=== PATIENT | male | born 1990 | race Two or more races ===

== ENCOUNTER 2021-10-17 09:18 | Inpatient (IN) | payer OTHER, SELFPAY ==
--- NOTE | ~2021-10-17 | CT_ITS ---
EXAMINATION: CT ABDOMEN AND PELVIS WITHOUT CONTRAST CLINICAL INFORMATION: Left flank pain. History of kidney stones. COMPARISON: Previous CT of the abdomen and pelvis July 2020 TECHNIQUE: Multidetector volumetric imaging was performed from the superior aspect of the liver through the pubic symphysis. Sagittal and coronal reformatted images were obtained on the technologist's workstation. This CT examination was performed using dose optimization techniques as appropriate, variously including the following: *Automated exposure control *Adjustment of mA and/or kV according to patient size (this includes techniques or standardized protocols for targeted exams where dose is matched to indication/reason for exam; i.e. extremities or head) *Use of iterative reconstruction technique DLP: 485 mGy-cm FINDINGS: LUNG BASES: The visualized lung bases are unremarkable. LIVER, GALLBLADDER, AND BILIARY TREE: The liver is normal in size, shape, and attenuation. No focal hepatic lesion or biliary ductal dilatation is present. The gallbladder is unremarkable with no evidence of radiopaque gallstones, gallbladder wall thickening, or obvious pericholecystic inflammatory changes. PANCREAS: Unremarkable. SPLEEN: Unremarkable. ADRENAL GLANDS: Unremarkable. KIDNEYS AND URETERS: There is moderate left hydronephrosis from a 0.8 x 1.4 cm left UPJ stone. There are bilateral renal stones. Largest right renal stone measures 5 mm in the lower pole. Largest left renal stone measures 2 x 4 mm in the lower pole. BLADDER: Unremarkable. GASTROINTESTINAL TRACT: The small and large bowel are unremarkable. The appendix is unremarkable. ABDOMINAL WALL: There is a ventral or supraumbilical hernia containing fat. There is a small umbilical hernia containing fat. LYMPH NODES: Normal. VASCULAR: Unremarkable. PELVIC VISCERA: Unremarkable. OSSEOUS STRUCTURES: Unremarkable. CT/CT abdomen pelvis wo con IMPRESSION: Left hydronephrosis from a 8 x 14 mm left UPJ stone. Smaller bilateral renal stones.
[2021-10-17 09:53] VITALS: BP 126/70; PULSE 83; RESP 18; TEMP 36.7; O2SAT 97; BMI 26.4
[2021-10-17] MEDS: Ondansetron ODT 4 MG TAB.RAPDIS TRANSLINGU (11:14)
[2021-10-17] MEDS: ondansetron HCL 4 MG/2 ML VIAL IVPUSH ×2 (13:23→18:28)
[2021-10-17] MEDS: Ketorolac Tromethamine 15 MG/ML VIAL 30 MG IVPUSH (13:24)
[2021-10-17 13:25] LABS: MANUAL DIFF FLAG NO
[2021-10-17] MEDS: Morphine Sulfate 4 MG/ML CARTRIDGE IVPUSH ×2 (13:25→14:53)
[2021-10-17] MEDS: 0.9 % Sodium Chloride 1,000 ML 999 ML IV (13:26)
[2021-10-17 13:29] LABS: Basophils Percent Auto 0.1 % (0-2); Eosinophils Percent Auto 0.1 % (0-4); Hemoglobin 14.4 g/dl (14.0-18.0); Imm Gran Abs Auto 0.06 X10*3/uL (0.00-0.03); Imm Gran Pct Auto 0.4 % (0.0-0.4); Lymphocytes Absolute Auto 0.5 X10*3/uL (1.2-4.9); Lymphocytes Percent Auto 3.2 % (20-40); Mean Corpuscular HGB Conc 34.3 g/dl (31.0-36.0); Mean Corpuscular Hemoglobin 28.9 pg (27.0-33.0); Mean Corpuscular Volume 84.2 fL (80.0-98.0); Mean Platelet Volume 9.1 fL (9.4-12.4); Monocytes Absolute Auto 1.1 X10*3/uL (0.1-1.2); Monocytes Percent Auto 6.6 % (2-11); Neutrophils Absolute Auto 14.8 x10*3/uL (2.0-8.3); Neutrophils Percent Auto 89.6 % (45-73); Platelet Count 325 X10*3/uL (160-400); Red Blood Count 4.99 X10*6/uL (4.60-5.80); Red Cell Distribution Width 15.5 % (11.0-16.0); White Blood Count 16.5 X10*3/uL (4.8-10.8)
[2021-10-17 13:48] LABS: Alanine Aminotransferase 13 U/L (0-40); Albumin Level 4.3 g/dL (3.5-5.0); Alkaline Phosphatase 77 U/L (39-117); Anion Gap 13 (12-20); Aspartate Amino Transferase 15 U/L (5-37); Bilirubin Total 0.5 mg/dL (0.0-1.0); Blood Urea Nitrogen 19 mg/dL (9-16); Calcium 9.3 mg/dL (8.4-10.2); Carbon Dioxide 24 mmol/L (22-29); Chloride 106 mmol/L (96-108); Creatinine Clr Calc Pharmacy 102.6; Estimated Glomerular Filt Rate > 60; Glucose Random 112 mg/dL (60-115); Potassium 4.6 mmol/L (3.3-5.1); Sodium 138 mmol/L (135-145); Total Protein 7.2 g/dL (6.5-8.0)
--- NOTE | 2021-10-17 14:07 | ED_ITS ---
HPI - Abdominal Pain General Chief Complaint: Abdominal Pain Stated Complaint: lt side flank & abd pain Time Seen by Provider: 10/17/21 13:07 Source: patient Mode of arrival: ambulatory Limitations: no limitations History of Present Illness HPI narrative: Patient with pmh of Kidney stones presents to the ED for left sided flank pain for 1 weeks. patient states he thinks he is having another kidnye stones. patient has had stent placed in the past. Patient denies hematuria, dysuria, fever, chills, or any recent trauma. Related Data Allergies Allergy/AdvReac Type Severity Reaction Status Date / Time cat dander [CATS] Allergy Unknown UNKNOWN Verified 10/17/21 09:52 dog dander [DOGS] Allergy Unknown UNKNOWN Verified 10/17/21 09:52 Review of Systems Review of Systems Yes all other systems are reviewed and are negative Constitutional: Reports as per HPI and Reports no additional constitutional complaints Eyes: Reports as per HPI and Reports no additional eye complaints Reports system reviewed and no additional complaints, except as documented and Reports as per HPI Cardiovascular: Reports as per HPI and Reports no additional cardiovascular complaints Respiratory: Reports as per HPI and Reports no additional respiratory complaints Gastrointestinal: Reports as per HPI, Reports no additional gastrointestinal complaints, Reports abdominal pain (left sided flank pain. ), Reports nausea and Reports vomiting Musculoskeletal: Reports no additional musculoskeletal complaints and Reports as per HPI Reports system reviewed and no additional complaints, except as documented and Reports as per HPI Psychiatric: Reports no additional psychiatric complaints and Reports as per HPI Physical Exam Vital Signs: Vital Signs: Last Vital Signs Temp 98.1 F 10/17/21 09:53 Pulse 83 10/17/21 09:53 Resp 18 10/17/21 09:53 BP 126/70 10/17/21 09:53 Pulse Ox 97 10/17/21 09:53 Body Mass Index 26.4 Const: General: cooperative, healthy appearing, comfortable, no acute distress, well developed, alert, awake and Physically active Orientation/consciousness: patient oriented x3 HENMT: Head: Yes normal to inspection, Yes No palpable skull fracture present, Yes normocephalic, Yes atraumatic and No abrasion Eyes: General: appearance normal, both eyes and all related structures Neck: Neck: Yes normal visual inspection, Yes full ROM, Yes no lymphadenopathy, Yes no meningeal signs, Yes trachea midline, Yes supple, No anterior neck swelling and No tender Chest: Chest palpation & inspection: normal inspection of the chest and normal palpation of entire chest wall Resp: Effort & Inspection: normal respiratory effort and able to speak in complete sentences Auscultation: clear to auscultation bilaterally Cardio: Jugular venous distension: no JVD Heart sounds: S1 normal heart sound present and S2 normal heart sound present GI: Inspection: Yes normal to inspection and No abdominal wall ecchymosis Palpation (GI): Soft to palpation, not firm, nontender, no guarding and not rigid : General: Yes CVA tenderness (left) and Yes no CVA tenderness Back/Spine/Pelvis: Back: no CVA tenderness, CVA tenderness (left) and No back tenderness Skin: General skin exam: no rashes or lesions noted and elasticity normal Neuro: General: patient oriented x3, gait normal, no meningeal signs and CN's II-XI intact bilaterally Cranial nerves: Yes CN's II-XII intact bilaterally Extrem: General: Yes normal to inspection and Yes full ROM Psych: Appearance: grossly normal, well kempt and not disheveled Course Course Course Narrative: Labs, pain meds, and imaged ordered. Reevaluation(s) Reevaluation #1: Patient has WBC of 16, [address] scan of 8mm stone at UPJ with hydronephrosis. Spoke with Dr. Webb of Urology who recommended admission to hospitalists, IV antibiotics, and Surgery in the morning. Patent given morphine, dilaudid, and toradol ordered for pain meds. Patient agreed with plan to be admitted. Time: 17:12 MDM - Abdominal Pain MDM Narrative Medical decision making narrative: Admitted for UPJ stone with hydronephrosisi Lab Data Result diagrams: 10/17/21 13:20 10/17/21 13:20 Labs: Lab Results 10/17/21 10/17/21 10/17/21 Range/Units 13:20 13:20 14:46 WBC 16.5 H (4.8-10.8) X10*3/uL RBC 4.99 (4.60-5.80) X10*6/uL Hgb 14.4 (14.0-18.0) g/dl Hct 42.0 (42.0-52.0) % MCV 84.2 (80.0-98.0) fL MCH 28.9 (27.0-33.0) pg MCHC 34.3 (31.0-36.0) g/dl RDW 15.5 (11.0-16.0) % Plt Count 325 (160-400) X10*3/uL MPV 9.1 L (9.4-12.4) fL Immature Gran % (Auto) 0.4 (0.0-0.4) % Neut % (Auto) 89.6 H (45-73) % Lymph % (Auto) 3.2 L (20-40) % [place] % (Auto) 6.6 (2-11) % Eos % (Auto) 0.1 (0-4) % Baso % (Auto) 0.1 (0-2) % Lymph # (Auto) 0.5 L (1.2-4.9) X10*3/uL [place] # (Auto) 1.1 (0.1-1.2) X10*3/uL Eos # (Auto) 0.0 (0.0-0.4) X10*3/uL Baso # (Auto) 0.0 (0.0-0.2) X10*3/uL Abs Immat Gran (auto) 0.06 H (0.00-0.03) X10*3/uL Absolute Neuts (auto) 14.8 H (2.0-8.3) x10*3/uL Absolute Nucleated RBC 0.000 (0.0-0.012) X10*3/uL Nucleated RBC % (auto) 0.0 (0.0-0.2) /100WBC Sodium 138 (135-145) mmol/L Potassium 4.6 (3.3-5.1) mmol/L Chloride 106 (96-108) mmol/L Carbon Dioxide 24 (22-29) mmol/L Anion Gap 13 (12-20) BUN 19 H (9-16) mg/dL Creatinine 1.09 (0.5-1.4) mg/dL Estim Creat Clear Calc 102.6 Estimated GFR > 60 Random Glucose 112 (60-115) mg/dL Calcium 9.3 (8.4-10.2) mg/dL Total Bilirubin 0.5 (0.0-1.0) mg/dL AST 15 (5-37) U/L ALT 13 (0-40) U/L Alkaline Phosphatase 77 (39-117) U/L Total Protein 7.2 (6.5-8.0) g/dL Albumin 4.3 (3.5-5.0) g/dL Urine Color YELLOW Urine Appearance CLEAR Urine pH 6.0 (5.0-8.0) Ur Specific [place] 1.025 (1.005-1.025) Urine Protein TRACE (NEG-TRACE) MG/DL Urine Glucose (UA) NEG (NEG) MG/DL Urine Ketones 40 (NEG) MG/DL Urine Blood 2+ H (NEG) Urine Nitrite NEG (NEG) Ur Leukocyte Esterase NEG (NEG) Urine RBC 1-4 (0) /HPF Urine WBC 0-2 (0-4) /HPF Ur Squamous Epith Cells NONE /LPF Urine Bacteria NONE /LPF Urine Mucus TRACE /LPF Discharge Plan Discharge Clinical Impression: Calculus of kidney Patient Disposition: Admitted As Inpatient [facility] Past Medical History Medical History (Updated 10/17/21 @ 17:19 by CHRISTIE Tuore) Kidney stones Social History Social History Advance Directives: No Advance Directives Information Provided: No
[2021-10-17 14:53] LABS: Appearance Urine CLEAR; Color Urine YELLOW; Glucose Urine UA NEG (NEG); Leukocyte Esterase Urine NEG (NEG); Nitrite Urine NEG (NEG); Specific Gravity - Urine 1.025 (1.005-1.025); UACC Culture Trigger NO; Urine Blood 2+ (NEG); Urine Ketones 40 MG/DL (NEG); Urine Protein TRACE MG/DL (NEG-TRACE)
[2021-10-17 15:24] LABS: Mucus Urine TRACE /LPF; WBC Urine 0-2 /HPF (0-4)
[2021-10-17] MEDS: HYDROmorphone HCl 0.5 MG/0.5 ML SYRINGE IVPUSH ×2 (15:30→21:44)
--- NOTE | 2021-10-17 16:31 | PM.UROCN ---
History of Present Illness Consult details Consult date: 10/17/21 Narrative: Onesimo is known to the urology service multiple presentations to ER for flank pain ongoing recurrent stone issues since 2015 multiple prior stone procedures in 2019 for stone recurrence does not follow-up for ongoing stone management presents today with left-sided flank pain CT imaging shows 1 cm stone proximal ureter, UPJ elevated white count with blood in the urine but no evidence of bacteriuria recommend cystoscopy with left retrograde stent placement PMF Past Medical History Medical History (Updated 10/17/21 @ 09:54 by Shama Sharif) Kidney stones Social History Social History Advance Directives: No Advance Directives Information Provided: No Meds Allergies Allergy/AdvReac Type Severity Reaction Status Date / Time cat dander [CATS] Allergy Unknown UNKNOWN Verified 10/17/21 09:52 dog dander [DOGS] Allergy Unknown UNKNOWN Verified 10/17/21 09:52 Physical Exam Vital Signs: Vital Signs: Last Vital Signs Temp 98.1 F 10/17/21 09:53 Pulse 83 10/17/21 09:53 Resp 18 10/17/21 09:53 BP 126/70 10/17/21 09:53 Pulse Ox 97 10/17/21 09:53 Body Mass Index 26.4 Results Labs Result diagrams: 10/17/21 13:20 10/17/21 13:20 Labs: Abnormal lab results 10/17/21 10/17/21 10/17/21 Range/Units 13:20 13:20 14:46 WBC 16.5 H (4.8-10.8) X10*3/uL MPV 9.1 L (9.4-12.4) fL Neut % (Auto) 89.6 H (45-73) % Lymph % (Auto) 3.2 L (20-40) % Lymph # (Auto) 0.5 L (1.2-4.9) X10*3/uL Abs Immat Gran (auto) 0.06 H (0.00-0.03) X10*3/uL Absolute Neuts (auto) 14.8 H (2.0-8.3) x10*3/uL BUN 19 H (9-16) mg/dL Urine Blood 2+ H (NEG) Short CBC 10/17/21 Range/Units 13:20 WBC 16.5 H (4.8-10.8) X10*3/uL Hgb 14.4 (14.0-18.0) g/dl Hct 42.0 (42.0-52.0) % Plt Count 325 (160-400) X10*3/uL BMP 10/17/21 13:20 Sodium 138 Potassium 4.6 Chloride 106 Carbon Dioxide 24 BUN 19 H Creatinine 1.09 Calcium 9.3 Liver Function 10/17/21 Range/Units 13:20 Total Bilirubin 0.5 (0.0-1.0) mg/dL AST 15 (5-37) U/L ALT 13 (0-40) U/L Alkaline Phosphatase 77 (39-117) U/L Albumin 4.3 (3.5-5.0) g/dL Urine 10/17/21 Range/Units 14:46 Urine Color YELLOW Urine Appearance CLEAR Urine pH 6.0 (5.0-8.0) Ur Specific [place] 1.025 (1.005-1.025) Urine Protein TRACE (NEG-TRACE) MG/DL Urine Glucose (UA) NEG (NEG) MG/DL All other labs normal.
--- NOTE | 2021-10-17 16:58 | PM.IMHP ---
History of Present Illness Date of Service: 10/17/21 Chief Complaint: Loin pain A 31 years old male with PMH of kidney stones who presents to the hospital with 1 week of worsening left-sided line pain. He reports placement of stent before for similar reason. He denies hematuria, dysuria, fever or chills. CT scan showed almost 1 cm stone partially obstructing left ureter. Evaluated by Urology who recommended inpatient admission for stent placement. Review of Systems Review of Systems: No fever, chills or weakness No chest pain, palpitation No shortness of breath or coughing No abdominal pain, nausea or vomiting Loin pain No any rash or wounds PMFSH Medical History Kidney stones Social History Advance Directives: No Advance Directives Information Provided: No Meds Allergies Allergy/AdvReac Type Severity Reaction Status Date / Time cat dander [CATS] Allergy Unknown UNKNOWN Verified 10/17/21 09:52 dog dander [DOGS] Allergy Unknown UNKNOWN Verified 10/17/21 09:52 Active Medications: Current Medications Pharmacy Consult (Consult Rx Perform Med Rec) 1 each MISCELLANE ONCE PRN PRN Reason: Consult order Physical Exam Vital Signs and Narrative: Vital Signs: Last Vital Signs Temp 98.1 F 10/17/21 09:53 Pulse 83 10/17/21 09:53 Resp 18 10/17/21 09:53 BP 126/70 10/17/21 09:53 Pulse Ox 97 10/17/21 09:53 Body Mass Index 26.4 Const: Other: Constitutional : Alert, oriented, not in distress Neck : Normal inspection, Supple Cardiovascular : RRR, S1 S2, no lower extremity edema Respiratory : Good bilateral air entry, no crackles, wheezes or rhonchi Gastrointestinal: soft, lax, Normal bowel sounds, Non tender Skin : Warm, Dry Back, tenderness on palpation of the CVA and left-sided back Neurological : Alert & oriented x3, No focal deficit Results Labs CBC and Chem 7: 10/17/21 13:20 10/17/21 13:20 Labs: Laboratory Results - last 24 hr 10/17/21 10/17/21 10/17/21 13:20 13:20 14:46 MCV 84.2 MCH 28.9 MCHC 34.3 RDW 15.5 Plt Count 325 MPV 9.1 L Immature Gran % (Auto) 0.4 Neut % (Auto) 89.6 H Lymph % (Auto) 3.2 L [place] % (Auto) 6.6 Eos % (Auto) 0.1 Baso % (Auto) 0.1 Lymph # (Auto) 0.5 L [place] # (Auto) 1.1 Eos # (Auto) 0.0 Baso # (Auto) 0.0 Abs Immat Gran (auto) 0.06 H Absolute Neuts (auto) 14.8 H Absolute Nucleated RBC 0.000 Nucleated RBC % (auto) 0.0 Anion Gap 13 Estim Creat Clear Calc 102.6 Estimated GFR > 60 Random Glucose 112 Calcium 9.3 Total Bilirubin 0.5 AST 15 ALT 13 Alkaline Phosphatase 77 Total Protein 7.2 Albumin 4.3 Urine Color YELLOW Urine Appearance CLEAR Urine pH 6.0 Ur Specific [place] 1.025 Urine Protein TRACE Urine Glucose (UA) NEG Urine Ketones 40 Urine Blood 2+ H Urine Nitrite NEG Ur Leukocyte Esterase NEG Urine RBC 1-4 Urine WBC 0-2 Ur Squamous Epith Cells NONE Urine Bacteria NONE Urine Mucus TRACE Imaging Radiologist's Impressions: Impressions Abdomen/Pelvis CT 10/17/21 13:10 IMPRESSION: Left hydronephrosis from a 8 x 14 mm left UPJ stone. Smaller bilateral renal stones. Assessment and Plan (1) Ureteric stone: Status: Acute (2) Hydronephrosis concurrent with and due to calculi of kidney and ureter: Status: Acute (3) Leukocytosis: Status: Acute A 31 years old male with PMH of kidney stones who presents to the hospital with 1 week of worsening left-sided line pain. Hydronephrosis 2/[address] scan as reported Evaluated by urology team, recommended starting antibiotics Plan for stent placement Wednesday morning Start ceftriaxone 1 g Q 24 DVT PPX Lovenox Quality Stroke Does the patient have a stroke diagnosis?: No VTE Prior VTE?: No VTE Risk Level:: Medical - moderate - high VTE Device Contraindication: Treatment Not Tolerated VTE Drug Contraindication: N/A - Med Ordered
[2021-10-17 17:00] LABS: Lactic Acid 0.6 mmol/L (0.5-2.0)
[2021-10-17 17:09] LABS: COVID-19 Test Negative (Negative)
[2021-10-17] MEDS: cefTRIAXone sodium 1 GM in 0.9 % Sodium Chloride 50 ML IV (17:20)
[2021-10-17] MEDS: Morphine Sulfate 4 MG/ML CARTRIDGE 2 MG IVPUSH ×2 (17:32→21:17)
--- NOTE | 2021-10-17 17:57 | PHA.MEDREC ---
Pharmacy Consult ? Medication Reconciliation Pharmacy has completed the medication reconciliation.
[2021-10-17] MEDS: Ketorolac Tromethamine 30 MG/ML VIAL 15 MG IVPUSH (18:28)
[2021-10-17 19:32] VITALS: RESP 16
--- NOTE | 2021-10-17 19:33 | PC.NURSE ---
pt resting in stretcher awake and speaking with sig other at bedside. respirations easy, n/l. skin w/d. pt awaiting for further orders and room assignment. pt rating pain 3/10 and states im ok at this time . will continue to monitor pt.
--- NOTE | 2021-10-17 20:29 | PC.NURSE ---
pt wanting to sign out ama and wants to take po antibiotics. Hospitalist aware and coming to speak with pt.
--- NOTE | 2021-10-17 20:55 | PC.NURSE ---
hospitalist at bedside speaking with pt. hospitalist ordering dilaudid for pain. awaiting orders.
[2021-10-17 21:17] VITALS: RESP 18
[2021-10-17 21:44] VITALS: RESP 16
--- NOTE | 2021-10-17 21:47 | P.EN_ITS ---
Event Note Date of Service: 10/18/21 Event Note: pt wants to leave AMA. Spoke to him about the seriousness of the o bstructing urinary stone i spoke to the pt , he is adamant that he wants to leave., i informed him that if he leaves he may become septic as he has an obstructing kidney stone, He is aware that sepsis can lead to as well. pt aware of risk and still wants to leave. he will be leaving AMA
--- NOTE | 2021-10-17 22:35 | PC.NURSE ---
PT REFUSING TO STAY FOR ADMISSION. HOSPITALIST RETURNS TO SPEAK WITH PT. PT DECIDED TO SIGN OUT. PT GIVEN RISKS OF LEAVING AGAINST MEDICAL ADVISE AND VERBALIZED AGREEMENT TO RISK OF LEAVING. PT SIGNED AMA FORM. IV REMOVED INTACT. PT LEFT ED WITH STEADY EVEN GAIT TO WR WITH SIGN OTHER.
--- NOTE | 2021-10-20 10:19 | P.PNUR_ITS ---
Subjective Subjective Date of Service: 10/20/21 Interval history: persistent left-sided flank discomfort Stone has not passed White count is decreased Creatinine has decreased with hydration Plan for intervention today with cystoscopy, left retrograde, left ureteroscopy laser lithotripsy Physical Exam Vital Signs: Vital Signs: Last Vital Signs Temp 98.1 F 10/17/21 09:53 Pulse 83 10/17/21 09:53 Resp 16 10/17/21 21:44 BP 126/70 10/17/21 09:53 Pulse Ox 97 10/17/21 09:53 Body Mass Index 26.4 Const: General: cooperative, healthy appearing, comfortable and no acute di stress Orientation/consciousness: patient oriented x3 HENMT: Face and sinus: Yes normal facial exam Mouth: moist mucous membranes Neck: Neck: Yes normal visual inspection, Yes full ROM and Yes trachea midline Chest: Chest palpation & inspection: normal inspection of the chest Resp: Effort & Inspection: normal respiratory effort, able to speak in complete sentences and no respiratory distress GI: Inspection: Yes normal to inspection Back/Spine/Pelvis: Cervical Spine: normal cervical lordosis Thoracic/Lumbar Spine: thoracic and lumbar spine normal to inspection Skin: General skin exam: no rashes or lesions noted Neuro: General: patient oriented x3, gait normal, tone normal and moves all extremities Extrem: General: Yes normal to inspection and Yes capillary refill normal Urology Results Labs CBC & Chem 7: 10/17/21 13:20 10/17/21 13:20 Progress Note: A&P Assessment and plan (1) Hydronephrosis concurrent with and due to calculi of kidney and ureter: Status: Acute Assessment and Plan: plan for left cysto with ureteroscopy procedure Time Spent With Patient Time: Total time spent is greater than 50% in coordination of care (as documented) at patient's floor/unit and/or counseling patient: Time with patient: less than 15 minutes No Severe Sepsis: No Severe Sepsis Progress Note: Quality Stroke Does the patient have a stroke diagnosis?: No
--- NOTE | 2021-10-20 11:25 | P.OP_ITS ---
Operative Note Operative Note Date of Service: 10/20/21 Narrative: PreOperative Diagnosis: left proximal ureteric stone Post Operative Diagnosis: left renal stone Procedure: - cystoscopy, left retrograde - left dilatation of ureteric orifice under fluoroscopy - left ureteroscopy, laser lithotripsy, stone basketing Surgeon: Dr Eros Webb Anesthesia: General Indications for procedure: this is a 31-year-old male. Presented through emergency department with left- sided flank pain. Had 1 cm stone in the UPJ. Has undergone prior stone procedures. Indicated that he would would be willing to undergo procedure however he did not tolerate stent previously and requests not to have a stent. He understands the risks and benefits particularly risk of stone fragmentation blockage and infection. Procedure: After informed consent was verified patient was brought to the operating placed in supine position. Anesthesia was administered per protocol. Patient was placed in modified dorsal lithotomy position and prepped and draped in a sterile fashion. Safety pause time-out and side of surgery confirmed. Antibiotics confirmed. 22 [place] cystoscope was inserted. Both ureteric orifices normal position. Left ureteric orifice was seen and cannulated. Retrograde examination was performed. Filling defects seen proximal ureter. Sensor guidewire was placed. Ureteric catheter was advanced. Stone was knocked up into the renal pelvis. A ureteric access sheath was placed. The internal cannula was used to dilate ureteric orifice under fluoroscopy. The sheath was placed. The internal cannula was removed and the wire was removed. A flexible ureteral scope was then advanced up to the level renal pelvis. The renal pelvis was examined. The large stone was seen that had been placed in the renal pelvis. Using a 200 micron holmium laser fiber and combination hammer and dusting settings on the laser the stone was broken into small pieces. This took approximately 30 minutes. We then spent another 20 minutes basketing fragments and removing these from the kidney. Kidney was also irrigated throughout this time frame. Once all pieces that were visible and could be placed within the basket were removed decision was made to cease the case. No stent was placed. The access sheath was removed. A cystoscope was placed in the bladder was drained. Pain control was provided with B&O suppository He tolerated procedure well was extubated in operating room transferred in stable condition to the recovery area. Pathology: Stones Drains: none
== END 2021-10-18 05:19 | disposition left against medical advice (07) | DRG 465 ==
LOC: HO.ED 17:19 → HO.EDOVER 17:25
PROVIDERS: Physician Assistant; Admitting Provider Student in an Organized Health Care Education/Training Program; Emergency Provider Emergency Medicine; PCP Family Medicine; Visit Provider Student in an Organized Health Care Education/Training Program
DX: N13.2 Hydronephrosis with renal and ureteral calculous obstruction (principal); Z20.822 Contact with and (suspected) exposure to COVID-19; Z87.442 Personal history of urinary calculi; Z79.1 Long term (current) use of non-steroidal anti-inflammatories (NSAID); Z79.899 Other long term (current) drug therapy
CPT/HCPCS: 36415; 74176; 80053; 81001; 83605; 85025; 87040; 87635; 96361; 96365; 96375; 96376; 99283; 99291; J0696; J1170; J1885; J2270; J2405

== ENCOUNTER 2021-10-18 04:47 | Inpatient (IN) | payer OTHER, SELFPAY ==
[2021-10-18] VITALS (9 sets, daily range): BP systolic 98–181; BP diastolic 61–85; PULSE 56–88; RESP 16–19; TEMP 36.6–37.3; O2SAT 98–100; BMI 26.1
--- NOTE | ~2021-10-18 | FL_ITS ---
EXAMINATION: XR FLUOROSCOPY WITH IMAGES CLINICAL INFORMATION: Left UPJ stone COMPARISON: Previous CT of the abdomen and pelvis 10/17/2021 TECHNIQUE: Fluoroscopy performed by Dr. Eros Webb. Fluoroscopy time: 0.5 minutes Dose: 8 mgy Images: 1 FINDINGS: Single image demonstrates catheter projecting over the left proximal ureter. FL/FL guidance in OR IMPRESSION: Fluoroscopy guidance for left retrograde exam.
--- NOTE | 2021-10-18 04:53 | ED_ITS ---
HPI - General Adult General Stated complaint: flank pain Time Seen by Provider: 10/18/21 04:49 Source: patient Mode of arrival: ambulatory Limitations: no limitations History of Present Illness HPI narrative: Patient is returning to the emergency room complaining of left flank pain. A few hours ago, patient left against medical advice. Patient's providers, hospitalist and nurse tried to convince him to stay, patient is known to have a 8 mm x [address]J stone. Dr. Webb was consulted, recommended inpatient treatment for stent in the morning. Nevertheless, patient left against medical advice, but now his back complaining of worsening left flank pain nausea. Patient denies fever chills Related Data Home Medications Medication Instructions Recorded Confirmed No Known Home Meds 10/17/21 10/17/21 Allergies Allergy/AdvReac Type Severity Reaction Status Date / Time cat dander [CATS] Allergy Unknown UNKNOWN Verified 10/17/21 09:52 dog dander [DOGS] Allergy Unknown UNKNOWN Verified 10/17/21 09:52 Review of Systems Review of Systems: Constitutional : No Weight loss, No Fever, No Chills, No Night Sweats, No Fatigue, No Malaise ENT/Mouth : No Hearing loss, No Ear Pain, No Nasal Congestion, No Sinus Pain, No Hoarseness, No sore throat, No Rhinorrhea, No Swallowing Difficulty Eyes: No Eye Pain, No Swelling, No Redness, No Foreign Body, No Discharge, No Vision Changes Cardiovascular : No Chest Pain, No SOB, No Dyspnea on Exertion, No Orthopnea, No Edema, No Palpitations Respiratory : No Cough, No Sputum, No Wheezing, No Smoke Exposure, No Dyspnea Gastrointestinal : No Nausea, No Vomiting, No Diarrhea, No Constipation, No abdominal Pain, No Hematochezia, No Melena Genitourinary : no irregular bleeding, No Dysuria, No Urinary Frequency, No Hematuria, No Urinary Incontinence, No Urgency, complaining of severe left Flank Pain, No Urinary Flow Changes, No Hesitancy Musculoskeletal : No joint pain, No Myalgias, No Joint Swelling Skin : No Skin Lesions, No rash Neuro : No Weakness, No Numbness, No Paresthesias, No Loss of Consciousness, No Dizziness, No Headache Psych : No Anxiety/Panic, No Depression, No SI/HI/AH/VH, No Social Issues, Heme/Lymph: No Bruising, No Bleeding,No Lymphadenopathy Endocrine : No Polyuria, No Polydipsia, No Temperature Intolerance [facility] Past Medical History Medical History Kidney stones Physical Exam Const: Other: Appearance: Alert. Oriented X3. Looks in pain Eyes: Pupils equal, round and reactive to light. ENT: Pharynx normal. Neck: Normal inspection. Neck supple. No lymph nodes noted. No crepitus CVS: Normal heart rate and rhythm. Pulses normal. Normal S1 and S2 Respiratory: No respiratory distress. Breath sounds normal. No Wheezing. No rales Abdomen: Soft and nontender. No rigidity. No distention. Back: Positive CVA tenderness left side Skin: Skin warm and dry. Normal skin color. Normal skin turgor. Extremities: No lower extremity edema. No lower extremity edema. No Lacerations. No Rash Neuro: Oriented X 3. No motor deficit. No sensory deficit. Moving all extermities. No slurred speech. Course Course Course Narrative: Patient states that he will state this time, I discussed the patient with Dr. Head, patient is being readmitted. Discharge Plan Discharge Clinical Impression: Ureteric stone Patient Disposition: Admitted As Inpatient Prescriptions: No Action No Known Home Meds RF: 0
[2021-10-18 05:09] LABS: MANUAL DIFF FLAG NO
[2021-10-18] MEDS: ondansetron HCL 4 MG/2 ML VIAL IVPUSH ×3 (05:09→19:49)
[2021-10-18] MEDS: Ketorolac Tromethamine 15 MG/ML VIAL 30 MG IVPUSH (05:09)
[2021-10-18] MEDS: 0.9 % Sodium Chloride 1,000 ML 999 ML IVCONT (05:10)
[2021-10-18 05:24] LABS: Basophils Percent Auto 0.2 % (0-2); Eosinophils Percent Auto 0.4 % (0-4); Hematocrit 39.6 % (42.0-52.0); Hemoglobin 13.5 g/dl (14.0-18.0); Imm Gran Abs Auto 0.03 X10*3/uL (0.00-0.03); Imm Gran Pct Auto 0.3 % (0.0-0.4); Lymphocytes Absolute Auto 1.7 X10*3/uL (1.2-4.9); Lymphocytes Percent Auto 16.4 % (20-40); Mean Corpuscular HGB Conc 34.1 g/dl (31.0-36.0); Mean Corpuscular Hemoglobin 28.5 pg (27.0-33.0); Mean Corpuscular Volume 83.7 fL (80.0-98.0); Mean Platelet Volume 9.4 fL (9.4-12.4); Monocytes Absolute Auto 0.9 X10*3/uL (0.1-1.2); Neutrophils Absolute Auto 7.9 x10*3/uL (2.0-8.3); Neutrophils Percent Auto 74.7 % (45-73); Platelet Count 322 X10*3/uL (160-400); Red Blood Count 4.73 X10*6/uL (4.60-5.80); Red Cell Distribution Width 15.1 % (11.0-16.0); White Blood Count 10.6 X10*3/uL (4.8-10.8)
--- NOTE | 2021-10-18 05:30 | PC.NURSE ---
PT RETURNS TO ED VIA EMS WITH SAME COMPLAINTS LEFT SIDED FLANK PAIN WHICH RADIATES TO LEFT LQ. MD IN ROOM FOR EVAL. PT CHG INTO GOWN. IV PLACED TO RAC, LABS DRAWN TO LAB. PT MEDICATED PER EMAR FOR PAIN AND NAUSEA. NS UP AND RUNNING W/O SITE INTACT. WILL CONTINUE TO MONITOR PT.
[2021-10-18 05:34] LABS: Alanine Aminotransferase 16 U/L (0-40); Albumin Level 3.8 g/dL (3.5-5.0); Alkaline Phosphatase 68 U/L (39-117); Anion Gap 11 (12-20); Aspartate Amino Transferase 19 U/L (5-37); Bilirubin Direct 0.2 mg/dL (0.0-0.5); Bilirubin Total 0.4 mg/dL (0.0-1.0); Blood Urea Nitrogen 26 mg/dL (9-16); Calcium 8.7 mg/dL (8.4-10.2); Carbon Dioxide 23 mmol/L (22-29); Chloride 107 mmol/L (96-108); Creatinine Clr Calc Pharmacy 79.9; Estimated Glomerular Filt Rate 58; Glucose Random 101 mg/dL (60-115); Potassium 3.8 mmol/L (3.3-5.1); Sodium 137 mmol/L (135-145); Total Protein 6.3 g/dL (6.5-8.0)
[2021-10-18] MEDS: Morphine Sulfate 4 MG/ML CARTRIDGE IVPUSH ×5 (06:50→23:51)
--- NOTE | 2021-10-18 08:21 | PC.NURSE ---
Pt medicated for pain at 5am and 7am. He reported pain at 7:30. MD made aware of this. Pt given morphine for pain. BPs soft at this time but stable. Automatic cuff on pt cycling at every 15min. Will continue to monitor. Pt given cold juice and encouraged to maintain adequate po fluid intake.
--- NOTE | 2021-10-18 10:30 | P.HPHOSP_ITS ---
History of Present Illness Date of Service: 10/18/21 Chief Complaint: loin pain A 31 years old male with PMH of kidney stones who presents to the hospital with 1 week of worsening left-sided line pain.? He reports placement of stent before for similar reason.? He denies hematuria, dysuria, fever or chills.? CT scan showed almost 1 cm stone partially obstructing left ureter.? Evaluated by Urology who recommended inpatient admission for stent placement. Patient was admitted then left AMA. He came back the same night with severe pain. Review of Systems Review of Systems: No fever, chills or weakness No chest pain, palpitation No shortness of breath or coughing No abdominal pain, nausea or vomiting Lowering pain No any rash or wounds PMFSH Medical History Kidney stones Social History Alcohol intake: never Patient Tobacco Use Status: Never used Tobacco Use of substances other than those prescribed or required for medical reasons: No Advance Directives: No Advance Directives Information Provided: No Meds Allergies Allergy/AdvReac Type Severity Reaction Status Date / Time cat dander [CATS] Allergy Unknown UNKNOWN Verified 10/17/21 09:52 dog dander [DOGS] Allergy Unknown UNKNOWN Verified 10/17/21 09:52 Home Medications Medication Instructions Recorded Confirmed Last Taken Type No Known Home Meds 10/17/21 10/17/21 Unknown History Physical Exam Vital Signs and Narrative: Vital Signs: Last Vital Signs Temp 98 F 10/18/21 05:17 Pulse 57 10/18/21 07:56 Resp 19 10/18/21 07:56 BP 117/67 10/18/21 09:46 Pulse Ox 99 10/18/21 07:56 Body Mass Index 26.1 Const: Other: Constitutional : Alert, oriented, not in distress Neck : Normal inspection, Supple Cardiovascular : RRR, S1 S2, no lower extremity edema Respiratory : Good bilateral air entry, no crackles, wheezes or rhonchi Gastrointestinal: soft, lax, Normal bowel sounds, Non tender Skin : Warm, Dry Back, tenderness on palpation of the CVA and left-sided back Neurological : Alert & oriented x3, No focal deficit Results Labs CBC and Chem 7: 10/18/21 05:05 11/20/21 05:05 Labs: Laboratory Results - last 24 hr 10/18/21 10/18/21 05:05 05:05 MCV 83.7 MCH 28.5 MCHC 34.1 RDW 15.1 Plt Count 322 MPV 9.4 Immature Gran % (Auto) 0.3 Neut % (Auto) 74.7 H Lymph % (Auto) 16.4 L [place] % (Auto) 8.0 Eos % (Auto) 0.4 Baso % (Auto) 0.2 Lymph # (Auto) 1.7 [place] # (Auto) 0.9 Eos # (Auto) 0.0 Baso # (Auto) 0.0 Abs Immat Gran (auto) 0.03 Absolute Neuts (auto) 7.9 Absolute Nucleated RBC 0.000 Nucleated RBC % (auto) 0.0 Anion Gap 11 L Estim Creat Clear Calc 79.9 Estimated GFR 58 Random Glucose 101 Calcium 8.7 D Total Bilirubin 0.4 Direct Bilirubin 0.2 AST 19 ALT 16 Alkaline Phosphatase 68 Total Protein 6.3 L Albumin 3.8 Assessment and Plan (1) Hydronephrosis concurrent with and due to calculi of kidney and ureter: Status: Acute (2) Calculus of kidney: Status: Acute (3) Leukocytosis: Status: Acute ?A 31 years old male with PMH of kidney stones who presents to the hospital with 1 week of worsening left-sided line pain. Hydronephrosis 2/[address] scan as reported Evaluated by urology team, recommended starting antibiotics Plan for stent placement Wednesday morning Start ceftriaxone 1 g Q 24 DVT PPX Lovenox Quality Stroke Does the patient have a stroke diagnosis?: No VTE Prior VTE?: No VTE Risk Level:: Medical - moderate - high VTE Device Contraindication: Treatment Not Indicated VTE Drug Contraindication: Treatment Not Indicated
[2021-10-18] MEDS: cefTRIAXone sodium 1 GM in 0.9 % Sodium Chloride 50 ML IV (11:25)
[2021-10-18] MEDS: 0.9 % Sodium Chloride 1,000 ML 100 ML IVCONT ×2 (11:25→22:32)
[2021-10-18] MEDS: Ketorolac Tromethamine 30 MG/ML VIAL 15 MG IVPUSH (14:27)
[2021-10-18] MEDS: 0.9 % Sodium Chloride Flush 3 ML SYRINGE IVFLUSH (14:29)
--- NOTE | 2021-10-18 14:56 | PC.NURSE ---
Pt having waives of severe pain. PRN meds given as needed. Hot packs being given as well. Pt is comfortable and pain free at times. Pt educated on pain r/t kidney stones, expectations for main management, and alternative measures of pain control.
[2021-10-18 15:53] LABS: COVID-19 Test Negative (Negative); IDNOW Serial# 9DD0AD1C
[2021-10-18] MEDS: Ketorolac Tromethamine 30 MG/ML VIAL IVPUSH ×2 (16:54→22:39)
[2021-10-18] MEDS: Acetaminophen 325 MG TABLET 650 MG PO (21:01)
[2021-10-18] MEDS: oxyCODONE HCl Immed Release 5 MG TABLET PO (21:01)
[2021-10-19] VITALS (9 sets, daily range): BP systolic 110–135; BP diastolic 63–82; PULSE 50–77; RESP 18–19; TEMP 36.1–37.1; O2SAT 98–99
--- NOTE | 2021-10-19 02:05 | PC.NURSE ---
Pt in pain, and out of PRNs to give. Dr Webb notified; told to write telephone order for [place] Supp, BID.
[2021-10-19] MEDS: Acetaminophen 325 MG TABLET 650 MG PO (02:57)
[2021-10-19] MEDS: oxyCODONE HCl Immed Release 5 MG TABLET PO ×3 (02:58→14:01)
[2021-10-19] MEDS: Morphine Sulfate 4 MG/ML CARTRIDGE IVPUSH ×6 (04:48→23:50)
[2021-10-19 07:01] LABS: Anion Gap 10 (12-20); Blood Urea Nitrogen 22 mg/dL (9-16); Calcium 8.2 mg/dL (8.4-10.2); Carbon Dioxide 23 mmol/L (22-29); Chloride 107 mmol/L (96-108); Creatinine Clr Calc Pharmacy 87.4; Estimated Glomerular Filt Rate > 60; Glucose Random 101 mg/dL (60-115); Potassium 3.8 mmol/L (3.3-5.1); Sodium 136 mmol/L (135-145)
[2021-10-19] MEDS: Ketorolac Tromethamine 30 MG/ML VIAL IVPUSH ×3 (07:24→21:48)
[2021-10-19] MEDS: Omeprazole 40 MG CAPSULE.DR PO (07:54)
[2021-10-19] MEDS: 0.9 % Sodium Chloride 1,000 ML 100 ML IVCONT ×2 (08:58→19:26)
--- NOTE | 2021-10-19 10:07 | HO.PM.IMPN ---
Subjective Subjective Date of Service: 10/19/21 Interval History: the patient was seen and evaluated this morning Laying in bed, Complaining of pain Denies any fever, chills or shortness of breath No reported other overnight events. Systemic review: No fever, chills or weakness No chest pain, palpitation No shortness of breath or coughing No abdominal pain, nausea or vomiting No urinary symptoms No any rash or wounds Physical Exam Vital Signs: Vital Signs: Last Vital Signs Temp 97.3 F 10/19/21 07:39 Pulse 50 10/19/21 07:39 Resp 19 10/19/21 07:54 BP 120/73 10/19/21 07:39 Pulse Ox 99 10/19/21 07:39 Body Mass Index 26.1 Const: Other: Constitutional : Alert, oriented, not in distress Neck : Normal inspection, Supple Cardiovascular : RRR, S1 S2, no lower extremity edema Respiratory : Good bilateral air entry, no crackles, wheezes or rhonchi Gastrointestinal: soft, lax, Normal bowel sounds, Non tender Skin : Warm, Dry Back, tenderness on palpation of the CVA and left-sided back Neurological : Alert & oriented x3, No focal deficit Objective Data Active Medications Acetaminophen (Acetaminophen 325 Mg Tablet) 650 mg PO Q6H PRN PRN Reason: Pain, Mild (Pain Scale 1-3) Last Admin: 10/19/21 02:57 Dose: 650 mg Documented by: WAYNE Belladonna Alkaloids/Opium (Opium/Bell[place] 30/16.2 Supp Supp.Rect) 1 supp [place] BID PRN PRN Reason: Pain, Severe (Pain Scale 7-10) Last Admin: 10/19/21 08:57 Dose: 1 supp Documented by: COTEMA Sodium Chloride (Ns) 1,000 mls @ 100 mls/hr IVCONT .Q10H [facility] Last Admin: 10/19/21 08:58 Dose: 100 mls/hr Documented by: JAYSHREE Ceftriaxone Sodium 1 gm/ (Sodium Chloride) 50 mls @ 100 mls/hr IV Q24H [facility] Last Infusion: 10/18/21 12:00 Dose: 0 mls/hr Documented by: SHAR Ketorolac Tromethamine (Ketorolac Tromethamine 30 Mg/Ml Vial) 30 mg IVPUSH Q6H PRN PRN Reason: Pain, Moderate (Pain Scale 4-6 Stop: 10/23/21 10:27 Last Admin: 10/19/21 07:24 Dose: 30 mg Documented by: COTEMA Morphine Sulfate (Morphine Sulfate 4 Mg/Ml Cartridge) 4 mg IVPUSH Q3H PRN; Protocol PRN Reason: Pain, Severe (Pain Scale 7-10) Last Admin: 10/19/21 07:54 Dose: 4 mg Documented by: COTEMA Omeprazole (Omeprazole 40 Mg Capsule.Dr) 40 mg PO DAILY@0630 [facility] Last Admin: 10/19/21 07:54 Dose: 40 mg Documented by: COTEMA Ondansetron HCl (Ondansetron Hcl 4 Mg/2 Ml Vial) 4 mg IVPUSH Q8H PRN PRN Reason: Nausea and Vomiting Last Admin: 10/18/21 19:49 Dose: 4 mg Documented by: RAINSHANTAL Oxycodone HCl (Oxycodone Hcl Immed Release 5 Mg Tablet) 5 mg PO Q4H PRN PRN Reason: Pain, Moderate (Pain Scale 4-6 Last Admin: 10/19/21 08:57 Dose: 5 mg Documented by: COLLINEMA Sodium Chloride (0.9 % Sodium Chloride Flush 3 Ml Syringe) 3 ml IVFLUSH QSHIFT [facility] Last Admin: 10/19/21 07:13 Dose: Not Given Documented by: COTEMA Non-Admin Reason: IV Running Labs CBC & Chem 7: 10/18/21 05:05 10/19/21 05:50 Labs: Laboratory Results - last 24 hr 10/18/21 10/19/21 15:31 05:50 Anion Gap 10 L Estim Creat Clear Calc 87.4 Estimated GFR > 60 Random Glucose 101 Calcium 8.2 L COVID-19 (LELIA) Negative COVID-19 Clin Com See Note Assessment and Plan (1) Hydronephrosis concurrent with and due to calculi of kidney and ureter: Status: Acute (2) Ureteric stone: Status: Acute Assessment and Plan: ?A 31 years old male with PMH of kidney stones who presents to the hospital with 1 week of worsening left-sided line pain. Hydronephrosis 2/[address] scan as reported Evaluated by urology team, recommended starting antibiotics Plan for stent placement Wednesday morning Continue ceftriaxone 1 g Q 24 Keep NPO post midnight DVT PPX Lovenox Quality Stroke Does the patient have a stroke diagnosis?: No VTE Prior VTE?: No VTE Risk Level:: Medical - moderate - high VTE Device Contraindication: Treatment Not Indicated VTE Drug Contraindication: Treatment Not Indicated
[2021-10-19] MEDS: cefTRIAXone sodium 1 GM in 0.9 % Sodium Chloride 50 ML IV (10:52)
[2021-10-19 11:06] LABS: Appearance Urine CLEAR; Color Urine YELLOW; Glucose Urine UA NEG (NEG); Leukocyte Esterase Urine NEG (NEG); Nitrite Urine NEG (NEG); Specific Gravity - Urine >= 1.030 (1.005-1.025); UACC Culture Trigger NO; Urine Blood TRACE (NEG); Urine Ketones 40 MG/DL (NEG); Urine Protein 1+ MG/DL (NEG-TRACE)
[2021-10-19 11:36] LABS: RBC Urine 0-2 /HPF (0); Squamous Epithelial Cell Urine TRACE /LPF; UACC CULT YES
[2021-10-19 11:37] LABS: Mucus Urine 1+ /LPF
[2021-10-19] MEDS: ondansetron HCL 4 MG/2 ML VIAL IVPUSH ×2 (11:39→23:50)
--- NOTE | 2021-10-19 16:52 | MHC.CM.PN ---
EMR REVIEWED, PT LIVES AT HOME W/ AND CHILDREN, PT IS INDEPENDENT W/ALL CARE, NO DME AND NO SERVICES, PT VERIFIES PCP IS JENIFER PEPPER AND WOULD LIKE TO COMPLETE A HCP PRIOR TO D/C. D/C PLAN: HOME SELF-CARE, PT'S SPOUSE FOR TRANSPORT
[2021-10-20] VITALS (8 sets, daily range): BP systolic 99–137; BP diastolic 48–75; PULSE 50–74; RESP 16–18; TEMP 36.4–36.8; O2SAT 96–99
[2021-10-20] MEDS: oxyCODONE HCl Immed Release 5 MG TABLET PO ×2 (01:06→07:44)
[2021-10-20] MEDS: HYDROmorphone HCl 0.5 MG/0.5 ML SYRINGE IVPUSH (01:27)
[2021-10-20] MEDS: Ketorolac Tromethamine 30 MG/ML VIAL IVPUSH (03:56)
[2021-10-20] MEDS: 0.9 % Sodium Chloride 1,000 ML 100 ML IVCONT (05:00)
[2021-10-20] MEDS: Morphine Sulfate 4 MG/ML CARTRIDGE IVPUSH ×2 (05:46→09:07)
[2021-10-20 06:19] LABS: Hematocrit 35.4 % (42.0-52.0); Hemoglobin 11.9 g/dl (14.0-18.0); Mean Corpuscular HGB Conc 33.6 g/dl (31.0-36.0); Mean Corpuscular Hemoglobin 28.5 pg (27.0-33.0); Mean Corpuscular Volume 84.9 fL (80.0-98.0); Mean Platelet Volume 9.7 fL (9.4-12.4); Platelet Count 272 X10*3/uL (160-400); Red Blood Count 4.17 X10*6/uL (4.60-5.80); Red Cell Distribution Width 15.6 % (11.0-16.0)
[2021-10-20 06:32] LABS: Anion Gap 12 (12-20); Blood Urea Nitrogen 19 mg/dL (9-16); Calcium 8.6 mg/dL (8.4-10.2); Carbon Dioxide 23 mmol/L (22-29); Chloride 110 mmol/L (96-108); Estimated Glomerular Filt Rate > 60; Glucose Random 79 mg/dL (60-115); Potassium 4.4 mmol/L (3.3-5.1); Sodium 141 mmol/L (135-145)
[2021-10-20] MEDS: Omeprazole 40 MG CAPSULE.DR PO (07:43)
--- NOTE | 2021-10-20 07:48 | P.CNUR_ITS ---
History of Present Illness Consult details Consult date: 10/19/21 Narrative: 31-year-old male known stone former left proximal ureteric 8 mm stone pain with presentation and elevated white count CT scan with proximal ureteric stone obstruction Plan for left cysto special Review of Systems Constitutional: Constitutional: Denies chills and Denies fever(s) Cardiovascular: Cardiovascular: Reports no additional cardiovascular co mplaints and Denies syncope Respiratory: Respiratory: Denies cough Gastrointestinal: Gastrointestinal: Denies abdominal pain and Denies heartburn Genitourinary: Genitourinary: Reports as per HPI and Denies change in libido Neurologic: Denies syncope Psychiatric: Psychiatric: Denies change in libido Endocrine: Endocrine: Denies change in libido [facility] Past Medical History Medical History Kidney stones Social History Social History Household Members: Spouse and Children Housing: Apartment Alcohol intake: never Patient Tobacco Use Status: Never used Tobacco Use of substances other than those prescribed or required for medical reasons: No Currently Displaying Signs/Symptoms of Drug Intoxication Withdrawal: No Have you been hit, kicked, punched, or otherwise hurt by someone within the past year? If so, by whom?: No Do you feel safe in your current relationship?: Yes Is there a partner from a previous relationship who is making you feel unsafe now?: No Are you made to feel afraid or neglected: No Advance Directives: No Advance Directives Information Provided: No Do you have thoughts of harming others: None Do you have a plan to hurt others: No Plan Recently lost weight without trying: No Eating poorly because of decreased appetite: No Nutrition Risks: Poor intake 0-25% >4 days service: No Current occupational status: unemployed Meds Allergies Allergy/AdvReac Type Severity Reaction Status Date / Time cat dander [CATS] Allergy Unknown UNKNOWN Verified 10/17/21 09:52 dog dander [DOGS] Allergy Unknown UNKNOWN Verified 10/17/21 09:52 Active Medications: Current Medications Acetaminophen (Acetaminophen 325 Mg Tablet) 650 mg PO Q6H PRN PRN Reason: Pain, Mild (Pain Scale 1-3) Last Admin: 10/19/21 02:57 Dose: 650 mg Documented by: Belladonna Alkaloids/Opium (Opium/Belladonna /16.2 Supp Supp.Rect) 1 supp [place] BID PRN PRN Reason: Pain, Severe (Pain Scale 7-10) Last Admin: 10/20/21 01:10 Dose: 1 supp Documented by: Sodium Chloride (Ns) 1,000 mls @ 100 mls/hr IVCONT .Q10H [facility] Last Admin: 10/20/21 05:00 Dose: 100 mls/hr Documented by: Ceftriaxone Sodium 1 gm/ (Sodium Chloride) 50 mls @ 100 mls/hr IV Q24H [facility] Last Infusion: 10/19/21 11:23 Dose: Infused Documented by: Ketorolac Tromethamine (Ketorolac Tromethamine 30 Mg/Ml Vial) 30 mg IVPUSH Q6H PRN PRN Reason: Pain, Moderate (Pain Scale 4-6 Stop: 10/23/21 10:27 Last Admin: 10/20/21 03:56 Dose: 30 mg Documented by: Morphine Sulfate (Morphine Sulfate 4 Mg/Ml Cartridge) 4 mg IVPUSH Q3H PRN; Protocol PRN Reason: Pain, Severe (Pain Scale 7-10) Last Admin: 10/20/21 05:46 Dose: 4 mg Documented by: Omeprazole (Omeprazole 40 Mg Capsule.Dr) 40 mg PO DAILY@0630 [facility] Last Admin: 10/20/21 07:43 Dose: 40 mg Documented by: Ondansetron HCl (Ondansetron Hcl 4 Mg/2 Ml Vial) 4 mg IVPUSH Q8H PRN PRN Reason: Nausea and Vomiting Last Admin: 10/19/21 23:50 Dose: 4 mg Documented by: Oxycodone HCl (Oxycodone Hcl Immed Release 5 Mg Tablet) 5 mg PO Q4H PRN PRN Reason: Pain, Moderate (Pain Scale 4-6 Last Admin: 10/20/21 07:44 Dose: 5 mg Documented by: Sodium Chloride (0.9 % Sodium Chloride Flush 3 Ml Syringe) 3 ml IVFLUSH QSHIFT [facility] Last Admin: 10/20/21 07:37 Dose: Not Given Documented by: Home Medications Medication Instructions Recorded Confirmed Last Taken Type No Known Home Meds 10/17/21 10/18/21 Unknown History Physical Exam Vital Signs: Vital Signs: Last Vital Signs Temp 98.1 F 10/20/21 07:30 Pulse 74 10/20/21 07:30 Resp 18 10/20/21 07:30 BP 137/75 10/20/21 07:30 Pulse Ox 99 10/20/21 07:30 Body Mass Index 26.1 Const: General: cooperative, healthy appearing, comfortable and no acute distress Orientation/consciousness: patient oriented x3 HENMT: Face and sinus: Yes normal facial exam Mouth: moist mucous membranes Neck: Neck: Yes normal visual inspection, Yes full ROM and Yes trachea midline Chest: Chest palpation & inspection: normal inspection of the chest Resp: Effort & Inspection: normal respiratory effort, able to speak in complete sentences and no respiratory distress GI: Inspection: Yes normal to inspection Back/Spine/Pelvis: Cervical Spine: normal cervical lordosis Thoracic/Lumbar Spine: thoracic and lumbar spine normal to inspection Skin: General skin exam: no rashes or lesions noted Neuro: General: patient oriented x3, gait normal, tone normal and moves all extremities Extrem: General: Yes normal to inspection and Yes capillary refill normal Results Labs Result diagrams: 10/20/21 05:46 10/20/21 05:46 Labs: Abnormal lab results 10/19/21 10/20/21 10/20/21 Range/Units 10:55 05:46 05:46 WBC 11.0 H (4.8-10.8) X10*3/uL RBC 4.17 L (4.60-5.80) X10*6/uL Hgb 11.9 L (14.0-18.0) g/dl Hct 35.4 L (42.0-52.0) % Chloride 110 H (96-108) mmol/L BUN 19 H (9-16) mg/dL Ur Specific [place] >= 1.030 H (1.005-1.025) Urine Protein 1+ H (NEG-TRACE) MG/DL Urine WBC 5-9 H (0-4) /HPF Short CBC 10/20/21 Range/Units 05:46 WBC 11.0 H (4.8-10.8) X10*3/uL Hgb 11.9 L (14.0-18.0) g/dl Hct 35.4 L (42.0-52.0) % Plt Count 272 (160-400) X10*3/uL [facility] 10/20/21 05:46 Sodium 141 Potassium 4.4 Chloride 110 H Carbon Dioxide 23 BUN 19 H Creatinine 1.13 Calcium 8.6 Urine 10/19/21 Range/Units 10:55 Urine Color YELLOW Urine Appearance CLEAR Urine pH 6.0 (5.0-8.0) Ur Specific [place] >= 1.030 H (1.005-1.025) Urine Protein 1+ H (NEG-TRACE) MG/DL Urine Glucose (UA) NEG (NEG) MG/DL All other labs normal. Assessment and Plan (1) Calculus of kidney: Status: Acute (2) Hydronephrosis concurrent with and due to calculi of kidney and ureter: Status: Acute Ureteroscopy We discussed the nature of the decision and reasonable alternatives for performing the above surgery. Interventions include chemical dissolution, ESWL, ureteroscopy with laser lithotripsy and stent placement, PCNL. Options such as medical therapy were discussed. The relative uncertainties and benefits related to each alternate procedure were adequately discussed. General surgical risks including, but not limited to, pain, bleeding, infection, myocardial infarction, pulmonary embolus, deep vein thrombosis and cerebrovascular accident which may result in further hospitalization were discussed. Full disclosure of the procedure as well as all major risks, benefits and complications were discussed including but not limited to damage to the urethra, bladder and kidney infection, damage to the ureter, stent migration or malposition, scarring to the renal pelvis, remnant stone fragments, subsequent stone passage with need for secondary procedures. The overall secondary procedure rate is approximately 10-15%. The success rate of the procedure was discussed. Success of the procedure in the short-term does not necessarily guarantee that long-term success will be maintained. Suitable follow up will need to be maintained. The patient showed understanding of discussion and wishes to proceed with - cystoscopy, retrograde, ureteroscopy, possible lithotripsy/stone basketing and stent on the left side Procedures Date of Service Date of Service: 10/18/21
--- NOTE | 2021-10-20 09:26 | HO.PM.IMPN ---
Subjective Subjective Date of Service: 10/20/21 Interval History: the patient was seen and evaluated this morning Laying in bed, Complaining of loin pain , no improvement Denies any fever, chills or shortness of breath No reported other overnight events. Systemic review: No fever, chills or weakness No chest pain, palpitation No shortness of breath or coughing No abdominal pain, nausea or vomiting loin pain No any rash or wounds Physical Exam Vital Signs: Vital Signs: Last Vital Signs Temp 98.1 F 10/20/21 07:30 Pulse 74 10/20/21 07:30 Resp 18 10/20/21 07:30 BP 137/75 10/20/21 07:30 Pulse Ox 99 10/20/21 07:30 Body Mass Index 26.1 Const: Other: Constitutional : Alert, oriented, not in distress Neck : Normal inspection, Supple Cardiovascular : RRR, S1 S2, no lower extremity edema Respiratory : Good bilateral air entry, no crackles, wheezes or rhonchi Gastrointestinal: soft, lax, Normal bowel sounds, Non tender Skin : Warm, Dry Back, tenderness on palpation left-sided back Neurological : Alert & oriented x3, No focal deficit Objective Data Active Medications Acetaminophen (Acetaminophen 325 Mg Tablet) 650 mg PO Q6H PRN PRN Reason: Pain, Mild (Pain Scale 1-3) Last Admin: 10/19/21 02:57 Dose: 650 mg Documented by: WAYNE Belladonna Alkaloids/Opium (Opium/Belladonna 16.2 Supp Supp.Rect) 1 supp [place] BID PRN PRN Reason: Pain, Severe (Pain Scale 7-10) Last Admin: 10/20/21 01:10 Dose: 1 supp Documented by: APOLINAR Sodium Chloride (Ns) 1,000 mls @ 100 mls/hr IVCONT .Q10H [facility] Last Admin: 10/20/21 05:00 Dose: 100 mls/hr Documented by: APOLINAR Ceftriaxone Sodium 1 gm/ (Sodium Chloride) 50 mls @ 100 mls/hr IV Q24H [facility] Last Infusion: 10/19/21 11:23 Dose: 0 mls/hr Documented by: COTEMA Ketorolac Tromethamine (Ketorolac Tromethamine 30 Mg/Ml Vial) 30 mg IVPUSH Q6H PRN PRN Reason: Pain, Moderate (Pain Scale 4-6 Stop: 10/23/21 10:27 Last Admin: 10/20/21 03:56 Dose: 30 mg Documented by: APOLINAR Morphine Sulfate (Morphine Sulfate 4 Mg/Ml Cartridge) 4 mg IVPUSH Q3H PRN; Protocol PRN Reason: Pain, Severe (Pain Scale 7-10) Last Admin: 10/20/21 09:07 Dose: 4 mg Documented by: BRYON Omeprazole (Omeprazole 40 Mg Capsule.Dr) 40 mg PO DAILY@0630 [facility] Last Admin: 10/20/21 07:43 Dose: 40 mg Documented by: BRYON Ondansetron HCl (Ondansetron Hcl 4 Mg/2 Ml Vial) 4 mg IVPUSH Q8H PRN PRN Reason: Nausea and Vomiting Last Admin: 10/19/21 23:50 Dose: 4 mg Documented by: APOLINAR Oxycodone HCl (Oxycodone Hcl Immed Release 5 Mg Tablet) 5 mg PO Q4H PRN PRN Reason: Pain, Moderate (Pain Scale 4-6 Last Admin: 10/20/21 07:44 Dose: 5 mg Documented by: BRYON Sodium Chloride (0.9 % Sodium Chloride Flush 3 Ml Syringe) 3 ml IVFLUSH [facility] Last Admin: 10/20/21 07:37 Dose: Not Given Documented by: BRYON Non-Admin Reason: IV Running Labs CBC & Chem 7: 10/20/21 05:46 10/20/21 05:46 Labs: Laboratory Results - last 24 hr 10/19/21 10/20/21 10/20/21 10:55 05:46 05:46 MCV 84.9 MCH 28.5 MCHC 33.6 RDW 15.6 Plt Count 272 MPV 9.7 Absolute Nucleated RBC 0.000 Nucleated RBC % (auto) 0.0 Anion Gap 12 Estim Creat Clear Calc 99.0 Estimated GFR > 60 Random Glucose 79 Calcium 8.6 Urine Color YELLOW Urine Appearance CLEAR Urine pH 6.0 Ur Specific [place] >= 1.030 H Urine Protein 1+ H Urine Glucose (UA) NEG Urine Ketones 40 Urine Blood TRACE Urine Nitrite NEG Ur Leukocyte Esterase NEG Urine RBC 0-2 Urine WBC 5-9 H Ur Squamous Epith Cells TRACE Urine Bacteria NONE Urine Mucus 1+ Assessment and Plan (1) Calculus of kidney: Status: Acute (2) Hydronephrosis concurrent with and due to calculi of kidney and ureter: Status: Acute Assessment and Plan: ?A 31 years old male with PMH of kidney stones who presents to the hospital with 1 week of worsening left-sided line pain. Hydronephrosis 2/[address] scan as reported Evaluated by urology team, recommended starting antibiotics Plan for stent placement today Continue ceftriaxone 1 g Q 24 Keep NPO DVT PPX Lovenox Quality Stroke Does the patient have a stroke diagnosis?: No VTE Prior VTE?: No VTE Risk Level:: Medical - moderate - high VTE Device Contraindication: Treatment Not Indicated VTE Drug Contraindication: Treatment Not Indicated
--- NOTE | 2021-10-20 09:29 | MHC.CM.PN ---
HCP COMPLETED AND UPLOADED INTO Patterns PATIENT ASSIGNS HIS AGENT. COPY ALSO IN CHART. PLAN IS FOR SURGERY TODAY
--- NOTE | 2021-10-20 10:11 | HO.ANESPROP2 ---
[facility] Active Problems Active Problems: All Active Problems (Updated 10/18/21 @ 04:58 by Ese Norwood MD) Calculus of kidney (Acute) Leukocytosis (Acute) Hydronephrosis concurrent with and due to calculi of kidney and ureter (Acute) Ureteric stone (Acute) Past Medical History Medical History Kidney stones Surgical History History of Problems with Anesthesia: No Social History Social History Household Members: Spouse and Children Housing: Apartment Alcohol intake: never Patient Tobacco Use Status: Never used Tobacco Use of substances other than those prescribed or required for medical reasons: No Currently Displaying Signs/Symptoms of Drug Intoxication Withdrawal: No Have you been hit, kicked, punched, or otherwise hurt by someone within the past year? If so, by whom?: No Do you feel safe in your current relationship?: Yes Is there a partner from a previous relationship who is making you feel unsafe now?: No Are you made to feel afraid or neglected: No Are you DNR?: No Advance Directives: No Advance Directives Information Provided: No Do you have thoughts of harming others: None Do you have a plan to hurt others: No Plan Recently lost weight without trying: No Eating poorly because of decreased appetite: No Nutrition Risks: Poor intake 0-25% >4 days service: No Current occupational status: unemployed Meds Allergies Allergy/AdvReac Type Severity Reaction Status Date / Time cat dander [CATS] Allergy Unknown UNKNOWN Verified 10/17/21 09:52 dog dander [DOGS] Allergy Unknown UNKNOWN Verified 10/17/21 09:52 Active Medications: Current Medications Acetaminophen (Acetaminophen 325 Mg Tablet) 650 mg PO Q6H PRN PRN Reason: Pain, Mild (Pain Scale 1-3) Last Admin: 10/19/21 02:57 Dose: 650 mg Documented by: Belladonna Alkaloids/Opium (Opium/Belladonna 30/16.2 Supp Supp.Rect) 1 supp [place] BID PRN PRN Reason: Pain, Severe (Pain Scale 7-10) Last Admin: 10/20/21 01:10 Dose: 1 supp Documented by: Sodium Chloride (Ns) 1,000 mls @ 100 mls/hr IVCONT .Q10H [facility] Last Admin: 10/20/21 05:00 Dose: 100 mls/hr Documented by: Ceftriaxone Sodium 1 gm/ (Sodium Chloride) 50 mls @ 100 mls/hr IV Q24H [facility] Last Infusion: 10/19/21 11:23 Dose: Infused Documented by: Ketorolac Tromethamine (Ketorolac Tromethamine 30 Mg/Ml Vial) 30 mg IVPUSH Q6H PRN PRN Reason: Pain, Moderate (Pain Scale 4-6 Stop: 10/23/21 10:27 Last Admin: 10/20/21 03:56 Dose: 30 mg Documented by: Morphine Sulfate (Morphine Sulfate 4 Mg/Ml Cartridge) 4 mg IVPUSH Q3H PRN; Protocol PRN Reason: Pain, Severe (Pain Scale 7-10) Last Admin: 10/20/21 09:07 Dose: 4 mg Documented by: Omeprazole (Omeprazole 40 Mg Capsule.Dr) 40 mg PO DAILY@0630 [facility] Last Admin: 10/20/21 07:43 Dose: 40 mg Documented by: Ondansetron HCl (Ondansetron Hcl 4 Mg/2 Ml Vial) 4 mg IVPUSH Q8H PRN PRN Reason: Nausea and Vomiting Last Admin: 10/19/21 23:50 Dose: 4 mg Documented by: Oxycodone HCl (Oxycodone Hcl Immed Release 5 Mg Tablet) 5 mg PO Q4H PRN PRN Reason: Pain, Moderate (Pain Scale 4-6 Last Admin: 10/20/21 07:44 Dose: 5 mg Documented by: Sodium Chloride (0.9 % Sodium Chloride Flush 3 Ml Syringe) 3 ml IVFLUSH QSHIFT [facility] Last Admin: 10/20/21 07:37 Dose: Not Given Documented by: Home Medications Medication Instructions Recorded Confirmed Last Taken Type No Known Home Meds 10/17/21 10/18/21 Unknown History Exam Exam Date and Time: October 20, 2021 1011 Height,Weight and Vital Signs: Height 5 ft 11 in Weight 85 kg Last Vital Signs Temp 98.1 F 10/20/21 07:30 Pulse 74 10/20/21 07:30 Resp 18 10/20/21 07:30 BP 137/75 10/20/21 07:30 Pulse Ox 99 10/20/21 07:30 Pertinent Lab Results Pertinent Lab Results: Laboratory Tests 10/18/21 10/18/21 10/18/21 05:05 05:05 15:31 WBC 10.6 RBC 4.73 Hgb 13.5 L Hct 39.6 L MCV 83.7 MCH 28.5 MCHC 34.1 RDW 15.1 Plt Count 322 MPV 9.4 Immature Gran % (Auto) 0.3 Neut % (Auto) 74.7 H Lymph % (Auto) 16.4 L [place] % (Auto) 8.0 Eos % (Auto) 0.4 Baso % (Auto) 0.2 Lymph # (Auto) 1.7 [place] # (Auto) 0.9 Eos # (Auto) 0.0 Baso # (Auto) 0.0 Abs Immat Gran (auto) 0.03 Absolute Neuts (auto) 7.9 Absolute Nucleated RBC 0.000 Nucleated RBC % (auto) 0.0 Sodium 137 Potassium 3.8 Chloride 107 Carbon Dioxide 23 Anion Gap 11 L BUN 26 H Creatinine 1.40 Estim Creat Clear Calc 79.9 Estimated GFR 58 Random Glucose 101 Calcium 8.7 D Total Bilirubin 0.4 Direct Bilirubin 0.2 AST 19 ALT 16 Alkaline Phosphatase 68 Total Protein 6.3 L Albumin 3.8 Urine Color Urine Appearance Urine pH Ur Specific [place] Urine Protein Urine Glucose (UA) Urine Ketones Urine Blood Urine Nitrite Ur Leukocyte Esterase Urine RBC Urine WBC Ur Squamous Epith Cells Urine Bacteria Urine Mucus COVID-19 (LELIA) Negative COVID-19 Clin Com See Note 10/19/21 10/19/21 10/20/21 05:50 10:55 05:46 WBC 11.0 H RBC 4.17 L Hgb 11.9 L Hct 35.4 L MCV 84.9 MCH 28.5 MCHC 33.6 RDW 15.6 Plt Count 272 MPV 9.7 Immature Gran % (Auto) Neut % (Auto) Lymph % (Auto) [place] % (Auto) Eos % (Auto) Baso % (Auto) Lymph # (Auto) [place] # (Auto) Eos # (Auto) Baso # (Auto) Abs Immat Gran (auto) Absolute Neuts (auto) Absolute Nucleated RBC 0.000 Nucleated RBC % (auto) 0.0 Sodium 136 Potassium 3.8 Chloride 107 Carbon Dioxide 23 Anion Gap 10 L BUN 22 H Creatinine 1.28 Estim Creat Clear Calc 87.4 Estimated GFR > 60 Random Glucose 101 Calcium 8.2 L Total Bilirubin Direct Bilirubin AST ALT Alkaline Phosphatase Total Protein Albumin Urine Color YELLOW Urine Appearance CLEAR Urine pH 6.0 Ur Specific [place] >= 1.030 H Urine Protein 1+ H Urine Glucose (UA) NEG Urine Ketones 40 Urine Blood TRACE Urine Nitrite NEG Ur Leukocyte Esterase NEG Urine RBC 0-2 Urine WBC 5-9 H Ur Squamous Epith Cells TRACE Urine Bacteria NONE Urine Mucus 1+ COVID-19 (LELIA) COVID-19 Clin Com 10/20/21 05:46 WBC RBC Hgb Hct MCV MCH MCHC RDW Plt Count MPV Immature Gran % (Auto) Neut % (Auto) Lymph % (Auto) [place] % (Auto) Eos % (Auto) Baso % (Auto) Lymph # (Auto) [place] # (Auto) Eos # (Auto) Baso # (Auto) Abs Immat Gran (auto) Absolute Neuts (auto) Absolute Nucleated RBC Nucleated RBC % (auto) Sodium 141 Potassium 4.4 Chloride 110 H Carbon Dioxide 23 Anion Gap 12 BUN 19 H Creatinine 1.13 Estim Creat Clear Calc 99.0 Estimated GFR > 60 Random Glucose 79 Calcium 8.6 Total Bilirubin Direct Bilirubin AST ALT Alkaline Phosphatase Total Protein Albumin Urine Color Urine Appearance Urine pH Ur Specific [place] Urine Protein Urine Glucose (UA) Urine Ketones Urine Blood Urine Nitrite Ur Leukocyte Esterase Urine RBC Urine WBC Ur Squamous Epith Cells Urine Bacteria Urine Mucus COVID-19 (LELIA) COVID-19 Clin Com Airway Mallampati Class: II TM Dist: >3cm Neck ROM: Full Heart: RRR Lungs: CTA Assessment and Plan Assessment Anesthesia Assessment: Anesthesia Plan Discussed and Chart Reviewed Final Anesthetic Review History of Problems with Anesthesia: No NPO: Yes ASA Class: II Final Preanesthetic Review: Meds/Allgs Chart Reviewed, Consent Obtained/Reviewed and Anes Risks/Benef Reviewed Patient Risk: Low Procedure Risk: Low Anesthetic Plan Anesthetic Plan: GA Disposition: Standard PACU
--- NOTE | 2021-10-20 10:17 | MHC.SHP ---
Pre-Procedural Eval Section A Date of Service: 10/20/21 The patient is an INPATIENT: Yes Changes since office visit: No Cold of Flu in the past 2 weeks, No New Medical Problems, No Changes in Medication and No Patient answered all questions The History & Physical has been completed within 30 days and I have reviewed it.: Yes Section B Chief Complaint: loin pain Details of Present Illness: left proximal ureteric stone Relevant Social History: None Present Medications: see Short Stay Collaborative assessment Medical History: Significant History History of Previous Operations: Relevant previous surgery/procedure and date(s) Allergies: Allergies Allergy/AdvReac Type Severity Reaction Status Date / Time cat dander [CATS] Allergy Unknown UNKNOWN Verified 10/17/21 09:52 dog dander [DOGS] Allergy Unknown UNKNOWN Verified 10/17/21 09:52 Review of Systems Sugical H&P ROS: Negative: Constitution, Cardiovascular, Respiratory, Neurological, Psychiatric, Hem-Onc, Allergic/Immunologic, Gastrointestinal, Genitourinary, Musculoskeletal, Integumentary, Endocrine and Eyes/Ears/Nose/Throat Exam Surgical H&P Exam: Normal: HEENT, Normal: Heart, Normal: Lungs, Normal: Extremities, Normal: Abdomen, Normal: Skin and Normal: Neurological Plan Diagnosis/Plan: Unchanged ( cystoscopy, left retrograde, left ureteroscopy with laser lithotripsy stent placement. Flexible ureteral scope) I have reviewed the history and physical and performed a pertinent physical examination on my patient. No changes have occurred unless specified.
[2021-10-20] MEDS: levoFLOXacin 500 MG TABLET PO (10:22)
--- NOTE | 2021-10-20 11:25 | P.OP_ITS ---
Operative Note Operative Note Date of Service: 10/20/21 Narrative: PreOperative Diagnosis: left proximal ureteric stone Post Operative Diagnosis: left renal stone Procedure: - cystoscopy, left retrograde - left dilatation of ureteric orifice under fluoroscopy - left ureteroscopy, laser lithotripsy, stone basketing Surgeon: Dr Eros Webb Anesthesia: General Indications for procedure: this is a 31-year-old male. Presented through emergency department with left- sided flank pain. Had 1 cm stone in the UPJ. Has undergone prior stone procedures. Indicated that he would would be willing to undergo procedure however he did not tolerate stent previously and requests not to have a stent. He understands the risks and benefits particularly risk of stone fragmentation blockage and infection. Procedure: After informed consent was verified patient was brought to the operating placed in supine position. Anesthesia was administered per protocol. Patient was placed in modified dorsal lithotomy position and prepped and draped in a sterile fashion. Safety pause time-out and side of surgery confirmed. Antibiotics confirmed. 22 [place] cystoscope was inserted. Both ureteric orifices normal position. Left ureteric orifice was seen and cannulated. Retrograde examination was performed. Filling defects seen proximal ureter. Sensor guidewire was placed. Ureteric catheter was advanced. Stone was knocked up into the renal pelvis. A ureteric access sheath was placed. The internal cannula was used to dilate ureteric orifice under fluoroscopy. The sheath was placed. The internal cannula was removed and the wire was removed. A flexible ureteral scope was then advanced up to the level renal pelvis. The renal pelvis was examined. The large stone was seen that had been placed in the renal pelvis. Using a 200 micron holmium laser fiber and combination hammer and dusting settings on the laser the stone was broken into small pieces. This took approximately 30 minutes. We then spent another 20 minutes basketing fragments and removing these from the kidney. Kidney was also irrigated throughout this time frame. Once all pieces that were visible and could be placed within the basket were removed decision was made to cease the case. No stent was placed. The access sheath was removed. A cystoscope was placed in the bladder was drained. Pain control was provided with B&O suppository He tolerated procedure well was extubated in operating room transferred in stable condition to the recovery area. Pathology: Stones Drains: none
--- NOTE | 2021-10-20 11:38 | PM.DS ---
DS: Providers Provider Date of Service: 10/20/21 Date of admission: 10/18/21 10:35 Primary care physician: Unknown Physician Consults: 10/18/21 10:28 Consult to Urology Routine Consulting Provider: Eros Webb Reason for consultation: Uretric stone for intervention DS: Diagnosis Discharge Diagnosis (1) Calculus of kidney: Status: Acute (2) Hydronephrosis concurrent with and due to calculi of kidney and ureter: Status: Acute DS: Summary Hospital Course Hospital Course: Admission note HPI A 31 years old male with PMH of kidney stones who presents to the hospital with 1 week of worsening left-sided line pain.? He reports placement of stent before for similar reason.? He denies hematuria, dysuria, fever or chills.? CT scan showed almost 1 cm stone partially obstructing left ureter.? Evaluated by Urology who recommended inpatient admission for stent placement. Patient was admitted then left AMA.? He came back the same night with severe pain. Hospital course The patient was at to the hospital for evaluation of pain. CT scan was consistent with 1 cm stone partially obstructing left ureter and causing hydronephrosis with stable kidney function. He was admitted to the hospital and treated with IV fluid, pain medications and antibiotic as he was evaluated by urology team. Stent placement and removal of the stone was by Dr. Webb who recommended the patient to continue antibiotic for the next 5 days and to follow-up as outpatient in 2 weeks. Time Spent with Patient Time attestation: Total time spent providing and/or coordinating discharge services: Discharge coordination time: Greater than 30 minutes Quality: Stroke Does the patient have a stroke diagnosis?: No Physical Exam Vital Signs: Vital Signs: Last Vital Signs Temp 97.6 F 10/20/21 11:33 Pulse 69 10/20/21 11:33 Resp 16 10/20/21 11:33 BP 107/48 L 10/20/21 11:33 Pulse Ox 99 10/20/21 11:33 Body Mass Index 26.1 Const: Other: Constitutional : Alert, oriented, not in distress Neck : Normal inspection, Supple Cardiovascular : RRR, S1 S2, no lower extremity edema Respiratory : Good bilateral air entry, no crackles, wheezes or rhonchi Gastrointestinal: soft, lax, Normal bowel sounds, Non tender Skin : Warm, Dry Back, tenderness on palpation left-sided back Neurological : Alert & oriented x3, No focal deficit DS: Data Data Completed and Pending Pending studies at discharge: Pending at discharge 10/20/21 11:27 Surgical [PTH] Routine Labs on day of discharge: Laboratory Results - last 24 hr 10/20/21 10/20/21 05:46 05:46 WBC 11.0 H RBC 4.17 L Hgb 11.9 L Hct 35.4 L MCV 84.9 MCH 28.5 MCHC 33.6 RDW 15.6 Plt Count 272 MPV 9.7 Absolute Nucleated RBC 0.000 Nucleated RBC % (auto) 0.0 Sodium 141 Potassium 4.4 Chloride 110 H Carbon Dioxide 23 Anion Gap 12 BUN 19 H Creatinine 1.13 Estim Creat Clear Calc 99.0 Estimated GFR > 60 Random Glucose 79 Calcium 8.6 Discharge Plan Discharge Patient Disposition: Home, Self-Care Discharge Diagnosis: Uretric stone Referrals: Physician,Unknown J [Primary Care Provider] - 1 Week Discharge Medications: Continued phenazopyridine [Pyridium] 100 mg tablet 100 mg PO TID PRN (Reason: spasm) 4 Days Qty: 12 RF: 0 sulfamethoxazole-trimethoprim [Bactrim DS] 800-160 mg tablet 1 tab PO BID 5 Days Qty: 10 RF: 0 tramadol 50 mg tablet 50 mg PO Q6H PRN (Reason: pain (scale score 4-6)) Qty: 14 RF: 0 naproxen 500 mg tablet 500 mg PO BID PRN (Reason: pain) 7 Days Qty: 14 RF: 0 Discharge Orders: Discharge Order (Routine); Ordered 10/20/21 Ordered By: Garret Whitt Diet: advance to usual diet Activity on Discharge: As tolerated Stand Alone Forms: Patient Portal Discharge page Care Plan Goals: Read below Health Concerns: Read below Plan of Treatment: Read below Assessment: You were admitted to the hospital for evaluation of pain. CT scan showed obstructive stone causing increased pressure around your kidney. Your treated with IV fluids, antibiotics and pain medications with fair response. You had a procedure to remove the stone and place a stent in the ureter. Continue antibiotic for the next 5 days To follow-up with Dr. Webb in the office in 2 of weeks
--- NOTE | 2021-10-20 11:45 | MHC.CM.PN ---
PATIENT IS DISCHARGED HOME - SELF CARE. (IN ROOM) TO PROVIDE TRANSPORTATION HOME. RN AWARE OF PLAN.
[2021-10-20] MEDS: oxyCODONE HCl Immed Release 5 MG TABLET 10 MG PO (12:48)
[2021-10-23 15:32] LABS: Stone Source KIDNEY STONE
== END 2021-10-20 13:19 | disposition home or self-care (01) | DRG 446 ==
LOC: HO.ED 07:53 → HO.S3 10:37 → HO.EDOVER 10:57 → HO.S3 16:49
PROVIDERS: Emergency Medicine; Urology; Admitting Provider Student in an Organized Health Care Education/Training Program; Emergency Provider Emergency Medicine Emergency Medical Services; PCP Family Medicine; Visit Provider Student in an Organized Health Care Education/Training Program
PROC: 0TC78ZZ Extirpation of Matter from Left Ureter, Via Natural or Artificial Opening Endoscopic (ICD-10-PCS; principal; 2021-10-20 08:40)
DX: N13.2 Hydronephrosis with renal and ureteral calculous obstruction (principal); D72.829 Elevated white blood cell count, unspecified; Z20.822 Contact with and (suspected) exposure to COVID-19; Z87.442 Personal history of urinary calculi; Z79.1 Long term (current) use of non-steroidal anti-inflammatories (NSAID); Z79.899 Other long term (current) drug therapy
CPT/HCPCS: 36415; 80048; 80076; 81001; 81003; 82365; 85025; 85027; 87086; 87635; 88300; 99285; C1769; J0696; J1100; J1170; J1885; J2270; J2405; J3010; Q9967

== ENCOUNTER 2021-10-24 22:26 | Emergency (ER) | payer OTHER, SELFPAY ==
--- NOTE | ~2021-10-24 | CT_ITS ---
EXAMINATION: CT ABDOMEN AND PELVIS WITHOUT CONTRAST CLINICAL INFORMATION: Flank pain. COMPARISON: CT abdomen/pelvis dated from 10/17/2021. TECHNIQUE: Multidetector volumetric imaging was performed from the superior aspect of the liver through the pubic symphysis. Sagittal and coronal reformatted images were obtained on the technologist's workstation. This CT examination was performed using dose optimization techniques as appropriate, variously including the following: *Automated exposure control *Adjustment of mA and/or kV according to patient size (this includes techniques or standardized protocols for targeted exams where dose is matched to indication/reason for exam; i.e. extremities or head) *Use of iterative reconstruction technique DLP: 501 mGy-cm FINDINGS: LUNG BASES: Increased subsegmental atelectasis. No focal consolidation or pleural effusion. LIVER, GALLBLADDER, AND BILIARY TREE: The liver is normal in size, shape, and attenuation. No focal hepatic lesion or biliary ductal dilatation is present. There is mild gallbladder wall thickening without cholelithiasis or surrounding inflammatory changes and of uncertain significance but likely reactive. PANCREAS: No focal lesions. The main pancreatic duct is nondilated. SPLEEN: Unremarkable. ADRENAL GLANDS: Unremarkable. KIDNEYS AND URETERS: There is redemonstration of severe left hydronephrosis with a 0.6 cm ureteral calculus at the level of L3-L4; this calculus previously measured 1.2 cm. New from prior is a 3.7 x 7 x 8.5 cm subcapsular collection in the left kidney measuring simple fluid in attenuation. There is increased surrounding perinephric fat stranding and free fluid and there is also new asymmetric enlarged of the left psoas muscle near the region of the left kidney. Other previously visualized calculi in the parenchyma of the left kidney are decreased in size with only a few punctate stones present. There is redemonstration of a 0.5 cm calculus in the lower pole of the right kidney at 5.7 cm from the skin of the posterior axillary line (3:34). A few other punctate stones in the right kidney are again noted without significant change. There is no right hydronephrosis or hydroureter. BLADDER: Unremarkable. GASTROINTESTINAL TRACT: The small and large bowel are unremarkable. The appendix is unremarkable. ABDOMINAL WALL: Redemonstration of a 2.5 cm fat-containing supraumbilical abdominal hernia. LYMPH NODES: Limitedly evaluation in the absence of intravenous contrast. No bulky lymphadenopathy. VASCULAR: No aneurysm of the abdominal aorta. PELVIC VISCERA: Unremarkable. OSSEOUS STRUCTURES: No acute or aggressive osseous abnormalities. CT/CT abdomen pelvis wo con IMPRESSION: New 8.5 cm subcapsular collection in the left kidney measuring simple fluid in attenuation, possibly from recent procedure or from a calyceal rupture. There is also increase perinephric fat stranding and free fluid and new asymmetric enlargement of the left psoas muscle near the region of the kidney. Some of the fluid in the pararenal space measure up to 30 Hounsfield units and is most consistent with blood products. These constellation of findings could be postsurgical although a developing infection is difficult to exclude. Correlate clinically and continue to monitor. The asymmetry of the left some muscle could be related with a developing hematoma. No intramuscular collections are identified. A previously described calculus in the proximal left ureter has decreased in size now measuring 0.6 cm, previously 1.2 cm. Similarly, multiple additional calculi in the left kidney are decreased in size. A few calculi in the right kidney are stable. No other interval changes. This critical result was discussed with Dr. Velasco at 10/24/2021 11:36 PM and it was ascertained that the content and urgency of the report was understood at the time of direct communication.
[2021-10-24 22:32] VITALS: BP 124/70; BP 144/73; PULSE 100; PULSE 95; RESP 22; TEMP 37; O2SAT 100; O2SAT 96; BMI 27.1
--- NOTE | 2021-10-24 23:04 | ED.MALEGU ---
HPI - Male Genitourinary General Chief complaint: Urogenital-Male Stated complaint: ABD PAIN and hematuria s/p kidney surg Time Seen by Provider: 10/24/21 22:40 Source: patient Mode of arrival: ambulatory Limitations: no limitations History of Present Illness HPI Narrative: Patient is status post lithotripsy for 10 mm left UPJ stone on 10/20 comes back as pain is still going on and is not getting better fusion feel nauseated and vomiting, tearful no stent was placed starting having dark urine starting today no fever or chills Related Data Previous Rx's Medication Instructions Recorded cefuroxime axetil 250 mg tablet 250 mg PO BID #10 tab 10/20/21 naproxen 500 mg tablet 500 mg PO BID PRN 7 Days #14 tab 10/20/21 phenazopyridine 100 mg tablet 100 mg PO TID PRN 4 Days #12 tab 10/20/21 (Pyridium) tramadol 50 mg tablet 50 mg PO Q6H PRN #12 tab 10/20/21 ondansetron HCl 4 mg tablet 4 mg PO Q8H PRN 5 Days #15 tab 10/22/21 (Zofran) oxybutynin chloride 5 mg 5 mg PO DAILY 14 Days #14 tab 10/22/21 tablet,extended release 24 hr tamsulosin 0.4 mg capsule 0.4 mg PO DAILY 14 Days #14 cap 10/22/21 oxycodone 5 mg tablet 5 mg PO Q6H PRN #20 tab 10/25/21 Allergies Allergy/AdvReac Type Severity Reaction Status Date / Time cat dander [CATS] Allergy Unknown UNKNOWN Verified 10/24/21 22:32 dog dander [DOGS] Allergy Unknown UNKNOWN Verified 10/24/21 22:32 Review of Systems Review of Systems: Yes all other systems are reviewed and are negative [facility] Past Medical History Medical History Kidney stones Social History Social History Household Members: Spouse and Children Housing: Apartment Alcohol intake: never Patient Tobacco Use Status: Never used Tobacco Advance Directives: No Advance Directives Information Provided: No service: No Current occupational status: unemployed Physical Exam Vital Signs: Vital Signs: Last Vital Signs Temp 97.5 F 10/24/21 23:13 Pulse 100 10/24/21 23:13 Resp 18 10/24/21 23:13 BP 119/83 10/24/21 23:13 Pulse Ox 96 10/24/21 23:13 Body Mass Index 27.1 Appearance: Alert. Oriented X3. No acute distress. Eyes: No pallor/ icterus ENT: Pharynx normal. Oral Mucosa moist Neck: Normal inspection. Neck supple. CVS: Normal heart rate and rhythm. Pulses normal. Respiratory: No respiratory distress. Equal air entry bilateral, no wheezing/rales/rhonchi Abdomen: Soft and nontender. Bowel sounds are present, no mass palpable, L CVA tenderness ++ Skin: Skin warm and dry. Normal skin color. Normal skin turgor. Extremities: No lower extremity edema. No calf tenderness Neuro: Oriented X 3. MDM - Male Genitourinary MDM Narrative Medical decision making narrative: Patient with left flank pain status post lithotripsy with left subcapsular hematoma with still proximal 0.6 cm stone patient feeling much better after IV fluids and pain management patient already on Ceftin and Flomax at home. Pain is almost gone. Case discussed with Dr. Bradley urologist advised for the patient to go home and follow-up as outpatient continue pain management Medical Records Attestation: I reviewed the patient's medical records. Lab Data Attestation: I reviewed the patient's lab results. Result diagrams: 10/24/21 23:38 10/25/21 00:07 Labs: Lab Results 10/24/21 10/25/21 10/25/21 Range/Units 23:38 00:07 00:46 WBC 20.7 H (4.8-10.8) X10*3/uL RBC 4.29 L (4.60-5.80) X10*6/uL Hgb 12.3 L (14.0-18.0) g/dl Hct 35.0 L (42.0-52.0) % MCV 81.6 (80.0-98.0) fL MCH 28.7 (27.0-33.0) pg MCHC 35.1 (31.0-36.0) g/dl RDW 14.7 (11.0-16.0) % Plt Count 460 H D (160-400) X10*3/uL MPV 9.6 (9.4-12.4) fL Immature Gran % (Auto) 0.7 H (0.0-0.4) % Neut % (Auto) 84.8 H (45-73) % Lymph % (Auto) 7.4 L (20-40) % [place] % (Auto) 6.7 (2-11) % Eos % (Auto) 0.3 (0-4) % Baso % (Auto) 0.1 (0-2) % Lymph # (Auto) 1.5 (1.2-4.9) X10*3/uL [place] # (Auto) 1.4 H (0.1-1.2) X10*3/uL Eos # (Auto) 0.1 (0.0-0.4) X10*3/uL Baso # (Auto) 0.0 (0.0-0.2) X10*3/uL Abs Immat Gran (auto) 0.15 H (0.00-0.03) X10*3/uL Absolute Neuts (auto) 17.6 H (2.0-8.3) x10*3/uL Absolute Nucleated RBC 0.000 (0.0-0.012) X10*3/uL Nucleated RBC % (auto) 0.0 (0.0-0.2) /100WBC Sodium 140 (135-145) mmol/L Potassium 4.0 (3.3-5.1) mmol/L Chloride 108 (96-108) mmol/L Carbon Dioxide 22 (22-29) mmol/L Anion Gap 14 (12-20) BUN 22 H (9-16) mg/dL Creatinine 1.41 H (0.5-1.4) mg/dL Estim Creat Clear Calc 79.3 Estimated GFR 58 Random Glucose 103 (60-115) mg/dL Calcium 8.4 (8.4-10.2) mg/dL Urine Color YELLOW Urine Appearance CLEAR Urine pH 6.5 (5.0-8.0) Ur Specific [place] 1.025 (1.005-1.025) Urine Protein TRACE (NEG-TRACE) MG/DL Urine Glucose (UA) NEG (NEG) MG/DL Urine Ketones NEG (NEG) MG/DL Urine Blood NEG (NEG) Urine Nitrite POS H (NEG) Ur Leukocyte Esterase NEG (NEG) Urine RBC 1-4 (0) /HPF Urine WBC 5-9 H (0-4) /HPF Ur Squamous Epith Cells 1+ /LPF Calcium Oxalate Crystal 1+ /LPF Urine Bacteria 2+ /LPF Hyaline Casts 1-4 /LPF Urine Mucus 1+ /LPF Discharge Plan Discharge Clinical Impression: Hydronephrosis concurrent with and due to calculi of kidney and ureter Patient Disposition: Home, Self-Care Instructions: Ureteral Stones (ED) Additional Instructions: Continue antibiotics and pain medication and follow-up with urologist Report to the ER if worsening of the pain/fever/vomiting Prescriptions: New oxycodone 5 mg tablet 5 mg PO Q6H PRN (Reason: Pain, Moderate) Qty: 20 RF: 0 No Action tamsulosin 0.4 mg capsule 0.4 mg PO DAILY 14 Days Qty: 14 RF: 0 oxybutynin chloride 5 mg tablet extended release 24hr 5 mg PO DAILY 14 Days Qty: 14 RF: 0 ondansetron HCl [Zofran] 4 mg tablet 4 mg PO Q8H PRN (Reason: nausea and vomiting) 5 Days Qty: 15 RF: 0 cefuroxime axetil 250 mg tablet 250 mg PO BID Qty: 10 RF: 0 tramadol 50 mg tablet 50 mg PO Q6H PRN (Reason: pain (scale score 4-6)) Qty: 12 RF: 0 phenazopyridine [Pyridium] 100 mg tablet 100 mg PO TID PRN (Reason: spasm) 4 Days Qty: 12 RF: 0 naproxen 500 mg tablet 500 mg PO BID PRN (Reason: pain) 7 Days Qty: 14 RF: 0
[2021-10-24 23:13] VITALS: BP 119/83; PULSE 100; RESP 18; TEMP 36.4; O2SAT 96
[2021-10-24] MEDS: 0.9 % Sodium Chloride 1,000 ML 999 ML IVCONT (23:39)
[2021-10-24] MEDS: Ketorolac Tromethamine 15 MG/ML VIAL 30 MG IVPUSH (23:42)
[2021-10-24] MEDS: Morphine Sulfate 4 MG/ML CARTRIDGE IVPUSH (23:43)
[2021-10-24] MEDS: ondansetron HCL 4 MG/2 ML VIAL IVPUSH (23:43)
[2021-10-24 23:47] LABS: MANUAL DIFF FLAG NO
[2021-10-24 23:48] LABS: Basophils Percent Auto 0.1 % (0-2); Eosinophils Absolute Auto 0.1 X10*3/uL (0.0-0.4); Eosinophils Percent Auto 0.3 % (0-4); Hemoglobin 12.3 g/dl (14.0-18.0); Imm Gran Abs Auto 0.15 X10*3/uL (0.00-0.03); Imm Gran Pct Auto 0.7 % (0.0-0.4); Lymphocytes Absolute Auto 1.5 X10*3/uL (1.2-4.9); Lymphocytes Percent Auto 7.4 % (20-40); Mean Corpuscular HGB Conc 35.1 g/dl (31.0-36.0); Mean Corpuscular Hemoglobin 28.7 pg (27.0-33.0); Mean Corpuscular Volume 81.6 fL (80.0-98.0); Mean Platelet Volume 9.6 fL (9.4-12.4); Monocytes Absolute Auto 1.4 X10*3/uL (0.1-1.2); Monocytes Percent Auto 6.7 % (2-11); Neutrophils Absolute Auto 17.6 x10*3/uL (2.0-8.3); Neutrophils Percent Auto 84.8 % (45-73); Platelet Count 460 X10*3/uL (160-400); Red Blood Count 4.29 X10*6/uL (4.60-5.80); Red Cell Distribution Width 14.7 % (11.0-16.0); White Blood Count 20.7 X10*3/uL (4.8-10.8)
[2021-10-25 00:30] LABS: Anion Gap 14 (12-20); Blood Urea Nitrogen 22 mg/dL (9-16); Calcium 8.4 mg/dL (8.4-10.2); Carbon Dioxide 22 mmol/L (22-29); Chloride 108 mmol/L (96-108); Creatinine Clr Calc Pharmacy 79.3; Estimated Glomerular Filt Rate 58; Glucose Random 103 mg/dL (60-115); Sodium 140 mmol/L (135-145)
[2021-10-25] MEDS: oxyCODONE HCl Immed Release 5 MG TABLET 10 MG PO (00:43)
[2021-10-25] MEDS: Morphine Sulfate 4 MG/ML CARTRIDGE IVPUSH (00:43)
[2021-10-25 00:55] LABS: Appearance Urine CLEAR; Color Urine YELLOW; Glucose Urine UA NEG (NEG); Leukocyte Esterase Urine NEG (NEG); Nitrite Urine POS (NEG); PH 6.5 (5.0-8.0); Specific Gravity - Urine 1.025 (1.005-1.025); UACC Culture Trigger YES; Urine Blood NEG (NEG); Urine Ketones NEG (NEG); Urine Protein TRACE MG/DL (NEG-TRACE)
[2021-10-25 01:04] LABS: Bacteria Urine 2+ /LPF; Mucus Urine 1+ /LPF; Squamous Epithelial Cell Urine 1+ /LPF
[2021-10-25 01:05] LABS: Calcium Oxalate Crystals Urine 1+ /LPF
[2021-10-25 01:25] VITALS: BP 115/80; PULSE 90; RESP 18; TEMP 36.6; O2SAT 97
== END 2021-10-25 01:27 | disposition home or self-care (01) ==
PROVIDERS: Student in an Organized Health Care Education/Training Program; Emergency Provider Internal Medicine; PCP Family Medicine
DX: N13.2 Hydronephrosis with renal and ureteral calculous obstruction (principal); R10.9 Unspecified abdominal pain; Z87.442 Personal history of urinary calculi
CPT/HCPCS: 36415; 74176; 80048; 81001; 85025; 87086; 96361; 96374; 96375; 99284; J1885; J2270; J2405

== ENCOUNTER 2022-09-29 10:43 | Emergency (ER) | payer OTHER, SELFPAY ==
--- NOTE | ~2022-09-29 | CT_ITS ---
EXAMINATION: CT ABDOMEN AND PELVIS WITHOUT CONTRAST CLINICAL INFORMATION: Flank pain COMPARISON: 10/24/2021 TECHNIQUE: Multidetector volumetric imaging was performed from the superior aspect of the liver through the pubic symphysis. Sagittal and coronal reformatted images were obtained on the technologist's workstation. This CT examination was performed using dose optimization techniques as appropriate, variously including the following: *Automated exposure control *Adjustment of mA and/or kV according to patient size (this includes techniques or standardized protocols for targeted exams where dose is matched to indication/reason for exam; i.e. extremities or head) *Use of iterative reconstruction technique DLP: 416 mGy-cm FINDINGS: LUNG BASES: Normal. No pulmonary consolidation or pleural effusion. LIVER: The liver has normal size, shape, and attenuation. No evidence of liver mass. GALLBLADDER AND BILIARY TREE: Gallbladder is without radiopaque stones, wall thickening or pericholecystic fluid. No dilated bile ducts. PANCREAS: Normal. No edema, pancreatic ductal dilatation or mass. SPLEEN: Normal. ADRENAL GLANDS: Normal. RIGHT KIDNEY AND URETER: Normal size, cortical thickness and cortical attenuation. No hydroureteronephrosis or perinephric edema. 0.7 cm calyceal stone of the lateral lower pole, density of approximately 1250 Hounsfield units, 7.5 cm deep from the skin surface at the posterior axillary line. Small, 0.3 cm calyceal stone in the lateral interpolar region. A few punctate calculi are present in the lower pole. These findings are similar to those observed on 10/24/2021. LEFT KIDNEY AND URETER: Normal size, cortical thickness and cortical attenuation. Several small calyceal stones of the left lower pole, largest 0.3 cm. No ureteral stones. No hydroureteronephrosis or perinephric edema. BLADDER: Urinary bladder is grossly normal. No bladder stones. BOWEL AND PERITONEUM: The stomach is grossly normal. Small bowel loops are underdistended and suboptimally evaluated on this noncontrast examination. There is suspected to be pseudothickening of small bowel chatman from presence of intraluminal fluid and lack of distention, but it would be difficult to exclude enteritis on this limited test. Small amount of fecal material is present within the nondilated colon. No focal colonic wall thickening or pericolonic fat stranding. No abdominal free fluid or free air. ABDOMINAL WALL: Again noted is the focal fat-containing supraumbilical midline abdominal wall hernia. VASCULATURE: Unremarkable. LYMPH NODES: No pathologic sized lymph nodes in the abdomen or pelvis. No inguinal lymphadenopathy. PELVIC VISCERA: Prostate gland is unremarkable. No pelvic free fluid. SKELETAL: Unremarkable. CT/CT abdomen pelvis wo IV con IMPRESSION: * Although bilateral renal stones are present, there is no evidence of ureterolithiasis or hydroureteronephrosis. No acute imaging findings along the urinary tracts. * Note that the small bowel is underdistended and suboptimally evaluated. There is likely pseudothickening of the small bowel wall from lack of distention. There is no edematous thickening of bowel chatman, mesenteric fat stranding or free fluid.
[2022-09-29 11:00] VITALS: BP 129/79; PULSE 87; RESP 17; TEMP 36.6; O2SAT 98; BMI 26.5
[2022-09-29 11:14] LABS: MANUAL DIFF FLAG NO
[2022-09-29 11:16] LABS: Appearance Urine Clear; Basophils Absolute Auto 0.1 X10*3/uL (0.0-0.2); Basophils Percent Auto 0.7 % (0-2); Color Urine Dark Yellow; Eosinophils Absolute Auto 0.3 X10*3/uL (0.0-0.4); Eosinophils Percent Auto 2.8 % (0-4); Glucose Urine UA Negative (Negative); Hematocrit 43.8 % (42.0-52.0); Imm Gran Abs Auto 0.03 X10*3/uL (0.00-0.03); Imm Gran Pct Auto 0.3 % (0.0-0.4); Leukocyte Esterase Urine Trace (Negative); Lymphocytes Absolute Auto 2.1 X10*3/uL (1.2-4.9); Lymphocytes Percent Auto 22.3 % (20-40); Mean Corpuscular HGB Conc 34.2 g/dl (31.0-36.0); Mean Corpuscular Hemoglobin 28.8 pg (27.0-33.0); Mean Corpuscular Volume 84.2 fL (80.0-98.0); Mean Platelet Volume 9.1 fL (9.4-12.4); Monocytes Absolute Auto 0.8 X10*3/uL (0.1-1.2); Monocytes Percent Auto 8.4 % (2-11); Neutrophils Percent Auto 65.5 % (45-73); Nitrite Urine Negative (Negative); Platelet Count 342 X10*3/uL (160-400); Red Cell Distribution Width 14.9 % (11.0-16.0); Specific Gravity - Urine 1.025 (1.005-1.025); UMIC TRIGGER UACC YES; Urine Blood Small (1+) (Negative); Urine Ketones Trace mg/dL (Negative); Urine Protein Trace mg/dL (Neg-Trace); White Blood Count 9.2 X10*3/uL (4.8-10.8)
[2022-09-29 11:19] LABS: Bacteria Urine None Seen (None Seen); Hyaline Casts Urine 0-2 /LPF (0-2); RBC Urine >20 /HPF (0-2); Squamous Epithelial Cell Urine 0-2 /HPF (0-2); WBC Urine 0-5 /HPF (0-5)
[2022-09-29 11:41] LABS: Alanine Aminotransferase 20 U/L (0-40); Albumin Level 4.6 g/dL (3.5-5.0); Alkaline Phosphatase 95 U/L (39-117); Anion Gap 17 (12-20); Aspartate Amino Transferase 21 U/L (5-37); Bilirubin Direct 0.3 mg/dL (0.0-0.5); Bilirubin Total 0.4 mg/dL (0.0-1.0); Blood Urea Nitrogen 22 mg/dL (9-16); Calcium 10.1 mg/dL (8.4-10.2); Carbon Dioxide 24 mmol/L (22-29); Chloride 103 mmol/L (96-108); Creatinine Clr Calc Pharmacy 108.4; Estimated Glomerular Filt Rate > 60; Glucose Random 103 mg/dL (60-115); Lipase 57 U/L (8-78); Potassium 4.6 mmol/L (3.3-5.1); Sodium 139 mmol/L (135-145); Total Protein 7.8 g/dL (6.5-8.0)
--- NOTE | 2022-09-29 15:22 | PC.NURSE ---
Called at [phone] for reassessment, no answer
== END 2022-09-29 15:23 | disposition left against medical advice (07) ==
LOC: HO.ED 15:22
PROVIDERS: Emergency Provider Emergency Medicine
DX: R10.9 Unspecified abdominal pain (principal); R11.0 Nausea; N20.0 Calculus of kidney
CPT/HCPCS: 36415; 74176; 80048; 80076; 81001; 83690; 85025; 99282; 99284

== ENCOUNTER 2023-03-26 06:55 | Emergency (ER) | payer OTHER, SELFPAY ==
--- NOTE | ~2023-03-26 | CT_ITS ---
EXAMINATION: CT ABDOMEN AND PELVIS WITHOUT CONTRAST CLINICAL INFORMATION: Kidney stone COMPARISON: CT abdomen pelvis without and with contrast 09/29/2022 TECHNIQUE: Multidetector volumetric imaging was performed from the superior aspect of the liver through the pubic symphysis. Sagittal and coronal reformatted images were obtained on the technologist's workstation. This CT examination was performed using dose optimization techniques as appropriate, variously including the following: *Automated exposure control *Adjustment of mA and/or kV according to patient size (this includes techniques or standardized protocols for targeted exams where dose is matched to indication/reason for exam; i.e. extremities or head) *Use of iterative reconstruction technique DLP: 543 mGy-cm FINDINGS: LUNG BASES: The visualized lung bases are unremarkable. LIVER, GALLBLADDER, AND BILIARY TREE: The liver is normal in size, shape, and attenuation. No focal hepatic lesion or biliary ductal dilatation is present. The gallbladder is unremarkable with no evidence of radiopaque gallstones, gallbladder wall thickening, or obvious pericholecystic inflammatory changes. PANCREAS: Unremarkable. SPLEEN: Unremarkable. ADRENAL GLANDS: Unremarkable. KIDNEYS AND URETERS: The kidneys are normal in size, shape, and attenuation. There are bilateral radiopaque renal calculi. Largest 1.1 cm nonobstructive radiopaque calculi interpolar region right kidney. 2 mm radiopaque calculi visualized in the lower pole right kidney and lower pole left kidney without caliectasis. There is no hydronephrosis. BLADDER: The bladder is nondistended with nonspecific mild lateral wall thickening. GASTROINTESTINAL TRACT: There is scattered stool and gas seen throughout the colon without distention. The small bowel loops are normal caliber. There is no free air or free fluid. ABDOMINAL WALL: There is a small umbilical hernia containing fat. LYMPH NODES: Normal. VASCULAR: Unremarkable. PELVIC VISCERA: The prostate gland is normal size with central gland calcification. OSSEOUS STRUCTURES: Unremarkable. CT/CT abdomen pelvis wo IV con IMPRESSION: 1. Bilateral nonobstructive radiopaque renal calculi. No hydronephrosis seen. 2. Mild constipation. Fleischner guidelines were followed.
[2023-03-26 07:04] VITALS: BP 140/77; PULSE 84; RESP 16; TEMP 36.7; O2SAT 97; BMI 26.4
[2023-03-26] MEDS: 0.9 % Sodium Chloride 1,000 ML 999 ML IVCONT (07:19)
--- NOTE | 2023-03-26 07:25 | ED_ITS ---
HPI - General Adult General Chief complaint: Abdominal Pain Stated complaint: flank pain Time Seen by Provider: 03/26/23 07:06 Source: patient Limitations: no limitations History of Present Illness HPI narrative: This is a 32 years old male with the history of kidney stones presented to the emergency department complaining of bilateral flank pain onset this morning he denies any fever, denies vomiting. Onset (ago): hour(s) (5) Location: abdomen Radiation: back Severity: moderate Quality: burning Pain Consistency: constant Relieving factors: none Exacerbating factors: none Related Data Previous Rx's Medication Instructions Recorded cefuroxime axetil 250 mg tablet 250 mg PO BID #10 tabs 10/20/21 naproxen 500 mg tablet 500 mg PO BID PRN pain 7 days #14 10/20/21 tabs phenazopyridine 100 mg tablet 100 mg PO TID PRN spasm 4 days 10/20/21 (Pyridium) #12 tabs tramadol 50 mg tablet 50 mg PO Q6H PRN pain (scale score 10/20/21 4-6) #12 tabs ondansetron HCl 4 mg tablet 4 mg PO Q8H PRN nausea and 10/22/21 (Zofran) vomiting 5 days #15 tabs oxybutynin chloride 5 mg 5 mg PO DAILY 14 days #14 tabs 10/22/21 tablet,extended release 24 hr tamsulosin 0.4 mg capsule 0.4 mg PO DAILY 14 days #14 caps 10/22/21 oxycodone 5 mg tablet 5 mg PO Q6H PRN Pain, Moderate #20 10/25/21 tabs levofloxacin 500 mg tablet 500 mg PO DAILY 5 days #5 tabs 03/26/23 oxycodone 5 mg capsule 5 mg PO Q8H PRN pain #12 caps 03/26/23 Allergies Allergy/AdvReac Type Severity Reaction Status Date / Time cat dander [CATS] Allergy Unknown UNKNOWN Verified 10/24/21 22:32 dog dander [DOGS] Allergy Unknown UNKNOWN Verified 10/24/21 22:32 Review of Systems Constitutional: Constitutional: Reports no additional constitutional complaints Eyes: Eyes: Reports no additional eye complaints Cardiovascular: Cardiovascular: Reports no additional cardiovascular complaints PMFSH Past Medical History PMFSH Narrative: Kidney stone Medical History Kidney stones Social History Social History Household Members: Spouse and Children Housing: Apartment Alcohol intake: never Patient Tobacco Use Status: Never used Tobacco Advance Directives: Yes Advance Directives on File: Yes Advance Directives Date on File: 10/21/21 service: No Current occupational status: unemployed Physical Exam ED Vital Signs: Vital Signs - 24 hr 03/26/23 07:04 Temperature 98.1 F Pulse Rate 84 Respiratory Rate 16 Blood Pressure 140/77 H Pulse Oximetry 97 Oxygen Delivery Method Room Air BMI result Body Mass Index 26.4 Const General: cooperative, comfortable, no acute distress and well developed Nutritional Appearance: average body habitus Orientation/consciousness: patient oriented x3 HENMT Head: Yes normal to inspection General nose exam: Normal external nose present Mouth: Normal oral and palatal mucosa present Throat: Yes posterior oropharynx normal Neck Neck: Yes normal visual inspection, Yes full ROM and Yes no lymphadenopathy Chest Chest palpation & inspection: normal inspection of the chest Resp Effort & Inspection: normal respiratory effort Auscultation: clear to auscultation bilaterally Cardio Jugular venous distension: no JVD Palpation: normal PMI Rate: regular rate Rhythm: regular rhythm GI Inspection: Yes normal to inspection Palpation (GI): Soft to palpation, not firm, nontender and no guarding Auscultation: normal bowel sounds Skin General skin exam: no rashes or lesions noted Neuro General: patient oriented x3 Course Reevaluation(s) Reevaluation #1: I re-examined the patient at this time is feeling better, CT was reviewed by me there is no hydronephrosis no ureteral stones, UA shows a few white cell, I think it is reasonable to discharge the patient home pain medication and p.o. antibiotic he will follow-up with primary care physician is very comfortable with the plan Time: 10:25 Medications Administered Discontinued Medications Generic Name Dose Route Start Last Admin Trade Name Freq PRN Reason Stop Dose Admin Hydromorphone HCl 0.5 mg 03/26/23 07:53 03/26/23 08:10 Hydromorphone Hcl 0.5 Mg/0.5 Ml Syringe IVPUSH 03/26/23 07:54 0.5 mg ONCE ONE Administration Protocol Sodium Chloride 1,000 mls @ 999 mls/hr 03/26/23 07:15 03/26/23 08:14 Ns IVCONT 03/26/23 08:15 Infused .Q1H1M SOHAIL Infusion Ketorolac Tromethamine 30 mg 03/26/23 07:13 03/26/23 07:27 Ketorolac Tromethamine 30 Mg/Ml Vial IVPUSH 03/26/23 07:14 30 mg ONCE ONE Administration Morphine Sulfate 4 mg 03/26/23 10:16 03/26/23 10:21 Morphine Sulfate 4 Mg/Ml Cartridge IVPUSH 03/26/23 10:17 4 mg ONCE ONE Administration Protocol Medical Decision Making Medical Decision Making [facility] Narrative: Patient presented with bilateral flank pain we get the UA labs we will give him analgesia Differential Diagnosis Differential Diagnoses: The differential diagnosis associated with the presentation includes Kidney stones/UTI/muscular strain Admission/Observation Consideration of admission/observation: Escalation of care including admission/observation considered Lab Data [facility] Lab Attestation statement: I reviewed the patient's lab results. 03/26/23 07:18 03/26/23 07:18 Labs: Lab Results 03/26/23 03/26/23 03/26/23 Range/Units 07:18 07:18 09:05 WBC 9.4 (4.8-10.8) X10*3/uL RBC 5.10 (4.60-5.80) X10*6/uL Hgb 15.7 (14.0-18.0) g/dl Hct 45.1 (42.0-52.0) % MCV 88.4 (80.0-98.0) fL MCH 30.8 (27.0-33.0) pg MCHC 34.8 (31.0-36.0) g/dl RDW 15.9 (11.0-16.0) % Plt Count 322 (160-400) X10*3/uL MPV 9.0 L (9.4-12.4) fL Immature Gran % (Auto) 0.3 (0.0-0.4) % Neut % (Auto) 63.3 (45-73) % Lymph % (Auto) 27.5 (20-40) % Conway % (Auto) 6.8 (2-11) % Eos % (Auto) 1.7 (0-4) % Baso % (Auto) 0.4 (0-2) % Lymph # (Auto) 2.6 (1.2-4.9) X10*3/uL Conway # (Auto) 0.6 (0.1-1.2) X10*3/uL Eos # (Auto) 0.2 (0.0-0.4) X10*3/uL Baso # (Auto) 0.0 (0.0-0.2) X10*3/uL Abs Immat Gran (auto) 0.03 (0.00-0.03) X10*3/uL Absolute Neuts (auto) 6.0 (2.0-8.3) x10*3/uL Absolute Nucleated RBC 0.000 (0.0-0.012) X10*3/uL Nucleated RBC % (auto) 0.0 (0.0-0.2) /100WBC Sodium 138 (135-145) mmol/L Potassium 4.1 (3.3-5.1) mmol/L Chloride 103 (96-108) mmol/L Carbon Dioxide 25 (22-29) mmol/L Anion Gap 14 (12-20) BUN 12 (9-16) mg/dL Creatinine 0.96 (0.5-1.4) mg/dL Estim Creat Clear Calc 115.4 Estimated GFR > 60 Random Glucose 99 (60-115) mg/dL Calcium 9.6 (8.4-10.2) mg/dL Total Bilirubin 0.6 (0.0-1.0) mg/dL AST 51 H (5-37) U/L ALT 52 H (0-40) U/L Alkaline Phosphatase 88 (39-117) U/L Total Protein 7.6 (6.5-8.0) g/dL Albumin 4.3 (3.5-5.0) g/dL Urine Color Dark Yellow Urine Appearance Clear Urine pH 6.0 (5.0-9.0) Ur Specific [place] 1.020 (1.005-1.025) Urine Protein 30 (1+) H (Neg-Trace) mg/dL Urine Glucose (UA) Negative (Negative) mg/dL Urine Ketones Trace (Negative) mg/dL Urine Blood Small (1+) H (Negative) Urine Nitrite Negative (Negative) Ur Leukocyte Esterase Small (1+) H (Negative) Urine RBC 3-5 H (0-2) /HPF Urine WBC 11-20 H (0-5) /HPF Ur Squamous Epith Cells 0-2 (0-2) /HPF Urine Bacteria Trace (None Seen) Hyaline Casts 0-2 (0-2) /LPF Radiology Impression Discussion of test interpretation with radiology: I have reviewed the radiologist's reading. Radiologist Impression: GASTROINTESTINAL TRACT: There is scattered stool and gas seen throughout the colon without distention. The small bowel loops are normal caliber. There is no free air or free fluid.? ABDOMINAL WALL: There is a small umbilical hernia containing fat.? LYMPH NODES: Normal. VASCULAR: Unremarkable. PELVIC VISCERA: The prostate gland is normal size with central gland calcification.? OSSEOUS STRUCTURES: Unremarkable.? CT/CT abdomen pelvis wo IV con IMPRESSION: 1.? Bilateral nonobstructive radiopaque renal calculi. No hydronephrosis seen. 2.? Mild constipation. ? Fleischner guidelines were followed. Dictated By: Nile aTbor MD Signed By: <Electronically sonja External Record Review External record reviewed: Inpatient record Prescription Management I considered prescription management with: Pain Medication Discharge Plan Discharge Clinical Impression: Back pain, Acute UTI Patient Disposition: Home, Self-Care Instructions: Urinary Tract Infection in Men (DC), Acute Low Back Pain (ED) Additional Instructions: Follow-up with your primary care physician a call to him make an appointment return if you vomiting, fever, worse Prescriptions: New oxycodone 5 mg capsule 5 mg PO Q8H PRN (Reason: pain) Qty: 12 0RF Rx Instructions: Partial Fill upon patient request. levofloxacin 500 mg tablet 500 mg PO DAILY 5 Days Qty: 5 0RF No Action tamsulosin 0.4 mg capsule 0.4 mg PO DAILY 14 Days Qty: 14 0RF oxybutynin chloride 5 mg tablet extended release 24hr 5 mg PO DAILY 14 Days Qty: 14 0RF Rx Instructions: bladder spasms ondansetron HCl [Zofran] 4 mg tablet 4 mg PO Q8H PRN (Reason: nausea and vomiting) 5 Days Qty: 15 0RF cefuroxime axetil 250 mg tablet 250 mg PO BID Qty: 10 0RF tramadol 50 mg tablet 50 mg PO Q6H PRN (Reason: pain (scale score 4-6)) Qty: 12 0RF phenazopyridine [Pyridium] 100 mg tablet 100 mg PO TID PRN (Reason: spasm) 4 Days Qty: 12 0RF naproxen 500 mg tablet 500 mg PO BID PRN (Reason: pain) 7 Days Qty: 14 0RF oxycodone 5 mg tablet 5 mg PO Q6H PRN (Reason: Pain, Moderate) Qty: 20 0RF Referrals: Cade Peres MD [Primary Care Provider] - 2 days
[2023-03-26] MEDS: Ketorolac Tromethamine 30 MG/ML VIAL IVPUSH (07:27)
[2023-03-26 07:29] LABS: MANUAL DIFF FLAG NO
[2023-03-26 07:31] LABS: Basophils Percent Auto 0.4 % (0-2); Eosinophils Absolute Auto 0.2 X10*3/uL (0.0-0.4); Eosinophils Percent Auto 1.7 % (0-4); Hematocrit 45.1 % (42.0-52.0); Hemoglobin 15.7 g/dl (14.0-18.0); Imm Gran Abs Auto 0.03 X10*3/uL (0.00-0.03); Imm Gran Pct Auto 0.3 % (0.0-0.4); Lymphocytes Absolute Auto 2.6 X10*3/uL (1.2-4.9); Lymphocytes Percent Auto 27.5 % (20-40); Mean Corpuscular HGB Conc 34.8 g/dl (31.0-36.0); Mean Corpuscular Hemoglobin 30.8 pg (27.0-33.0); Mean Corpuscular Volume 88.4 fL (80.0-98.0); Monocytes Absolute Auto 0.6 X10*3/uL (0.1-1.2); Monocytes Percent Auto 6.8 % (2-11); Neutrophils Percent Auto 63.3 % (45-73); Platelet Count 322 X10*3/uL (160-400); Red Cell Distribution Width 15.9 % (11.0-16.0); White Blood Count 9.4 X10*3/uL (4.8-10.8)
[2023-03-26] MEDS: HYDROmorphone HCl 0.5 MG/0.5 ML SYRINGE IVPUSH (08:10)
[2023-03-26 08:20] LABS: Alanine Aminotransferase 52 U/L (0-40); Albumin Level 4.3 g/dL (3.5-5.0); Alkaline Phosphatase 88 U/L (39-117); Anion Gap 14 (12-20); Aspartate Amino Transferase 51 U/L (5-37); Bilirubin Total 0.6 mg/dL (0.0-1.0); Blood Urea Nitrogen 12 mg/dL (9-16); Calcium 9.6 mg/dL (8.4-10.2); Carbon Dioxide 25 mmol/L (22-29); Chloride 103 mmol/L (96-108); Creatinine Clr Calc Pharmacy 115.4; Estimated Glomerular Filt Rate > 60; Glucose Random 99 mg/dL (60-115); Potassium 4.1 mmol/L (3.3-5.1); Sodium 138 mmol/L (135-145); Total Protein 7.6 g/dL (6.5-8.0)
[2023-03-26 09:36] LABS: Appearance Urine Clear; Color Urine Dark Yellow; Glucose Urine UA Negative (Negative); Leukocyte Esterase Urine Small (1+) (Negative); Nitrite Urine Negative (Negative); UMIC TRIGGER UACC YES; Urine Blood Small (1+) (Negative); Urine Ketones Trace mg/dL (Negative); Urine Protein 30 (1+) mg/dL (Neg-Trace)
--- NOTE | 2023-03-26 09:52 | PC.NURSE ---
md aware of pt pain- plan to discuss plan of care with pt
[2023-03-26 09:53] LABS: Bacteria Urine Trace (None Seen); Hyaline Casts Urine 0-2 /LPF (0-2); Squamous Epithelial Cell Urine 0-2 /HPF (0-2); UACC Culture Trigger YES
[2023-03-26] MEDS: Morphine Sulfate 4 MG/ML CARTRIDGE IVPUSH (10:21)
[2023-03-26 10:28] VITALS: BP 146/92; PULSE 71; RESP 15; TEMP 36.8; O2SAT 97
== END 2023-03-26 10:32 | disposition home or self-care (01) ==
PROVIDERS: Emergency Provider Emergency Medicine; PCP Family Medicine
DX: N39.0 Urinary tract infection, site not specified (principal); R10.9 Unspecified abdominal pain; N20.0 Calculus of kidney
CPT/HCPCS: 36415; 74176; 80053; 81001; 85025; 87086; 96361; 96374; 96375; 99284; J1170; J1885; J2270

== ENCOUNTER 2023-04-21 01:03 | Emergency (ER) | payer OTHER, SELFPAY ==
--- NOTE | ~2023-04-21 | XR_ITS ---
EXAMINATION: XR CHEST CLINICAL INFORMATION: Chest pain COMPARISON: 07.02.2014 TECHNIQUE: 2 views of the chest were obtained. FINDINGS: No significant abnormality is noted involving the heart, lungs, mediastinum, bony thorax or soft tissues. XR/XR chest 2V IMPRESSION: Unremarkable examination.
--- NOTE | ~2023-04-21 | CT_ITS ---
EXAMINATION: CT ANGIOGRAM OF THE CHEST WITH AND WITHOUT CONTRAST (CT PULMONARY ANGIOGRAM FOR PE) CLINICAL INFORMATION: Reason for Exam Pleuritic chest pain/elevated D-dimer R/O PE COMPARISON: None available. TECHNIQUE: Prior to contrast administration, noncontrast localization images were obtained. Subsequently, multidetector volumetric imaging was performed from the thoracic inlet to below the diaphragms following the administration of 80 mL Omnipaque 350 intravenous contrast. No contrast reaction reported Sagittal, coronal, and MIP oblique sagittal reformatted images were obtained on the CT workstation, uploaded to PACS, and reviewed. This CT examination was performed using dose optimization techniques as appropriate, variously including the following: *Automated exposure control *Adjustment of mA and/or kV according to patient size (this includes techniques or standardized protocols for targeted exams where dose is matched to indication/reason for exam; i.e. extremities or head) *Use of iterative reconstruction technique Total exam dose-length product 279 mGy-cm FINDINGS: QUALITY OF STUDY/CONTRAST BOLUS: Satisfactory. PULMONARY ARTERIES: No pulmonary emboli. THORACIC AORTA: No aneurysm. LUNG: Mild upper lobe predominant centrilobular and paraseptal emphysema. Diffuse moderate bronchial wall thickening without bronchiectasis. There are a few tiny pulmonary nodules measuring 3 mm or less, as shown on the savage images. PLEURA: No pleural effusion or pneumothorax. MEDIASTINUM: Normal heart size. No pericardial effusion. No hilar or mediastinal lymphadenopathy. No evidence of septal bowing or right heart strain. CORONARY ARTERY CALCIFICATION: None visualized on this study. CHEST WALL/AXILLA: No axillary or internal mammary lymphadenopathy. OSSEOUS STRUCTURES: No acute or suspicious osseous abnormality. UPPER ABDOMEN: Nonobstructive 6 mm calculus in the right kidney. CT/CT angio chest PE protocol IMPRESSION: * No pulmonary embolism. * No aortic aneurysm or dissection. * Mild upper lobe predominant centrilobular and paraseptal emphysema. * Diffuse moderate bronchial wall thickening compatible with bronchitis. * There are a few tiny pulmonary nodules measuring 3 mm or less. Per the 2017 revised Fleischner Society guidelines, in low-risk patients no routine follow up is necessarily required. In patients at high-risk for pulmonary neoplasm, recommend consideration of followup CT at 12 months to demonstrate nodule stability. * Nonobstructive 6 mm calculus, right kidney. VTE: NEGATIVE.
[2023-04-21 01:13] VITALS: BP 128/75; BP 160/80; PULSE 77; PULSE 80; RESP 16; TEMP 37.1; O2SAT 100; O2SAT 97; BMI 28.4
--- NOTE | 2023-04-21 01:27 | ECG_ITS ---
Test Reason : CHEST PAIN Blood Pressure : / mmHG Vent. Rate : 072 BPM Atrial Rate : 072 BPM P-R Int : 150 ms QRS Dur : 088 ms QT Int : 416 ms P-R-T Axes : 030 056 026 degrees QTc Int : 455 ms Normal sinus rhythm Normal ECG When compared with ECG of 02-JUL-2014 13:12, QT has lengthened Referred By: Arnaldo Aguilar Electronically Signed By:SHEN SOSA
--- NOTE | 2023-04-21 01:28 | ED_ITS ---
HPI - Chest Pain General Chief Complaint: Chest Pain Stated Complaint: WOKEN BY STABBING CHEST PAIN PER EMS Time Seen by Provider: 04/21/23 01:19 Source: patient and EMS Mode of arrival: EMS Limitations: no limitations History of Present Illness HPI narrative: 32-year-old male came in by ambulance for evaluation of left-sided chest pain. Chest pain started 2 days ago as sharp stabbing pain under the left nipple, pain sometimes radiate to the left arm, pain is worsening with taking a deep breath, no recent Chest trauma, no recent travel, no lower extremity swelling or tenderness. no significant family history of CAD, no history of young in the family. admits to smoking marijuana otherwise no other drugs, patient admits to drinking with his last night. Related Data Previous Rx's Medication Instructions Recorded cefuroxime axetil 250 mg tablet 250 mg PO BID #10 tabs 10/20/21 naproxen 500 mg tablet 500 mg PO BID PRN pain 7 days #14 10/20/21 tabs phenazopyridine 100 mg tablet 100 mg PO TID PRN spasm 4 days 10/20/21 (Pyridium) #12 tabs tramadol 50 mg tablet 50 mg PO Q6H PRN pain (scale score 10/20/21 4-6) #12 tabs ondansetron HCl 4 mg tablet 4 mg PO Q8H PRN nausea and 10/22/21 (Zofran) vomiting 5 days #15 tabs oxybutynin chloride 5 mg 5 mg PO DAILY 14 days #14 tabs 10/22/21 tablet,extended release 24 hr tamsulosin 0.4 mg capsule 0.4 mg PO DAILY 14 days #14 caps 10/22/21 oxycodone 5 mg tablet 5 mg PO Q6H PRN Pain, Moderate #20 10/25/21 tabs levofloxacin 500 mg tablet 500 mg PO DAILY 5 days #5 tabs 03/26/23 oxycodone 5 mg capsule 5 mg PO Q8H PRN pain #12 caps 03/26/23 Allergies Allergy/AdvReac Type Severity Reaction Status Date / Time cat dander [CATS] Allergy Unknown UNKNOWN Verified 10/24/21 22:32 dog dander [DOGS] Allergy Unknown UNKNOWN Verified 10/24/21 22:32 Review of Systems Review of Systems: All other systems are reviewed and are negative Constitutional: Reports as per HPI and Reports no additional constitutional complaints Eyes: Reports as per HPI and Reports no additional eye complaints Reports system reviewed and no additional complaints, except as documented Cardiovascular: Reports as per HPI and Reports no additional cardiovascular complaints Respiratory: Reports as per HPI and Reports no additional respiratory complaints Gastrointestinal: Reports as per HPI and Reports no additional gastrointestinal complaints Genitourinary: Reports no additional female genitourinary complaints Musculoskeletal: Reports no additional musculoskeletal complaints Skin/Breast: Reports system reviewed and no additional complaints, except as docu Psychiatric: Reports no additional psychiatric complaints Endocrine: Reports no additional endocrine complaints Hematologic/Lymphatic: Reports no additional hematologic/lymphatic complaints Allergic/Immunologic: Reports no additional allergic/immunologic complaints Reports system reviewed and no additional complaints, except as documented and Reports Abnormal speech present [facility] Past Medical History Medical History Kidney stones Social History Social History Household Members: Spouse and Children Housing: Apartment Alcohol intake: current Patient Tobacco Use Status: Never used Tobacco Smoked in Last 30 Days: Yes Use of substances other than those prescribed or required for medical reasons: Yes Substance Use Type: Marijuana Advance Directives: Yes Advance Directives on File: Yes Advance Directives Date on File: 10/21/21 service: No Current occupational status: unemployed Physical Exam Vital Signs: Vital Signs: Last Vital Signs Temp 98.8 F 04/21/23 01:13 Pulse 71 04/21/23 03:34 Resp 18 04/21/23 04:36 BP 129/76 04/21/23 03:34 Pulse Ox 98 04/21/23 03:34 O2 Del Method Room Air 04/21/23 03:34 BMI result Body Mass Index 28.4 vital signs have been reviewed as appeared to be correct. Blood pressure normal. Heart rate normal. Respiration rate normal. Temperature normal. Oxygen saturation normal. Appearance: Alert. Oriented X3. No acute distress. Head: Normal external exam. Normocephalic. Atraumatic. No Alberto signs noted. No raccoon eyes noted Eyes: PERRLA. EOMI. Conjunctiva and sclera normal. Eyelids normal. ENT: TM's Normal. Pharynx normal. Uvula midline. Moist mucous membranes. No trismus noted. No drooling noted. No muffled voice noted. Neck: Normal inspection. Neck supple. FROM. No adenopathy. Thyroid Normal. No meningeal signs. No neck mass noted. CVS: Normal heart rate and rhythm. Heart sound normal. No murmurs noted. Pulses normal throughout. Respiratory: No respiratory distress. Painless inspiration. Breath sounds norm al. No wheezes/rales/rhonchi noted. Chest nontender. No accessory muscle usage noted or decreased air movement noted. Abdomen: Soft and nontender. Bowel sounds normal in all 4 quadrants. No distenti on noted. No organomegaly noted. No visible injury noted. Back: No CVA tenderness. Full range of motion noted. Skin: Skin warm and dry. Normal skin color. Normal skin turgor. No rashes/lesions/lacerations noted. Extremities: No lower extremity edema. Extremities exhibit normal range of motion. Extremities nontender. Neuro: Oriented X 3. Cranial nerve exam: II-XII are grossly intact No motor deficit. No sensory deficit. Reflexes normal. Course Course Course Narrative: Pleuritic chest pain, CT angio of the chest, labs unrevealing. Patient was reassured, to follow-up with PCP. Medications Administered Discontinued Medications Generic Name Dose Route Start Last Admin Trade Name Freq PRN Reason Stop Dose Admin Sodium Chloride 1,000 mls @ 999 mls/hr 04/21/23 02:43 04/21/23 04:35 Ns IV 04/21/23 03:43 Infused .Q1H1M ONE Infusion Ibuprofen 800 mg 04/21/23 04:02 04/21/23 04:36 Ibuprofen 800 Mg Tablet PO 04/21/23 04:03 Not Given ONCE ONE Iohexol 65 ml 04/21/23 03:17 04/21/23 03:17 Iohexol 350 Mg/Ml 100 Ml Infus..Btl IV 04/21/23 03:18 65 ml ONCE ONE Administration Ketorolac Tromethamine 15 mg 04/21/23 04:15 04/21/23 04:36 Ketorolac Tromethamine 15 Mg/Ml Vial IVPUSH 04/21/23 04:16 15 mg ONCE ONE Administration Morphine Sulfate 1 mg 04/21/23 04:15 04/21/23 04:36 Morphine Sulfate 2 Mg/Ml Cartridge IVPUSH 04/21/23 04:16 1 mg ONCE ONE Administration Protocol Medical Decision Making Differential Diagnosis Differential Diagnoses: The differential diagnosis associated with the presentation includes (Pulmonary embolism, pleurisy, pleural effusion, ACS, pancreatitis, electrolyte abnormalities, severe anemia.) Admission/Observation Consideration of admission/observation: Escalation of care including admission/observation considered Lab Data MDM Lab Attestation statement: I reviewed the patient's lab results. 04/21/23 01:55 04/21/23 01:55 Labs: Lab Results 04/21/23 04/21/23 04/21/23 Range/Units 01:55 01:55 01:55 WBC 8.3 (4.8-10.8) X10*3/uL RBC 4.57 L (4.60-5.80) X10*6/uL Hgb 14.0 (14.0-18.0) g/dl Hct 40.5 L (42.0-52.0) % MCV 88.6 (80.0-98.0) fL MCH 30.6 (27.0-33.0) pg MCHC 34.6 (31.0-36.0) g/dl RDW 15.9 (11.0-16.0) % Plt Count 294 (160-400) X10*3/uL MPV 8.9 L (9.4-12.4) fL Immature Gran % (Auto) 0.4 (0.0-0.4) % Neut % (Auto) 58.6 (45-73) % Lymph % (Auto) 29.6 (20-40) % [place] % (Auto) 8.8 (2-11) % Eos % (Auto) 1.9 (0-4) % Baso % (Auto) 0.7 (0-2) % Lymph # (Auto) 2.5 (1.2-4.9) X10*3/uL [place] # (Auto) 0.7 (0.1-1.2) X10*3/uL Eos # (Auto) 0.2 (0.0-0.4) X10*3/uL Baso # (Auto) 0.1 (0.0-0.2) X10*3/uL Abs Immat Gran (auto) 0.03 (0.00-0.03) X10*3/uL Absolute Neuts (auto) 4.9 (2.0-8.3) x10*3/uL Absolute Nucleated RBC 0.000 (0.0-0.012) X10*3/uL Nucleated RBC % (auto) 0.0 (0.0-0.2) /100WBC D-Dimer High Sensitivty 255 NG/ML Sodium 141 (135-145) mmol/L Potassium 3.7 (3.3-5.1) mmol/L Chloride 106 (96-108) mmol/L Carbon Dioxide 26 (22-29) mmol/L Anion Gap 13 (12-20) BUN 15 (9-16) mg/dL Creatinine 0.88 (0.5-1.4) mg/dL Estim Creat Clear Calc 137.4 Estimated GFR > 60 Random Glucose 92 (60-115) mg/dL Calcium 8.7 D (8.4-10.2) mg/dL Total Bilirubin 0.3 (0.0-1.0) mg/dL Direct Bilirubin 0.1 (0.0-0.5) mg/dL AST 40 H (5-37) U/L ALT 48 H (0-40) U/L Alkaline Phosphatase 95 (39-117) U/L Troponin I High Sens (<3.5-35.0) ng/L Total Protein 6.8 (6.5-8.0) g/dL Albumin 3.8 (3.5-5.0) g/dL Lipase 149 H (8-78) U/L 04/21/23 Range/Units 01:55 WBC (4.8-10.8) X10*3/uL RBC (4.60-5.80) X10*6/uL Hgb (14.0-18.0) g/dl Hct (42.0-52.0) % MCV (80.0-98.0) fL MCH (27.0-33.0) pg MCHC (31.0-36.0) g/dl RDW (11.0-16.0) % Plt Count (160-400) X10*3/uL MPV (9.4-12.4) fL Immature Gran % (Auto) (0.0-0.4) % Neut % (Auto) (45-73) % Lymph % (Auto) (20-40) % [place] % (Auto) (2-11) % Eos % (Auto) (0-4) % Baso % (Auto) (0-2) % Lymph # (Auto) (1.2-4.9) X10*3/uL [place] # (Auto) (0.1-1.2) X10*3/uL Eos # (Auto) (0.0-0.4) X10*3/uL Baso # (Auto) (0.0-0.2) X10*3/uL Abs Immat Gran (auto) (0.00-0.03) X10*3/uL Absolute Neuts (auto) (2.0-8.3) x10*3/uL Absolute Nucleated RBC (0.0-0.012) X10*3/uL Nucleated RBC % (auto) (0.0-0.2) /100WBC D-Dimer High Sensitivty NG/ML Sodium (135-145) mmol/L Potassium (3.3-5.1) mmol/L Chloride (96-108) mmol/L Carbon Dioxide (22-29) mmol/L Anion Gap (12-20) BUN (9-16) mg/dL Creatinine (0.5-1.4) mg/dL Estim Creat Clear Calc Estimated GFR Random Glucose (60-115) mg/dL Calcium (8.4-10.2) mg/dL Total Bilirubin (0.0-1.0) mg/dL Direct Bilirubin (0.0-0.5) mg/dL AST (5-37) U/L ALT (0-40) U/L Alkaline Phosphatase (39-117) U/L Troponin I High Sens 3.2 (<3.5-35.0) ng/L Total Protein (6.5-8.0) g/dL Albumin (3.5-5.0) g/dL Lipase (8-78) U/L Independent Interpretation I performed an independent interpretation of an: CT Scan (Chest angio CT: No acute intrathoracic pathology.) Radiology Impression Discussion of test interpretation with radiology: I have reviewed the radiologist's reading. Discharge Plan Discharge Clinical Impression: Pleurisy, Acute pancreatitis Patient Disposition: Home, Self-Care Instructions: Pleurisy (ED), Pancreatitis (ED) Additional Instructions: Take [id number] ibuprofen 200 mg tablet every 6 hours if needed for pain. Prescriptions: No Action tamsulosin 0.4 mg capsule 0.4 mg PO DAILY 14 Days Qty: 14 0RF oxybutynin chloride 5 mg tablet extended release 24hr 5 mg PO DAILY 14 Days Qty: 14 0RF Rx Instructions: bladder spasms ondansetron HCl [Zofran] 4 mg tablet 4 mg PO Q8H PRN (Reason: nausea and vomiting) 5 Days Qty: 15 0RF cefuroxime axetil 250 mg tablet 250 mg PO BID Qty: 10 0RF tramadol 50 mg tablet 50 mg PO Q6H PRN (Reason: pain (scale score 4-6)) Qty: 12 0RF phenazopyridine [Pyridium] 100 mg tablet 100 mg PO TID PRN (Reason: spasm) 4 Days Qty: 12 0RF naproxen 500 mg tablet 500 mg PO BID PRN (Reason: pain) 7 Days Qty: 14 0RF oxycodone 5 mg tablet 5 mg PO Q6H PRN (Reason: Pain, Moderate) Qty: 20 0RF oxycodone 5 mg capsule 5 mg PO Q8H PRN (Reason: pain) Qty: 12 0RF Rx Instructions: Partial Fill upon patient request. levofloxacin 500 mg tablet 500 mg PO DAILY 5 Days Qty: 5 0RF Referrals: Cade Peres MD [Primary Care Provider] - Interventions: ED Discharge Assessment Last Done: 04/21/23 04:55 Discharge Date/Time: 04/21/23 05:01
[2023-04-21 02:00] LABS: MANUAL DIFF FLAG NO
[2023-04-21 02:01] LABS: Basophils Absolute Auto 0.1 X10*3/uL (0.0-0.2); Basophils Percent Auto 0.7 % (0-2); Eosinophils Absolute Auto 0.2 X10*3/uL (0.0-0.4); Eosinophils Percent Auto 1.9 % (0-4); Hematocrit 40.5 % (42.0-52.0); Imm Gran Abs Auto 0.03 X10*3/uL (0.00-0.03); Imm Gran Pct Auto 0.4 % (0.0-0.4); Lymphocytes Absolute Auto 2.5 X10*3/uL (1.2-4.9); Lymphocytes Percent Auto 29.6 % (20-40); Mean Corpuscular HGB Conc 34.6 g/dl (31.0-36.0); Mean Corpuscular Hemoglobin 30.6 pg (27.0-33.0); Mean Corpuscular Volume 88.6 fL (80.0-98.0); Mean Platelet Volume 8.9 fL (9.4-12.4); Monocytes Absolute Auto 0.7 X10*3/uL (0.1-1.2); Monocytes Percent Auto 8.8 % (2-11); Neutrophils Absolute Auto 4.9 x10*3/uL (2.0-8.3); Neutrophils Percent Auto 58.6 % (45-73); Platelet Count 294 X10*3/uL (160-400); Red Blood Count 4.57 X10*6/uL (4.60-5.80); Red Cell Distribution Width 15.9 % (11.0-16.0); White Blood Count 8.3 X10*3/uL (4.8-10.8)
[2023-04-21 02:18] LABS: D Dimer High Sensitivity 255 NG/ML
[2023-04-21 02:20] LABS: Alanine Aminotransferase 48 U/L (0-40); Albumin Level 3.8 g/dL (3.5-5.0); Alkaline Phosphatase 95 U/L (39-117); Anion Gap 13 (12-20); Aspartate Amino Transferase 40 U/L (5-37); Bilirubin Direct 0.1 mg/dL (0.0-0.5); Bilirubin Total 0.3 mg/dL (0.0-1.0); Blood Urea Nitrogen 15 mg/dL (9-16); Calcium 8.7 mg/dL (8.4-10.2); Carbon Dioxide 26 mmol/L (22-29); Chloride 106 mmol/L (96-108); Creatinine Clr Calc Pharmacy 137.4; Estimated Glomerular Filt Rate > 60; Glucose Random 92 mg/dL (60-115); Lipase 149 U/L (8-78); Potassium 3.7 mmol/L (3.3-5.1); Sodium 141 mmol/L (135-145); Total Protein 6.8 g/dL (6.5-8.0); Troponin-I High Sensitivity 3.2 ng/L (<3.5-35.0)
[2023-04-21] MEDS: iohexoL 350 MG/ML 100 ML INFUS..BTL 65 ML IV (03:17)
[2023-04-21] MEDS: 0.9 % Sodium Chloride 1,000 ML 999 ML IV (03:29)
[2023-04-21 03:34] VITALS: BP 129/76; PULSE 71; RESP 16; O2SAT 98
[2023-04-21 04:36] VITALS: RESP 18
[2023-04-21] MEDS: Morphine Sulfate 2 MG/ML CARTRIDGE 1 MG IVPUSH (04:36)
[2023-04-21] MEDS: Ketorolac Tromethamine 15 MG/ML VIAL IVPUSH (04:36)
== END 2023-04-21 05:01 | disposition home or self-care (01) ==
PROVIDERS: Emergency Provider Emergency Medicine; PCP Family Medicine
DX: R09.1 Pleurisy (principal); K85.90 Acute pancreatitis without necrosis or infection, unspecified; F12.90 Cannabis use, unspecified, uncomplicated; Z79.899 Other long term (current) drug therapy
CPT/HCPCS: 36415; 71046; 71275; 80048; 80076; 83690; 84484; 85025; 85379; 93005; 96361; 96374; 96375; 99284; 99285; J1885; J2270; Q9967

== ENCOUNTER 2023-06-04 03:59 | Emergency (ER) | payer OTHER, SELFPAY ==
[2023-06-04 04:06] VITALS: BP 154/82; BP 160/76; PULSE 75; RESP 16; TEMP 36.7; O2SAT 100; O2SAT 98; BMI 26.5
[2023-06-04 04:16] VITALS: BP 154/82; PULSE 75; RESP 18; TEMP 36.7; O2SAT 97
[2023-06-04 04:19] LABS: MANUAL DIFF FLAG NO
[2023-06-04 04:21] LABS: Basophils Absolute Auto 0.1 X10*3/uL (0.0-0.2); Basophils Percent Auto 0.6 % (0-2); Eosinophils Absolute Auto 0.1 X10*3/uL (0.0-0.4); Eosinophils Percent Auto 0.9 % (0-4); Hematocrit 38.5 % (42.0-52.0); Hemoglobin 13.6 g/dl (14.0-18.0); Imm Gran Abs Auto 0.03 X10*3/uL (0.00-0.03); Imm Gran Pct Auto 0.3 % (0.0-0.4); Lymphocytes Absolute Auto 2.5 X10*3/uL (1.2-4.9); Lymphocytes Percent Auto 22.8 % (20-40); Mean Corpuscular HGB Conc 35.3 g/dl (31.0-36.0); Mean Corpuscular Hemoglobin 31.6 pg (27.0-33.0); Mean Corpuscular Volume 89.3 fL (80.0-98.0); Mean Platelet Volume 9.2 fL (9.4-12.4); Monocytes Absolute Auto 0.9 X10*3/uL (0.1-1.2); Monocytes Percent Auto 8.6 % (2-11); Neutrophils Absolute Auto 7.2 x10*3/uL (2.0-8.3); Neutrophils Percent Auto 66.8 % (45-73); Platelet Count 398 X10*3/uL (160-400); Red Blood Count 4.31 X10*6/uL (4.60-5.80); Red Cell Distribution Width 14.4 % (11.0-16.0); White Blood Count 10.8 X10*3/uL (4.8-10.8)
[2023-06-04 04:42] LABS: Alanine Aminotransferase 49 U/L (0-40); Alkaline Phosphatase 85 U/L (39-117); Anion Gap 22 (12-20); Aspartate Amino Transferase 40 U/L (5-37); Bilirubin Total 0.7 mg/dL (0.0-1.0); Blood Urea Nitrogen 14 mg/dL (9-16); Calcium 9.5 mg/dL (8.4-10.2); Carbon Dioxide 20 mmol/L (22-29); Chloride 102 mmol/L (96-108); Creatinine Clr Calc Pharmacy 133.5; Estimated Glomerular Filt Rate > 60; Glucose Random 88 mg/dL (60-115); Potassium 3.3 mmol/L (3.3-5.1); Sodium 141 mmol/L (135-145); Total Protein 7.3 g/dL (6.5-8.0)
--- NOTE | 2023-06-04 04:46 | ED.BACK ---
HPI - Back Pain/Injury General Chief Complaint: Back Pain/Injury Stated Complaint: Back pain Time Seen by Provider: 06/04/23 04:43 Source: patient Mode of arrival: ambulatory Limitations: no limitations History of Present Illness HPI Narrative: Patient with chronic multiple nonobstructive kidneys was seen here on 04/17 abdominal pain at that time had 8 mm nonobstructive right kidney stone comes here for bilateral flank pain for last 2 days no dysuria no frequency hematuria no vomiting feel nauseated patient also complaining of trace leg edema denies any shortness of breath or palpitation no fever chills Related Data Previous Rx's Medication Instructions Recorded cefuroxime axetil 250 mg tablet 250 mg PO BID #10 tabs 10/20/21 naproxen 500 mg tablet 500 mg PO BID PRN pain 7 days #14 10/20/21 tabs phenazopyridine 100 mg tablet 100 mg PO TID PRN spasm 4 days 10/20/21 (Pyridium) #12 tabs tramadol 50 mg tablet 50 mg PO Q6H PRN pain (scale score 10/20/21 4-6) #12 tabs ondansetron HCl 4 mg tablet 4 mg PO Q8H PRN nausea and 10/22/21 (Zofran) vomiting 5 days #15 tabs oxybutynin chloride 5 mg 5 mg PO DAILY 14 days #14 tabs 10/22/21 tablet,extended release 24 hr tamsulosin 0.4 mg capsule 0.4 mg PO DAILY 14 days #14 caps 10/22/21 oxycodone 5 mg tablet 5 mg PO Q6H PRN Pain, Moderate #20 10/25/21 tabs levofloxacin 500 mg tablet 500 mg PO DAILY 5 days #5 tabs 03/26/23 oxycodone 5 mg capsule 5 mg PO Q8H PRN pain #12 caps 03/26/23 tramadol 50 mg tablet 50 mg PO Q6H PRN pain #20 tabs 06/04/23 Allergies Allergy/AdvReac Type Severity Reaction Status Date / Time cat dander [CATS] Allergy Unknown UNKNOWN Verified 10/24/21 22:32 dog dander [DOGS] Allergy Unknown UNKNOWN Verified 10/24/21 22:32 Review of Systems Review of Systems: Yes all other systems are reviewed and are negative PMFSH Past Medical History Medical History Kidney stones Social History Social History Household Members: Spouse and Children Housing: Apartment Alcohol intake: current Patient Tobacco Use Status: Never used Tobacco Substance Use Type: Marijuana Advance Directives Date on File: 10/21/21 service: No Current occupational status: unemployed Physical Exam Vital Signs: Vital Signs: Last Vital Signs Temp 98.0 F 06/04/23 04:16 Pulse 82 06/04/23 05:09 Resp 18 06/04/23 04:16 BP 147/90 H 06/04/23 05:09 Pulse Ox 97 06/04/23 04:16 O2 Del Method Room Air 06/04/23 04:16 BMI result Body Mass Index 26.5 Appearance: Alert. Oriented X3. No acute distress. Eyes: PERRLA, No Nystagmus ENT: Pharynx normal. Oral Mucosa moist Neck: Normal inspection. Neck supple. CVS: Normal heart rate and rhythm. Pulses normal. Respiratory: No respiratory distress. Equal air entry bilateral, no wheezing/rales/rhonchi Abdomen: Soft and nontender. Bowel sounds are present, no mass palpable, bilateral CVA tenderness Skin: Skin warm and dry. Normal skin color. Normal skin turgor. Back: Diffuse bilateral flank tenderness his spine normal Extremities: 1+ lower extremity edema. No calf tenderness Neuro: Oriented X 3. No motor deficit. No sensory deficit.No cerebellar signs , cranial nerves II-XII intact Medical Decision Making Medical Decision Making MDM Narrative: Patient with low back pain which is going on for last few days associated with nausea patient had CT scan of the abdomen on 03/26 which showed nonobstructive stone on the right side feeling much better comfortable when he came to ER discharged patient home on tramadol for chronic low back pain urine negative for significant blood or infection orthostatic blood pressure was normal has trace ankle edema likely from the use of NSAID Consult Healthcare Provider Management of the patient was discussed with: Hospitalist Lab Data [facility] Lab Attestation statement: I reviewed the patient's lab results. 06/04/23 04:15 06/04/23 04:15 Labs: Lab Results 06/04/23 06/04/23 06/04/23 Range/Units 04:15 04:15 04:44 WBC 10.8 (4.8-10.8) X10*3/uL RBC 4.31 L (4.60-5.80) X10*6/uL Hgb 13.6 L (14.0-18.0) g/dl Hct 38.5 L (42.0-52.0) % MCV 89.3 (80.0-98.0) fL MCH 31.6 (27.0-33.0) pg MCHC 35.3 (31.0-36.0) g/dl RDW 14.4 (11.0-16.0) % Plt Count 398 D (160-400) X10*3/uL MPV 9.2 L (9.4-12.4) fL Immature Gran % (Auto) 0.3 (0.0-0.4) % Neut % (Auto) 66.8 (45-73) % Lymph % (Auto) 22.8 (20-40) % [place] % (Auto) 8.6 (2-11) % Eos % (Auto) 0.9 (0-4) % Baso % (Auto) 0.6 (0-2) % Lymph # (Auto) 2.5 (1.2-4.9) X10*3/uL [place] # (Auto) 0.9 (0.1-1.2) X10*3/uL Eos # (Auto) 0.1 (0.0-0.4) X10*3/uL Baso # (Auto) 0.1 (0.0-0.2) X10*3/uL Abs Immat Gran (auto) 0.03 (0.00-0.03) X10*3/uL Absolute Neuts (auto) 7.2 (2.0-8.3) x10*3/uL Absolute Nucleated RBC 0.000 (0.0-0.012) X10*3/uL Nucleated RBC % (auto) 0.0 (0.0-0.2) /100WBC Sodium 141 (135-145) mmol/L Potassium 3.3 (3.3-5.1) mmol/L Chloride 102 (96-108) mmol/L Carbon Dioxide 20 L (22-29) mmol/L Anion Gap 22 H (12-20) BUN 14 (9-16) mg/dL Creatinine 0.83 (0.5-1.4) mg/dL Estim Creat Clear Calc 133.5 Estimated GFR > 60 Random Glucose 88 (60-115) mg/dL Calcium 9.5 D (8.4-10.2) mg/dL Total Bilirubin 0.7 (0.0-1.0) mg/dL AST 40 H (5-37) U/L ALT 49 H (0-40) U/L Alkaline Phosphatase 85 (39-117) U/L Total Protein 7.3 (6.5-8.0) g/dL Albumin 4.0 (3.5-5.0) g/dL Urine Color Yellow Urine Appearance Clear Urine pH 6.5 (5.0-9.0) Ur Specific [place] 1.020 (1.005-1.025) Urine Protein 100 (2+) H (Neg-Trace) mg/dL Urine Glucose (UA) Negative (Negative) mg/dL Urine Ketones 15 (Negative) mg/dL Urine Blood Negative (Negative) Urine Nitrite Negative (Negative) Ur Leukocyte Esterase Negative (Negative) Urine RBC 3-5 H (0-2) /HPF Urine WBC 0-5 (0-5) /HPF Ur Squamous Epith Cells 0-2 (0-2) /HPF Urine Bacteria None Seen (None Seen) Hyaline Casts 0-2 (0-2) /LPF Discharge Plan Discharge Clinical Impression: Chronic back pain Patient Disposition: Home, Self-Care Instructions: Chronic Back Pain (DC) Additional Instructions: Drink plenty of fluids Pain medication as prescribed Keep your leg elevated Do not take naproxen if increased leg swelling Prescriptions: New tramadol 50 mg tablet 50 mg PO Q6H PRN (Reason: pain) Qty: 20 0RF No Action tamsulosin 0.4 mg capsule 0.4 mg PO DAILY 14 Days Qty: 14 0RF oxybutynin chloride 5 mg tablet extended release 24hr 5 mg PO DAILY 14 Days Qty: 14 0RF Rx Instructions: bladder spasms ondansetron HCl [Zofran] 4 mg tablet 4 mg PO Q8H PRN (Reason: nausea and vomiting) 5 Days Qty: 15 0RF cefuroxime axetil 250 mg tablet 250 mg PO BID Qty: 10 0RF tramadol 50 mg tablet 50 mg PO Q6H PRN (Reason: pain (scale score 4-6)) Qty: 12 0RF phenazopyridine [Pyridium] 100 mg tablet 100 mg PO TID PRN (Reason: spasm) 4 Days Qty: 12 0RF naproxen 500 mg tablet 500 mg PO BID PRN (Reason: pain) 7 Days Qty: 14 0RF oxycodone 5 mg tablet 5 mg PO Q6H PRN (Reason: Pain, Moderate) Qty: 20 0RF oxycodone 5 mg capsule 5 mg PO Q8H PRN (Reason: pain) Qty: 12 0RF Rx Instructions: Partial Fill upon patient request. levofloxacin 500 mg tablet 500 mg PO DAILY 5 Days Qty: 5 0RF
[2023-06-04 04:50] LABS: Appearance Urine Clear; Color Urine Yellow; Glucose Urine UA Negative (Negative); Leukocyte Esterase Urine Negative (Negative); Nitrite Urine Negative (Negative); PH 6.5 (5.0-9.0); UMIC TRIGGER UACC YES; Urine Blood Negative (Negative); Urine Ketones 15 mg/dL (Negative); Urine Protein 100 (2+) mg/dL (Neg-Trace)
[2023-06-04 04:55] LABS: Bacteria Urine None Seen (None Seen); Hyaline Casts Urine 0-2 /LPF (0-2); Squamous Epithelial Cell Urine 0-2 /HPF (0-2); WBC Urine 0-5 /HPF (0-5)
[2023-06-04 05:06] VITALS: BP 133/68; PULSE 65
[2023-06-04 05:07] VITALS: BP 143/86; PULSE 73
[2023-06-04 05:09] VITALS: BP 147/90; PULSE 82
[2023-06-04 05:34] VITALS: BP 140/84; PULSE 73; RESP 19; O2SAT 97
== END 2023-06-04 05:40 | disposition home or self-care (01) ==
PROVIDERS: Emergency Provider Internal Medicine
DX: M54.50 Low back pain, unspecified (principal); Z79.899 Other long term (current) drug therapy
CPT/HCPCS: 36415; 80053; 81001; 85025; 99283; 99285

== ENCOUNTER 2023-06-07 15:59 | Emergency (ER) | payer OTHER, SELFPAY ==
[2023-06-07 16:28] VITALS: BP 131/91; PULSE 80; RESP 18; TEMP 36.6; O2SAT 98; BMI 29.3
--- NOTE | 2023-06-07 16:32 | ED.GENADULT ---
HPI - General Adult General Chief complaint: Abdominal Pain Stated complaint: abd pain Related Data Allergies Allergy/AdvReac Type Severity Reaction Status Date / Time cat dander [CATS] Allergy Unknown UNKNOWN Verified 06/01/24 13:17 dog dander [DOGS] Allergy Unknown UNKNOWN Verified 06/01/24 13:17 [facility] Past Medical History Medical History Kidney stones Surgical History H/O cystoscopy No pertinent past surgical history Social History Social History Household Members: Significant Other and Children Housing: House Do you presently have visiting nurse or other home services: No Alcohol intake: former Patient Tobacco Use Status: Never used Tobacco Smoked in Last 30 Days: No Second Hand Smoke Exposure: No Use of substances other than those prescribed or required for medical reasons: No Substance Use Type: Marijuana Advance Directives: Yes Advance Directives on File: Yes Advance Directives Date on File: 10/21/21 Do you have a plan to hurt others: No Plan service: No Current occupational status: unemployed Physical Exam ED Vital Signs: BMI result Body Mass Index 29.3 Course Course Course Narrative: This is an RME: Additional HPI, ROS, PE not included below will be deferred to primary provider. 32 year old male presents w/ epigastric severe abd pain w/ a/c nausea and vomiting X a few days. Hx of pancreatitis. Last had it on 04/21/2023. Patient reports at times he heavily drinks Plan- labs, imaging Medical Decision Making Lab Data 06/07/23 18:21 06/07/23 18:21 Labs: Lab Results 06/07/23 06/07/23 Range/Units 18:21 18:22 WBC 9.4 (4.8-10.8) X10*3/uL RBC 4.48 L (4.60-5.80) X10*6/uL Hgb 14.0 (14.0-18.0) g/dl Hct 40.4 L (42.0-52.0) % MCV 90.2 (80.0-98.0) fL MCH 31.3 (27.0-33.0) pg MCHC 34.7 (31.0-36.0) g/dl RDW 14.2 (11.0-16.0) % Plt Count 370 (160-400) X10*3/uL MPV 9.4 (9.4-12.4) fL Immature Gran % (Auto) 0.3 (0.0-0.4) % Neut % (Auto) 77.2 H (45-73) % Lymph % (Auto) 14.0 L (20-40) % [place] % (Auto) 8.0 (2-11) % Eos % (Auto) 0.2 (0-4) % Baso % (Auto) 0.3 (0-2) % Lymph # (Auto) 1.3 (1.2-4.9) X10*3/uL [place] # (Auto) 0.8 (0.1-1.2) X10*3/uL Eos # (Auto) 0.0 (0.0-0.4) X10*3/uL Baso # (Auto) 0.0 (0.0-0.2) X10*3/uL Abs Immat Gran (auto) 0.03 (0.00-0.03) X10*3/uL Absolute Neuts (auto) 7.2 (2.0-8.3) x10*3/uL Absolute Nucleated RBC 0.000 (0.0-0.012) X10*3/uL Nucleated RBC % (auto) 0.0 (0.0-0.2) /100WBC Sodium 135 (135-145) mmol/L Potassium 3.4 (3.3-5.1) mmol/L Chloride 99 (96-108) mmol/L Carbon Dioxide 23 (22-29) mmol/L Anion Gap 16 (12-20) BUN 14 (9-16) mg/dL Creatinine 0.95 (0.5-1.4) mg/dL Estim Creat Clear Calc 129.0 Estimated GFR > 60 Random Glucose 103 (60-115) mg/dL Calcium 10.6 H D (8.4-10.2) mg/dL Magnesium 1.7 (1.6-2.6) mg/dL Total Bilirubin 0.9 (0.0-1.0) mg/dL AST 58 H (5-37) U/L ALT 70 H (0-40) U/L Alkaline Phosphatase 87 (39-117) U/L Total Protein 7.9 (6.5-8.0) g/dL Albumin 4.3 (3.5-5.0) g/dL Triglycerides 52 mg/dL Lipase 120 H (8-78) U/L Urine Color Dark Yellow Urine Appearance Turbid Urine pH 6.5 (5.0-9.0) Ur Specific [place] 1.020 (1.005-1.025) Urine Protein 30 (1+) H (Neg-Trace) mg/dL Urine Glucose (UA) Negative (Negative) mg/dL Urine Ketones 40 (Negative) mg/dL Urine Blood Trace H (Negative) Urine Nitrite Negative (Negative) Ur Leukocyte Esterase Small (1+) H (Negative) Urine RBC 3-5 H (0-2) /HPF Urine WBC 11-20 H (0-5) /HPF Ur Squamous Epith Cells 3-5 (0-2) /HPF Urine Bacteria None Seen (None Seen) Hyaline Casts 3-5 (0-2) /LPF Discharge Plan Discharge Clinical Impression: Eloped from emergency department Patient Disposition: Elopement Interventions: ED Discharge Assessment Last Done: 06/07/23 19:52 Discharge Date/Time: 06/07/23 19:53 Print Language: Frisian
[2023-06-07 18:26] LABS: MANUAL DIFF FLAG NO
[2023-06-07 18:30] LABS: Basophils Percent Auto 0.3 % (0-2); Eosinophils Percent Auto 0.2 % (0-4); Hematocrit 40.4 % (42.0-52.0); Imm Gran Abs Auto 0.03 X10*3/uL (0.00-0.03); Imm Gran Pct Auto 0.3 % (0.0-0.4); Lymphocytes Absolute Auto 1.3 X10*3/uL (1.2-4.9); Mean Corpuscular HGB Conc 34.7 g/dl (31.0-36.0); Mean Corpuscular Hemoglobin 31.3 pg (27.0-33.0); Mean Corpuscular Volume 90.2 fL (80.0-98.0); Mean Platelet Volume 9.4 fL (9.4-12.4); Monocytes Absolute Auto 0.8 X10*3/uL (0.1-1.2); Neutrophils Absolute Auto 7.2 x10*3/uL (2.0-8.3); Neutrophils Percent Auto 77.2 % (45-73); Platelet Count 370 X10*3/uL (160-400); Red Blood Count 4.48 X10*6/uL (4.60-5.80); Red Cell Distribution Width 14.2 % (11.0-16.0); White Blood Count 9.4 X10*3/uL (4.8-10.8)
[2023-06-07 18:30] LABS: Appearance Urine Turbid; Color Urine Dark Yellow; Glucose Urine UA Negative (Negative); Leukocyte Esterase Urine Small (1+) (Negative); Nitrite Urine Negative (Negative); PH 6.5 (5.0-9.0); UMIC TRIGGER UACC YES; Urine Blood Trace (Negative); Urine Ketones 40 mg/dL (Negative); Urine Protein 30 (1+) mg/dL (Neg-Trace)
[2023-06-07 18:36] LABS: Bacteria Urine None Seen (None Seen); UACC Culture Trigger YES
[2023-06-07 18:50] LABS: Triglycerides 52 mg/dL
[2023-06-07 18:56] LABS: Alanine Aminotransferase 70 U/L (0-40); Albumin Level 4.3 g/dL (3.5-5.0); Alkaline Phosphatase 87 U/L (39-117); Anion Gap 16 (12-20); Aspartate Amino Transferase 58 U/L (5-37); Bilirubin Total 0.9 mg/dL (0.0-1.0); Blood Urea Nitrogen 14 mg/dL (9-16); Calcium 10.6 mg/dL (8.4-10.2); Carbon Dioxide 23 mmol/L (22-29); Chloride 99 mmol/L (96-108); Estimated Glomerular Filt Rate > 60; Glucose Random 103 mg/dL (60-115); Lipase 120 U/L (8-78); Magnesium 1.7 mg/dL (1.6-2.6); Potassium 3.4 mmol/L (3.3-5.1); Sodium 135 mmol/L (135-145); Total Protein 7.9 g/dL (6.5-8.0)
== END 2023-06-07 19:53 | disposition left against medical advice (07) ==
PROVIDERS: Physician Assistant; Emergency Provider Emergency Medicine
DX: R10.13 Epigastric pain (principal); Z79.899 Other long term (current) drug therapy
CPT/HCPCS: 36415; 80053; 81001; 83690; 83735; 84478; 85025; 87086; 99282; 99283

== ENCOUNTER 2023-06-09 16:42 | Inpatient (IN) | payer OTHER, SELFPAY ==
--- NOTE | ~2023-06-09 | FL_ITS ---
EXAMINATION: XR FLUOROSCOPY WITH IMAGES CLINICAL INFORMATION: Laparoscopic cholecystectomy with cholangiogram COMPARISON: Previous CT of the abdomen and pelvis February 2023 TECHNIQUE: Fluoroscopy Supervised By: Sai. Fluoroscopy Time: 70 seconds. Cumulative Dose: mGy. DAP: Gycm2. Images: 6. FINDINGS: T-tube cholangiogram. There is no intra or extrahepatic biliary duct dilatation. There is question of mild central stricture at the junction of the left and right intrahepatic bile ducts the hilum of the liver. There is no evidence of common bile duct obstruction with contrast filling the duodenum. FL/FL guidance in OR IMPRESSION: No biliary duct dilatation or stone seen. Question mild central stricture of the common hepatic duct at the junction of the central left and right intrahepatic bile ducts in the hilum of the liver.
[2023-06-09 16:47] VITALS: BP 146/98; PULSE 110; O2SAT 98
--- NOTE | 2023-06-09 17:43 | ED.GENADULT ---
HPI - General Adult General Chief complaint: Abdominal Pain Stated complaint: ABD PAIN Time Seen by Provider: 06/09/23 18:44 Related Data Home Medications Medication Instructions Recorded Confirmed No Known Home Meds 06/09/23 06/09/23 Allergies Allergy/AdvReac Type Severity Reaction Status Date / Time cat dander [CATS] Allergy Unknown UNKNOWN Verified 06/07/23 16:28 dog dander [DOGS] Allergy Unknown UNKNOWN Verified 06/07/23 16:28 COUNT INCLUDES THE [facility] Past Medical History Medical History (Reviewed 06/10/23 @ by Jose C Head MD) Kidney stones Surgical History (Updated 06/10/23 @ by Jose C Head MD) No pertinent past surgical history Social History Social History (Reviewed 06/10/23 @ by Jose C Head MD) Household Members: Spouse and Children Housing: Apartment Alcohol intake: current Patient Tobacco Use Status: Never used Tobacco Substance Use Type: Marijuana Advance Directives: Yes Advance Directives on File: Yes Advance Directives Date on File: 10/21/21 service: No Current occupational status: unemployed Physical Exam ED Vital Signs: Vital Signs - 24 hr 06/09/23 17:45 06/09/23 19:08 06/09/23 21:28 Temperature 98.1 F 98.2 F 98.0 F Pulse Rate 78 77 63 Respiratory Rate 18 18 18 Blood Pressure 144/88 H 154/99 H 132/85 Pulse Oximetry 100 100 100 Oxygen Delivery Method Room Air Room Air Room Air BMI result Body Mass Index 29.3 Course Course Course Narrative: This is a rapid medical exam: Additional HPI, ROS, PE not included below will be deferred to primary provider. Patient is a 32-year-old male presenting to the emergency department with complaint of abdominal pain, primarily LUQ, states pain radiates to back. Reports nausea and vomiting, no bowel movement in 5-6 days but also has not been eating much. Was seen at [facility] yesterday and given a stool softner, had CT and ultrasound and was told he has gallstones and kidney stones. He was admitted inpatient there but left AMA. Denies fever but reports sweats/chills. Denies any difficulty urinating. Plan: labs, UA Medications Administered Generic Name Dose Route Start Last Admin Trade Name Freq PRN Reason Stop Dose Admin Acetaminophen 650 mg 06/09/23 21:33 06/10/23 09:03 Acetaminophen 325 Mg Tablet PO 650 mg Q6H PRN Administration Pain, Mild (Pain Scale 1-3) Docusate Sodium 100 mg 06/10/23 09:00 06/10/23 08:25 Docusate Sodium 100 Mg Capsule PO 100 mg BID SOHAIL Administration Lactated Ringer's 1,000 mls @ 200 mls/hr 06/09/23 21:45 06/10/23 09:25 Lr IVCONT 200 mls/hr .Q5H SOHAIL Administration Ketorolac Tromethamine 15 mg 06/10/23 02:09 06/10/23 09:03 Ketorolac Tromethamine 15 Mg/Ml Vial IVPUSH 15 mg Q6H PRN Administration Pain, Severe (Pain Scale 7-10) Magnesium Hydroxide 30 ml 06/10/23 09:00 06/10/23 08:25 Milk Of Magnesia 30 Ml Oral.Susp PO 30 ml DAILY SOHAIL Administration Morphine Sulfate 4 mg 06/09/23 21:33 06/10/23 09:55 Morphine Sulfate 4 Mg/Ml Cartridge IVPUSH 4 mg Q4H PRN Administration Pain, Severe (Pain Scale 7-10) Protocol Sodium Chloride 3 ml 06/10/23 00:00 06/10/23 08:17 0.9 % Sodium Chloride Flush 3 Ml Syringe IVFLUSH 3 ml QSHIFT SOHAIL Administration Discontinued Medications Generic Name Dose Route Start Last Admin Trade Name Freq PRN Reason Stop Dose Admin Hydromorphone HCl 1 mg 06/09/23 19:22 06/09/23 20:14 Hydromorphone Hcl 0.5 Mg/0.5 Ml Syringe IVPUSH 06/09/23 19:23 1 mg ONCE ONE Administration Protocol Sodium Chloride 1,000 mls @ 999 mls/hr 06/09/23 19:30 06/09/23 22:28 Ns IV 06/09/23 20:30 Infused .Q1H1M SOHAIL Infusion Sodium Chloride 1,000 mls @ 999 mls/hr 06/09/23 19:30 06/10/23 00:14 Ns IV 06/09/23 20:30 Infused .Q1H1M SOHAIL Infusion Ondansetron HCl 4 mg 06/09/23 19:22 06/09/23 20:13 Ondansetron Hcl 4 Mg/2 Ml Vial IVPUSH 06/09/23 19:23 4 mg ONCE ONE Administration Potassium Chloride 40 meq 06/10/23 08:18 06/10/23 09:04 Potassium Chloride Er 20 Meq Tab.Er.Prt PO 06/10/23 08:19 40 meq ONCE ONE Administration Medical Decision Making Lab Data 06/10/23 06:12 06/10/23 06:12 Labs: Lab Results 06/09/23 06/09/23 06/09/23 Range/Units 18:08 18:08 21:27 WBC 13.6 H (4.8-10.8) X10*3/uL RBC 4.17 L (4.60-5.80) X10*6/uL Hgb 13.1 L (14.0-18.0) g/dl Hct 38.4 L (42.0-52.0) % MCV 92.1 (80.0-98.0) fL MCH 31.4 (27.0-33.0) pg MCHC 34.1 (31.0-36.0) g/dl RDW 14.4 (11.0-16.0) % Plt Count 298 (160-400) X10*3/uL MPV 10.1 (9.4-12.4) fL Immature Gran % (Auto) 0.4 (0.0-0.4) % Neut % (Auto) 85.0 H (45-73) % Lymph % (Auto) 7.7 L (20-40) % [place] % (Auto) 6.6 (2-11) % Eos % (Auto) 0.1 (0-4) % Baso % (Auto) 0.2 (0-2) % Lymph # (Auto) 1.0 L (1.2-4.9) X10*3/uL [place] # (Auto) 0.9 (0.1-1.2) X10*3/uL Eos # (Auto) 0.0 (0.0-0.4) X10*3/uL Baso # (Auto) 0.0 (0.0-0.2) X10*3/uL Abs Immat Gran (auto) 0.05 H (0.00-0.03) X10*3/uL Absolute Neuts (auto) 11.5 H (2.0-8.3) x10*3/uL Absolute Nucleated RBC 0.000 (0.0-0.012) X10*3/uL Nucleated RBC % (auto) 0.0 (0.0-0.2) /100WBC Sodium 136 (135-145) mmol/L Potassium 3.7 (3.3-5.1) mmol/L Chloride 99 (96-108) mmol/L Carbon Dioxide 21 L (22-29) mmol/L Anion Gap 20 (12-20) BUN 12 (9-16) mg/dL Creatinine 0.76 (0.5-1.4) mg/dL Estim Creat Clear Calc 161.3 Estimated GFR > 60 Random Glucose 80 (60-115) mg/dL Calcium 10.3 H (8.4-10.2) mg/dL Total Bilirubin 0.9 (0.0-1.0) mg/dL AST 34 (5-37) U/L ALT 50 H (0-40) U/L Alkaline Phosphatase 86 (39-117) U/L Total Protein 7.1 (6.5-8.0) g/dL Albumin 3.9 (3.5-5.0) g/dL Triglycerides 57 mg/dL Lipase 456 H (8-78) U/L Urine Color Dark Yellow Urine Appearance Clear Urine pH 6.0 (5.0-9.0) Ur Specific [place] 1.025 (1.005-1.025) Urine Protein 100 (2+) H (Neg-Trace) mg/dL Urine Glucose (UA) Negative (Negative) mg/dL Urine Ketones >=160 (Negative) mg/dL Urine Blood Trace H (Negative) Urine Nitrite Negative (Negative) Ur Leukocyte Esterase Negative (Negative) Urine RBC 0-2 (0-2) /HPF Urine WBC 0-5 (0-5) /HPF Ur Squamous Epith Cells 0-2 (0-2) /HPF Urine Bacteria None Seen (None Seen) Hyaline Casts 3-5 (0-2) /LPF Ethyl Alcohol < 10 mg/dL Discharge Plan Discharge Clinical Impression: Pancreatitis Patient Disposition: Admitted As Inpatient
[2023-06-09 17:45] VITALS: BP 144/88; PULSE 78; RESP 18; TEMP 36.7; O2SAT 100; BMI 29.3
[2023-06-09 18:16] LABS: MANUAL DIFF FLAG NO
[2023-06-09 18:30] LABS: Basophils Percent Auto 0.2 % (0-2); Eosinophils Percent Auto 0.1 % (0-4); Hematocrit 38.4 % (42.0-52.0); Hemoglobin 13.1 g/dl (14.0-18.0); Imm Gran Abs Auto 0.05 X10*3/uL (0.00-0.03); Imm Gran Pct Auto 0.4 % (0.0-0.4); Lymphocytes Percent Auto 7.7 % (20-40); Mean Corpuscular HGB Conc 34.1 g/dl (31.0-36.0); Mean Corpuscular Hemoglobin 31.4 pg (27.0-33.0); Mean Corpuscular Volume 92.1 fL (80.0-98.0); Mean Platelet Volume 10.1 fL (9.4-12.4); Monocytes Absolute Auto 0.9 X10*3/uL (0.1-1.2); Monocytes Percent Auto 6.6 % (2-11); Neutrophils Absolute Auto 11.5 x10*3/uL (2.0-8.3); Platelet Count 298 X10*3/uL (160-400); Red Blood Count 4.17 X10*6/uL (4.60-5.80); Red Cell Distribution Width 14.4 % (11.0-16.0); White Blood Count 13.6 X10*3/uL (4.8-10.8)
[2023-06-09 18:45] LABS: Alanine Aminotransferase 50 U/L (0-40); Albumin Level 3.9 g/dL (3.5-5.0); Alkaline Phosphatase 86 U/L (39-117); Anion Gap 20 (12-20); Aspartate Amino Transferase 34 U/L (5-37); Bilirubin Total 0.9 mg/dL (0.0-1.0); Blood Urea Nitrogen 12 mg/dL (9-16); Calcium 10.3 mg/dL (8.4-10.2); Carbon Dioxide 21 mmol/L (22-29); Chloride 99 mmol/L (96-108); Creatinine Clr Calc Pharmacy 161.3; Estimated Glomerular Filt Rate > 60; Glucose Random 80 mg/dL (60-115); Potassium 3.7 mmol/L (3.3-5.1); Sodium 136 mmol/L (135-145); Total Protein 7.1 g/dL (6.5-8.0)
[2023-06-09 19:04] LABS: Lipase 456 U/L (8-78)
[2023-06-09 19:08] VITALS: BP 154/99; PULSE 77; RESP 18; TEMP 36.8; O2SAT 100
--- NOTE | 2023-06-09 19:28 | ED.ABDPAIN ---
HPI - Abdominal Pain General Chief Complaint: Abdominal Pain Stated Complaint: ABD PAIN Time Seen by Provider: 06/09/23 18:44 History of Present Illness HPI narrative: Patient is a 32-year-old male with a history of erosive esophagitis history of gastritis history of H pylori in the past history kidney stones status post stents in the past status post nephrostomy tube in the past presented to [facility] 2 days ago with having on and off abdominal pain mostly in the epigastric area associated with nausea vomiting. Patient stated that she has been drinking alcohol from time to time. He stopped drinking alcohol in June 01. Still having abdominal pain. Patient denies any fever chills. No diarrhea. Positive generalized malaise. Was seen at [facility] yesterday. Was admitted to the hospital for pancreatitis. Patient got on the floor and decided that he did not want to stay no more. The left. Patient had a CT scan done at [facility] which showed evidence for pancreatitis. With an elevated lipase at [facility] that was 3 times upper limit consistent with pancreatitis. Patient had an ultrasound done which showed a positive gallstone. S after patient left [facility] continued to have abdominal pain. Patient was diagnosed with gallstone pancreatitis. He was unable to tolerate fluids. He came back to the emergency department for further evaluation. Related Data Previous Rx's Medication Instructions Recorded cefuroxime axetil 250 mg tablet 250 mg PO BID #10 tabs 10/20/21 naproxen 500 mg tablet 500 mg PO BID PRN pain 7 days #14 10/20/21 tabs phenazopyridine 100 mg tablet 100 mg PO TID PRN spasm 4 days 10/20/21 (Pyridium) #12 tabs tramadol 50 mg tablet 50 mg PO Q6H PRN pain (scale score 10/20/21 4-6) #12 tabs ondansetron HCl 4 mg tablet 4 mg PO Q8H PRN nausea and 10/22/21 (Zofran) vomiting 5 days #15 tabs oxybutynin chloride 5 mg 5 mg PO DAILY 14 days #14 tabs 10/22/21 tablet,extended release 24 hr tamsulosin 0.4 mg capsule 0.4 mg PO DAILY 14 days #14 caps 10/22/21 oxycodone 5 mg tablet 5 mg PO Q6H PRN Pain, Moderate #20 11/27/21 tabs levofloxacin 500 mg tablet 500 mg PO DAILY 5 days #5 tabs 03/26/23 oxycodone 5 mg capsule 5 mg PO Q8H PRN pain #12 caps 03/26/23 tramadol 50 mg tablet 50 mg PO Q6H PRN pain #20 tabs 06/04/23 Allergies Allergy/AdvReac Type Severity Reaction Status Date / Time cat dander [CATS] Allergy Unknown UNKNOWN Verified 06/07/23 16:28 dog dander [DOGS] Allergy Unknown UNKNOWN Verified 06/07/23 16:28 Review of Systems Review of Systems Positive abdominal pain Positive nausea vomiting Yes all other systems are reviewed and are negative [facility] Past Medical History Attestation statement: The following information was validated with the patient. Medical History Kidney stones Social History Social History Household Members: Spouse and Children Housing: Apartment Alcohol intake: current Patient Tobacco Use Status: Never used Tobacco Substance Use Type: Marijuana Advance Directives: Yes Advance Directives on File: Yes Advance Directives Date on File: 10/21/21 service: No Current occupational status: unemployed Physical Exam ED Vital Signs: Vital Signs - 24 hr 06/09/23 17:45 06/09/23 19:08 Temperature 98.1 F 98.2 F Pulse Rate 78 77 Respiratory Rate 18 18 Blood Pressure 144/88 H 154/99 H Pulse Oximetry 100 100 Oxygen Delivery Method Room Air Room Air BMI result Body Mass Index 29.3 Appearance: Alert. Oriented X3. No acute distress. Eyes: Pupils equal, round and reactive to light. ENT: Pharynx normal. Neck: Normal inspection. Neck supple. No lymph nodes noted. No crepitus CVS: Normal heart rate and rhythm. Pulses normal. Normal S1 and S2 Respiratory: No respiratory distress. Breath sounds normal. No Wheezing. No rales Abdomen: Soft and nontender. No rigidity. No distention. good BS x4 Skin: Skin warm and dry. Normal skin color. Normal skin turgor. Extremities: No lower extremity edema. Neurovascular intact to all extremities. No Lacerations. No Rash Neuro: Oriented X 3. No motor deficit. No sensory deficit. Moving all extermities. No slurred speech Medical Decision Making Medical Decision Making MDM Narrative: Positive abdominal pain worse over the epigastric area. Patient's lab today also showed an elevated lipase. Patient was seen yesterday at [facility] has the same elevated lipase consistent with pancreatitis. At [facility] patient had CT scan done which showed pancreatitis. An ultrasound was done yesterday it shows a unit early gallstone. Symptoms consistent with gallstone pancreatitis. Patient denies any alcohol use since June 01. No fever no chills. Unable to tolerate fluids. Unlikely to have obstruction a CT was done yesterday. Given IV fluids here in emergency department. Given Zofran for nausea. Dilaudid for pain. Will admit patient for further evaluation. Patient's alcohol level is pending. Differential Diagnosis Differential Diagnoses: The differential diagnosis associated with the presentation includes Pancreatitis, gallstone, alcohol abuse, obstruction, abscess, perforation Admission/Observation Consideration of admission/observation: Escalation of care including admission/observation considered Consult Healthcare Provider Management of the patient was discussed with: Hospitalist Lab Data [facility] Lab Attestation statement: I reviewed the patient's lab results. 06/09/23 18:08 06/09/23 18:08 Labs: Lab Results 06/09/23 06/09/23 Range/Units 18:08 18:08 WBC 13.6 H (4.8-10.8) X10*3/uL RBC 4.17 L (4.60-5.80) X10*6/uL Hgb 13.1 L (14.0-18.0) g/dl Hct 38.4 L (42.0-52.0) % MCV 92.1 (80.0-98.0) fL MCH 31.4 (27.0-33.0) pg MCHC 34.1 (31.0-36.0) g/dl RDW 14.4 (11.0-16.0) % Plt Count 298 (160-400) X10*3/uL MPV 10.1 (9.4-12.4) fL Immature Gran % (Auto) 0.4 (0.0-0.4) % Neut % (Auto) 85.0 H (45-73) % Lymph % (Auto) 7.7 L (20-40) % [place] % (Auto) 6.6 (2-11) % Eos % (Auto) 0.1 (0-4) % Baso % (Auto) 0.2 (0-2) % Lymph # (Auto) 1.0 L (1.2-4.9) X10*3/uL [place] # (Auto) 0.9 (0.1-1.2) X10*3/uL Eos # (Auto) 0.0 (0.0-0.4) X10*3/uL Baso # (Auto) 0.0 (0.0-0.2) X10*3/uL Abs Immat Gran (auto) 0.05 H (0.00-0.03) X10*3/uL Absolute Neuts (auto) 11.5 H (2.0-8.3) x10*3/uL Absolute Nucleated RBC 0.000 (0.0-0.012) X10*3/uL Nucleated RBC % (auto) 0.0 (0.0-0.2) /100WBC Sodium 136 (135-145) mmol/L Potassium 3.7 (3.3-5.1) mmol/L Chloride 99 (96-108) mmol/L Carbon Dioxide 21 L (22-29) mmol/L Anion Gap 20 (12-20) BUN 12 (9-16) mg/dL Creatinine 0.76 (0.5-1.4) mg/dL Estim Creat Clear Calc 161.3 Estimated GFR > 60 Random Glucose 80 (60-115) mg/dL Calcium 10.3 H (8.4-10.2) mg/dL Total Bilirubin 0.9 (0.0-1.0) mg/dL AST 34 (5-37) U/L ALT 50 H (0-40) U/L Alkaline Phosphatase 86 (39-117) U/L Total Protein 7.1 (6.5-8.0) g/dL Albumin 3.9 (3.5-5.0) g/dL Lipase 456 H (8-78) U/L Radiology Impression Discussion of test interpretation with radiology: I have reviewed the radiologist's reading. Radiologist Impression: From [facility] patient's CT scan report was reviewed External Record Review External record reviewed: Inpatient record and Outside ED record Inpatient record and outside ED record from [facility] was reviewed Chronic Conditions Kidney stones. History of alcohol abuse Discharge Plan Discharge Clinical Impression: Pancreatitis Patient Disposition: Admitted As Inpatient Prescriptions: No Action tamsulosin 0.4 mg capsule 0.4 mg PO DAILY 14 Days Qty: 14 0RF oxybutynin chloride 5 mg tablet extended release 24hr 5 mg PO DAILY 14 Days Qty: 14 0RF Rx Instructions: bladder spasms ondansetron HCl [Zofran] 4 mg tablet 4 mg PO Q8H PRN (Reason: nausea and vomiting) 5 Days Qty: 15 0RF cefuroxime axetil 250 mg tablet 250 mg PO BID Qty: 10 0RF tramadol 50 mg tablet 50 mg PO Q6H PRN (Reason: pain (scale score 4-6)) Qty: 12 0RF phenazopyridine [Pyridium] 100 mg tablet 100 mg PO TID PRN (Reason: spasm) 4 Days Qty: 12 0RF naproxen 500 mg tablet 500 mg PO BID PRN (Reason: pain) 7 Days Qty: 14 0RF oxycodone 5 mg tablet 5 mg PO Q6H PRN (Reason: Pain, Moderate) Qty: 20 0RF oxycodone 5 mg capsule 5 mg PO Q8H PRN (Reason: pain) Qty: 12 0RF Rx Instructions: Partial Fill upon patient request. levofloxacin 500 mg tablet 500 mg PO DAILY 5 Days Qty: 5 0RF tramadol 50 mg tablet 50 mg PO Q6H PRN (Reason: pain) Qty: 20 0RF
[2023-06-09 19:39] LABS: Ethanol < 10 mg/dL
[2023-06-09] MEDS: ondansetron HCL 4 MG/2 ML VIAL IVPUSH (20:13)
[2023-06-09] MEDS: HYDROmorphone HCl 0.5 MG/0.5 ML SYRINGE 1 MG IVPUSH (20:14)
[2023-06-09] MEDS: 0.9 % Sodium Chloride 1,000 ML 999 ML IV ×2 (20:15→22:24)
[2023-06-09 20:50] LABS: Triglycerides 57 mg/dL
--- NOTE | 2023-06-09 21:04 | PHA.MEDREC ---
Pharmacy Consult ? Medication Reconciliation Pharmacy has completed the medication reconciliation.
[2023-06-09 21:28] VITALS: BP 132/85; PULSE 63; RESP 18; TEMP 36.7; O2SAT 100
--- NOTE | 2023-06-09 21:35 | P.HPHOSP_ITS ---
History of Present Illness Date of Service: 06/09/23 Chief Complaint: abdominal pain 32-year-old male with past medical history of kidney stones otherwise healthy presents to the hospital complaints of abdominal pain. Patient reports that he has been seen for this abdominal pain several times at different hospitals but has left AMA on several occasions. Patient reports that his symptoms started about a month ago, worsened over the last 2 weeks. Pain is epigastric, radiating to the left, as well as to the back, associated with nausea and poor oral intake, no diarrhea constipation, denies any chest pain, no shortness of breath, no fever but has chills, no urinary symptoms and no lower extremity edema. Reports that [place], had an ultrasound done which showed likely gallstone pancreatitis. Patient did not wait for further treatment, signed himself AMA. Comes in today due to persistent pain. Reports that last drink was June 01 but he is not usually a daily Drinker. On arrival to the ED patient hemodynamically stable with no significant abnormality Labs are significant for WBC count of 13.6, hemoglobin of 13.1, hematocrit 38.4, lipase of 456, AST of 34, ALT of 50, alk-phos of 86, UA negative patient will be admitted further manage Review of Systems Review of Systems: Yes all other systems are reviewed and are negative [facility] Medical History Kidney stones Surgical History (Updated 06/10/23 @ 01:23 by Jose C Head MD) No pertinent past surgical history Social History Household Members: Spouse and Children Housing: Apartment Alcohol intake: current Patient Tobacco Use Status: Never used Tobacco Substance Use Type: Marijuana Advance Directives: Yes Advance Directives on File: Yes Advance Directives Date on File: 10/21/21 service: No Current occupational status: unemployed Meds Allergies Allergy/AdvReac Type Severity Reaction Status Date / Time cat dander [CATS] Allergy Unknown UNKNOWN Verified 06/07/23 16:28 dog dander [DOGS] Allergy Unknown UNKNOWN Verified 06/07/23 16:28 Home Medications Medication Instructions Recorded Confirmed Last Taken Type No Known Home Meds 06/09/23 06/09/23 Unknown History Physical Exam Vital Signs and Narrative: Vital Signs: Last Vital Signs Temp 98.0 F 06/09/23 21:28 Pulse 63 06/09/23 21:28 Resp 18 06/09/23 21:28 BP 132/85 06/09/23 21:28 Pulse Ox 100 06/09/23 21:28 O2 Del Method Room Air 06/09/23 21:28 BMI result Body Mass Index 29.3 Results Labs 06/09/23 18:08 06/09/23 18:08 Labs: Laboratory Results - last 24 hr 06/09/23 06/09/23 18:08 18:08 MCV 92.1 MCH 31.4 MCHC 34.1 RDW 14.4 Plt Count 298 MPV 10.1 Immature Gran % (Auto) 0.4 Neut % (Auto) 85.0 H Lymph % (Auto) 7.7 L [place] % (Auto) 6.6 Eos % (Auto) 0.1 Baso % (Auto) 0.2 Lymph # (Auto) 1.0 L [place] # (Auto) 0.9 Eos # (Auto) 0.0 Baso # (Auto) 0.0 Abs Immat Gran (auto) 0.05 H Absolute Neuts (auto) 11.5 H Absolute Nucleated RBC 0.000 Nucleated RBC % (auto) 0.0 Anion Gap 20 Estim Creat Clear Calc 161.3 Estimated GFR > 60 Random Glucose 80 Calcium 10.3 H Total Bilirubin 0.9 AST 34 ALT 50 H Alkaline Phosphatase 86 Total Protein 7.1 Albumin 3.9 Triglycerides 57 Lipase 456 H Ethyl Alcohol < 10 Assessment and Plan (1) Pancreatitis: Status: Acute Plan 32-year-old male with no significant past medical history presents the hospital with abdominal pain found to have acute pancreatitis # acute pancreatitis - imaging done at [facility] including ultrasound of the right upper quadrant showed gallstones suspicious for gallstone pancreatitis - patient denies being a daily drinker, stating that last drink was June 01 - normal triglycerides - at this time will treat with IV fluids, NPO, analgesics - general surgery consulted for evaluation of cholelithiasis DVT prophylaxis: Early ambulation Time Spent With Patient Time: Total time managing care of this patient today ____ minutes. Quality Stroke Does the patient have a stroke diagnosis?: No VTE Prior VTE?: No VTE Risk Level:: Medical - low VTE Device Contraindication: N/A - Device Ordered VTE Drug Contraindication: Treatment Not Indicated
[2023-06-09 21:37] LABS: Appearance Urine Clear; Color Urine Dark Yellow; Glucose Urine UA Negative (Negative); Leukocyte Esterase Urine Negative (Negative); Nitrite Urine Negative (Negative); Specific Gravity - Urine 1.025 (1.005-1.025); UMIC TRIGGER UACC YES; Urine Blood Trace (Negative); Urine Ketones >=160 mg/dL (Negative); Urine Protein 100 (2+) mg/dL (Neg-Trace)
[2023-06-09 21:39] LABS: Bacteria Urine None Seen (None Seen); RBC Urine 0-2 /HPF (0-2); Squamous Epithelial Cell Urine 0-2 /HPF (0-2); WBC Urine 0-5 /HPF (0-5)
--- NOTE | 2023-06-09 21:45 | PC.NURSE ---
report given to overflow rn. transport aware pt is ready for transfer.
[2023-06-09] MEDS: Morphine Sulfate 4 MG/ML CARTRIDGE IVPUSH (22:24)
[2023-06-09 22:25] VITALS: BP 151/80; PULSE 65; RESP 16; TEMP 36.6; O2SAT 99
[2023-06-09] MEDS: Lactated Ringers 1,000 ML 200 ML IVCONT (22:35)
[2023-06-10] MEDS: Morphine Sulfate 4 MG/ML CARTRIDGE IVPUSH ×6 (02:09→22:23)
[2023-06-10] MEDS: Ketorolac Tromethamine 15 MG/ML VIAL IVPUSH ×3 (02:20→16:59)
[2023-06-10 05:34] VITALS: BP 125/88; PULSE 80; RESP 20; TEMP 36.1; O2SAT 98
[2023-06-10] MEDS: Lactated Ringers 1,000 ML 200 ML IVCONT ×2 (05:35→09:25)
[2023-06-10 06:50] LABS: MANUAL DIFF FLAG NO
[2023-06-10 06:59] LABS: Basophils Percent Auto 0.2 % (0-2); Eosinophils Absolute Auto 0.1 X10*3/uL (0.0-0.4); Eosinophils Percent Auto 0.5 % (0-4); Imm Gran Abs Auto 0.05 X10*3/uL (0.00-0.03); Imm Gran Pct Auto 0.4 % (0.0-0.4); Lymphocytes Absolute Auto 2.3 X10*3/uL (1.2-4.9); Lymphocytes Percent Auto 18.6 % (20-40); Mean Corpuscular HGB Conc 34.3 g/dl (31.0-36.0); Mean Corpuscular Hemoglobin 31.3 pg (27.0-33.0); Mean Corpuscular Volume 91.4 fL (80.0-98.0); Mean Platelet Volume 10.1 fL (9.4-12.4); Monocytes Absolute Auto 0.9 X10*3/uL (0.1-1.2); Monocytes Percent Auto 7.2 % (2-11); Neutrophils Percent Auto 73.1 % (45-73); Platelet Count 252 X10*3/uL (160-400); Red Blood Count 3.83 X10*6/uL (4.60-5.80); Red Cell Distribution Width 14.2 % (11.0-16.0); White Blood Count 12.3 X10*3/uL (4.8-10.8)
[2023-06-10 07:51] LABS: Anion Gap 12 (12-20); Blood Urea Nitrogen 10 mg/dL (9-16); Calcium 9.2 mg/dL (8.4-10.2); Carbon Dioxide 24 mmol/L (22-29); Chloride 102 mmol/L (96-108); Creatinine Clr Calc Pharmacy 180.3; Estimated Glomerular Filt Rate > 60; Glucose Random 70 mg/dL (60-115); Potassium 3.1 mmol/L (3.3-5.1); Sodium 135 mmol/L (135-145)
[2023-06-10] MEDS: 0.9 % Sodium Chloride Flush 3 ML SYRINGE IVFLUSH (08:17)
[2023-06-10] MEDS: Milk of Magnesia 30 ML ORAL.SUSP PO (08:25)
[2023-06-10] MEDS: Docusate Sodium 100 MG CAPSULE PO ×2 (08:25→18:44)
[2023-06-10 08:53] LABS: Alanine Aminotransferase 42 U/L (0-40); Albumin Level 3.5 g/dL (3.5-5.0); Alkaline Phosphatase 80 U/L (39-117); Aspartate Amino Transferase 31 U/L (5-37); Bilirubin Direct 0.3 mg/dL (0.0-0.5); Bilirubin Total 0.9 mg/dL (0.0-1.0); Total Protein 6.5 g/dL (6.5-8.0)
[2023-06-10 09:03] LABS: Lipase 335 U/L (8-78)
[2023-06-10] MEDS: Acetaminophen 325 MG TABLET 650 MG PO (09:03)
[2023-06-10] MEDS: Potassium Chloride ER 20 MEQ TAB.ER.PRT 40 MEQ PO (09:04)
--- NOTE | 2023-06-10 09:37 | PC.NURSE ---
Pt currently resting on HB watching television. Pt is A&Ox4, currently endorsing severe abdominal pain but denies all other complaints. Pt medicated per MAR. Awaiting IP admit. WCTA
[2023-06-10 10:31] VITALS: BP 117/75; PULSE 64; RESP 18; TEMP 37.4; O2SAT 96
--- NOTE | 2023-06-10 12:56 | MHC.CM.PN ---
Met with patient in regards to discharge planning. Patient lives with his uncle, ambulates independently and had no services prior to coming to the hospital. No services anticipated to be needed because patient is not homebound. PCP verified as Dr Peres. Patient has not received any Covid vaccines. HCP verified to be on file. Patient lives on [facility] [address] [facility] and will walk home when medically stable. Continue to monitor for d/c needs.
--- NOTE | 2023-06-10 13:12 | P.CONGS_ITS ---
History of Present Illness Consult details Consult date: 06/10/23 Reason for consult: gallstones (gallstone pancreatitis) Requesting physician: Jose C Head Narrative: 32 year old male with PMH significant for kidney stones who presented to the ED with complaints of epigastric abd pain. He reports he developed mild epigastric pain around 3 weeks ago. He denies provoking factors or association with food. He then drank heavily on June 01 and the pain became severe. The pain has been constant. He was seen here in the ED for the pain and left AMA and then was admitted to [facility] for the pain a few days ago. He had a CT scan and ABD US which showed gallstones, pancreatitis and had elevated liver enzymes, consistent with gallstone pancreatitis. He reports he had a horrible experience and left AMA. Due to the persistence of pain, he came back to [facility] ED. He reports he is unable to eat or drink anything without vomiting. He denies back pain, change in skin, urine or stool color. He denies significant ETOH use normally. Work up in the ED included CBC, BMP and LFTs which was significant for a WBC count of 13.6, hemoglobin of 13.1, hematocrit 38.4, lipase of 456 and ALT of 50. Lipase is now downtrending. Triglycerides WNL. Review of Systems Constitutional: Constitutional: Denies chills and Denies fever(s) ENT: Denies dizziness Cardiovascular: Cardiovascular: Denies chest pain, Denies palpitations and Denies dyspnea Respiratory: Respiratory: Denies cough and Denies dyspnea Gastrointestinal: Gastrointestinal: Reports as per HPI and Reports constipation Genitourinary: Genitourinary: Denies hematuria and Denies dysuria Integumentary/Breasts: Skin/Breast: Denies rash and Denies jaundice Neurologic: Denies dizziness Endocrine: Endocrine: Denies palpitations PMFSH Past Medical History Medical History (Updated 06/10/23 @ 13:33 by Blanche Gann PA-C) Kidney stones Surgical History Surgical History (Updated 06/10/23 @ 13:28 by Blanche Gann PA-C) H/O cystoscopy No pertinent past surgical history Social History Social History Household Members: Spouse and Children Housing: Apartment Alcohol intake: current Patient Tobacco Use Status: Never used Tobacco Substance Use Type: Marijuana Advance Directives: Yes Advance Directives on File: Yes Advance Directives Date on File: 10/21/21 service: No Current occupational status: unemployed Meds Allergies Allergy/AdvReac Type Severity Reaction Status Date / Time cat dander [CATS] Allergy Unknown UNKNOWN Verified 06/07/23 16:28 dog dander [DOGS] Allergy Unknown UNKNOWN Verified 06/07/23 16:28 Active Medications: Current Medications Acetaminophen (Acetaminophen 325 Mg Tablet) 650 mg PO Q6H PRN PRN Reason: Pain, Mild (Pain Scale 1-3) Last Admin: 06/10/23 09:03 Dose: 650 mg Docusate Sodium (Docusate Sodium 100 Mg Capsule) 100 mg PO BID [facility] Last Admin: 06/10/23 08:25 Dose: 100 mg Lactated Ringer's (Lr) 1,000 mls @ 200 mls/hr IVCONT .Q5H [facility] Last Admin: 06/10/23 09:25 Dose: 200 mls/hr Ketorolac Tromethamine (Ketorolac Tromethamine 15 Mg/Ml Vial) 15 mg IVPUSH Q6H PRN PRN Reason: Pain, Severe (Pain Scale 7-10) Last Admin: 06/10/23 09:03 Dose: 15 mg Magnesium Hydroxide (Milk Of Magnesia 30 Ml Oral.Susp) 30 ml PO DAILY [facility] Last Admin: 06/10/23 08:25 Dose: 30 ml Morphine Sulfate (Morphine Sulfate 4 Mg/Ml Cartridge) 4 mg IVPUSH Q4H PRN; Protocol PRN Reason: Pain, Severe (Pain Scale 7-10) Last Admin: 06/10/23 09:55 Dose: 4 mg Ondansetron HCl (Ondansetron Hcl 4 Mg/2 Ml Vial) 4 mg IVPUSH Q8H PRN PRN Reason: Nausea and Vomiting Sodium Chloride (0.9 % Sodium Chloride Flush 3 Ml Syringe) [address] [facility] Last Admin: 06/10/23 08:17 Dose: 3 ml Home Medications Medication Instructions Recorded Confirmed Last Taken Type No Known Home Meds 06/09/23 06/09/23 Unknown History Physical Exam Vital Signs: Vital Signs: Last Vital Signs Temp 99.4 F 06/10/23 10:31 Pulse 64 07/13/23 10:31 Resp 18 06/10/23 10:31 BP 117/75 06/10/23 10:31 Pulse Ox 96 06/10/23 10:31 O2 Del Method Room Air 06/10/23 10:31 BMI result Body Mass Index 29.3 Const: General: comfortable, no acute distress and alert Orientation/consciousness: patient oriented x3 Resp: Effort & Inspection: normal respiratory effort Cardio: Rate: regular rate GI: Inspection: No distended, No scar and No visible herniation Palpation (GI): Soft to palpation, Tenderness to palpation present (GI) (moderate upper abdominal tenderness, more significant epigastric/RUQ) Navarrete's sign negative and with no rebound tenderness, no guarding and not rigid Skin: General skin exam: no rashes or lesions noted and no jaundice Neuro: General: patient oriented x3 Results Labs 06/10/23 06:12 06/10/23 06:12 Labs: Abnormal lab results 06/09/23 06/09/23 06/09/23 Range/Units 18:08 18:08 21:27 WBC 13.6 H (4.8-10.8) X10*3/uL RBC 4.17 L (4.60-5.80) X10*6/uL Hgb 13.1 L (14.0-18.0) g/dl Hct 38.4 L (42.0-52.0) % Neut % (Auto) 85.0 H (45-73) % Lymph % (Auto) 7.7 L (20-40) % Lymph # (Auto) 1.0 L (1.2-4.9) X10*3/uL Abs Immat Gran (auto) 0.05 H (0.00-0.03) X10*3/uL Absolute Neuts (auto) 11.5 H (2.0-8.3) x10*3/uL Potassium (3.3-5.1) mmol/L Carbon Dioxide 21 L (22-29) mmol/L Calcium 10.3 H (8.4-10.2) mg/dL ALT 50 H (0-40) U/L Lipase 456 H (8-78) U/L Urine Protein 100 (2+) H (Neg-Trace) mg/dL Urine Blood Trace H (Negative) 06/10/23 06/10/23 Range/Units 06:12 06:12 WBC 12.3 H (4.8-10.8) X10*3/uL RBC 3.83 L (4.60-5.80) X10*6/uL Hgb 12.0 L (14.0-18.0) g/dl Hct 35.0 L (42.0-52.0) % Neut % (Auto) 73.1 H (45-73) % Lymph % (Auto) 18.6 L (20-40) % Lymph # (Auto) (1.2-4.9) X10*3/uL Abs Immat Gran (auto) 0.05 H (0.00-0.03) X10*3/uL Absolute Neuts (auto) 9.0 H (2.0-8.3) x10*3/uL Potassium 3.1 L (3.3-5.1) mmol/L Carbon Dioxide (22-29) mmol/L Calcium (8.4-10.2) mg/dL ALT 42 H (0-40) U/L Lipase 335 H (8-78) U/L Urine Protein (Neg-Trace) mg/dL Urine Blood (Negative) Short CBC 06/09/23 06/10/23 Range/Units 18:08 06:12 WBC 13.6 H 12.3 H (4.8-10.8) X10*3/uL Hgb 13.1 L 12.0 L (14.0-18.0) g/dl Hct 38.4 L 35.0 L (42.0-52.0) % Plt Count 298 252 (160-400) X10*3/uL BMP 06/09/23 06/10/23 18:08 06:12 Sodium 136 135 Potassium 3.7 3.1 L Chloride 99 102 Carbon Dioxide 21 L 24 BUN 12 10 Creatinine 0.76 0.68 Calcium 10.3 H 9.2 D Liver Function 06/09/23 06/10/23 Range/Units 18:08 06:12 Total Bilirubin 0.9 0.9 (0.0-1.0) mg/dL Direct Bilirubin 0.3 (0.0-0.5) mg/dL AST 34 31 (5-37) U/L ALT 50 H 42 H (0-40) U/L Alkaline Phosphatase 86 80 (39-117) U/L Albumin 3.9 3.5 (3.5-5.0) g/dL Urine 06/09/23 Range/Units 21:27 Urine Color Dark Yellow Urine Appearance Clear Urine pH 6.0 (5.0-9.0) Ur Specific [place] 1.025 (1.005-1.025) Urine Protein 100 (2+) H (Neg-Trace) mg/dL Urine Glucose (UA) Negative (Negative) mg/dL All other labs normal. Assessment and Plan (1) Gallstone pancreatitis: Status: Acute Plan 32 year old male with PMH significant for kidney stones who presented with epigastric pain and elevated lipase with prior ABD ultrasound confirming gallstones and pancreatitis. His pain is mildly improved this morning. His lipase is now downtrending. Pancreatitis appears to be resolving. Discussed proceeding with laparoscopic cholecystectomy to prevent recurrence. Risks, benefits, alternatives of laparoscopic possible open cholecystectomy were reviewed with the patient including but not limited to bleeding, infection, numbness, pain, poor healing, injury to the liver, bowel or bile ducts, leak, retained stones and the patient wishes to proceed.?He will be added onto the OR schedule for tomorrow.?All questions were answered. Time Spent With Patient Time: Total time managing care of this patient today ____ minutes. Procedures Date of Service Date of Service: 06/10/23
[2023-06-10 14:09] VITALS: RESP 17
--- NOTE | 2023-06-10 15:37 | P.PNIM_ITS ---
Subjective Subjective Date of Service: 06/10/23 Interval History: seen and examined this morning follow-up for abdominal pain diagnosed to have gallstone pancreatitis at [facility] before leaving [place]. reporting persistent epigastric abdominal pain Review of Systems Review of Systems: Yes all other systems are reviewed and are negative Constitutional Constitutional: Denies chills and Denies fever(s) Cardiovascular Cardiovascular: Denies chest pain, Denies palpitations and Denies dyspnea Respiratory Respiratory: Denies cough and Denies dyspnea Gastrointestinal Gastrointestinal: Reports abdominal pain, Denies diarrhea and Reports nausea Endocrine Endocrine: Denies palpitations Physical Exam Vital Signs: Vital Signs: Last Vital Signs Temp 99.4 F 06/10/23 10:31 Pulse 64 06/10/23 10:31 Resp 17 06/10/23 14:09 BP 117/75 06/10/23 10:31 Pulse Ox 96 06/10/23 10:31 O2 Del Method Room Air 06/10/23 10:31 BMI result Body Mass Index 29.3 Const: General: cooperative, comfortable, no acute distress, alert and awake Nutritional Appearance: average body habitus Orientation/consciousness: mart ent oriented x3 Resp: Effort & Inspection: normal respiratory effort, able to speak in complete sentences, no respiratory distress and no use of accessory muscles Auscultation: clear to auscultation bilaterally Cardio: Rate: regular rate Heart sounds: S1 normal heart sound present and S2 normal heart sound present GI: Other: RUQ tender to palpation Inspection: No distended Palpation (GI): Soft to palpation and no guarding Neuro: General: patient oriented x3, moves all extremities and CN's II-XI intact bilaterally Extrem: General: Yes no pedal edema Objective Data Active Medications Acetaminophen (Acetaminophen 325 Mg Tablet) 650 mg PO Q6H PRN PRN Reason: Pain, Mild (Pain Scale 1-3) Last Admin: 06/10/23 09:03 Dose: 650 mg Documented By: LEXI Docusate Sodium (Docusate Sodium 100 Mg Capsule) 100 mg PO BID [facility] Last Admin: 06/10/23 08:25 Dose: 100 mg Documented By: LEXI Lactated Ringer's (Lr) 1,000 mls @ 150 mls/hr IVCONT .Q6H40M [facility] Last Admin: 06/10/23 09:25 Dose: 200 mls/hr Documented By: LEXI Cefotetan Disodium 2 gm/ (Sodium Chloride) 50 mls @ 100 mls/hr IV PREOP ONE Stop: 06/11/23 14:11 Ketorolac Tromethamine (Ketorolac Tromethamine 15 Mg/Ml Vial) 15 mg IVPUSH Q6H PRN PRN Reason: Pain, Severe (Pain Scale 7-10) Last Admin: 06/10/23 09:03 Dose: 15 mg Documented By: LEXI Magnesium Hydroxide (Milk Of Magnesia 30 Ml Oral.Susp) 30 ml PO DAILY [facility] Last Admin: 06/10/23 08:25 Dose: 30 ml Documented By: LEXI Morphine Sulfate (Morphine Sulfate 4 Mg/Ml Cartridge) 4 mg IVPUSH Q4H PRN; Protocol PRN Reason: Pain, Severe (Pain Scale 7-10) Last Admin: 06/10/23 14:09 Dose: 4 mg Documented By: BLUE Ondansetron HCl (Ondansetron Hcl 4 Mg/2 Ml Vial) 4 mg IVPUSH Q8H PRN PRN Reason: Nausea and Vomiting Sodium Chloride (0.9 % Sodium Chloride Flush 3 Ml Syringe) 3 ml IVFLUSH QSHIFT [facility] Last Admin: 06/10/23 08:17 Dose: 3 ml Documented By: LEXI Labs 06/10/23 06:12 06/10/23 06:12 Labs: Laboratory Results - last 24 hr 06/09/23 06/09/23 06/09/23 18:08 18:08 21:27 MCV 92.1 MCH 31.4 MCHC 34.1 RDW 14.4 Plt Count 298 MPV 10.1 Immature Gran % (Auto) 0.4 Neut % (Auto) 85.0 H Lymph % (Auto) 7.7 L [place] % (Auto) 6.6 Eos % (Auto) 0.1 Baso % (Auto) 0.2 Lymph # (Auto) 1.0 L [place] # (Auto) 0.9 Eos # (Auto) 0.0 Baso # (Auto) 0.0 Abs Immat Gran (auto) 0.05 H Absolute Neuts (auto) 11.5 H Absolute Nucleated RBC 0.000 Nucleated RBC % (auto) 0.0 Anion Gap 20 Estim Creat Clear Calc 161.3 Estimated GFR > 60 Random Glucose 80 Calcium 10.3 H Total Bilirubin 0.9 Direct Bilirubin AST 34 ALT 50 H Alkaline Phosphatase 86 Total Protein 7.1 Albumin 3.9 Triglycerides 57 Lipase 456 H Urine Color Dark Yellow Urine Appearance Clear Urine pH 6.0 Ur Specific [place] 1.025 Urine Protein 100 (2+) H Urine Glucose (UA) Negative Urine Ketones >=160 Urine Blood Trace H Urine Nitrite Negative Ur Leukocyte Esterase Negative Urine RBC 0-2 Urine WBC 0-5 Ur Squamous Epith Cells 0-2 Urine Bacteria None Seen Hyaline Casts 3-5 Ethyl Alcohol < 10 06/10/23 06/10/23 06:12 06:12 MCV 91.4 MCH 31.3 MCHC 34.3 RDW 14.2 Plt Count 252 MPV 10.1 Immature Gran % (Auto) 0.4 Neut % (Auto) 73.1 H Lymph % (Auto) 18.6 L [place] % (Auto) 7.2 Eos % (Auto) 0.5 Baso % (Auto) 0.2 Lymph # (Auto) 2.3 [place] # (Auto) 0.9 Eos # (Auto) 0.1 Baso # (Auto) 0.0 Abs Immat Gran (auto) 0.05 H Absolute Neuts (auto) 9.0 H Absolute Nucleated RBC 0.000 Nucleated RBC % (auto) 0.0 Anion Gap 12 Estim Creat Clear Calc 180.3 Estimated GFR > 60 Random Glucose 70 Calcium 9.2 D Total Bilirubin 0.9 Direct Bilirubin 0.3 AST 31 ALT 42 H Alkaline Phosphatase 80 Total Protein 6.5 Albumin 3.5 Triglycerides Lipase 335 H Urine Color Urine Appearance Urine pH Ur Specific [place] Urine Protein Urine Glucose (UA) Urine Ketones Urine Blood Urine Nitrite Ur Leukocyte Esterase Urine RBC Urine WBC Ur Squamous Epith Cells Urine Bacteria Hyaline Casts Ethyl Alcohol Assessment and Plan (1) Gallstone pancreatitis: Status: Acute Plan 32-year-old male with no significant past medical history presents the hospital with abdominal pain found to have acute pancreatitis acute gallstone pancreatitis imaging done at [facility] including ultrasound of the right upper quadrant showed gallstones suspicious for gallstone pancreatitis continue IV fluids, NPO, analgesics seen by general surgery - plan for cholecystectomy tomorrow hypokalemia Potassium 3.1 Replace Follow BMP in a.m. DVT prophylaxis: Early ambulation attending - dr. villarreal patient requires ongoing inpatient hospitalization for management of gallstone pancreatitis as well as planned inpatient cholecystectomy Time Spent With Patient Time: Total time managing care of this patient today ____ minutes. Quality Stroke Does the patient have a stroke diagnosis?: No VTE Prior VTE?: No VTE Risk Level:: Medical - low VTE Device Contraindication: N/A - Device Ordered VTE Drug Contraindication: Treatment Not Indicated
[2023-06-10 16:00] VITALS: BP 126/76; PULSE 70; RESP 20; TEMP 36.9; O2SAT 99
[2023-06-10] MEDS: ondansetron HCL 4 MG/2 ML VIAL IVPUSH (16:55)
[2023-06-10 19:35] VITALS: BP 109/59; PULSE 65; RESP 18; TEMP 36.6; O2SAT 98
[2023-06-10] MEDS: Lactated Ringers 1,000 ML 150 ML IVCONT (20:44)
[2023-06-10] MEDS: oxyCODONE HCl Immed Release 5 MG TABLET PO (23:28)
[2023-06-11] VITALS (10 sets, daily range): BP systolic 124–144; BP diastolic 77–89; PULSE 61–77; RESP 16–21; TEMP 36.3–37.3; O2SAT 95–100
[2023-06-11] MEDS: ondansetron HCL 4 MG/2 ML VIAL IVPUSH (00:54)
[2023-06-11] MEDS: Morphine Sulfate 4 MG/ML CARTRIDGE IVPUSH ×3 (02:28→17:42)
[2023-06-11] MEDS: Lactated Ringers 1,000 ML 150 ML IVCONT ×3 (02:30→20:49)
[2023-06-11] MEDS: oxyCODONE HCl Immed Release 5 MG TABLET PO (07:19)
[2023-06-11] MEDS: Milk of Magnesia 30 ML ORAL.SUSP PO (07:20)
[2023-06-11] MEDS: Docusate Sodium 100 MG CAPSULE PO ×2 (07:20→20:48)
[2023-06-11 07:24] LABS: Anion Gap 17 (12-20); Blood Urea Nitrogen 8 mg/dL (9-16); Carbon Dioxide 20 mmol/L (22-29); Chloride 104 mmol/L (96-108); Creatinine Clr Calc Pharmacy 188.6; Estimated Glomerular Filt Rate > 60; Glucose Random 55 mg/dL (60-115); Lipase 210 U/L (8-78); Magnesium 1.8 mg/dL (1.6-2.6); Potassium 3.4 mmol/L (3.3-5.1); Sodium 138 mmol/L (135-145)
[2023-06-11] MEDS: Dextrose 50 % 25 GM/50 ML SYRINGE IVPUSH (07:33)
[2023-06-11 08:23] LABS: Glucose, Whole Blood 96 mg/dL (60-115)
--- NOTE | 2023-06-11 09:53 | P.PNGS_ITS ---
Subjective Subjective Date of Service: 06/11/23 Interval history: Patient complaining of mild epigastric/right upper quadrant pain. Otherwise uneventful evening. Physical Exam Vital Signs: Vital Signs: Last Vital Signs Temp 97.6 F 06/11/23 08:00 Pulse 63 06/11/23 08:00 Resp 18 06/11/23 08:00 BP 129/86 06/11/23 08:00 Pulse Ox 100 06/11/23 08:00 O2 Del Method Room Air 06/11/23 08:00 BMI result Body Mass Index 29.3 GI: Other: Status quo, mild right upper quadrant tenderness. Objective Data Active Medications Acetaminophen (Acetaminophen 325 Mg Tablet) 650 mg PO Q6H PRN PRN Reason: Pain, Mild (Pain Scale 1-3) Last Admin: 06/10/23 09:03 Dose: 650 mg Documented By: LEXI Dextrose (Dextrose 50 % 25 Gm/50 Ml Syringe) 25 gm IVPUSH Q15M PRN; Protocol PRN Reason: per Hypoglycemia Standing Ord. Last Admin: 06/11/23 07:33 Dose: 25 gm Documented By: MARIANNE Docusate Sodium (Docusate Sodium 100 Mg Capsule) 100 mg PO BID [facility] Last Admin: 06/11/23 07:20 Dose: 100 mg Documented By: MARIANNE Lactated Ringer's (Lr) 1,000 mls @ 150 mls/hr IVCONT .Q6H40M [facility] Last Admin: 06/11/23 07:20 Dose: 150 mls/hr Documented By: MARIANNE Cefotetan Disodium 2 gm/ (Sodium Chloride) 50 mls @ 100 mls/hr IV PREOP ONE Stop: 06/11/23 14:11 Ketorolac Tromethamine (Ketorolac Tromethamine 15 Mg/Ml Vial) 15 mg IVPUSH Q6H PRN PRN Reason: Pain, Severe (Pain Scale 7-10) Last Admin: 06/10/23 16:59 Dose: 15 mg Documented By: MICHELET Magnesium Hydroxide (Milk Of Magnesia 30 Ml Oral.Susp) 30 ml PO DAILY [facility] Last Admin: 06/11/23 07:20 Dose: 30 ml Documented By: MARIANNE Morphine Sulfate (Morphine Sulfate 4 Mg/Ml Cartridge) 4 mg IVPUSH Q4H PRN; Prot ocol PRN Reason: Pain, Severe (Pain Scale 7-10) Last Admin: 06/11/23 09:19 Dose: 4 mg Documented By: MARIANNE Ondansetron HCl (Ondansetron Hcl 4 Mg/2 Ml Vial) 4 mg IVPUSH Q8H PRN PRN Reason: Nausea and Vomiting Last Admin: 06/11/23 00:54 Dose: 4 mg Documented By: VENKATHRIN Oxycodone HCl (Oxycodone Hcl Immed Release 5 Mg Tablet) 5 mg PO Q4H PRN PRN Reason: Pain, Moderate(Pain Scale 4-6) Last Admin: 06/11/23 07:19 Dose: 5 mg Documented By: MARIANNE Sodium Chloride (0.9 % Sodium Chloride Flush 3 Ml Syringe) [facility] Last Admin: 06/11/23 06:59 Dose: Not Given Documented By: MARIANNE Non-Admin Reason: IV Running Labs 06/10/23 06:12 06/11/23 05:58 Labs: Laboratory Results - last 24 hr 06/11/23 06/11/23 05:58 08:17 Anion Gap 17 Estim Creat Clear Calc 188.6 Estimated GFR > 60 POC Glucose 96 Random Glucose 55 L* Calcium 9.0 Magnesium 1.8 Lipase 210 H Procedures Date of Service Date of Service: 06/11/23 Progress Note: A&P Assessment and plan (1) Gallstone pancreatitis: Status: Acute Plan Risks, benefits, alternatives of laparoscopic possible open cholecystectomy with cholangiogram were reviewed with the patient and include but not limited to bleeding, infection, recurrence of symptoms, numbness, pain, scarring, bowel or bile duct injury or leak and the patient wishes to proceed. All questions were answered. Patient is for surgery later this afternoon. Time Spent With Patient Time: Total time managing care of this patient today ____ minutes. Quality Stroke Does the patient have a stroke diagnosis?: No VTE Prior VTE?: No VTE Risk Level:: Medical - low VTE Device Contraindication: N/A - Device Ordered VTE Drug Contraindication: Treatment Not Indicated
--- NOTE | 2023-06-11 12:19 | P.CONAN_ITS ---
HPI - Anesthesia Eval Consult details Narrative: for gall bladder stones for lap mariella , daily multiple cannabis use PMFSH Active Problems Active Problems: All Active Problems (Updated 06/10/23 @ 13:33 by Blanche Gann PA-C) Gallstone pancreatitis (Acute) Pancreatitis (Acute) Past Medical History Medical History Kidney stones Family History Family history of problems with anesthesia: No Surgical History Surgical History H/O cystoscopy No pertinent past surgical history History of Problems with Anesthesia: No Social History Social History Household Members: Family Housing: Apartment Do you presently have visiting nurse or other home services: No Alcohol intake: former Patient Tobacco Use Status: Never used Tobacco Second Hand Smoke Exposure: No Substance Use Type: Marijuana Advance Directives Date on File: 10/21/21 service: No Current occupational status: unemployed Meds Allergies Allergy/AdvReac Type Severity Reaction Status Date / Time cat dander [CATS] Allergy Unknown UNKNOWN Verified 06/07/23 16:28 dog dander [DOGS] Allergy Unknown UNKNOWN Verified 06/07/23 16:28 Active Medications: Current Medications Acetaminophen (Acetaminophen 325 Mg Tablet) 650 mg PO Q6H PRN PRN Reason: Pain, Mild (Pain Scale 1-3) Last Admin: 06/10/23 09:03 Dose: 650 mg Dextrose (Dextrose 50 % 25 Gm/50 Ml Syringe) 25 gm IVPUSH Q15M PRN; Protocol PRN Reason: per Hypoglycemia Standing Ord. Last Admin: 06/11/23 07:33 Dose: 25 gm Docusate Sodium (Docusate Sodium 100 Mg Capsule) 100 mg PO BID [facility] Last Admin: 06/11/23 07:20 Dose: 100 mg Lactated Ringer's (Lr) 1,000 mls @ 150 mls/hr IVCONT .Q6H40M [facility] Last Admin: 06/11/23 07:20 Dose: 150 mls/hr Cefotetan Disodium 2 gm/ (Sodium Chloride) 50 mls @ 100 mls/hr IV PREOP ONE Stop: 06/11/23 14:11 Ketorolac Tromethamine (Ketorolac Tromethamine 15 Mg/Ml Vial) 15 mg IVPUSH Q6H PRN PRN Reason: Pain, Severe (Pain Scale 7-10) Last Admin: 06/10/23 16:59 Dose: 15 mg Magnesium Hydroxide (Milk Of Magnesia 30 Ml Oral.Susp) 30 ml PO DAILY [facility] Last Admin: 06/11/23 07:20 Dose: 30 ml Morphine Sulfate (Morphine Sulfate 4 Mg/Ml Cartridge) 4 mg IVPUSH Q4H PRN; Protocol PRN Reason: Pain, Severe (Pain Scale 7-10) Last Admin: 06/11/23 09:19 Dose: 4 mg Ondansetron HCl (Ondansetron Hcl 4 Mg/2 Ml Vial) 4 mg IVPUSH Q8H PRN PRN Reason: Nausea and Vomiting Last Admin: 06/11/23 00:54 Dose: 4 mg Oxycodone HCl (Oxycodone Hcl Immed Release 5 Mg Tablet) 5 mg PO Q4H PRN PRN Reason: Pain, Moderate(Pain Scale 4-6) Last Admin: 06/11/23 07:19 Dose: 5 mg Sodium Chloride (0.9 % Sodium Chloride Flush 3 Ml Syringe) 3 ml IVFLUSH QSHIFT [facility] Last Admin: 06/11/23 06:59 Dose: Not Given Exam Exam Date and Time: June 11, 2023 1219 Height,Weight and Vital Signs: Height 5 ft 11 in Weight 95.254 kg Last Vital Signs Temp 99.1 F 06/11/23 12:03 Pulse 63 06/11/23 12:03 Resp 16 06/11/23 12:03 BP 139/77 06/11/23 12:03 Pulse Ox 100 06/11/23 12:03 O2 Del Method Room Air 06/11/23 12:03 Pertinent Lab Results Pertinent Lab Results: Laboratory Tests 06/09/23 06/09/23 06/09/23 18:08 18:08 21:27 WBC 13.6 H RBC 4.17 L Hgb 13.1 L Hct 38.4 L MCV 92.1 MCH 31.4 MCHC 34.1 RDW 14.4 Plt Count 298 MPV 10.1 Immature Gran % (Auto) 0.4 Neut % (Auto) 85.0 H Lymph % (Auto) 7.7 L [place] % (Auto) 6.6 Eos % (Auto) 0.1 Baso % (Auto) 0.2 Lymph # (Auto) 1.0 L [place] # (Auto) 0.9 Eos # (Auto) 0.0 Baso # (Auto) 0.0 Abs Immat Gran (auto) 0.05 H Absolute Neuts (auto) 11.5 H Absolute Nucleated RBC 0.000 Nucleated RBC % (auto) 0.0 Sodium 136 Potassium 3.7 Chloride 99 Carbon Dioxide 21 L Anion Gap 20 BUN 12 Creatinine 0.76 Estim Creat Clear Calc 161.3 Estimated GFR > 60 POC Glucose Random Glucose 80 Calcium 10.3 H Magnesium Total Bilirubin 0.9 Direct Bilirubin AST 34 ALT 50 H Alkaline Phosphatase 86 Total Protein 7.1 Albumin 3.9 Triglycerides 57 Lipase 456 H Urine Color Dark Yellow Urine Appearance Clear Urine pH 6.0 Ur Specific [place] 1.025 Urine Protein 100 (2+) H Urine Glucose (UA) Negative Urine Ketones >=160 Urine Blood Trace H Urine Nitrite Negative Ur Leukocyte Esterase Negative Urine RBC 0-2 Urine WBC 0-5 Ur Squamous Epith Cells 0-2 Urine Bacteria None Seen Hyaline Casts 3-5 Ethyl Alcohol < 10 06/10/23 06/10/23 06/11/23 06:12 06:12 05:58 WBC 12.3 H RBC 3.83 L Hgb 12.0 L Hct 35.0 L MCV 91.4 MCH 31.3 MCHC 34.3 RDW 14.2 Plt Count 252 MPV 10.1 Immature Gran % (Auto) 0.4 Neut % (Auto) 73.1 H Lymph % (Auto) 18.6 L [place] % (Auto) 7.2 Eos % (Auto) 0.5 Baso % (Auto) 0.2 Lymph # (Auto) 2.3 [place] # (Auto) 0.9 Eos # (Auto) 0.1 Baso # (Auto) 0.0 Abs Immat Gran (auto) 0.05 H Absolute Neuts (auto) 9.0 H Absolute Nucleated RBC 0.000 Nucleated RBC % (auto) 0.0 Sodium 135 138 Potassium 3.1 L 3.4 Chloride 102 104 Carbon Dioxide 24 20 L Anion Gap 12 17 BUN 10 8 L Creatinine 0.68 0.65 Estim Creat Clear Calc 180.3 188.6 Estimated GFR > 60 > 60 POC Glucose Random Glucose 70 55 L* Calcium 9.2 D 9.0 Magnesium 1.8 Total Bilirubin 0.9 Direct Bilirubin 0.3 AST 31 ALT 42 H Alkaline Phosphatase 80 Total Protein 6.5 Albumin 3.5 Triglycerides Lipase 335 H 210 H Urine Color Urine Appearance Urine pH Ur Specific [place] Urine Protein Urine Glucose (UA) Urine Ketones Urine Blood Urine Nitrite Ur Leukocyte Esterase Urine RBC Urine WBC Ur Squamous Epith Cells Urine Bacteria Hyaline Casts Ethyl Alcohol 06/11/23 08:17 WBC RBC Hgb Hct MCV MCH MCHC RDW Plt Count MPV Immature Gran % (Auto) Neut % (Auto) Lymph % (Auto) [place] % (Auto) Eos % (Auto) Baso % (Auto) Lymph # (Auto) [place] # (Auto) Eos # (Auto) Baso # (Auto) Abs Immat Gran (auto) Absolute Neuts (auto) Absolute Nucleated RBC Nucleated RBC % (auto) Sodium Potassium Chloride Carbon Dioxide Anion Gap BUN Creatinine Estim Creat Clear Calc Estimated GFR POC Glucose 96 Random Glucose Calcium Magnesium Total Bilirubin Direct Bilirubin AST ALT Alkaline Phosphatase Total Protein Albumin Triglycerides Lipase Urine Color Urine Appearance Urine pH Ur Specific [place] Urine Protein Urine Glucose (UA) Urine Ketones Urine Blood Urine Nitrite Ur Leukocyte Esterase Urine RBC Urine WBC Ur Squamous Epith Cells Urine Bacteria Hyaline Casts Ethyl Alcohol Airway Mallampati Class: II TM Dist: >3cm Neck ROM: Full Heart: rrr Lungs: cta Assessment and Plan Assessment Anesthesia Assessment: Anesthesia Plan Discussed, Smoking Cess. Discussed and Chart Reviewed Final Anesthetic Review Family History of Problems with Anesthesia: No History of Problems with Anesthesia: No NPO: Yes ASA Class: II Final Preanesthetic Review: No Changes in Pt Med Stat, Meds/Allgs Chart Reviewed, Consent Obtained/Reviewed and Anes Risks/Benef Reviewed Patient Risk: Intermediate Procedure Risk: Intermediate Anesthetic Plan Anesthetic Plan: GA Disposition: Standard PACU
[2023-06-11] MEDS: HYDROmorphone HCl 0.5 MG/0.5 ML SYRINGE 0.25 MG IVPUSH ×2 (16:38→23:36)
--- NOTE | 2023-06-11 17:17 | HO.PM.IMPN ---
Subjective Subjective Date of Service: 06/11/23 Interval History: seen and examined this morning follow up for abdominal pain, gallstone pancreatitis feeling better today, plan for cholecystectomy Review of Systems Review of Systems: Yes all other systems are reviewed and are negative Constitutional Constitutional: Denies chills and Denies fever(s) Cardiovascular Cardiovascular: Denies chest pain, Denies palpitations and Denies dyspnea Respiratory Respiratory: Denies cough and Denies dyspnea Endocrine Endocrine: Denies palpitations Physical Exam Vital Signs: Vital Signs: Last Vital Signs Temp 98.4 F 06/11/23 17:00 Pulse 67 06/11/23 17:00 Resp 19 06/11/23 17:00 BP 132/85 06/11/23 17:00 Pulse Ox 100 06/11/23 17:00 O2 Del Method Nasal Cannula 06/11/23 17:00 O2 Flow Rate 2 06/11/23 17:00 BMI result Body Mass Index 29.3 Const: General: cooperative, comfortable, no acute distress, alert and awake Nutritional Appearance: average body habitus Orientation/consciousness: patient oriented x3 Resp: Effort & Inspection: normal respiratory effort, able to speak in complete sentences, no respiratory distress and no use of accessory muscles Auscultation: clear to auscultation bilaterally Cardio: Rate: regular rate Heart sounds: S1 normal heart sound present and S2 normal heart sound present GI: Other: RUQ tender to palpation Inspection: No distended Palpation (GI): Soft to palpation and no guarding Neuro: General: patient oriented x3, moves all extremities and CN's II-XI intact bilaterally Extrem: General: Yes no pedal edema Objective Data Active Medications Acetaminophen (Acetaminophen 325 Mg Tablet) 650 mg PO Q6H PRN PRN Reason: Pain, Mild (Pain Scale 1-3) Last Admin: 06/10/23 09:03 Dose: 650 mg Documented By: LEXI Dextrose (Dextrose 50 % 25 Gm/50 Ml Syringe) 25 gm IVPUSH Q15M PRN; Protocol PRN Reason: per Hypoglycemia Standing Ord. Last Admin: 06/11/23 07:33 Dose: 25 gm Documented By: MARIANNE Docusate Sodium (Docusate Sodium 100 Mg Capsule) 100 mg PO BID [facility] Last Admin: 06/11/23 07:20 Dose: 100 mg Documented By: MARIANNE Hydromorphone HCl (Hydromorphone Hcl 0.5 Mg/0.5 Ml Syringe) 0.25 mg IVPUSH Q5M PRN; Protocol PRN Reason: Pain, Severe (Pain Scale 7-10) Last Admin: 06/11/23 16:38 Dose: 0.25 mg Documented By: MISTY Lactated Ringer's (Lr) 1,000 mls @ 150 mls/hr IVCONT .Q6H40M [facility] Last Admin: 06/11/23 14:06 Dose: Not Given Documented By: MARIANNE Non-Admin Reason: Off Unit: Surgery Promethazine HCl 12.5 mg/ (Sodium Chloride) 50.5 mls @ 202 mls/hr IV ONCE PRN PRN Reason: Nausea and Vomiting Ketorolac Tromethamine (Ketorolac Tromethamine 15 Mg/Ml Vial) 15 mg IVPUSH Q6H PRN PRN Reason: Pain, Severe (Pain Scale 7-10) Last Admin: 06/10/23 16:59 Dose: 15 mg Documented By: MICHELET Magnesium Hydroxide (Milk Of Magnesia 30 Ml Oral.Susp) 30 ml PO DAILY [facility] Last Admin: 06/11/23 07:20 Dose: 30 ml Documented By: MARIANNE Morphine Sulfate (Morphine Sulfate 4 Mg/Ml Cartridge) 4 mg IVPUSH Q4H PRN; Protocol PRN Reason: Pain, Severe (Pain Scale 7-10) Last Admin: 06/11/23 09:19 Dose: 4 mg Documented By: MARIANNE Ondansetron HCl (Ondansetron Hcl 4 Mg/2 Ml Vial) 4 mg IVPUSH Q8H PRN PRN Reason: Nausea and Vomiting Last Admin: 06/11/23 00:54 Dose: 4 mg Documented By: JUDY Ondansetron HCl (Ondansetron Hcl 4 Mg/2 Ml Vial) 4 mg IVPUSH ONCE PRN PRN Reason: Nausea and Vomiting Oxycodone HCl (Oxycodone Hcl Immed Release 5 Mg Tablet) 5 mg PO Q4H PRN PRN Reason: Pain, Moderate(Pain Scale 4-6) Last Admin: 06/11/23 07:19 Dose: 5 mg Documented By: MARIANNE Oxycodone HCl (Oxycodone Hcl Immed Release 5 Mg Tablet) 10 mg PO ONCE PRN PRN Reason: Pain, Severe (Pain Scale 7-10) Sodium Chloride (0.9 % Sodium Chloride Flush 3 Ml Syringe) 3 ml IVFLUSH QSHIFT [facility] Last Admin: 06/11/23 14:49 Dose: Not Given Documented By: MARIANNE Non-Admin Reason: Off Unit: Surgery Labs 06/10/23 06:12 06/11/23 05:58 Labs: Laboratory Results - last 24 hr 06/11/23 06/11/23 05:58 08:17 Anion Gap 17 Estim Creat Clear Calc 188.6 Estimated GFR > 60 POC Glucose 96 Random Glucose 55 L* Calcium 9.0 Magnesium 1.8 Lipase 210 H Assessment and Plan (1) Gallstone pancreatitis: Status: Acute Plan 32-year-old male with no significant past medical history presents the hospital with abdominal pain found to have acute pancreatitis acute gallstone pancreatitis imaging done at [facility] including ultrasound of the right upper quadrant showed gallstones suspicious for gallstone pancreatitis LFTs, lipase trending down continue IV fluids, analgesics. remains NPO for surgery seen by general surgery - plan for cholecystectomy today hypoglycemia one episode of hypoglycemia this am. pt asymptomatic likely r/t NPO status and decreased po intake over the past 1-2 weeks treated with IV dextrose as patient was npo, repeat improved hypokalemia improved with replacement DVT prophylaxis: Early ambulation attending - dr. villarreal patient requires ongoing inpatient hospitalization for management of gallstone pancreatitis as well as planned inpatient cholecystectomy Time Spent With Patient Time: Total time managing care of this patient today ____ minutes. Quality Stroke Does the patient have a stroke diagnosis?: No VTE Prior VTE?: No VTE Risk Level:: Medical - low VTE Device Contraindication: N/A - Device Ordered VTE Drug Contraindication: Treatment Not Indicated
[2023-06-11] MEDS: oxyCODONE HCl Immed Release 5 MG TABLET 10 MG PO (18:29)
[2023-06-12] VITALS: BP 130/83; PULSE 59; RESP 16; TEMP 36.4; O2SAT 98
[2023-06-12] MEDS: Morphine Sulfate 4 MG/ML CARTRIDGE IVPUSH ×2 (02:03→06:05)
[2023-06-12 03:49] VITALS: BP 134/80; PULSE 79; RESP 16; TEMP 36.2; O2SAT 99
[2023-06-12] MEDS: oxyCODONE HCl Immed Release 5 MG TABLET PO ×2 (03:58→09:52)
[2023-06-12] MEDS: Ketorolac Tromethamine 15 MG/ML VIAL IVPUSH (03:58)
[2023-06-12] MEDS: Acetaminophen 325 MG TABLET 650 MG PO (03:59)
[2023-06-12 05:40] LABS: Hematocrit 32.5 % (42.0-52.0); Hemoglobin 11.2 g/dl (14.0-18.0); Mean Corpuscular HGB Conc 34.5 g/dl (31.0-36.0); Mean Corpuscular Hemoglobin 31.5 pg (27.0-33.0); Mean Corpuscular Volume 91.5 fL (80.0-98.0); Platelet Count 250 X10*3/uL (160-400); Red Blood Count 3.55 X10*6/uL (4.60-5.80); Red Cell Distribution Width 14.1 % (11.0-16.0); White Blood Count 9.6 X10*3/uL (4.8-10.8)
[2023-06-12 06:03] LABS: Anion Gap 15 (12-20); Blood Urea Nitrogen 8 mg/dL (9-16); Calcium 9.4 mg/dL (8.4-10.2); Carbon Dioxide 25 mmol/L (22-29); Chloride 103 mmol/L (96-108); Creatinine Clr Calc Pharmacy 163.4; Estimated Glomerular Filt Rate > 60; Glucose Random 102 mg/dL (60-115); Potassium 3.8 mmol/L (3.3-5.1); Sodium 139 mmol/L (135-145)
--- NOTE | 2023-06-12 07:08 | PM.DS ---
DS: Providers Provider Date of Service: 06/12/23 Date of admission: 06/09/23 21:33 Primary care physician: Cade Peres MD Consults: 06/09/23 21:33 Consult to General Surgery Routine Consulting Provider: [facility] Reason for consultation: gallstone panreatitis Has provider been notified: No DS: Diagnosis Discharge Diagnosis (1) Gallstone pancreatitis: Status: Acute DS: Summary Hospital Course Hospital Course: [facility] Complaint:? abdominal pain ?32-year-old male with past medical history of kidney stones otherwise healthy presents to the hospital complaints of abdominal pain.? Patient reports that he has been seen for this abdominal pain several times at different hospitals but has left AMA on several occasions.? Patient reports that his symptoms started about a month ago, worsened over the last 2 weeks.? Pain is epigastric, radiating to the left, as well as to the back, associated with nausea and poor oral intake, no diarrhea constipation, denies any chest pain, no shortness of breath, no fever but has chills, no urinary symptoms and no lower extremity edema.? Reports that he went to [facility] yesterday, had an ultrasound done which showed? likely gallstone pancreatitis.? Patient did not wait for further treatment, signed himself AMA.? Comes in today due to persistent pain.? Reports that last drink was June 01 but he is not usually a daily? Drinker.? On arrival to the ED patient hemodynamically stable with no significant? abnormality Labs are significant for WBC count of 13.6, hemoglobin of 13.1, hematocrit 38.4, lipase of 456, AST of 34, ALT of 50, alk-phos of 86, UA negative ?patient will be admitted further manage Hospital course: he presented with abdominal pain, workup revealed gallstone pancreatitis. He underwent laparoscopic cholecystectomy on June 11 to and is doing quite well. Plan is for him to go home final diagnoses: Gallstone pancreatitis, gallstone Time Spent with Patient Time attestation: Total time managing care of this patient today ____ minutes. Discharge coordination time: Greater than 30 minutes Quality: Safe Use of Opioids Does Pt have an Active Cancer Diagnosis on the Problem List?: No Quality: Stroke Does the patient have a stroke diagnosis?: No Physical Exam Vital Signs: Vital Signs: Last Vital Signs Temp 97.2 F 06/12/23 03:49 Pulse 79 06/12/23 03:49 Resp 16 06/12/23 03:49 BP 134/80 06/12/23 03:49 Pulse Ox 99 06/12/23 03:49 O2 Del Method Room Air 06/12/23 03:49 O2 Flow Rate 2 06/11/23 17:35 BMI result Body Mass Index 29.3 DS: Data Data Completed and Pending Completed studies during hospitalization [Text1]: Procedures Extirpation of Matter from Left Ureter, Via Natural or Artificial Opening Endoscopic (10/18/21) Fluoroscopy of Left Kidney, Ureter and Bladder (10/18/21) Pending studies at discharge: Pending at discharge 06/11/23 16:06 Surgical [PTH] Routine Labs on day of discharge: Laboratory Results - last 24 hr 06/11/23 06/11/23 06/12/23 05:58 08:17 05:09 WBC 9.6 RBC 3.55 L Hgb 11.2 L Hct 32.5 L MCV 91.5 MCH 31.5 MCHC 34.5 RDW 14.1 Plt Count 250 MPV 10.0 Absolute Nucleated RBC 0.000 Nucleated RBC % (auto) 0.0 Sodium 138 Potassium 3.4 Chloride 104 Carbon Dioxide 20 L Anion Gap 17 BUN 8 L Creatinine 0.65 Estim Creat Clear Calc 188.6 Estimated GFR > 60 POC Glucose 96 Random Glucose 55 L* Calcium 9.0 Magnesium 1.8 Lipase 210 H 06/12/23 05:09 WBC RBC Hgb Hct MCV MCH MCHC RDW Plt Count MPV Absolute Nucleated RBC Nucleated RBC % (auto) Sodium 139 Potassium 3.8 Chloride 103 Carbon Dioxide 25 Anion Gap 15 BUN 8 L Creatinine 0.75 Estim Creat Clear Calc 163.4 Estimated GFR > 60 POC Glucose Random Glucose 102 Calcium 9.4 Magnesium Lipase Discharge Plan Discharge Anticipated Discharge Date/Time: 06/12/23 07:06 Patient Disposition: Home, Self-Care Discharge Diagnosis: Gallstone pancreatitis Referrals: Hadley Chinchilla MD [Physician] - 1 Week Sriram Gibbs MD [Physician] - 1 Week Discharge Medications: New hydrocodone-acetaminophen 5-325 mg tablet 1 tab PO Q4-6H PRN (Reason: pain) Qty: 30 0RF Rx Instructions: Partial Fill upon patient request. Discharge Orders: Discharge Order (Routine); Ordered 07/15/23 Ordered By: Luciano Martínez Diet: Advance to usual diet Activity on Discharge: No heavy lifting Stand Alone Forms: Patient Portal Discharge page Activity Restrictions/Additional Instructions: Ice to wound 20 minutes several times today and tomorrow. May shower in 2 days. Remove outside dressing only. Leave Steri-Strips intact. No strenuous activities Care Plan Goals: Full recovery from gallstone pancreatitis Health Concerns: gallstone pancreatitis Plan of Treatment: Ice to wound 20 minutes several times today and tomorrow. May shower in 2 days. Remove outside dressing only. Leave Steri-Strips intact. No strenuous activities Assessment: as above
[2023-06-12 07:30] VITALS: BP 140/82; PULSE 68; RESP 18; TEMP 36.6; O2SAT 99
--- NOTE | 2023-06-12 08:40 | MHC.CM.PN ---
PATIENT IS DC HOME TODAY- SELF CARE PER REVIEW OF NOTES, PATIENT WILL WALK HOME RN AWARE OF PLAN
--- NOTE | 2023-07-20 11:07 | P.OP_ITS ---
Operative Note Operative Note Date of Service: 06/11/23 Narrative: Preoperative diagnosis: [] Gallstone pancreatitis Postop diagnosis: [] Same Procedure [] laparoscopic cholecystectomy with cholangiogram Surgeon: [] Sai Corrosion Control Specialist: [] CHRISTIE Gann Type of Anesthesia: [] General Indication for surgery: [] Gallbladder with omental adhesions to it. Cholangiogram demonstrated free flow of contrast into the extrahepatic biliary system and duodenum with no obvious filling defects. Findings: [] Patient brought to the operating room, placed on operative table in supine position, after adequate level of general anesthesia was induced, the patient's abdomen was prepped and draped in usual sterile fashion. Using a supraumbilical curvilinear incision, [place] technique was used to insufflate the abdominal cavity to 15 mm of CO2. Upper midline and right subcostal ports were placed under direct laparoscopic view, and the patient was placed in reverse Trendelenburg position, tilted to the left. Findings were as noted above. Gallbladder was grasped using laparoscopic graspers, and retracted superiorly and laterally. Soft omental adhesions were swept off the gallbladder was hilum was approached. Cystic artery and cystic duct were each identified, circumferentially skeletonized, each traced directly to the gallbladder and critical view obtained. A clip was placed on the gallbladder side of cystic duct and a small cholecystodochotomy performed, and cholangiogram performed through this with findings noted above. Cystic duct was then clipped proximally x2 and transected. Similarly cystic artery was clipped proximally x2, distally x1, and transected. Gallbladder which was moderately intrahepatic was then cauterized from the gallbladder fossa using Bovie. Specimen was placed in an Endo-Catch bag, a retrieved through the umbilical port. The abdominal cavity was copiously irrigated, and secured hemostasis. All ports were removed under direct laparoscopic view. Wounds were closed in the following manner; umbilical wound had its fascia reapproximated using interrupted 0 Vicryl sutures. Skin wounds were closed using subcuticular 4-0 Vicryl sutures followed by Steri-Strips and sterile dressings. Wounds were infiltrated 0.5% Marcaine at completion. Sponge, needle, instrument counts reported to be correct. Patient tolerated the procedure well and emerged anesthesia stable condition. EBL minimal
== END 2023-06-12 11:07 | disposition home or self-care (01) | DRG 263 ==
LOC: HO.ED 19:33 → HO.EDOVER 21:39 → HO.S3 06-10 13:28
PROVIDERS: Physician Assistant Medical; Registered Nurse Emergency; Surgery; Admitting Provider Internal Medicine; Emergency Provider Emergency Medicine Emergency Medical Services; PCP Family Medicine; Visit Provider Internal Medicine
PROC: 0FT44ZZ Resection of Gallbladder, Percutaneous Endoscopic Approach (ICD-10-PCS; CPT 47562; principal; 2023-06-11 12:30)
DX: K85.10 Biliary acute pancreatitis without necrosis or infection (principal); K80.20 Calculus of gallbladder without cholecystitis without obstruction
CPT/HCPCS: 36415; 80048; 80053; 80076; 80307; 81001; 82947; 83690; 83735; 84478; 85025; 85027; 88302; 88304; 99285; J0131; J1170; J1885; J2270; J2405; J2795; J3010; Q9967

== ENCOUNTER → 2023-06-09 21:33 | Outpatient (BNV) | payer OTHER, SELFPAY | PROVIDERS: Admitting Provider Internal Medicine; Emergency Provider Emergency Medicine Emergency Medical Services; PCP Internal Medicine; Visit Provider Physician Assistant Surgical | DX: K85.10 Biliary acute pancreatitis without necrosis or infection (principal) | CPT/HCPCS: 47563; 99222; 99232 ==

== ENCOUNTER → 2023-06-09 21:33 | Outpatient (BNV) | payer OTHER, SELFPAY | PROVIDERS: Admitting Provider Internal Medicine; Emergency Provider Emergency Medicine Emergency Medical Services; PCP Internal Medicine; Visit Provider Internal Medicine | DX: K85.10 Biliary acute pancreatitis without necrosis or infection (principal) | CPT/HCPCS: 99223; 99232; 99239 ==

== ENCOUNTER 2023-06-13 10:06 | Emergency (ER) | payer OTHER, SELFPAY ==
--- NOTE | ~2023-06-13 | CT_ITS ---
EXAMINATION: CT ABDOMEN AND PELVIS WITH CONTRAST CLINICAL INFORMATION: Right-sided abdominal pain and bruising. Recent laparoscopic cholecystectomy. COMPARISON: CTA chest dated 04/21/[address] abdomen/pelvis dated 03/26/2023. TECHNIQUE: Multidetector volumetric images were obtained from the superior aspect of the liver through the pubic symphysis following administration 100 mL of Omnipaque 350 intravenous contrast. Sagittal and coronal reformatted images were obtained on the technologist's workstation. Oral contrast: No. This CT examination was performed using dose optimization techniques as appropriate, variously including the following: *Automated exposure control *Adjustment of mA and/or kV according to patient size (this includes techniques or standardized protocols for targeted exams where dose is matched to indication/reason for exam; i.e. extremities or head) *Use of iterative reconstruction technique DLP: 562 mGy-cm FINDINGS: LUNG BASES: Linear scarring versus atelectasis within the lung bases. LIVER, GALLBLADDER, AND BILIARY TREE: The liver is normal in size, shape, and attenuation. No new focal hepatic lesion or biliary ductal dilatation is present. Status post cholecystectomy. Simple-appearing cyst within the anterior aspect of the right hepatic lobe, increased in prominence when compared to the prior examination. There is fluid/stranding within the gallbladder fossa as well as within the adjacent abdominal wall, consistent with recent laparoscopic cholecystectomy. No organized fluid collection or biloma/abscess formation. PANCREAS: No pancreatic parenchymal lesion. No ductal dilatation. SPLEEN: Unremarkable. ADRENAL GLANDS: Unremarkable. KIDNEYS AND URETERS: Bilateral renal stones are redemonstrated, similar when compared to the prior examination. The largest is again noted to be within the lower pole of the right kidney. No ureteral stone. No hydronephrosis or hydroureter. BLADDER: Unremarkable. GASTROINTESTINAL TRACT: No small or large bowel obstruction. No bowel dilatation. No bowel wall thickening or inflammatory change. Unremarkable appendix. PERITONEAL CAVITY: Trace upper abdominal ascites, likely related to the recent surgery. No organized fluid collection or abscess formation. No intra-abdominal free air. ABDOMINAL WALL: Postsurgical change adjacent to the umbilicus with a focus of subcutaneous air measuring up to 1.4 cm. There is stranding along the right abdominal wall, likely indicating postsurgical change with small foci of air associated with the right abdominal wall. Findings likely indicate an area of port placement. Small amount of fluid within the fascial plane deep to the abdominal wall musculature without organized fluid collection or abscess formation. Subcutaneous stranding extends along the right flank. Findings likely indicate the postoperative result. LYMPH NODES: No lymphadenopathy. VASCULAR: Unremarkable. PELVIC VISCERA: The prostate and seminal vesicles are unremarkable. OSSEOUS STRUCTURES: Unremarkable. CT/CT abdomen pelvis w IV con IMPRESSION: 1. Status post cholecystectomy. Fluid/stranding within the gallbladder fossa as well as within the adjacent abdominal wall, consistent with recent surgery. Trace upper abdominal ascites. No organized fluid collection or abscess formation. No intra-abdominal free air. 2. Postoperative change along the right abdominal wall with small foci of air and fluid within the fascial plane. Findings likely indicate a postoperative result. No organized fluid collection or abscess formation. 3. Bilateral renal stones are redemonstrated, similar when compared to the prior examination. No hydronephrosis or hydroureter. Fleischner guidelines were followed.
[2023-06-13 10:10] VITALS: BP 124/81; BP 160/82; PULSE 74; PULSE 86; RESP 16; TEMP 36.9; O2SAT 100; O2SAT 98; BMI 29.3
--- NOTE | 2023-06-13 10:25 | ED.GENADULT ---
HPI - General Adult General Chief complaint: General Medical Stated complaint: ABD PAIN,RECENT GB SURGERY PER EMS Time Seen by Provider: 06/13/23 10:10 Source: patient and EMS Mode of arrival: EMS Limitations: no limitations History of Present Illness HPI narrative: 32 yo male with history of gallstone pancreatitis s/p lap mariella 06/11 here with complaints of waking with increased pain at incision site with discoloration around the incisions and nausea. No vomiting or fever. Took hydrocodone this morning for pain at 6am with continued symptoms. No diarrhea, constipation, urinary symptoms. Related Data Previous Rx's Medication Instructions Recorded hydrocodone 5 mg-acetaminophen 325 1 tab PO Q4-6H PRN pain #30 tabs 06/11/23 mg tablet Allergies Allergy/AdvReac Type Severity Reaction Status Date / Time cat dander [CATS] Allergy Unknown UNKNOWN Verified 06/13/23 10:23 dog dander [DOGS] Allergy Unknown UNKNOWN Verified 06/13/23 10:23 Review of Systems Review of Systems: Yes all other systems are reviewed and are negative Constitutional: Constitutional: Reports no additional constitutional complaints, Denies body ache(s), Denies chills, Denies fever(s), Denies headache(s) and Denies weakness Eyes: Eyes: Reports no additional eye complaints and Denies change in vision ENT: Reports system reviewed and no additional complaints, except as documented, Denies dizziness, Denies headache(s), Denies nasal congestion, Denies nasal discharge and Denies neck pain Cardiovascular: Cardiovascular: Reports no additional cardiovascular complaints, Denies chest pain, Denies leg edema and Denies dyspnea Respiratory: Respiratory: Reports no additional respiratory complaints, Denies cough and Denies dyspnea Gastrointestinal: Gastrointestinal: Reports no additional gastrointestinal complaints, Reports abdominal pain, Denies diarrhea, Reports nausea and Denies vomiting Genitourinary: Genitourinary: Denies urinary incontinence Musculoskeletal: Musculoskeletal: Reports no additional musculoskeletal complaints, Denies back pain, Denies arthralgias, Denies joint swelling, Denies neck pain, Denies numbness and Denies tingling Integumentary/Breasts: Skin/Breast: Reports system reviewed and no additional complaints, except as docu and Denies rash Neurologic: Reports system reviewed and no additional complaints, except as documented, Denies dizziness, Denies headache(s), Denies numbness, Denies tingling and Denies weakness PMFSH Past Medical History Attestation statement: The following information was validated with the patient. Source: old records reviewed and nursing notes reviewed Medical History Kidney stones Surgical History H/O cystoscopy No pertinent past surgical history Social History Social History Household Members: Family Housing: Apartment Do you presently have visiting nurse or other home services: No Alcohol intake: former Patient Tobacco Use Status: Never used Tobacco Second Hand Smoke Exposure: No Substance Use Type: Marijuana Advance Directives: Yes Advance Directives on File: Yes Advance Directives Date on File: 10/21/21 service: No Current occupational status: unemployed Physical Exam ED Vital Signs: Vital Signs - 24 hr 06/13/23 10:10 Temperature 98.4 F Pulse Rate 74 Respiratory Rate 16 Blood Pressure 124/81 Pulse Oximetry 100 Oxygen Delivery Method Room Air BMI result Body Mass Index 29.3 Const General: cooperative, healthy appearing, comfortable and no acute distress Orientation/consciousness: patient oriented x3 Limitations: no limitations HENMT Head: Yes normal to inspection Ears: hearing grossly normal bilaterally Eyes General: appearance normal, both eyes and all related structures Pupils: Equal, round and reactive pupils present Neck Neck: Yes normal visual inspection, Yes full ROM and Yes no lymphadenopathy Chest Chest palpation & inspection: normal inspection of the chest Resp Effort & Inspection: normal respiratory effort Auscultation: clear to auscultation bilaterally Cardio Rate: regular rate Rhythm: regular rhythm Peripheral pulses: Peripheral pulses 2+ throughout GI Other: Diffuse TTP, no rebound or guarding Auscultation: normal bowel sounds General: Yes no CVA tenderness Back/Spine/Pelvis Back: no CVA tenderness Thoracic/Lumbar Spine: thoracic and lumbar spine normal to inspection Skin General skin exam: no rashes or lesions noted Neuro General: patient oriented x3 and moves all extremities Cranial nerves: Yes Equal, round and reactive pupils present Cognition (Neuro): normal cognition Gait exam (Neuro): Normal gait present Extrem General: Yes normal to inspection Course Course Course Narrative: Dr Kapoor came into see the patient at the bedside. She tells me the patient had an intra-op cholangiogram and there was no stone seen. Patient did have a single stone within the GB prior to removal so she has low suspicion for retained stone. She reviewed the images and has low concern for CBD leak. She believes the elevated liver enzymes are secondary to some mild surgical trauma. Patient can be discharged home with recommendation to follow-up with surgery team this week and return for worsening signs/symptoms. I discussed this with the patient. He is comfortable plan for discharge home. Medications Administered Discontinued Medications Generic Name Dose Route Start Last Admin Trade Name Freq PRN Reason Stop Dose Admin Sodium Chloride 1,000 mls @ 999 mls/hr 06/13/23 11:40 06/13/23 12:23 Ns IV 06/13/23 12:40 999 mls/hr .Q1H1M STA Administration Potassium Chloride 10 meq in 100 mls @ 100 mls/hr 06/13/23 11:45 06/13/23 12:24 Potassium Chloride/H20 IV 06/13/23 13:44 100 mls/hr Q1H SOHAIL Administration Iohexol 100 ml 06/13/23 11:54 06/13/23 11:55 Iohexol 350 Mg/Ml 100 Ml Infus..Btl IV 06/13/23 11:55 100 ml ONCE ONE Administration Morphine Sulfate 4 mg 06/13/23 10:34 06/13/23 11:35 Morphine Sulfate 4 Mg/Ml Cartridge IVPUSH 06/13/23 10:35 4 mg ONCE ONE Administration Protocol Morphine Sulfate 4 mg 06/13/23 12:43 06/13/23 12:53 Morphine Sulfate 4 Mg/Ml Cartridge IVPUSH 06/13/23 12:44 4 mg ONCE ONE Administration Protocol Ondansetron HCl 4 mg 06/13/23 10:34 06/13/23 11:35 Ondansetron Hcl 4 Mg/2 Ml Vial IVPUSH 06/13/23 10:35 4 mg ONCE ONE Administration Medical Decision Making Medical Decision Making [facility] Narrative: 32 yo male who is POD 2 from lap mariella who presents to the ER with increasing abdominal pain, discoloration around the incision site. On exam there is ecchymosis around the incision site, diffuse TTP Will need labs, UA, CT A/P, IV pain control Differential Diagnosis Differential Diagnoses: The differential diagnosis associated with the presentation includes post op complication -CBD leak, retained stone Consult Healthcare Provider Management of the patient was discussed with: Aquaculturist Patient had normal LFTs on June 10. Patient had a lap choly for gallstone pancreatitis on June 11. He presents today with worsening abdominal pain with elevated LFTs and a CT which shows stable postoperative changes. I spoke to General surgery Dr. Obregon who is on-call and will come in to see the patient Lab Data MDM Lab Attestation statement: I reviewed the patient's lab results. 06/13/23 10:54 06/13/23 10:54 Labs: Lab Results 06/13/23 06/13/23 06/13/23 Range/Units 10:54 10:54 12:39 WBC 7.5 (4.8-10.8) X10*3/uL RBC 3.60 L (4.60-5.80) X10*6/uL Hgb 11.4 L (14.0-18.0) g/dl Hct 32.9 L (42.0-52.0) % MCV 91.4 (80.0-98.0) fL MCH 31.7 (27.0-33.0) pg MCHC 34.7 (31.0-36.0) g/dl RDW 14.0 (11.0-16.0) % Plt Count 304 (160-400) X10*3/uL MPV 9.5 (9.4-12.4) fL Immature Gran % (Auto) 0.3 (0.0-0.4) % Neut % (Auto) 68.1 (45-73) % Lymph % (Auto) 21.0 (20-40) % [place] % (Auto) 8.2 (2-11) % Eos % (Auto) 1.9 (0-4) % Baso % (Auto) 0.5 (0-2) % Lymph # (Auto) 1.6 (1.2-4.9) X10*3/uL [place] # (Auto) 0.6 (0.1-1.2) X10*3/uL Eos # (Auto) 0.1 (0.0-0.4) X10*3/uL Baso # (Auto) 0.0 (0.0-0.2) X10*3/uL Abs Immat Gran (auto) 0.02 (0.00-0.03) X10*3/uL Absolute Neuts (auto) 5.1 (2.0-8.3) x10*3/uL Absolute Nucleated RBC 0.000 (0.0-0.012) X10*3/uL Nucleated RBC % (auto) 0.0 (0.0-0.2) /100WBC Sodium 141 (135-145) mmol/L Potassium 3.0 L D (3.3-5.1) mmol/L Chloride 106 (96-108) mmol/L Carbon Dioxide 27 (22-29) mmol/L Anion Gap 11 L (12-20) BUN 9 (9-16) mg/dL Creatinine 0.86 (0.5-1.4) mg/dL Estim Creat Clear Calc 142.5 Estimated GFR > 60 Random Glucose 102 (60-115) mg/dL Calcium 8.8 D (8.4-10.2) mg/dL Total Bilirubin 0.6 (0.0-1.0) mg/dL Direct Bilirubin 0.4 (0.0-0.5) mg/dL AST 207 H (5-37) U/L ALT 273 H (0-40) U/L Alkaline Phosphatase 225 H (39-117) U/L Total Protein 5.8 L (6.5-8.0) g/dL Albumin 3.2 L (3.5-5.0) g/dL Lipase 98 H (8-78) U/L Urine Color Yellow Urine Appearance Clear Urine pH 7.5 (5.0-9.0) Ur Specific [place] >= 1.030 H (1.005-1.025) Urine Protein Trace (Neg-Trace) mg/dL Urine Glucose (UA) Negative (Negative) mg/dL Urine Ketones Trace (Negative) mg/dL Urine Blood Negative (Negative) Urine Nitrite Negative (Negative) Ur Leukocyte Esterase Negative (Negative) Independent Interpretation I performed an independent interpretation of an: CT Scan Radiology Impression Discussion of test interpretation with radiology: I have reviewed the radiologist's reading. Radiologist Impression: niques or standardized protocols for targeted exams where dose is matched to indication/reason for exam; i.e. extremities or head) *Use of iterative reconstruction technique DLP: 562 mGy-cm FINDINGS: LUNG BASES: Linear scarring versus atelectasis within the lung bases.? LIVER, GALLBLADDER, AND BILIARY TREE: The liver is normal in size, shape, and attenuation. No new focal hepatic lesion or biliary ductal dilatation is present. Status post cholecystectomy. Simple-appearing cyst within the anterior aspect of the right hepatic lobe, increased in prominence when compared to the prior examination. There is fluid/stranding within the gallbladder fossa as well as within the adjacent abdominal wall, consistent with recent laparoscopic cholecystectomy. No organized fluid collection or biloma/abscess formation. PANCREAS: No pancreatic parenchymal lesion. No ductal dilatation.? SPLEEN: Unremarkable.? ADRENAL GLANDS: Unremarkable.? KIDNEYS AND URETERS: Bilateral renal stones are redemonstrated, similar when compared to the prior examination. The largest is again noted to be within the lower pole of the right kidney. No ureteral stone. No hydronephrosis or hydroureter.? BLADDER: Unremarkable.? GASTROINTESTINAL TRACT: No small or large bowel obstruction. No bowel dilatation. No bowel wall thickening or inflammatory change. Unremarkable appendix. PERITONEAL CAVITY: Trace upper abdominal ascites, likely related to the recent surgery. No organized fluid collection or abscess formation. No intra-abdominal free air. ABDOMINAL WALL: Postsurgical change adjacent to the umbilicus with a focus of subcutaneous air measuring up to 1.4 cm. There is stranding along the right abdominal wall, likely indicating postsurgical change with small foci of air associated with the right abdominal wall. Findings likely indicate an area of port placement. Small amount of fluid within the fascial plane deep to the abdominal wall musculature without organized fluid collection or abscess formation. Subcutaneous stranding extends along the right flank. Findings likely indicate the postoperative result.? LYMPH NODES: No lymphadenopathy. VASCULAR: Unremarkable. PELVIC VISCERA: The prostate and seminal vesicles are unremarkable.? OSSEOUS STRUCTURES: Unremarkable.? CT/CT abdomen pelvis w IV con IMPRESSION: 1. Status post cholecystectomy. Fluid/stranding within the gallbladder fossa as well as within the adjacent abdominal wall, consistent with recent surgery. Trace upper abdominal ascites. No organized fluid collection or abscess formation. No intra-abdominal free air. ? 2. Postoperative change along the right abdominal wall with small foci of air and fluid within the fascial plane. Findings likely indicate a postoperative result. No organized fluid collection or abscess formation. ? 3. Bilateral renal stones are redemonstrated, similar when compared to the prior examination. No hydronephrosis or hydroureter. ? Independent Historian Clinical information obtained from an independent historian. History obtained from or confirmed by: EMS Clinical information was obtained from EMS and confirmed with patient Discharge Plan Discharge Clinical Impression: Abdominal pain Patient Disposition: Home, Self-Care Instructions: Abdominal Pain (ED) Additional Instructions: Please call the surgeon office tomorrow to follow-up Continue your pain medicine. Supplement with motrin Return for worsening pain, vomiting, fever >100.4 Your liver enzymes were mildly elevated during your visit Prescriptions: No Action hydrocodone-acetaminophen 5-325 mg tablet 1 tab PO Q4-6H PRN (Reason: pain) Qty: 30 0RF Rx Instructions: Partial Fill upon patient request. Referrals: Sriram Gibbs MD [Physician] - 2 days
[2023-06-13 11:05] LABS: MANUAL DIFF FLAG NO
[2023-06-13 11:09] LABS: Basophils Percent Auto 0.5 % (0-2); Eosinophils Absolute Auto 0.1 X10*3/uL (0.0-0.4); Eosinophils Percent Auto 1.9 % (0-4); Hematocrit 32.9 % (42.0-52.0); Hemoglobin 11.4 g/dl (14.0-18.0); Imm Gran Abs Auto 0.02 X10*3/uL (0.00-0.03); Imm Gran Pct Auto 0.3 % (0.0-0.4); Lymphocytes Absolute Auto 1.6 X10*3/uL (1.2-4.9); Mean Corpuscular HGB Conc 34.7 g/dl (31.0-36.0); Mean Corpuscular Hemoglobin 31.7 pg (27.0-33.0); Mean Corpuscular Volume 91.4 fL (80.0-98.0); Mean Platelet Volume 9.5 fL (9.4-12.4); Monocytes Absolute Auto 0.6 X10*3/uL (0.1-1.2); Monocytes Percent Auto 8.2 % (2-11); Neutrophils Absolute Auto 5.1 x10*3/uL (2.0-8.3); Neutrophils Percent Auto 68.1 % (45-73); Platelet Count 304 X10*3/uL (160-400); White Blood Count 7.5 X10*3/uL (4.8-10.8)
[2023-06-13 11:31] LABS: Alanine Aminotransferase 273 U/L (0-40); Albumin Level 3.2 g/dL (3.5-5.0); Alkaline Phosphatase 225 U/L (39-117); Anion Gap 11 (12-20); Aspartate Amino Transferase 207 U/L (5-37); Bilirubin Direct 0.4 mg/dL (0.0-0.5); Bilirubin Total 0.6 mg/dL (0.0-1.0); Blood Urea Nitrogen 9 mg/dL (9-16); Calcium 8.8 mg/dL (8.4-10.2); Carbon Dioxide 27 mmol/L (22-29); Chloride 106 mmol/L (96-108); Creatinine Clr Calc Pharmacy 142.5; Estimated Glomerular Filt Rate > 60; Glucose Random 102 mg/dL (60-115); Lipase 98 U/L (8-78); Sodium 141 mmol/L (135-145); Total Protein 5.8 g/dL (6.5-8.0)
[2023-06-13] MEDS: ondansetron HCL 4 MG/2 ML VIAL IVPUSH (11:35)
[2023-06-13] MEDS: Morphine Sulfate 4 MG/ML CARTRIDGE IVPUSH ×2 (11:35→12:53)
--- NOTE | 2023-06-13 11:48 | PC.NURSE ---
pt a+o x3. pt reports that he was d/c'd from here this past wednesday post gallbladder surgery, since being d/c'd he has been having pain around the incision site. he reports taking pain meds that he was discharged with but it didn't help. current the incision site is red and tender to touch. he reports that it's hard for him to lay on his back because it feels like something is pulling at the site. 20g iv inserted, meds given as documented. pt in ct at this time.
[2023-06-13] MEDS: iohexoL 350 MG/ML 100 ML INFUS..BTL IV (11:55)
[2023-06-13] MEDS: 0.9 % Sodium Chloride 1,000 ML 999 ML IV (12:23)
[2023-06-13] MEDS: Potassium Chloride/H20 10 MEQ/100 ML PIGGYBACK 100 MEQ IV ×2 (12:24→13:30)
[2023-06-13 12:49] LABS: Appearance Urine Clear; Color Urine Yellow; Glucose Urine UA Negative (Negative); Leukocyte Esterase Urine Negative (Negative); Nitrite Urine Negative (Negative); PH 7.5 (5.0-9.0); Specific Gravity - Urine >= 1.030 (1.005-1.025); Urine Blood Negative (Negative); Urine Ketones Trace mg/dL (Negative); Urine Protein Trace mg/dL (Neg-Trace)
--- NOTE | 2023-06-13 16:52 | P.CONGS_ITS ---
History of Present Illness Consult details Consult date: 06/13/23 Narrative: The pt underwent lap mariella on 06/11 and was dc home early 06/12 - i had not seen him. He was doing well but said he was concerned about abdo pain at umbilicus and bruising. Here ct scan showing just postop changes and labs ok - lfts elevated but as expected with post surgery. bili was fine. he is walking around fine and tolerating regular diet and urinating and bowel movement today Review of Systems Review of Systems: Yes all other systems are reviewed and are negative [facility] Past Medical History Medical History Kidney stones Surgical History Surgical History H/O cystoscopy No pertinent past surgical history Social History Social History Household Members: Family Housing: Apartment Do you presently have visiting nurse or other home services: No Alcohol intake: former Patient Tobacco Use Status: Never used Tobacco Second Hand Smoke Exposure: No Substance Use Type: Marijuana Advance Directives: Yes Advance Directives on File: Yes Advance Directives Date on File: 10/21/21 service: No Current occupational status: unemployed Meds Allergies Allergy/AdvReac Type Severity Reaction Status Date / Time cat dander [CATS] Allergy Unknown UNKNOWN Verified 06/13/23 10:23 dog dander [DOGS] Allergy Unknown UNKNOWN Verified 06/13/23 10:23 Physical Exam Vital Signs: Vital Signs: Last Vital Signs Temp 98.4 F 06/13/23 10:10 Pulse 74 06/13/23 10:10 Resp 16 06/13/23 10:10 BP 124/81 06/13/23 10:10 Pulse Ox 100 06/13/23 10:10 O2 Del Method Room Air 06/13/23 10:10 BMI result Body Mass Index 29.3 Const: General: cooperative, healthy appearing, comfortable and no acute distress GI: Other: abdomen is soft nontender except at umbilicus area - but it seems fine. moderate bruising around the lateral port site but feels soft and ok. active bowel so unds Results Labs 06/13/23 10:54 06/13/23 10:54 Labs: Abnormal lab results 06/13/23 06/13/23 06/13/23 Range/Units 10:54 10:54 12:39 RBC 3.60 L (4.60-5.80) X10*6/uL Hgb 11.4 L (14.0-18.0) g/dl Hct 32.9 L (42.0-52.0) % Potassium 3.0 L D (3.3-5.1) mmol/L Anion Gap 11 L (12-20) AST 207 H (5-37) U/L ALT 273 H (0-40) U/L Alkaline Phosphatase 225 H (39-117) U/L Total Protein 5.8 L (6.5-8.0) g/dL Albumin 3.2 L (3.5-5.0) g/dL Lipase 98 H (8-78) U/L Ur Specific [place] >= 1.030 H (1.005-1.025) Short CBC 06/13/23 Range/Units 10:54 WBC 7.5 (4.8-10.8) X10*3/uL Hgb 11.4 L (14.0-18.0) g/dl Hct 32.9 L (42.0-52.0) % Plt Count 304 (160-400) X10*3/uL BMP 06/13/23 10:54 Sodium 141 Potassium 3.0 L D Chloride 106 Carbon Dioxide 27 BUN 9 Creatinine 0.86 Calcium 8.8 D Liver Function 06/13/23 Range/Units 10:54 Total Bilirubin 0.6 (0.0-1.0) mg/dL Direct Bilirubin 0.4 (0.0-0.5) mg/dL AST 207 H (5-37) U/L ALT 273 H (0-40) U/L Alkaline Phosphatase 225 H (39-117) U/L Albumin 3.2 L (3.5-5.0) g/dL Urine 06/13/23 Range/Units 12:39 Urine Color Yellow Urine Appearance Clear Urine pH 7.5 (5.0-9.0) Ur Specific [place] >= 1.030 H (1.005-1.025) Urine Protein Trace (Neg-Trace) mg/dL Urine Glucose (UA) Negative (Negative) mg/dL All other labs normal. Imaging Abdomen CT scan report/results: report reviewed and image reviewed CT scan - pelvis: report reviewed and image reviewed Assessment and Plan (1) Abdominal pain: Status: Acute Plan pt is s/p lap mariella for gallstone pancreatitis - abdo pain i thik is appropriate postop and has no worisome findings. preop u/s showed one stone in GB. Intraop cholangiogram did not show retained stones or abnormal anatomy, pt to be dc home and fu with DR Gibbs outpt this week. oxycodone and ibuprofen for pain control Time Spent With Patient Time: Total time managing care of this patient today ____ minutes. Procedures Date of Service Date of Service: 06/13/23
== END 2023-06-13 15:17 | disposition home or self-care (01) ==
PROVIDERS: Nurse Practitioner Family; Emergency Provider Student in an Organized Health Care Education/Training Program; PCP Family Medicine
DX: R10.30 Lower abdominal pain, unspecified (principal); G89.18 Other acute postprocedural pain; Z79.899 Other long term (current) drug therapy
CPT/HCPCS: 36415; 74177; 80048; 80076; 81003; 83690; 85025; 96365; 96375; 96376; 99283; 99284; J2270; J2405; Q9967

== ENCOUNTER → 2023-06-13 10:29 | Outpatient (BNV) | payer OTHER, SELFPAY | PROVIDERS: Emergency Provider Student in an Organized Health Care Education/Training Program; PCP Family Medicine; Visit Provider Surgery | DX: R10.9 Unspecified abdominal pain (principal) | CPT/HCPCS: 99283 ==

== ENCOUNTER 2023-06-16 09:40 | Emergency (ER) | payer OTHER, SELFPAY ==
--- NOTE | ~2023-06-16 | CT_ITS ---
EXAMINATION: CT ABDOMEN AND PELVIS WITH CONTRAST CLINICAL INFORMATION: Status post surgery, increased pain COMPARISON: Examination of 3 days previous. TECHNIQUE: Multidetector volumetric images were obtained from the superior aspect of the liver through the pubic symphysis following administration 85 mL of Omnipaque 350 intravenous contrast. Sagittal and coronal reformatted images were obtained on the technologist's workstation. Oral contrast: No This CT examination was performed using dose optimization techniques as appropriate, variously including the following: *Automated exposure control *Adjustment of mA and/or kV according to patient size (this includes techniques or standardized protocols for targeted exams where dose is matched to indication/reason for exam; i.e. extremities or head) *Use of iterative reconstruction technique DLP: 499 mGy-cm FINDINGS: LUNG BASES: Posterior effusions and basilar atelectasis have resolved. LIVER, GALLBLADDER, AND BILIARY TREE: The liver is normal in size, shape, and attenuation. No focal hepatic lesion or biliary ductal dilatation is present. Status post cholecystectomy. Small fluid/edema in the gallbladder fossa not appearing significantly changed. Small fluid associated with the anterior abdominal wall is improved and previously noted gas bubbles in the abdominal wall superficial to the gallbladder fossa not seen. PANCREAS: Unremarkable. SPLEEN: Unremarkable. ADRENAL GLANDS: Unremarkable. KIDNEYS AND URETERS: Bilateral nephroliths do not appear significantly changed. No new ureteral stones. BLADDER: Wall thickening likely related to lack of distention although underlying cystitis is a consideration. GASTROINTESTINAL TRACT: No new changes of diverticulitis seen. No appreciable small bowel obstructive process or abnormal omental soft tissue thickening. Appendix not well seen. ABDOMINAL WALL: Induration/infiltration at the umbilicus again observed with a gas bubble seen in subcutaneous location slightly decreased in size at 8 mm AP. Previously noted small fluid adjacent to the abdominal wall musculature is improved since the previous evaluation. LYMPH NODES: No new suspicious lymphadenopathy, with small retroperitoneal and pelvic nodes seen. VASCULAR: Unremarkable. PELVIC VISCERA: No new suspicious pelvic masses. Small posterior pelvic free fluid. OSSEOUS STRUCTURES: Unremarkable. CT/CT abdomen pelvis w IV con IMPRESSION: Postsurgical changes at the umbilicus not significantly changed although the subcutaneous gas bubble appears slightly smaller. Small fluid previously seen associated with the right-sided anterior abdominal wall improved since the previous evaluation. Small posterior pleural effusions and basilar atelectasis have resolved. Wall thickening of urinary bladder likely related to lack of distention although cystitis is a consideration. Nonobstructing stones of the kidneys unchanged. Small posterior pelvic free fluid. Other incidental findings as noted above. Fleischner guidelines were followed.
[2023-06-16 09:42] VITALS: BP 148/92; PULSE 74; O2SAT 100
[2023-06-16 09:44] VITALS: BP 131/82; PULSE 70; RESP 17; TEMP 36.8; O2SAT 98; BMI 27.9
[2023-06-16 09:57] LABS: MANUAL DIFF FLAG NO
[2023-06-16 10:02] LABS: Basophils Percent Auto 0.3 % (0-2); Eosinophils Absolute Auto 0.1 X10*3/uL (0.0-0.4); Eosinophils Percent Auto 1.3 % (0-4); Hematocrit 33.1 % (42.0-52.0); Hemoglobin 11.4 g/dl (14.0-18.0); Imm Gran Abs Auto 0.03 X10*3/uL (0.00-0.03); Imm Gran Pct Auto 0.3 % (0.0-0.4); Lymphocytes Absolute Auto 2.2 X10*3/uL (1.2-4.9); Lymphocytes Percent Auto 22.9 % (20-40); Mean Corpuscular HGB Conc 34.4 g/dl (31.0-36.0); Mean Corpuscular Hemoglobin 31.3 pg (27.0-33.0); Mean Corpuscular Volume 90.9 fL (80.0-98.0); Mean Platelet Volume 9.4 fL (9.4-12.4); Monocytes Percent Auto 10.5 % (2-11); Neutrophils Absolute Auto 6.2 x10*3/uL (2.0-8.3); Neutrophils Percent Auto 64.7 % (45-73); Platelet Count 406 X10*3/uL (160-400); Red Blood Count 3.64 X10*6/uL (4.60-5.80); Red Cell Distribution Width 14.6 % (11.0-16.0); White Blood Count 9.6 X10*3/uL (4.8-10.8)
--- NOTE | 2023-06-16 10:11 | ED.ABDPAIN ---
HPI - Abdominal Pain General Chief Complaint: Abdominal Pain Stated Complaint: 5 Time Seen by Provider: 06/16/23 10:08 Source: patient Mode of arrival: ambulatory Limitations: no limitations History of Present Illness HPI narrative: patient had GB surgery [address] Gibbs. He still has abdominal pain, cant eat. Feels his feet and ankles are swollen. Denies fever MD elicited complaint: abdominal pain Pertinent past history: other (cholecystectom) Onset (ago): week(s) Pain Consistency: constant Severity: mild Related Data Previous Rx's Medication Instructions Recorded hydrocodone 5 mg-acetaminophen 325 1 tab PO Q4-6H PRN pain #30 tabs 06/11/23 mg tablet naproxen 500 mg tablet (Naprosyn) 500 mg PO BID #20 tabs 06/16/23 Allergies Allergy/AdvReac Type Severity Reaction Status Date / Time cat dander [CATS] Allergy Unknown UNKNOWN Verified 06/13/23 10:23 dog dander [DOGS] Allergy Unknown UNKNOWN Verified 06/13/23 10:23 Review of Systems Review of Systems Yes all other systems are reviewed and are negative [facility] Past Medical History Medical History Kidney stones Surgical History H/O cystoscopy No pertinent past surgical history Social History Social History Household Members: Family Housing: Apartment Do you presently have visiting nurse or other home services: No Alcohol intake: former Patient Tobacco Use Status: Never used Tobacco Smoked in Last 30 Days: No Second Hand Smoke Exposure: No Use of substances other than those prescribed or required for medical reasons: Yes Substance Use Type: Marijuana Substance Use Frequency: Daily Advance Directives: Yes Advance Directives on File: Yes Advance Directives Date on File: 10/21/21 service: No Current occupational status: unemployed Physical Exam ED Vital Signs: Vital Signs - 24 hr 06/16/23 09:44 06/16/23 11:52 Temperature 98.2 F 98.0 F Pulse Rate 70 54 Respiratory Rate 17 16 Blood Pressure 131/82 138/90 H Pulse Oximetry 98 100 Oxygen Delivery Method Room Air Room Air BMI result Body Mass Index 27.9 Const General: healthy appearing Nutritional Appearance: average body habitus Orientation/consciousness: oriented to person and patient oriented x3 Limitations: no limitations HENMT Head: Yes normal to inspection Ears: external ears normal General nose exam: Normal external nose present Mouth: Normal oral and palatal mucosa present and oropharynx normal Throat: Yes posterior oropharynx normal Eyes General: appearance normal, both eyes and all related structures Neck Neck: Yes normal visual inspection Chest Chest palpation & inspection: normal inspection of the chest Resp Auscultation: clear to auscultation bilaterally Cardio Jugular venous distension: no JVD Rate: regular rate Rhythm: regular rhythm Heart sounds: S1 normal heart sound present and S2 normal heart sound present GI Other: old hematoma, diffuse tenderness no guarding no rebound Auscultation: normal bowel sounds General: Yes no CVA tenderness Back/Spine/Pelvis Back: no CVA tenderness Skin Other: abdominal ecchymosis Neuro General: oriented to person and patient oriented x3 Cranial nerves: Yes CN's II-XII intact bilaterally Motor exam (neuro): 5/5 motor strength present throughout Extrem General: Yes normal to inspection Psych Appearance: grossly normal Course Reevaluation(s) Reevaluation #1: Discussed with Dr. Gibbs nothing impressive, CT negative will dc home Time: 15:19 Medical Decision Making Differential Diagnosis Differential Diagnoses: The differential diagnosis associated with the presentation includes (Intraabdominal abscess, peritonitis, hematoma, post op pain) Admission/Observation Consideration of admission/observation: Escalation of care including admission/observation considered (upon arrival 1 week out this patient with increasing abdominal pain was considered for admission) Consult Healthcare Provider Management of the patient was discussed with: Cut Off Machine Unloader (Dr. Gibbs surgeon) Lab Data MDM Lab Attestation statement: I reviewed the patient's lab results. (no WBC, normal bili, elevated LFTs chronic, normal renal function) 06/16/23 09:54 06/16/23 09:54 Labs: Lab Results 06/16/23 06/16/23 Range/Units 09:54 09:54 WBC 9.6 (4.8-10.8) X10*3/uL RBC 3.64 L (4.60-5.80) X10*6/uL Hgb 11.4 L (14.0-18.0) g/dl Hct 33.1 L (42.0-52.0) % MCV 90.9 (80.0-98.0) fL MCH 31.3 (27.0-33.0) pg MCHC 34.4 (31.0-36.0) g/dl RDW 14.6 (11.0-16.0) % Plt Count 406 H D (160-400) X10*3/uL MPV 9.4 (9.4-12.4) fL Immature Gran % (Auto) 0.3 (0.0-0.4) % Neut % (Auto) 64.7 (45-73) % Lymph % (Auto) 22.9 (20-40) % [place] % (Auto) 10.5 (2-11) % Eos % (Auto) 1.3 (0-4) % Baso % (Auto) 0.3 (0-2) % Lymph # (Auto) 2.2 (1.2-4.9) X10*3/uL [place] # (Auto) 1.0 (0.1-1.2) X10*3/uL Eos # (Auto) 0.1 (0.0-0.4) X10*3/uL Baso # (Auto) 0.0 (0.0-0.2) X10*3/uL Abs Immat Gran (auto) 0.03 (0.00-0.03) X10*3/uL Absolute Neuts (auto) 6.2 (2.0-8.3) x10*3/uL Absolute Nucleated RBC 0.000 (0.0-0.012) X10*3/uL Nucleated RBC % (auto) 0.0 (0.0-0.2) /100WBC Sodium 142 (135-145) mmol/L Potassium 3.3 (3.3-5.1) mmol/L Chloride 106 (96-108) mmol/L Carbon Dioxide 26 (22-29) mmol/L Anion Gap 13 (12-20) BUN 12 (9-16) mg/dL Creatinine 0.86 (0.5-1.4) mg/dL Estim Creat Clear Calc 139.4 Estimated GFR > 60 Random Glucose 112 (60-115) mg/dL Calcium 9.0 (8.4-10.2) mg/dL Total Bilirubin 0.3 (0.0-1.0) mg/dL Direct Bilirubin 0.1 (0.0-0.5) mg/dL AST 142 H (5-37) U/L ALT 319 H (0-40) U/L Alkaline Phosphatase 195 H (39-117) U/L Total Protein 6.5 (6.5-8.0) g/dL Albumin 3.4 L (3.5-5.0) g/dL Independent Interpretation I performed an independent interpretation of an: CT Scan (small inflammation around GB fossa, no blood) Radiology Impression Discussion of test interpretation with radiology: I have reviewed the radiologist's reading. (improving findings) External Record Review External record reviewed: Inpatient record Prescription Management I considered prescription management with: Pain Medication (I considered narcotics but will dc on NSAIDS) Medications Administered Discontinued Medications Generic Name Dose Route Start Last Admin Trade Name Freq PRN Reason Stop Dose Admin Sodium Chloride 1,000 mls @ 999 mls/hr 06/16/23 11:45 06/16/23 13:19 Ns IV 06/16/23 12:45 Infused .Q1H1M SOHAIL Infusion Iohexol 85 ml 06/16/23 12:13 06/16/23 12:14 Iohexol 350 Mg/Ml 100 Ml Infus..Btl IV 06/16/23 12:14 85 ml ONCE ONE Administration Ketorolac Tromethamine 30 mg 06/16/23 13:11 06/16/23 13:21 Ketorolac Tromethamine 30 Mg/Ml Vial IVPUSH 06/16/23 13:12 30 mg ONCE ONE Administration Morphine Sulfate 4 mg 06/16/23 11:17 06/16/23 11:31 Morphine Sulfate 4 Mg/Ml Cartridge IVPUSH 06/16/23 11:18 4 mg ONCE ONE Administration Protocol Ondansetron HCl 4 mg 06/16/23 13:11 06/16/23 13:21 Ondansetron Hcl 4 Mg/2 Ml Vial IVPUSH 06/16/23 13:12 4 mg ONCE ONE Administration Discharge Plan Discharge Clinical Impression: Abdominal pain Patient Disposition: Home, Self-Care Instructions: Abdominal Pain (ED) Prescriptions: New naproxen [Naprosyn] 500 mg tablet 500 mg PO BID Qty: 20 0RF No Action hydrocodone-acetaminophen 5-325 mg tablet 1 tab PO Q4-6H PRN (Reason: pain) Qty: 30 0RF Rx Instructions: Partial Fill upon patient request. Referrals: Sai,Sriram, MD [Physician] - 1 week
[2023-06-16 10:17] LABS: Alanine Aminotransferase 319 U/L (0-40); Albumin Level 3.4 g/dL (3.5-5.0); Alkaline Phosphatase 195 U/L (39-117); Anion Gap 13 (12-20); Aspartate Amino Transferase 142 U/L (5-37); Bilirubin Direct 0.1 mg/dL (0.0-0.5); Bilirubin Total 0.3 mg/dL (0.0-1.0); Blood Urea Nitrogen 12 mg/dL (9-16); Carbon Dioxide 26 mmol/L (22-29); Chloride 106 mmol/L (96-108); Creatinine Clr Calc Pharmacy 139.4; Estimated Glomerular Filt Rate > 60; Glucose Random 112 mg/dL (60-115); Potassium 3.3 mmol/L (3.3-5.1); Sodium 142 mmol/L (135-145); Total Protein 6.5 g/dL (6.5-8.0)
[2023-06-16] MEDS: Morphine Sulfate 4 MG/ML CARTRIDGE IVPUSH (11:31)
[2023-06-16] MEDS: 0.9 % Sodium Chloride 1,000 ML 999 ML IV (11:34)
[2023-06-16 11:52] VITALS: BP 138/90; PULSE 54; RESP 16; TEMP 36.7; O2SAT 100
[2023-06-16] MEDS: iohexoL 350 MG/ML 100 ML INFUS..BTL 85 ML IV (12:14)
[2023-06-16] MEDS: Ketorolac Tromethamine 30 MG/ML VIAL IVPUSH (13:21)
[2023-06-16] MEDS: ondansetron HCL 4 MG/2 ML VIAL IVPUSH (13:21)
[2023-06-16 16:08] LABS: Appearance Urine Cloudy; Color Urine Yellow; Glucose Urine UA Negative (Negative); Leukocyte Esterase Urine Negative (Negative); Nitrite Urine Negative (Negative); PH 7.5 (5.0-9.0); Specific Gravity - Urine 1.015 (1.005-1.025); Urine Blood Negative (Negative); Urine Ketones Trace mg/dL (Negative); Urine Protein Trace mg/dL (Neg-Trace)
== END 2023-06-16 16:02 | disposition home or self-care (01) ==
PROVIDERS: Emergency Provider Emergency Medicine; PCP Internal Medicine
DX: G89.18 Other acute postprocedural pain (principal); Z90.49 Acquired absence of other specified parts of digestive tract
CPT/HCPCS: 36415; 74177; 80053; 81003; 82248; 85025; 96361; 96374; 96375; 99284; J1885; J2270; J2405; Q9967

== ENCOUNTER 2023-06-17 09:18 | Emergency (ER) | payer OTHER, SELFPAY ==
[2023-06-17 09:30] VITALS: BP 130/91; PULSE 73; RESP 12; TEMP 36.7; O2SAT 98; BMI 27.9
--- NOTE | 2023-06-17 09:53 | ED.ABDPAIN ---
HPI - Abdominal Pain General Chief Complaint: Back Pain/Injury Stated Complaint: abdominal and back pain Time Seen by Provider: 06/17/23 09:36 Source: patient Mode of arrival: EMS Limitations: no limitations History of Present Illness HPI narrative: This is a 32 years old male presented to the emergency department with chief complaint of abdominal pain pain is localized in the left flank radiated to the groin. Patient is status post cholecystectomy on June 11. He was seen in the emergency room on June 13 for abdominal pain he had CT scan of the abdomen and pelvis done then was seen again yesterday by Dr. Olson her another CT scan was done finding was thickening of the bladder. Patient denies any fever vomiting MD elicited complaint: abdominal pain Pertinent past history: none Onset (ago): day(s) (5) Pain Consistency: constant Location: L flank Severity: moderate Quality: cramping Radiation: none Migration to: no migration Exacerbating factors: nothing Relieving factors: nothing Related Data Previous Rx's Medication Instructions Recorded hydrocodone 5 mg-acetaminophen 325 1 tab PO Q4-6H PRN pain #30 tabs 06/11/23 mg tablet naproxen 500 mg tablet (Naprosyn) 500 mg PO BID #20 tabs 06/16/23 Allergies Allergy/AdvReac Type Severity Reaction Status Date / Time cat dander [CATS] Allergy Unknown UNKNOWN Verified 06/13/23 10:23 dog dander [DOGS] Allergy Unknown UNKNOWN Verified 06/13/23 10:23 Review of Systems Reports system reviewed and no additional complaints, except as documented Respiratory: Reports no additional respiratory complaints Gastrointestinal: Reports as per HPI [facility] Past Medical History [facility] Narrative: Kidney stone, cannabinoid abuse Medical History Kidney stones Surgical History H/O cystoscopy No pertinent past surgical history Social History Social History Household Members: Family Housing: Apartment Do you presently have visiting nurse or other home services: No Alcohol intake: current Alcohol intake frequency: holidays/special occasions only Alcohol type: hard liquor Patient Tobacco Use Status: Never used Tobacco Smoked in Last 30 Days: Yes Second Hand Smoke Exposure: No Substance Use Type: Marijuana Advance Directives: Yes Advance Directives on File: Yes Advance Directives Date on File: 10/21/21 service: No Current occupational status: unemployed Physical Exam ED Vital Signs: Vital Signs - 24 hr 06/17/23 09:30 06/17/23 11:20 06/17/23 12:01 Temperature 98.1 F Pulse Rate 73 60 64 Respiratory Rate 12 16 18 Blood Pressure 130/91 H 134/85 136/90 H Pulse Oximetry 98 100 100 Oxygen Delivery Method Room Air Room Air BMI result Body Mass Index 27.9 Const General: cooperative Nutritional Appearance: well nourished Orientation/consciousness: patient oriented x3 Limitations: no limitations HENMT Head: Yes normal to inspection Ears: hearing grossly normal bilaterally General nose exam: Normal external nose present Neck Neck: Yes normal visual inspection Chest Chest palpation & inspection: normal inspection of the chest Resp Effort & Inspection: normal respiratory effort and able to speak in complete sentences Auscultation: clear to auscultation bilaterally Cardio Jugular venous distension: no JVD Rate: regular rate Rhythm: regular rhythm GI Other: There is no tenderness in the right upper quadrant surgical incision was healing well he has tenderness in the left flank Inspection: Yes normal to inspection Palpation (GI): Soft to palpation Auscultation: normal bowel sounds Skin General skin exam: no rashes or lesions noted and elasticity normal Lesions: no lesions Rashes: no rashes Neuro General: patient oriented x3 Cranial nerves: Yes CN's II-XII intact bilaterally Cognition (Neuro): normal cognition Course Reevaluation(s) Reevaluation #1: Labs within normal limit, I do not think we need to repeat another CT scan he had a CT scan yesterday, will discharge the patient home follow-up with his primary care physician and surgeon Time: 12:25 Medical Decision Making Medical Decision Making MDM Narrative: Patient presented complaining of abdominal pain in the left flank status post cholecystectomy urine he had the scan done on June 13 and therefore I do not think he needs a for the imaging another CT would be really low yield Differential Diagnosis Differential Diagnoses: The differential diagnosis associated with the presentation includes Acute abdomen but his abdomen is soft nontender, postop wound infection but no clinical evidence of infection no pain in the right upper quadrant, kidney stones with renal colic but he has no blood in the urine and CT yesterday showed no stones in the ureter Admission/Observation Consideration of admission/observation: Escalation of care including admission/observation considered Lab Data MDM Lab Attestation statement: I reviewed the patient's lab results. 06/17/23 09:54 06/17/23 09:55 Labs: Lab Results 06/17/23 06/17/23 06/17/23 Range/Units 09:54 09:54 09:54 WBC 8.9 (4.8-10.8) X10*3/uL RBC 3.57 L (4.60-5.80) X10*6/uL Hgb 11.1 L (14.0-18.0) g/dl Hct 32.4 L (42.0-52.0) % MCV 90.8 (80.0-98.0) fL MCH 31.1 (27.0-33.0) pg MCHC 34.3 (31.0-36.0) g/dl RDW 14.7 (11.0-16.0) % Plt Count 457 H (160-400) X10*3/uL MPV 9.6 (9.4-12.4) fL Immature Gran % (Auto) 0.3 (0.0-0.4) % Neut % (Auto) 66.4 (45-73) % Lymph % (Auto) 21.2 (20-40) % [place] % (Auto) 10.6 (2-11) % Eos % (Auto) 1.2 (0-4) % Baso % (Auto) 0.3 (0-2) % Lymph # (Auto) 1.9 (1.2-4.9) X10*3/uL [place] # (Auto) 0.9 (0.1-1.2) X10*3/uL Eos # (Auto) 0.1 (0.0-0.4) X10*3/uL Baso # (Auto) 0.0 (0.0-0.2) X10*3/uL Abs Immat Gran (auto) 0.03 (0.00-0.03) X10*3/uL Absolute Neuts (auto) 5.9 (2.0-8.3) x10*3/uL Absolute Nucleated RBC 0.000 (0.0-0.012) X10*3/uL Nucleated RBC % (auto) 0.0 (0.0-0.2) /100WBC Sodium (135-145) mmol/L Potassium (3.3-5.1) mmol/L Chloride (96-108) mmol/L Carbon Dioxide (22-29) mmol/L Anion Gap (12-20) BUN (9-16) mg/dL Creatinine (0.5-1.4) mg/dL Estim Creat Clear Calc Estimated GFR Random Glucose (60-115) mg/dL Calcium (8.4-10.2) mg/dL Total Bilirubin (0.0-1.0) mg/dL AST (5-37) U/L ALT (0-40) U/L Alkaline Phosphatase (39-117) U/L Total Protein (6.5-8.0) g/dL Albumin (3.5-5.0) g/dL Lipase (8-78) U/L Urine Color Yellow Urine Appearance Cloudy Urine pH 7.5 (5.0-9.0) Ur Specific [place] 1.015 (1.005-1.025) Urine Protein Trace (Neg-Trace) mg/dL Urine Glucose (UA) Negative (Negative) mg/dL Urine Ketones Trace (Negative) mg/dL Urine Blood Negative (Negative) Urine Nitrite Negative (Negative) Ur Leukocyte Esterase Trace H (Negative) Urine RBC 0-2 (0-2) /HPF Urine WBC 0-5 (0-5) /HPF Ur Squamous Epith Cells 0-2 (0-2) /HPF Urine Bacteria None Seen (None Seen) Hyaline Casts 0-2 (0-2) /LPF Urine Opiates Screen POSITIVE H (Not Detect) Urine Fentanyl Screen Not Detected (Not Detect) Ur Barbiturates Screen Not Detected (Not Detect) Ur Phencyclidine Scrn Not Detected (Not Detect) Ur Amphetamines Screen Not Detected (Not Detect) U Benzodiazepines Scrn Not Detected (Not Detect) Urine Cocaine Screen Not Detected (Not Detect) U Marijuana (THC) Screen POSITIVE H (Not Detect) 06/17/23 Range/Units 09:55 WBC (4.8-10.8) X10*3/uL RBC (4.60-5.80) X10*6/uL Hgb (14.0-18.0) g/dl Hct (42.0-52.0) % MCV (80.0-98.0) fL MCH (27.0-33.0) pg MCHC (31.0-36.0) g/dl RDW (11.0-16.0) % Plt Count (160-400) X10*3/uL MPV (9.4-12.4) fL Immature Gran % (Auto) (0.0-0.4) % Neut % (Auto) (45-73) % Lymph % (Auto) (20-40) % [place] % (Auto) (2-11) % Eos % (Auto) (0-4) % Baso % (Auto) (0-2) % Lymph # (Auto) (1.2-4.9) X10*3/uL [place] # (Auto) (0.1-1.2) X10*3/uL Eos # (Auto) (0.0-0.4) X10*3/uL Baso # (Auto) (0.0-0.2) X10*3/uL Abs Immat Gran (auto) (0.00-0.03) X10*3/uL Absolute Neuts (auto) (2.0-8.3) x10*3/uL Absolute Nucleated RBC (0.0-0.012) X10*3/uL Nucleated RBC % (auto) (0.0-0.2) /100WBC Sodium 141 (135-145) mmol/L Potassium 3.8 (3.3-5.1) mmol/L Chloride 109 H (96-108) mmol/L Carbon Dioxide 24 (22-29) mmol/L Anion Gap 12 (12-20) BUN 13 (9-16) mg/dL Creatinine 0.85 (0.5-1.4) mg/dL Estim Creat Clear Calc 141.1 Estimated GFR > 60 Random Glucose 100 (60-115) mg/dL Calcium 9.1 (8.4-10.2) mg/dL Total Bilirubin 0.3 (0.0-1.0) mg/dL AST 107 H (5-37) U/L ALT 283 H (0-40) U/L Alkaline Phosphatase 279 H (39-117) U/L Total Protein 6.6 (6.5-8.0) g/dL Albumin 3.3 L (3.5-5.0) g/dL Lipase 70 (8-78) U/L Urine Color Urine Appearance Urine pH (5.0-9.0) Ur Specific [place] (1.005-1.025) Urine Protein (Neg-Trace) mg/dL Urine Glucose (UA) (Negative) mg/dL Urine Ketones (Negative) mg/dL Urine Blood (Negative) Urine Nitrite (Negative) Ur Leukocyte Esterase (Negative) Urine RBC (0-2) /HPF Urine WBC (0-5) /HPF Ur Squamous Epith Cells (0-2) /HPF Urine Bacteria (None Seen) Hyaline Casts (0-2) /LPF Urine Opiates Screen (Not Detect) Urine Fentanyl Screen (Not Detect) Ur Barbiturates Screen (Not Detect) Ur Phencyclidine Scrn (Not Detect) Ur Amphetamines Screen (Not Detect) U Benzodiazepines Scrn (Not Detect) Urine Cocaine Screen (Not Detect) U Marijuana (THC) Screen (Not Detect) Radiology Impression Radiologist Impression: I reviewed the CT scan reading and interpreted the CT scan done yesterday Medications Administered Discontinued Medications Generic Name Dose Route Start Last Admin Trade Name Freq PRN Reason Stop Dose Admin Sodium Chloride 1,000 mls @ 999 mls/hr 06/17/23 09:45 06/17/23 12:28 Ns IVCONT 06/17/23 10:45 Infused .Q1H1M SOHAIL Infusion Sodium Chloride 1,000 mls @ 999 mls/hr 06/17/23 10:00 06/17/23 12:28 Ns IVCONT 06/17/23 11:00 Infused .Q1H1M SOHAIL Infusion Ketorolac Tromethamine 30 mg 06/17/23 10:25 06/17/23 11:17 Ketorolac Tromethamine 30 Mg/Ml Vial IVPUSH 06/17/23 10:26 30 mg ONCE ONE Administration Morphine Sulfate 4 mg 06/17/23 12:16 06/17/23 12:28 Morphine Sulfate 4 Mg/Ml Cartridge IVPUSH 06/17/23 12:17 4 mg ONCE ONE Administration Protocol Discharge Plan Discharge Clinical Impression: Abdominal pain Patient Disposition: Home, Self-Care Instructions: Abdominal Pain (ED) Additional Instructions: Follow-up with your primary care physician were also follow-up with you surgeon Dr Gibbs Prescriptions: No Action hydrocodone-acetaminophen 5-325 mg tablet 1 tab PO Q4-6H PRN (Reason: pain) Qty: 30 0RF Rx Instructions: Partial Fill upon patient request. naproxen [Naprosyn] 500 mg tablet 500 mg PO BID Qty: 20 0RF Referrals: Cade Peres MD [Primary Care Provider] - 1 day Interventions: ED Discharge Assessment Last Done: 06/17/23 12:51 Discharge Date/Time: 06/17/23 12:52
[2023-06-17] MEDS: 0.9 % Sodium Chloride 1,000 ML 999 ML IVCONT ×2 (09:57→11:19)
[2023-06-17 10:01] LABS: MANUAL DIFF FLAG NO
[2023-06-17 10:06] LABS: Basophils Percent Auto 0.3 % (0-2); Eosinophils Absolute Auto 0.1 X10*3/uL (0.0-0.4); Eosinophils Percent Auto 1.2 % (0-4); Hematocrit 32.4 % (42.0-52.0); Hemoglobin 11.1 g/dl (14.0-18.0); Imm Gran Abs Auto 0.03 X10*3/uL (0.00-0.03); Imm Gran Pct Auto 0.3 % (0.0-0.4); Lymphocytes Absolute Auto 1.9 X10*3/uL (1.2-4.9); Lymphocytes Percent Auto 21.2 % (20-40); Mean Corpuscular HGB Conc 34.3 g/dl (31.0-36.0); Mean Corpuscular Hemoglobin 31.1 pg (27.0-33.0); Mean Corpuscular Volume 90.8 fL (80.0-98.0); Mean Platelet Volume 9.6 fL (9.4-12.4); Monocytes Absolute Auto 0.9 X10*3/uL (0.1-1.2); Monocytes Percent Auto 10.6 % (2-11); Neutrophils Absolute Auto 5.9 x10*3/uL (2.0-8.3); Neutrophils Percent Auto 66.4 % (45-73); Platelet Count 457 X10*3/uL (160-400); Red Blood Count 3.57 X10*6/uL (4.60-5.80); Red Cell Distribution Width 14.7 % (11.0-16.0); White Blood Count 8.9 X10*3/uL (4.8-10.8)
[2023-06-17 10:07] LABS: Appearance Urine Cloudy; Color Urine Yellow; Glucose Urine UA Negative (Negative); Leukocyte Esterase Urine Trace (Negative); Nitrite Urine Negative (Negative); PH 7.5 (5.0-9.0); Specific Gravity - Urine 1.015 (1.005-1.025); UMIC TRIGGER UACC YES; Urine Blood Negative (Negative); Urine Ketones Trace mg/dL (Negative); Urine Protein Trace mg/dL (Neg-Trace)
[2023-06-17 10:13] LABS: Bacteria Urine None Seen (None Seen); Hyaline Casts Urine 0-2 /LPF (0-2); RBC Urine 0-2 /HPF (0-2); Squamous Epithelial Cell Urine 0-2 /HPF (0-2); WBC Urine 0-5 /HPF (0-5)
[2023-06-17 10:29] LABS: Alanine Aminotransferase 283 U/L (0-40); Albumin Level 3.3 g/dL (3.5-5.0); Alkaline Phosphatase 279 U/L (39-117); Anion Gap 12 (12-20); Aspartate Amino Transferase 107 U/L (5-37); Bilirubin Total 0.3 mg/dL (0.0-1.0); Blood Urea Nitrogen 13 mg/dL (9-16); Calcium 9.1 mg/dL (8.4-10.2); Carbon Dioxide 24 mmol/L (22-29); Chloride 109 mmol/L (96-108); Creatinine Clr Calc Pharmacy 141.1; Estimated Glomerular Filt Rate > 60; Glucose Random 100 mg/dL (60-115); Lipase 70 U/L (8-78); Potassium 3.8 mmol/L (3.3-5.1); Sodium 141 mmol/L (135-145); Total Protein 6.6 g/dL (6.5-8.0)
[2023-06-17 10:48] LABS: Amphetamine Screen Urine Not Detected (Not Detect); Barbiturates, Urine Not Detected (Not Detect); Benzodiazepines Screen Urine Not Detected (Not Detect); Cannabinoid Screen Urine POSITIVE (Not Detect); Cocaine Screen Urine Not Detected (Not Detect); Fentanyl, urine Not Detected (Not Detect); Opiate Screen Urine POSITIVE (Not Detect); Phencyclidine Screen Urine Not Detected (Not Detect)
[2023-06-17] MEDS: Ketorolac Tromethamine 30 MG/ML VIAL IVPUSH (11:17)
[2023-06-17 11:20] VITALS: BP 134/85; PULSE 60; RESP 16; O2SAT 100
--- NOTE | 2023-06-17 11:30 | PC.NURSE ---
assumed care of pt at this time. axox4, respirations even and unlabored, VSS. c/o L. sided flank pain x 2 days; previously seen here yesterday pain worsened today. +bsx4. pt denies urinary sx/v/d; reports nausea, last bm 4 days ago. incision dressings from previous cholecystectomy intact, no s+s of infection. pt medicated per mar; ivf infusing. denies further questions/concerns at this time, call gallego within reach.
[2023-06-17 12:01] VITALS: BP 136/90; PULSE 64; RESP 18; O2SAT 100
[2023-06-17] MEDS: Morphine Sulfate 4 MG/ML CARTRIDGE IVPUSH (12:28)
== END 2023-06-17 12:52 | disposition home or self-care (01) ==
PROVIDERS: Emergency Provider Emergency Medicine; PCP Family Medicine
DX: R10.9 Unspecified abdominal pain (principal); Z90.49 Acquired absence of other specified parts of digestive tract; F12.90 Cannabis use, unspecified, uncomplicated; Z79.899 Other long term (current) drug therapy
CPT/HCPCS: 36415; 80053; 80307; 81001; 83690; 85025; 96361; 96374; 96375; 99284; J1885; J2270

== ENCOUNTER 2023-07-30 05:05 | Observation (INO) | payer OTHER, SELFPAY ==
[2023-07-30] VITALS (10 sets, daily range): BP systolic 120–173; BP diastolic 76–108; PULSE 58–78; RESP 16–20; TEMP 36.4–37.1; O2SAT 58–100; BMI 26.5
--- NOTE | ~2023-07-30 | MR_ITS ---
EXAMINATION: MRI ABDOMEN WITHOUT CONTRAST CLINICAL INFORMATION: Worsening pancreatitis. Reportedly postcholecystectomy COMPARISON: Portions of CT 07/30/23 TECHNIQUE: Anatomic and fluid sensitive MR sequences were used to examine the abdomen MRCP was performed No IV contrast was administered Type of contrast: Not applicable Volume of contrast discarded: 0 mL FINDINGS: LIVER: The right lobe liver measures at least 19.8 cm. This is between 1 and 2 standard deviations above the mean expected. The liver contour is smooth. The background hepatic signal is homogeneous. There is no suspicious focal liver lesion demonstrated on this nonenhanced study. There is generalized fatty change. There is a focal area of fatty change along the right side of the falciform ligament. BILIARY TRACT: The patient is post cholecystectomy. The common duct measures 0.8 cm. The central intrahepatic bile ducts are top normal. There is no definite choledocholithiasis. SPLEEN: The spleen measures 6.9 cm. No focal abnormality. PANCREAS: The pancreas is somewhat enlarged. The pancreatic duct is top normal. There is a small amount of stranding and fluid around the pancreas. No large focal area of pancreatic necrosis suspected. No IV contrast was administered. ADRENAL GLANDS: No suspicious abnormality KIDNEYS: There is no dilation of the urinary collecting system on either side. No suspicious renal mass. GASTROINTESTINAL TRACT: No evidence of high-grade bowel obstruction. ABDOMINAL WALL: No significant hernia is appreciated. LYMPHOVASCULAR STRUCTURES AND FLUID: No abdominal aortic aneurysm. There is a flow void within the portal vein. There is a small amount of upper abdominal free fluid. MUSCULOSKELETAL: No suspicious marrow signal abnormality. VISUALIZED LOWER CHEST: No suspicious abnormality in the visualized lower chest MR/MR MRCP IMPRESSION: Enlarged pancreas with some peripancreatic stranding and fluid. No definite area of walled off necrosis or ischemic/necrotic pancreatic tissue. No pancreatic pseudocyst demonstrated Previous cholecystectomy. The common duct is within normal limits following cholecystectomy (0.8 cm). No choledocholithiasis
--- NOTE | ~2023-07-30 | CT_ITS ---
EXAMINATION: CT ABDOMEN AND PELVIS WITH CONTRAST CLINICAL INFORMATION: Postop pancreatitis with pain COMPARISON: 06/16/2023 TECHNIQUE: Multidetector volumetric images were obtained from the superior aspect of the liver through the pubic symphysis following administration 85 mL of Omnipaque 350 intravenous contrast. Sagittal and coronal reformatted images were obtained on the technologist's workstation. Oral contrast: No This CT examination was performed using dose optimization techniques as appropriate, variously including the following: *Automated exposure control *Adjustment of mA and/or kV according to patient size (this includes techniques or standardized protocols for targeted exams where dose is matched to indication/reason for exam; i.e. extremities or head) *Use of iterative reconstruction technique DLP: 725 mGy-cm FINDINGS: LUNG BASES: The visualized lung bases are unremarkable. LIVER, GALLBLADDER, AND BILIARY TREE: Probable fatty change in the liver. Once again low-density lesion adjacent the falciform ligament of uncertain etiology. Status post cholecystectomy PANCREAS: Examination is demonstrating some mild fluid around the pancreas. Around the pancreatic head and proximal body and uncinate process. Fluid also adjacent to the pancreatic tail in the region of the spleen noted. Mild prominence of the common duct to the pancreas. Measures 1 cm. Previously 9 mm. SPLEEN: Unremarkable. ADRENAL GLANDS: Unremarkable. KIDNEYS AND URETERS: Once again nonobstructing calculus in the kidneys BLADDER: Mildly thick-walled irregular bladder similar to previous GASTROINTESTINAL TRACT: Bowel pattern appears nonobstructing. Normal appendix is not seen but no definitive suspicion around the cecum ABDOMINAL WALL: No significant hernia is appreciated. LYMPH NODES: There is no bulky adenopathy here. Some shotty nodes once again noted VASCULAR: Unremarkable. PELVIC VISCERA: Unremarkable. OSSEOUS STRUCTURES: Unremarkable. CT/CT abdomen pelvis w IV con IMPRESSION: Exam does demonstrate mild fluid around the pancreas consistent with sequela of pancreatitis. Bowel pattern is nonobstructing. Once again mildly thick-walled bladder may be consistent with cystitis. Probable fatty change within the liver. Fleischner guidelines were followed.
[2023-07-30 05:29] LABS: MANUAL DIFF FLAG NO
[2023-07-30 05:31] LABS: Basophils Percent Auto 0.3 % (0-2); Eosinophils Percent Auto 0.1 % (0-4); Hematocrit 43.2 % (42.0-52.0); Hemoglobin 15.2 g/dl (14.0-18.0); Imm Gran Abs Auto 0.02 X10*3/uL (0.00-0.03); Imm Gran Pct Auto 0.3 % (0.0-0.4); Lymphocytes Absolute Auto 1.5 X10*3/uL (1.2-4.9); Lymphocytes Percent Auto 19.5 % (20-40); Mean Corpuscular HGB Conc 35.2 g/dl (31.0-36.0); Mean Corpuscular Hemoglobin 31.8 pg (27.0-33.0); Mean Corpuscular Volume 90.4 fL (80.0-98.0); Monocytes Absolute Auto 0.5 X10*3/uL (0.1-1.2); Monocytes Percent Auto 5.8 % (2-11); Neutrophils Absolute Auto 5.7 x10*3/uL (2.0-8.3); Platelet Count 329 X10*3/uL (160-400); Red Blood Count 4.78 X10*6/uL (4.60-5.80); Red Cell Distribution Width 14.8 % (11.0-16.0); White Blood Count 7.7 X10*3/uL (4.8-10.8)
[2023-07-30] MEDS: ondansetron HCL 4 MG/2 ML VIAL IVPUSH ×3 (05:56→21:40)
[2023-07-30] MEDS: 0.9 % Sodium Chloride 1,000 ML 999 ML IV ×2 (05:56→06:51)
[2023-07-30 06:08] LABS: Alanine Aminotransferase 142 U/L (0-40); Albumin Level 4.3 g/dL (3.5-5.0); Alkaline Phosphatase 308 U/L (39-117); Anion Gap 21 (12-20); Aspartate Amino Transferase 156 U/L (5-37); Bilirubin Direct 0.3 mg/dL (0.0-0.5); Bilirubin Total 0.6 mg/dL (0.0-1.0); Blood Urea Nitrogen 11 mg/dL (9-16); Calcium 10.1 mg/dL (8.4-10.2); Carbon Dioxide 21 mmol/L (22-29); Chloride 100 mmol/L (96-108); Creatinine Clr Calc Pharmacy 142.1; Estimated Glomerular Filt Rate > 60; Glucose Random 102 mg/dL (60-115); Lipase 280 U/L (8-78); Potassium 3.6 mmol/L (3.3-5.1); Sodium 138 mmol/L (135-145)
--- NOTE | 2023-07-30 06:26 | ED_ITS ---
HPI - Abdominal Pain General Chief Complaint: Abdominal Pain Stated Complaint: ABD PAIN,NAUSEA/VOMITING PER EMS Time Seen by Provider: 07/30/23 06:25 Source: patient Mode of arrival: ambulatory Limitations: no limitations History of Present Illness HPI narrative: Patient history of kidney stones and gallstone pancreatitis been to the ER multiple times last admission was 06/09 had cholecystectomy on 06/11/23 comes in for sudden onset of mid abdominal pain since 04:00 patient denied any alcohol use since surgery vomited multiple times with mid abdominal pain into the back no fever no chills no chest pain or palpitation no abdominal distention no urinary complaints Related Data Previous Rx's Medication Instructions Recorded hydrocodone 5 mg-acetaminophen 325 1 tab PO Q4-6H PRN pain #30 tabs 06/11/23 mg tablet naproxen 500 mg tablet (Naprosyn) 500 mg PO BID #20 tabs 06/16/23 Allergies Allergy/AdvReac Type Severity Reaction Status Date / Time cat dander [CATS] Allergy Unknown UNKNOWN Verified 07/30/23 05:11 dog dander [DOGS] Allergy Unknown UNKNOWN Verified 07/30/23 05:11 Review of Systems Review of Systems Yes all other systems are reviewed and are negative [facility] Past Medical History Medical History Kidney stones Surgical History H/O cystoscopy No pertinent past surgical history Social History Social History Household Members: Family Housing: Apartment Do you presently have visiting nurse or other home services: No Alcohol intake: current Alcohol intake frequency: holidays/special occasions only Alcohol type: hard liquor Patient Tobacco Use Status: Never used Tobacco Second Hand Smoke Exposure: No Substance Use Type: Marijuana Advance Directives: Yes Advance Directives on File: Yes Advance Directives Date on File: 10/21/21 service: No Current occupational status: unemployed Physical Exam ED Vital Signs: Vital Signs - 24 hr 07/30/23 05:11 07/30/23 06:46 07/30/23 06:48 Temperature 98.1 F 97.7 F Pulse Rate 75 78 Respiratory Rate 20 17 Blood Pressure 142/98 H 120/76 Pulse Oximetry 98 99 Oxygen Delivery Method Room Air Room Air BMI result Body Mass Index 26.5 Appearance: Alert. Oriented X3. In moderate distress Eyes: No pallor/icterus ENT: Pharynx normal. Oral Mucosa moist Neck: Normal inspection. Neck supple. CVS: Normal heart rate and rhythm. Pulses normal. Respiratory: No respiratory distress. Equal air entry bilateral, no wheezing/rales/rhonchi Abdomen: Soft , tenderness mid abdomen with guarding no rebound tenderness. Bowel sounds are present, no mass palpable, no CVA tenderness Skin: Skin warm and dry. Normal skin color. Normal skin turgor. Extremities: No lower extremity edema. No calf tenderness Neuro: Oriented X 3. No motor deficit. Medical Decision Making Medical Decision Making MDM Narrative: Patient's acute onset of mid abdominal pain with history of gallstone pancreatitis status post cholecystectomy vomiting multiple times with elevated lipase likely recurrence of pancreatitis. Patient denies any alcohol use since surgery will give IV fluids pain medication antiemetics CT scan to rule out fluid collection/pancreatitis patient signed out to Dr. Braden pending CT scan findings anticipate to admit Differential Diagnosis Differential Diagnoses: The differential diagnosis associated with the presentation includes Acute pancreatitis/ureteric colic/UTI/small bowel obstruction Admission/Observation Consideration of admission/observation: Escalation of care including admission/observation considered Lab Data [facility] Lab Attestation statement: I reviewed the patient's lab results. 07/30/23 05:26 07/30/23 05:26 Labs: Lab Results 07/30/23 07/30/23 Range/Units 05:26 05:26 WBC 7.7 (4.8-10.8) X10*3/uL RBC 4.78 D (4.60-5.80) X10*6/uL Hgb 15.2 D (14.0-18.0) g/dl Hct 43.2 D (42.0-52.0) % MCV 90.4 (80.0-98.0) fL MCH 31.8 (27.0-33.0) pg MCHC 35.2 (31.0-36.0) g/dl RDW 14.8 (11.0-16.0) % Plt Count 329 D (160-400) X10*3/uL MPV 9.0 L (9.4-12.4) fL Immature Gran % (Auto) 0.3 (0.0-0.4) % Neut % (Auto) 74.0 H (45-73) % Lymph % (Auto) 19.5 L (20-40) % Ross % (Auto) 5.8 (2-11) % Eos % (Auto) 0.1 (0-4) % Baso % (Auto) 0.3 (0-2) % Lymph # (Auto) 1.5 (1.2-4.9) X10*3/uL Ross # (Auto) 0.5 (0.1-1.2) X10*3/uL Eos # (Auto) 0.0 (0.0-0.4) X10*3/uL Baso # (Auto) 0.0 (0.0-0.2) X10*3/uL Abs Immat Gran (auto) 0.02 (0.00-0.03) X10*3/uL Absolute Neuts (auto) 5.7 (2.0-8.3) x10*3/uL Absolute Nucleated RBC 0.000 (0.0-0.012) X10*3/uL Nucleated RBC % (auto) 0.0 (0.0-0.2) /100WBC Sodium 138 (135-145) mmol/L Potassium 3.6 (3.3-5.1) mmol/L Chloride 100 (96-108) mmol/L Carbon Dioxide 21 L (22-29) mmol/L Anion Gap 21 H (12-20) BUN 11 (9-16) mg/dL Creatinine 0.78 (0.5-1.4) mg/dL Estim Creat Clear Calc 142.1 Estimated GFR > 60 Random Glucose 102 (60-115) mg/dL Calcium 10.1 D (8.4-10.2) mg/dL Total Bilirubin 0.6 (0.0-1.0) mg/dL Direct Bilirubin 0.3 (0.0-0.5) mg/dL AST 156 H (5-37) U/L ALT 142 H (0-40) U/L Alkaline Phosphatase 308 H (39-117) U/L Total Protein 8.0 (6.5-8.0) g/dL Albumin 4.3 (3.5-5.0) g/dL Lipase 280 H (8-78) U/L Medications Administered Generic Name Dose Route Start Last Admin Trade Name Ish PRN Reason Stop Dose Admin Sodium Chloride 1,000 mls @ 999 mls/hr 07/30/23 06:32 07/30/23 06:51 Ns IV 07/30/23 07:32 999 mls/hr .Q1H1M ONE Administration Discontinued Medications Generic Name Dose Route Start Last Admin Trade Name Ish PRN Reason Stop Dose Admin Hydromorphone HCl 2 mg 07/30/23 06:31 07/30/23 06:48 Hydromorphone Hcl 2 Mg/Ml Vial IVPUSH 07/30/23 06:32 2 mg ONCE ONE Administration Protocol Sodium Chloride 1,000 mls @ 999 mls/hr 07/30/23 05:49 07/30/23 05:56 Ns IV 07/30/23 06:49 999 mls/hr .Q1H1M ONE Administration Iohexol 85 ml 07/30/23 06:46 07/30/23 06:46 Iohexol 350 Mg/Ml 100 Ml Infus..Btl IV 07/30/23 06:47 85 ml ONCE ONE Administration Ondansetron HCl 4 mg 07/30/23 05:49 07/30/23 05:56 Ondansetron Hcl 4 Mg/2 Ml Vial IVPUSH 07/30/23 05:50 4 mg ONCE ONE Administration Discharge Plan Discharge Clinical Impression: Pancreatitis Patient Disposition: Still a Patient Prescriptions: No Action hydrocodone-acetaminophen 5-325 mg tablet 1 tab PO Q4-6H PRN (Reason: pain) Qty: 30 0RF Rx Instructions: Partial Fill upon patient request. naproxen [Naprosyn] 500 mg tablet 500 mg PO BID Qty: 20 0RF
--- NOTE | 2023-07-30 06:40 | PC.NURSE ---
Pt to CT
[2023-07-30] MEDS: iohexoL 350 MG/ML 100 ML INFUS..BTL 85 ML IV (06:46)
[2023-07-30] MEDS: HYDROmorphone HCl 2 MG/ML VIAL IVPUSH (06:48)
[2023-07-30] MEDS: HYDROmorphone HCl 1 MG/ML SYRINGE IVPUSH ×5 (07:46→22:21)
[2023-07-30 07:47] LABS: Ethanol 124 mg/dL; Lactate Dehydrogenase 264 U/L (118-273)
[2023-07-30] MEDS: Lactated Ringers 1,000 ML 100 ML IVCONT ×2 (07:49→17:42)
--- NOTE | 2023-07-30 08:29 | P.HPHOSP_ITS ---
History of Present Illness Date of Service: 07/30/23 Chief Complaint: Abdominal pain 32-year-old male status post cholecystectomy 06/11/23. presents with abdominal pain that has been epigastric in nature and is accompanied by nausea and vomiting. Patient was recently discharged from [facility] 06/12/23. Patient returns with abdominal pain and admits to drinking a 6 pack and a bottle of wine approximately 4 days ago. He states he is not a daily drinker. In the emergency room he received 2 doses of dilaudid with resolution of pain. CT scan consistent with sequelae of recent pancreatitis Review of Systems Review of Systems: Denies chest pain Denies shortness of breath Denies vomiting diarrhea admits nausea Denies fever chills PMFSH Medical History Kidney stones Surgical History H/O cystoscopy No pertinent past surgical history Social History Household Members: Family Housing: Apartment Do you presently have visiting nurse or other home services: No Alcohol intake: current Alcohol intake frequency: holidays/special occasions only Alcohol type: hard liquor Patient Tobacco Use Status: Never used Tobacco Second Hand Smoke Exposure: No Substance Use Type: Marijuana Advance Directives: Yes Advance Directives on File: Yes Advance Directives Date on File: 10/21/21 service: No Current occupational status: unemployed Meds Allergies Allergy/AdvReac Type Severity Reaction Status Date / Time cat dander [CATS] Allergy Unknown UNKNOWN Verified 07/30/23 05:11 dog dander [DOGS] Allergy Unknown UNKNOWN Verified 07/30/23 05:11 Active Medications: Current Medications Enoxaparin Sodium (Enoxaparin Sodium 40 Mg/0.4 Ml Syringe) 40 mg SUBCUT Q24H SOHAIL Hydromorphone HCl (Hydromorphone Hcl 1 Mg/Ml Syringe) 1 mg IVPUSH Q4H PRN; Protocol PRN Reason: Pain, Severe (Pain Scale 7-10) Lactated Ringer's (Lr) 1,000 mls @ 100 mls/hr IVCONT .Q10H SOHAIL Last Admin: 07/30/23 07:49 Dose: 100 mls/hr Ondansetron HCl (Ondansetron Hcl 4 Mg/2 Ml Vial) 4 mg IVPUSH Q6H PRN PRN Reason: Nausea and Vomiting Oxycodone HCl (Oxycodone Hcl Immed Release 5 Mg Tablet) 10 mg PO Q4H PRN PRN Reason: Pain, Moderate(Pain Scale 4-6) Sodium Chloride (0.9 % Sodium Chloride Flush 3 Ml Syringe) 3 ml IVFLUSH QSHIFT SOHAIL Physical Exam Vital Signs and Narrative: Vital Signs: Last Vital Signs Temp 98.1 F 07/30/23 07:52 Pulse 66 07/30/23 07:52 Resp 20 07/30/23 07:52 BP 143/82 H 07/30/23 07:52 Pulse Ox 97 07/30/23 07:52 O2 Del Method Room Air 07/30/23 07:52 BMI result Body Mass Index 26.5 Const: Other: Awake alert no acute distress Resp: Other: Clear to auscultation bilaterally no rales rhonchi or wheezes Cardio: Other: No S4; positive S1-S2; no S3 murmurs rubs or gallops GI: Other: Soft; minimal tenderness over mid epigastrium without rebound. Bowel sounds quiet Neuro: Other: Cranial nerves 2-12 grossly intact as tested. Motor is 5/5 all extremities. Sensation is intact. Cognition appropriate. Gait steady Extrem: Other: No edema bilaterally Results Labs 07/30/23 05:26 07/30/23 05:26 Labs: Laboratory Results - last 24 hr 07/30/23 07/30/23 05:26 05:26 MCV 90.4 MCH 31.8 MCHC 35.2 RDW 14.8 Plt Count 329 D MPV 9.0 L Immature Gran % (Auto) 0.3 Neut % (Auto) 74.0 H Lymph % (Auto) 19.5 L [place] % (Auto) 5.8 Eos % (Auto) 0.1 Baso % (Auto) 0.3 Lymph # (Auto) 1.5 [place] # (Auto) 0.5 Eos # (Auto) 0.0 Baso # (Auto) 0.0 Abs Immat Gran (auto) 0.02 Absolute Neuts (auto) 5.7 Absolute Nucleated RBC 0.000 Nucleated RBC % (auto) 0.0 Anion Gap 21 H Estim Creat Clear Calc 142.1 Estimated GFR > 60 Random Glucose 102 Calcium 10.1 D Total Bilirubin 0.6 Direct Bilirubin 0.3 AST 156 H ALT 142 H Alkaline Phosphatase 308 H Lactate Dehydrogenase 264 Total Protein 8.0 Albumin 4.3 Lipase 280 H Ethyl Alcohol 124 Imaging Radiologist's Impressions: Impressions Abdomen/Pelvis CT 07/30/23 06:45 IMPRESSION: Exam does demonstrate mild fluid around the pancreas consistent with sequela of pancreatitis. Bowel pattern is nonobstructing. Once again mildly thick-walled bladder may be consistent with cystitis. Probable fatty change within the liver. Fleischner guidelines were followed. Assessment and Plan (1) Pancreatitis: Status: Acute Plan 32-year-old male recently admitted 06/09/2023 with gallstone pancreatitis; subsequent cholecystectomy 06/11/2023 without issue. Intraoperative cholangiogram failed to demonstrate any stones in the ducts. Returns overnight with complaints of abdominal pain and nausea similar to episodes of pancreatitis prior to his cholecystectomy. Admits to drinking 6 beers a bowel of 1 approximately 4 days ago. Require 2 doses of IV dilaudid for comfort in ER. Will be admitted and diet will be advanced slowly 1. Pancreatitis -LFTs demonstrate a cholestatic pattern in the backdrop of likely fatty live/recent ETOH use -given exam, will start full liquids and advance as tolerated -oxycodone for pain; Dilaudid for breakthrough severe pain -maintenance IV fluids until adequate p.o. 2. Transaminitis -likely secondary to alcohol; denies every day use -advised against alcohol -trend LFT Full code Heparin Patient will require at least 1 night of inpatient stay for IV pain medication to treat acute pancreatitis. This cannot be achieved a lesser acute setting Time Spent With Patient Time: Total time managing care of this patient today ____ minutes. Quality Stroke Does the patient have a stroke diagnosis?: No VTE Prior VTE?: No VTE Risk Level:: Medical - moderate - high VTE Device Contraindication: Treatment Not Indicated VTE Drug Contraindication: N/A - Med Ordered
[2023-07-30] MEDS: oxyCODONE HCl Immed Release 5 MG TABLET 10 MG PO ×3 (08:45→20:02)
[2023-07-30] MEDS: Enoxaparin Sodium 40 MG/0.4 ML SYRINGE SUBCUT (08:48)
[2023-07-30 09:21] LABS: Lipase 422 U/L (8-78)
--- NOTE | 2023-07-30 09:39 | PHA.MEDREC ---
Pharmacy Consult ? Medication Reconciliation Pharmacy has completed the medication reconciliation.
[2023-07-30 11:28] LABS: Appearance Urine Clear; Color Urine Yellow; Glucose Urine UA Negative (Negative); Leukocyte Esterase Urine Negative (Negative); Nitrite Urine Negative (Negative); PH 7.5 (5.0-9.0); Specific Gravity - Urine >= 1.030 (1.005-1.025); UMIC TRIGGER UACC YES; Urine Blood Negative (Negative); Urine Ketones Trace mg/dL (Negative); Urine Protein 30 (1+) mg/dL (Neg-Trace)
[2023-07-30 11:30] LABS: Bacteria Urine None Seen (None Seen); Hyaline Casts Urine 0-2 /LPF (0-2); RBC Urine 0-2 /HPF (0-2); Squamous Epithelial Cell Urine 0-2 /HPF (0-2); WBC Urine 0-5 /HPF (0-5)
--- NOTE | 2023-07-30 11:38 | PC.NURSE ---
pt has been drinking clear liquids/devon winter/ice water, continued pain, medicated w oxycodone a couple hours ago and again with dilaudid moments ago, pt has good initial relief but pain seems to return within about an hour
[2023-07-30] MEDS: 0.9 % Sodium Chloride Flush 3 ML SYRINGE IVFLUSH ×2 (15:44→20:01)
[2023-07-31] MEDS: oxyCODONE HCl Immed Release 5 MG TABLET 10 MG PO ×5 (00:19→18:25)
[2023-07-31] MEDS: HYDROmorphone HCl 1 MG/ML SYRINGE IVPUSH ×7 (02:16→23:47)
[2023-07-31] MEDS: Lactated Ringers 1,000 ML 100 ML IVCONT ×2 (03:10→15:26)
[2023-07-31] MEDS: Morphine Sulfate 4 MG/ML CARTRIDGE IVPUSH (03:48)
--- NOTE | 2023-07-31 03:53 | PC.NURSE ---
pt complained about pain is not controlling. I've been given dialudid & oxycodone. dr. Wang notified and received Morphine 1 mg extra once dose. will CONT monitor pain.
[2023-07-31 06:21] LABS: MANUAL DIFF FLAG NO
[2023-07-31 06:25] LABS: Basophils Percent Auto 0.1 % (0-2); Hematocrit 38.7 % (42.0-52.0); Hemoglobin 13.6 g/dl (14.0-18.0); Imm Gran Abs Auto 0.06 X10*3/uL (0.00-0.03); Imm Gran Pct Auto 0.5 % (0.0-0.4); Lymphocytes Absolute Auto 1.1 X10*3/uL (1.2-4.9); Lymphocytes Percent Auto 8.4 % (20-40); Mean Corpuscular HGB Conc 35.1 g/dl (31.0-36.0); Mean Corpuscular Hemoglobin 32.5 pg (27.0-33.0); Mean Corpuscular Volume 92.6 fL (80.0-98.0); Monocytes Absolute Auto 0.9 X10*3/uL (0.1-1.2); Monocytes Percent Auto 7.1 % (2-11); Neutrophils Absolute Auto 10.6 x10*3/uL (2.0-8.3); Neutrophils Percent Auto 83.9 % (45-73); Platelet Count 288 X10*3/uL (160-400); Red Blood Count 4.18 X10*6/uL (4.60-5.80); Red Cell Distribution Width 14.8 % (11.0-16.0); White Blood Count 12.7 X10*3/uL (4.8-10.8)
[2023-07-31 06:39] LABS: Alanine Aminotransferase 192 U/L (0-40); Albumin Level 3.7 g/dL (3.5-5.0); Alkaline Phosphatase 272 U/L (39-117); Anion Gap 15 (12-20); Aspartate Amino Transferase 469 U/L (5-37); Bilirubin Total 1.7 mg/dL (0.0-1.0); Blood Urea Nitrogen 11 mg/dL (9-16); Calcium 9.9 mg/dL (8.4-10.2); Carbon Dioxide 25 mmol/L (22-29); Chloride 100 mmol/L (96-108); Creatinine Clr Calc Pharmacy 158.3; Estimated Glomerular Filt Rate > 60; Glucose Fasting 108 mg/dL (60-99); Potassium 3.9 mmol/L (3.3-5.1); Sodium 136 mmol/L (135-145); Total Protein 6.9 g/dL (6.5-8.0)
[2023-07-31 07:42] VITALS: BP 144/93; PULSE 66; RESP 17; TEMP 36.3; O2SAT 97
[2023-07-31 11:43] VITALS: BP 141/94; PULSE 69; RESP 18; TEMP 36.6; O2SAT 98
--- NOTE | 2023-07-31 12:25 | CONS_ITS ---
DATE OF SERVICE: 07/31/2023 REFERRING PHYSICIAN: Dylon Zendejas DO REASON FOR CONSULTATION: Pancreatitis. HISTORY OF PRESENT ILLNESS: The patient is a pleasant 32-year-old man, who was admitted to the hospital after presenting to the emergency room yesterday with complaints of abdominal pain. He states symptoms began the day before admission with epigastric pain and nausea as well as vomiting of nonbloody material. The pain radiated into the back and down into the flanks. He had sweats, but no fevers or chills. He presented to the emergency room, where he was evaluated and was noted to have a lipase of 280 with elevations of his liver enzymes in the 100 range and an alkaline phosphatase of 308. Subsequent evaluation included CT scanning, which was reviewed. This is interpreted as showing changes consistent with pancreatitis. The common bile duct was evaluated and found to be 10 mm on imaging. MRI imaging has been ordered. The patient underwent laparoscopic cholecystectomy with cholangiogram on June 11, which showed no common duct obstruction. Films are reviewed. The patient drinks alcohol and denies any alcohol for 7 months, although has told other examiners his last drink was more recently. A blood alcohol level on admission was 124. PAST MEDICAL HISTORY: 1. Nephrolithiasis. 2. He denies other medical or surgical illnesses except for cholecystectomy as above and cystoscopy for his kidney stones. CURRENT MEDICATIONS: Current medication list is reviewed in the chart. ALLERGIES: HE HAS BEEN INTOLERANT OF CAT AND DOG DANDER. FAMILY HISTORY: This is reviewed with the patient and is noncontributory. SOCIAL HISTORY: There is no current tobacco use. Alcohol use is as above. He does use marijuana on a daily basis. He works doing [employer]. REVIEW OF SYSTEMS: SKIN: No pruritus. HEENT: Negative. CARDIOPULMONARY: He denies shortness of breath or chest pain. GASTROINTESTINAL: As above. GENITOURINARY: Negative. NEUROPSYCHIATRIC: Negative. PHYSICAL EXAMINATION: GENERAL: Shows a pleasant male, walking around the room. He appears quite comfortable. VITAL SIGNS: Stable. SKIN: Anicteric. HEENT: Shows no scleral icterus. NECK: Without lymphadenopathy or thyromegaly. LUNGS: Clear. HEART: Shows a regular rate and rhythm. S1, S2. No murmur. ABDOMEN: Soft without focal masses or tenderness except in the epigastric area, where there is some mild tenderness. Bowel sounds are present. No organomegaly is noted. EXTREMITIES: Without edema. LABORATORY DATA AND IMAGING STUDIES: Reviewed. IMPRESSION: Pancreatitis. His liver function test elevations and lipase elevations seem consistent with pancreatitis on the basis of alcohol, especially in light of his blood alcohol level on admission. His bilirubin did jump slightly overnight. An MRI has been ordered for further imaging, which is reasonable, given his previous history of gallstones. His intraoperative cholangiogram from his cholecystectomy did not show any obvious filling defects, so a common bile duct stone seems less likely. I agree with treating him supportively with IV fluids, pain medications, antiemetics, and then gradually advancing his diet as he improves. I did discuss with him the need to completely avoid alcohol. He appears to understand this. Thanks for asking me to see him. I will follow him in the hospital with you. MD ANU Giraldo/EDUARDA / [id number]
[2023-07-31] MEDS: LORazepam 2 MG/ML VIAL 0.5 MG IVPUSH (12:27)
--- NOTE | 2023-07-31 13:45 | HO.PM.IMPN ---
Subjective Subjective Date of Service: 07/31/23 Interval History: Essentially no change overnight; perhaps somewhat worse Review of Systems Denies chest pain Denies shortness of breath Denies vomiting diarrhea admits nausea Denies fever chills Physical Exam Vital Signs: Vital Signs: Last Vital Signs Temp 97.9 F 07/31/23 11:43 Pulse 69 07/31/23 11:43 Resp 18 07/31/23 11:43 BP 141/94 H 07/31/23 11:43 Pulse Ox 98 07/31/23 11:43 O2 Del Method Room Air 07/31/23 11:43 BMI result Body Mass Index 26.5 Const: Other: Awake alert no acute distress Resp: Other: Clear to auscultation bilaterally no rales rhonchi or wheezes Cardio: Other: No S4; positive S1-S2; no S3 murmurs rubs or gallops GI: Other: Soft; minimal tenderness over mid epigastrium without rebound. Bowel sounds quiet Neuro: Other: Cranial nerves 2-12 grossly intact as tested. Motor is 5/5 all extremities. Sensation is intact. Cognition appropriate. Gait steady Extrem: Other: No edema bilaterally Objective Data Active Medications Enoxaparin Sodium (Enoxaparin Sodium 40 Mg/0.4 Ml Syringe) 40 mg SUBCUT Q24H [facility] Last Admin: 07/31/23 09:03 Dose: Not Given Documented By: LELAND Non-Admin Reason: Patient Refused Hydromorphone HCl (Hydromorphone Hcl 1 Mg/Ml Syringe) 1 mg IVPUSH Q3H PRN; Protocol PRN Reason: Pain, Severe (Pain Scale 7-10) Last Admin: 07/31/23 12:27 Dose: 1 mg Documented By: LELAND Lactated Ringer's (Lr) 1,000 mls @ 100 mls/hr IVCONT .Q10H [facility] Last Infusion: 07/31/23 13:41 Dose: 100 mls/hr Documented By: LELAND Ondansetron HCl (Ondansetron Hcl 4 Mg/2 Ml Vial) 4 mg IVPUSH Q6H PRN PRN Reason: Nausea and Vomiting Last Admin: 07/30/23 21:40 Dose: 4 mg Documented By: KARI Oxycodone HCl (Oxycodone Hcl Immed Release 5 Mg Tablet) 10 mg PO Q4H PRN PRN Reason: Pain, Moderate(Pain Scale 4-6) Last Admin: 07/31/23 09:59 Dose: 10 mg Documented By: LELAND Sodium Chloride (0.9 % Sodium Chloride Flush 3 Ml Syringe) 3 ml IVFLUSH QSHIFT [facility] Last Admin: 07/31/23 09:03 Dose: Not Given Documented By: LELAND Non-Admin Reason: IV Running Labs 07/31/23 05:53 07/31/23 05:53 Labs: Laboratory Results - last 24 hr 07/31/23 07/31/23 05:53 05:53 MCV 92.6 MCH 32.5 MCHC 35.1 RDW 14.8 Plt Count 288 MPV 10.0 Immature Gran % (Auto) 0.5 H Neut % (Auto) 83.9 H Lymph % (Auto) 8.4 L [place] % (Auto) 7.1 Eos % (Auto) 0.0 Baso % (Auto) 0.1 Lymph # (Auto) 1.1 L [place] # (Auto) 0.9 Eos # (Auto) 0.0 Baso # (Auto) 0.0 Abs Immat Gran (auto) 0.06 H Absolute Neuts (auto) 10.6 H Absolute Nucleated RBC 0.000 Nucleated RBC % (auto) 0.0 Anion Gap 15 Estim Creat Clear Calc 158.3 Estimated GFR > 60 Fasting Glucose 108 H Calcium 9.9 Total Bilirubin 1.7 H AST 469 H ALT 192 H Alkaline Phosphatase 272 H Total Protein 6.9 Albumin 3.7 Assessment and Plan (1) Pancreatitis: Status: Acute Plan 32-year-old male recently admitted 06/09/2023 with gallstone pancreatitis; subsequent cholecystectomy 06/11/2023 without issue. Intraoperative cholangiogram failed to demonstrate any stones in the ducts. Returns overnight with complaints of abdominal pain and nausea similar to episodes of pancreatitis prior to his cholecystectomy. Admits to drinking 6 beers a bowel of 1 approximately 4 days ago. Require 2 doses of IV dilaudid for comfort in ER. Will be admitted and diet will be advanced slowly 1. Pancreatitis -MRCP done; overweight results -oxycodone for pain; Dilaudid for breakthrough severe pain -maintenance IV fluids until adequate p.o. -appreciate Dr. Hassan's input 2. Transaminitis -likely secondary to alcohol; denies every day use -advised against alcohol -trend LFT Full code Heparin Requires ongoing hospitalization for IV fluids and IV pain meds to treat acute pancreatitis Time Spent With Patient Time: Total time managing care of this patient today ____ minutes. Quality Stroke Does the patient have a stroke diagnosis?: No VTE Prior VTE?: No VTE Risk Level:: Medical - moderate - high VTE Device Contraindication: Treatment Not Indicated VTE Drug Contraindication: N/A - Med Ordered
--- NOTE | 2023-07-31 14:07 | MHC.CM.PN ---
pt is independent has no servceis dc plan home no services has own transport home
[2023-07-31 16:00] VITALS: BP 137/84; PULSE 75; RESP 20; TEMP 36.4; O2SAT 98
[2023-07-31] MEDS: ondansetron HCL 4 MG/2 ML VIAL IVPUSH (19:38)
[2023-07-31 19:59] VITALS: BP 142/95; PULSE 72; RESP 20; TEMP 36.5; O2SAT 98
[2023-07-31] MEDS: traZODone HCL 50 MG TABLET PO (21:38)
[2023-08-01] VITALS: BP 153/89; PULSE 85; RESP 18; TEMP 36.7; O2SAT 99
[2023-08-01] MEDS: oxyCODONE HCl Immed Release 5 MG TABLET 10 MG PO ×3 (01:11→11:12)
[2023-08-01] MEDS: traZODone HCL 50 MG TABLET PO (01:11)
[2023-08-01] MEDS: Lactated Ringers 1,000 ML 100 ML IVCONT (02:03)
[2023-08-01] MEDS: HYDROmorphone HCl 1 MG/ML SYRINGE IVPUSH ×3 (03:20→10:33)
[2023-08-01 03:27] VITALS: BP 137/91; PULSE 82; RESP 18; TEMP 36.1; O2SAT 98
[2023-08-01 06:18] LABS: MANUAL DIFF FLAG NO
[2023-08-01 06:38] LABS: Alanine Aminotransferase 613 U/L (0-40); Albumin Level 3.6 g/dL (3.5-5.0); Alkaline Phosphatase 372 U/L (39-117); Anion Gap 10 (12-20); Aspartate Amino Transferase 1148 U/L (5-37); Blood Urea Nitrogen 8 mg/dL (9-16); Calcium 9.8 mg/dL (8.4-10.2); Carbon Dioxide 27 mmol/L (22-29); Chloride 101 mmol/L (96-108); Creatinine Clr Calc Pharmacy 143.9; Estimated Glomerular Filt Rate > 60; Glucose Fasting 77 mg/dL (60-99); Lipase 251 U/L (8-78); Potassium 3.2 mmol/L (3.3-5.1); Sodium 135 mmol/L (135-145); Total Protein 6.6 g/dL (6.5-8.0)
[2023-08-01 06:41] LABS: Basophils Percent Auto 0.1 % (0-2); Eosinophils Percent Auto 0.2 % (0-4); Hematocrit 37.7 % (42.0-52.0); Hemoglobin 13.3 g/dl (14.0-18.0); Imm Gran Abs Auto 0.05 X10*3/uL (0.00-0.03); Imm Gran Pct Auto 0.4 % (0.0-0.4); Lymphocytes Absolute Auto 1.5 X10*3/uL (1.2-4.9); Lymphocytes Percent Auto 13.1 % (20-40); Mean Corpuscular HGB Conc 35.3 g/dl (31.0-36.0); Mean Corpuscular Hemoglobin 31.8 pg (27.0-33.0); Mean Corpuscular Volume 90.2 fL (80.0-98.0); Mean Platelet Volume 10.4 fL (9.4-12.4); Monocytes Absolute Auto 0.6 X10*3/uL (0.1-1.2); Monocytes Percent Auto 5.4 % (2-11); Neutrophils Absolute Auto 9.5 x10*3/uL (2.0-8.3); Neutrophils Percent Auto 80.8 % (45-73); Platelet Count 261 X10*3/uL (160-400); Red Blood Count 4.18 X10*6/uL (4.60-5.80); Red Cell Distribution Width 14.5 % (11.0-16.0); White Blood Count 11.7 X10*3/uL (4.8-10.8)
[2023-08-01] MEDS: 0.9 % Sodium Chloride Flush 3 ML SYRINGE IVFLUSH (07:27)
[2023-08-01 07:46] VITALS: BP 131/79; PULSE 84; RESP 17; TEMP 36.6; O2SAT 97
[2023-08-01] MEDS: Lactated Ringers 1,000 ML 125 ML IVCONT (10:38)
[2023-08-01 12:00] VITALS: BP 134/87; PULSE 81; RESP 17; TEMP 36.4; O2SAT 99
--- NOTE | 2023-08-01 12:00 | P.PNIM_ITS ---
Subjective Subjective Date of Service: 08/01/23 Interval History: Subjectively better today however LFTs worsening. Tolerating full liquid diet thus far Review of Systems Denies chest pain Denies shortness of breath Denies vomiting diarrhea admits nausea Denies fever chills Physical Exam Vital Signs: Vital Signs: Last Vital Signs Temp 97.9 F 08/01/23 07:46 Pulse 84 08/01/23 07:46 Resp 17 08/01/23 07:46 BP 131/79 08/01/23 07:46 Pulse Ox 97 08/01/23 07:46 O2 Del Method Room Air 08/01/23 07:46 BMI result Body Mass Index 26.5 Const: Other: Awake alert no acute distress Resp: Other: Clear to auscultation bilaterally no rales rhonchi or wheezes Cardio: Other: No S4; positive S1-S2; no S3 murmurs rubs or gallops GI: Other: Soft; minimal tenderness over mid epigastrium without rebound. Bowel sounds quiet Neuro: Other: Cranial nerves 2-12 grossly intact as tested. Motor is 5/5 all extremities. Sensation is intact. Cognition appropriate. Gait steady Extrem: Other: No edema bilaterally Objective Data Active Medications Enoxaparin Sodium (Enoxaparin Sodium 40 Mg/0.4 Ml Syringe) 40 mg SUBCUT Q24H [facility] Last Admin: 08/01/23 10:24 Dose: Not Given Documented By: LELAND Non-Admin Reason: Patient Refused Hydromorphone HCl (Hydromorphone Hcl 1 Mg/Ml Syringe) 1 mg IVPUSH Q3H PRN; Protocol PRN Reason: Pain, Severe (Pain Scale 7-10) Last Admin: 08/01/23 10:33 Dose: 1 mg Documented By: LELAND Lactated Ringer's (Lr) 1,000 mls @ 125 mls/hr IVCONT .Q8H [facility] Last Admin: 08/01/23 10:38 Dose: 125 mls/hr Documented By: LELAND Ondansetron HCl (Ondansetron Hcl 4 Mg/2 Ml Vial) 4 mg IVPUSH Q6H PRN PRN Reason: Nausea and Vomiting Last Admin: 07/31/23 19:38 Dose: 4 mg Documented By: APOLINAR Oxycodone HCl (Oxycodone Hcl Immed Release 5 Mg Tablet) 10 mg PO Q4H PRN PRN Reason: Pain, Moderate(Pain Scale 4-6) Last Admin: 08/01/23 11:12 Dose: 10 mg Documented By: LELAND Sodium Chloride (0.9 % Sodium Chloride Flush 3 Ml Syringe) 3 ml IVFLUSH QSHIFT [facility] Last Admin: 08/01/23 07:27 Dose: 3 ml Documented By: LELAND Trazodone HCl (Trazodone Hcl 50 Mg Tablet) 50 mg PO BEDTIME MRX1 PRN PRN Reason: Insomnia Last Admin: 08/01/23 01:11 Dose: 50 mg Documented By: PEACERISZhen Labs 08/01/23 05:51 08/01/23 05:51 Labs: Laboratory Results - last 24 hr 08/01/23 08/01/23 05:51 05:51 MCV 90.2 MCH 31.8 MCHC 35.3 RDW 14.5 Plt Count 261 MPV 10.4 Immature Gran % (Auto) 0.4 Neut % (Auto) 80.8 H Lymph % (Auto) 13.1 L [place] % (Auto) 5.4 Eos % (Auto) 0.2 Baso % (Auto) 0.1 Lymph # (Auto) 1.5 [place] # (Auto) 0.6 Eos # (Auto) 0.0 Baso # (Auto) 0.0 Abs Immat Gran (auto) 0.05 H Absolute Neuts (auto) 9.5 H Absolute Nucleated RBC 0.000 Nucleated RBC % (auto) 0.0 Anion Gap 10 L Estim Creat Clear Calc 143.9 Estimated GFR > 60 Fasting Glucose 77 Calcium 9.8 Total Bilirubin 3.0 H AST 1148 H ALT 613 H Alkaline Phosphatase 372 H Total Protein 6.6 Albumin 3.6 Lipase 251 H Assessment and Plan (1) Pancreatitis: Status: Acute Plan 32-year-old male recently admitted 06/09/2023 with gallstone pancreatitis; subsequent cholecystectomy 06/11/2023 without issue. Intraoperative cholangiogram failed to demonstrate any stones in the ducts. Returns overnight with complaints of abdominal pain and nausea similar to episodes of pancreatitis prior to his cholecystectomy. Admits to drinking 6 beers a bowel of 1 approximately 4 days ago. Require 2 doses of IV dilaudid for comfort in ER. Will be admitted and diet will be advanced slowly 1. Pancreatitis -MRCP without acute findings -oxycodone for pain; Dilaudid for breakthrough severe pain -maintenance IV fluids until adequate p.o. 2. Transaminitis -essentially doubled since yesterday -await GI input -follow clinically Full code Heparin Requires ongoing hospitalization for IV fluids and IV pain meds to treat acute pancreatitis Time Spent With Patient Time: Total time managing care of this patient today ____ minutes. Quality Stroke Does the patient have a stroke diagnosis?: No VTE Prior VTE?: No VTE Risk Level:: Medical - moderate - high VTE Device Contraindication: Treatment Not Indicated VTE Drug Contraindication: N/A - Med Ordered
--- NOTE | 2023-08-01 12:32 | PM.GIPN ---
Subjective Subjective Date of Service: 08/01/23 Interval History: feels better, wants to try solids Critical Care Time (minutes): 0 Physical Exam Vital Signs: Vital Signs: Last Vital Signs Temp 97.9 F 08/01/23 07:46 Pulse 84 08/01/23 07:46 Resp 17 08/01/23 07:46 BP 131/79 08/01/23 07:46 Pulse Ox 97 08/01/23 07:46 O2 Del Method Room Air 08/01/23 07:46 BMI result Body Mass Index 26.5 GI: Other: abdomen is soft with mild epigastric tenderness Objective Data Labs 08/01/23 05:51 08/01/23 05:51 Labs: Laboratory Results - last 24 hr 08/01/23 08/01/23 05:51 05:51 WBC 11.7 H RBC 4.18 L Hgb 13.3 L Hct 37.7 L MCV 90.2 MCH 31.8 MCHC 35.3 RDW 14.5 Plt Count 261 MPV 10.4 Immature Gran % (Auto) 0.4 Neut % (Auto) 80.8 H Lymph % (Auto) 13.1 L [place] % (Auto) 5.4 Eos % (Auto) 0.2 Baso % (Auto) 0.1 Lymph # (Auto) 1.5 [place] # (Auto) 0.6 Eos # (Auto) 0.0 Baso # (Auto) 0.0 Abs Immat Gran (auto) 0.05 H Absolute Neuts (auto) 9.5 H Absolute Nucleated RBC 0.000 Nucleated RBC % (auto) 0.0 Sodium 135 Potassium 3.2 L Chloride 101 Carbon Dioxide 27 Anion Gap 10 L BUN 8 L Creatinine 0.77 Estim Creat Clear Calc 143.9 Estimated GFR > 60 Fasting Glucose 77 Calcium 9.8 Total Bilirubin 3.0 H AST 1148 H ALT 613 H Alkaline Phosphatase 372 H Total Protein 6.6 Albumin 3.6 Lipase 251 H Procedures Date of Service Date of Service: 08/01/23 Progress Note: A&P Assessment and plan (1) Pancreatitis: Status: Acute Assessment and Plan: clinically better mri neg for cbd stone lfts increased trial of lo fat diet follow lfts Time Spent With Patient Time: Total time managing care of this patient today ____ minutes. Quality Stroke Does the patient have a stroke diagnosis?: No VTE Prior VTE?: No VTE Risk Level:: Medical - moderate - high VTE Device Contraindication: Treatment Not Indicated VTE Drug Contraindication: N/A - Med Ordered
[2023-08-01 12:50] LABS: Appearance Urine Clear; Color Urine Dark Yellow; Glucose Urine UA Negative (Negative); Leukocyte Esterase Urine Trace (Negative); Nitrite Urine Negative (Negative); UMIC TRIGGER UACC YES; Urine Blood Negative (Negative); Urine Ketones Negative (Negative); Urine Protein 30 (1+) mg/dL (Neg-Trace)
[2023-08-01 12:56] LABS: Bacteria Urine None Seen (None Seen); Hyaline Casts Urine 0-2 /LPF (0-2); RBC Urine 0-2 /HPF (0-2); Squamous Epithelial Cell Urine 0-2 /HPF (0-2); WBC Urine 0-5 /HPF (0-5)
--- NOTE | 2023-08-01 14:35 | P.DS_ITS ---
DS: Providers Provider Date of Service: 08/01/23 Date of admission: 07/30/23 08:24 Date of discharge: 08/01/23 Primary care physician: Cade Peres MD Consults: 07/31/23 07:22 Consult to Gastroenterology Routine Consulting Provider: Patel Hassan Reason for consultation: W#orsening pancreatitis Has provider been notified: No DS: Diagnosis Discharge Diagnosis (1) Pancreatitis: Status: Acute DS: Summary Hospital Course Hospital Course: 32-year-old male status post cholecystectomy 06/11/23. presents with abdominal pain that has been epigastric in nature and is accompanied by nausea and vomiting.? Patient was recently discharged from [facility] 06/12/23.? Patient returns with abdominal pain and admits to drinking a 6 pack and a bottle of wine approximately 4 days ago.? He states he is not a daily drinker.? In the emergency room he received 2 doses of dilaudid with resolution of pain.? CT scan consistent with sequelae of recent pancreatitis Hospital course Admitted to general medical floor and kept NPO. Over the next 48 hours patient's pain did improved to the point where he was able to take a diet without pain. Patient's LFTs did increase however MRCP and CT scan failed to show any acute issues. At this time patient is asking to be DC to home. Believe he is medically acceptable for same and will follow-up with labs in 2-3 days. He will call for follow-up with Dr. Hassan and follow-up with his PCP Time Spent with Patient Time attestation: Total time managing care of this patient today ____ minutes. Discharge coordination time: Greater than 30 minutes Quality: Safe Use of Opioids Does Pt have an Active Cancer Diagnosis on the Problem List?: No Quality: Stroke Does the patient have a stroke diagnosis?: No Physical Exam Vital Signs: Vital Signs: Last Vital Signs Temp 97.5 F 08/01/23 12:00 Pulse 81 08/01/23 12:00 Resp 17 08/01/23 12:00 BP 134/87 08/01/23 12:00 Pulse Ox 99 08/01/23 12:00 O2 Del Method Room Air 08/01/23 12:00 BMI result Body Mass Index 26.5 Const: Other: Awake alert no acute distress Resp: Other: Clear to auscultation bilaterally no rales rhonchi or wheezes Cardio: Other: No S4; positive S1-S2; no S3 murmurs rubs or gallops GI: Other: Soft; minimal tenderness over mid epigastrium without rebound. Bowel sounds quiet Neuro: Other: Cranial nerves 2-12 grossly intact as tested. Motor is 5/5 all extremities. Sensation is intact. Cognition appropriate. Gait steady Extrem: Other: No edema bilaterally DS: Data Data Completed and Pending Completed studies during hospitalization [Text1]: Procedures Extirpation of Matter from Left Ureter, Via Natural or Artificial Opening Endoscopic (10/18/21) Fluoroscopy of Left Kidney, Ureter and Bladder (10/18/21) Other Imaging of Gallbladder and Bile Ducts using Fluorescing Agent, Intraoperative (06/09/23) Resection of Gallbladder, Percutaneous Endoscopic Approach (06/09/23) Labs on day of discharge: Laboratory Results - last 24 hr 08/01/23 08/01/23 08/01/23 05:51 05:51 12:36 WBC 11.7 H RBC 4.18 L Hgb 13.3 L Hct 37.7 L MCV 90.2 MCH 31.8 MCHC 35.3 RDW 14.5 Plt Count 261 MPV 10.4 Immature Gran % (Auto) 0.4 Neut % (Auto) 80.8 H Lymph % (Auto) 13.1 L [place] % (Auto) 5.4 Eos % (Auto) 0.2 Baso % (Auto) 0.1 Lymph # (Auto) 1.5 [place] # (Auto) 0.6 Eos # (Auto) 0.0 Baso # (Auto) 0.0 Abs Immat Gran (auto) 0.05 H Absolute Neuts (auto) 9.5 H Absolute Nucleated RBC 0.000 Nucleated RBC % (auto) 0.0 Sodium 135 Potassium 3.2 L Chloride 101 Carbon Dioxide 27 Anion Gap 10 L BUN 8 L Creatinine 0.77 Estim Creat Clear Calc 143.9 Estimated GFR > 60 Fasting Glucose 77 Calcium 9.8 Total Bilirubin 3.0 H AST 1148 H ALT 613 H Alkaline Phosphatase 372 H Total Protein 6.6 Albumin 3.6 Lipase 251 H Urine Color Dark Yellow Urine Appearance Clear Urine pH 7.0 Ur Specific [place] 1.010 Urine Protein 30 (1+) H Urine Glucose (UA) Negative Urine Ketones Negative Urine Blood Negative Urine Nitrite Negative Ur Leukocyte Esterase Trace H Urine RBC 0-2 Urine WBC 0-5 Ur Squamous Epith Cells 0-2 Urine Bacteria None Seen Hyaline Casts 0-2 Discharge Plan Discharge Anticipated Discharge Date/Time: 08/01/23 14:27 Patient Disposition: Home, Self-Care Discharge Diagnosis: Pancreatitis Referrals: Cade Peres MD [Primary Care Provider] - 1 Week Discharge Medications: New oxycodone 5 mg Tablet 10 mg PO Q4H PRN (Reason: Pain, Moderate(Pain Scale 4-6)) Qty: 20 0RF Rx Instructions: Partial Fill upon patient request. No Action No Known Home Meds Discharge Orders: Discharge Order (Routine); Ordered 08/01/23 Ordered By: Dylon Zendejas Diet: Low fat, low cholesterol Activity on Discharge: As tolerated Stand Alone Forms: Patient Portal Discharge page Care Plan Goals: Oxycodone for pain Health Concerns: No alcohol Plan of Treatment: Follow-up which GI. Get labs this week Assessment: See discharge summary
--- NOTE | 2023-08-01 14:51 | MHC.CM.PN ---
PT WILL DC HOME TODAY WITH NO SERVICES PT TO ARRANGE TRANSPORT
== END 2023-08-01 15:26 | disposition home or self-care (01) ==
LOC: HO.ED 07:35 → HO.EDOVER 08:28 → HO.S3 11:17
PROVIDERS: Internal Medicine; Admitting Provider Hospitalist; Emergency Provider Emergency Medicine; PCP Family Medicine; Visit Provider Hospitalist
DX: K85.90 Acute pancreatitis without necrosis or infection, unspecified (principal); R10.9 Unspecified abdominal pain; R10.13 Epigastric pain; R11.2 Nausea with vomiting, unspecified; R74.01 Elevation of levels of liver transaminase levels
CPT/HCPCS: 36415; 74177; 74181; 80048; 80053; 80076; 80307; 81001; 83615; 83690; 85025; 96361; 96372; 96374; 96375; 96376; 99221; 99285; J1170; J1650; J2060; J2270; J2405; Q9967

== ENCOUNTER → 2023-07-30 08:24 | Outpatient (BNV) | payer OTHER, SELFPAY | PROVIDERS: Admitting Provider Hospitalist; Emergency Provider Emergency Medicine; PCP Family Medicine; Visit Provider Hospitalist | DX: K85.90 Acute pancreatitis without necrosis or infection, unspecified (principal) | CPT/HCPCS: 99223; 99233; 99239 ==

== ENCOUNTER 2023-08-02 05:10 | Emergency (ER) | payer OTHER, SELFPAY ==
[2023-08-02 05:15] VITALS: BP 148/101; PULSE 97; O2SAT 98
[2023-08-02 05:26] VITALS: BP 137/99; PULSE 89; RESP 18; TEMP 37.3; O2SAT 98; BMI 25.8
[2023-08-02 05:30] VITALS: BP 137/99; PULSE 89; RESP 16; TEMP 37.3; O2SAT 98
[2023-08-02 05:38] LABS: Basophils Percent Auto 0.3 % (0-2); Eosinophils Absolute Auto 0.1 X10*3/uL (0.0-0.4); Eosinophils Percent Auto 1.2 % (0-4); Hematocrit 35.9 % (42.0-52.0); Hemoglobin 12.8 g/dl (14.0-18.0); Imm Gran Abs Auto 0.04 X10*3/uL (0.00-0.03); Imm Gran Pct Auto 0.4 % (0.0-0.4); Lymphocytes Absolute Auto 1.2 X10*3/uL (1.2-4.9); Lymphocytes Percent Auto 12.7 % (20-40); MANUAL DIFF FLAG NO; Mean Corpuscular HGB Conc 35.7 g/dl (31.0-36.0); Mean Corpuscular Hemoglobin 32.1 pg (27.0-33.0); Mean Platelet Volume 9.7 fL (9.4-12.4); Monocytes Absolute Auto 0.8 X10*3/uL (0.1-1.2); Monocytes Percent Auto 8.4 % (2-11); Platelet Count 242 X10*3/uL (160-400); Red Blood Count 3.99 X10*6/uL (4.60-5.80); Red Cell Distribution Width 14.6 % (11.0-16.0); White Blood Count 9.1 X10*3/uL (4.8-10.8)
[2023-08-02 05:57] LABS: Alanine Aminotransferase 410 U/L (0-40); Albumin Level 3.4 g/dL (3.5-5.0); Alkaline Phosphatase 298 U/L (39-117); Anion Gap 13 (12-20); Aspartate Amino Transferase 273 U/L (5-37); Bilirubin Direct 0.6 mg/dL (0.0-0.5); Bilirubin Total 1.1 mg/dL (0.0-1.0); Blood Urea Nitrogen 10 mg/dL (9-16); Carbon Dioxide 25 mmol/L (22-29); Chloride 104 mmol/L (96-108); Creatinine Clr Calc Pharmacy 133.5; Estimated Glomerular Filt Rate > 60; Glucose Random 105 mg/dL (60-115); Lipase 126 U/L (8-78); Potassium 3.1 mmol/L (3.3-5.1); Sodium 139 mmol/L (135-145); Total Protein 6.3 g/dL (6.5-8.0)
--- NOTE | 2023-08-02 06:12 | ED_ITS ---
HPI - Abdominal Pain General Chief Complaint: Abdominal Pain Stated Complaint: abd pain Time Seen by Provider: 08/02/23 05:38 Source: patient Mode of arrival: EMS History of Present Illness HPI narrative: 32-year-old male was discharged yesterday after recovering from pancreatitis. He now returns via EMS for epigastric pain and complaints of possible pancreatitis with some mild nausea and vomiting. Patient states that he ate a hamburger prior to being discharged yesterday. Related Data Previous Rx's Medication Instructions Recorded oxycodone 5 mg tablet 10 mg PO Q4H PRN Pain, 08/01/23 Moderate(Pain Scale 4-6) #20 tabs ondansetron HCl 4 mg tablet 4 mg PO Q8H PRN nausea and 08/02/23 vomiting 4 days #7 tabs Allergies Allergy/AdvReac Type Severity Reaction Status Date / Time cat dander [CATS] Allergy Unknown UNKNOWN Verified 07/30/23 05:11 dog dander [DOGS] Allergy Unknown UNKNOWN Verified 07/30/23 05:11 Review of Systems Review of Systems Pertinent positives and negatives as stated in HPI PMFSH Past Medical History Source: nursing notes reviewed Medical History Kidney stones Surgical History H/O cystoscopy No pertinent past surgical history Social History Social History Household Members: Family Housing: Apartment Do you presently have visiting nurse or other home services: No Alcohol intake: former Patient Tobacco Use Status: Never used Tobacco Smoked in Last 30 Days: No Second Hand Smoke Exposure: No Use of substances other than those prescribed or required for medical reasons: No Substance Use Type: Marijuana Advance Directives: Yes Advance Directives on File: Yes Advance Directives Date on File: 10/21/21 service: No Current occupational status: unemployed Physical Exam ED Vital Signs: Vital Signs - 24 hr 08/02/23 05:26 08/02/23 05:30 08/02/23 07:39 Temperature 99.1 F 99.1 F 98.2 F Pulse Rate 89 89 Respiratory Rate 18 16 Blood Pressure 137/99 H 137/99 H Pulse Oximetry 98 98 Oxygen Delivery Method Room Air Room Air BMI result Body Mass Index 25.8 VITAL SIGNS: Reviewed. GENERAL: Well developed, well nourished, in no acute distress. HEAD: Normocephalic/atraumatic EYES: PERRLA, EOMI LUNGS: Normal breath sounds. No adventitious sounds or accessory muscle use. SpO2<98> CARDIOVASCULAR: Regular rate and rhythm without noted murmurs ABDOMEN: Soft, epigastric discomfort, non-distended with bowel sounds. MUSCULOSKELETAL: No tenderness, deformities, or effusions noted on gross inspection. EXTREMITIES: No cyanosis, clubbing or edema. SKIN: Inspection of the skin reveals no rashes NEUROLOGIC: Alert and oriented x 4. Strength and sensation to light touch were grossly intact x 4. Course Reevaluation(s) Reevaluation #1: Patient requesting to leave as pain is much better. Tollerating PO liquids. Plan DC home advised to return w/ new or worsening sx. Clear/ liquid diet encouraged Time: 08:24 Medical Decision Making Medical Decision Making MDM Narrative: 32-year-old male with history and clinical presentation, DDX: Gastritis, recurrent alcohol use, pancreatitis. I reviewed discharge summary as well as discharge lab work from yesterday. I reviewed all investigations from patient's visit today, hematologic indices are chronically stable and do not demonstrate any leukocytosis there is a stable left shift, chronically stable normocytic anemia and otherwise no thrombocytopenia. Chemistry indices demonstrate a mild low potassium which was repleted with 60 mEq of oral potassium, no JAGDEEP, and liver enzymes continue to show improvement with significant reduction in transaminemia and bilirubin levels. Lipase itself has also continued to significantly trend downward. Urinalysis is negative for UTI and hematuria. Patient reports that the [facility] on [facility] said that they were out of oxycodone, patient will receive 5 mg of oxycodone prior to discharge but he was informed that all laboratory evaluations looks significantly improved and imaging studies at the height of his pancreatitis did not demonstrate any acute pancreatic injury. I will also send antinausea medication for the patient. Differential Diagnosis Differential Diagnoses: The differential diagnosis associated with the presentation includes Please see the discussion above Admission/Observation Consideration of admission/observation: Escalation of care including admission/observation considered Please see the discussion above Lab Data MDM Lab Attestation statement: I reviewed the patient's lab results. Please see the discussion above 08/02/23 05:33 08/02/23 05:33 Labs: Lab Results 08/02/23 08/02/23 Range/Units 05:33 05:33 WBC 9.1 (4.8-10.8) X10*3/uL RBC 3.99 L (4.60-5.80) X10*6/uL Hgb 12.8 L (14.0-18.0) g/dl Hct 35.9 L (42.0-52.0) % MCV 90.0 (80.0-98.0) fL MCH 32.1 (27.0-33.0) pg MCHC 35.7 (31.0-36.0) g/dl RDW 14.6 (11.0-16.0) % Plt Count 242 (160-400) X10*3/uL MPV 9.7 (9.4-12.4) fL Immature Gran % (Auto) 0.4 (0.0-0.4) % Neut % (Auto) 77.0 H (45-73) % Lymph % (Auto) 12.7 L (20-40) % [place] % (Auto) 8.4 (2-11) % Eos % (Auto) 1.2 (0-4) % Baso % (Auto) 0.3 (0-2) % Lymph # (Auto) 1.2 (1.2-4.9) X10*3/uL [place] # (Auto) 0.8 (0.1-1.2) X10*3/uL Eos # (Auto) 0.1 (0.0-0.4) X10*3/uL Baso # (Auto) 0.0 (0.0-0.2) X10*3/uL Abs Immat Gran (auto) 0.04 H (0.00-0.03) X10*3/uL Absolute Neuts (auto) 7.0 (2.0-8.3) x10*3/uL Absolute Nucleated RBC 0.000 (0.0-0.012) X10*3/uL Nucleated RBC % (auto) 0.0 (0.0-0.2) /100WBC Sodium 139 (135-145) mmol/L Potassium 3.1 L (3.3-5.1) mmol/L Chloride 104 (96-108) mmol/L Carbon Dioxide 25 (22-29) mmol/L Anion Gap 13 (12-20) BUN 10 (9-16) mg/dL Creatinine 0.83 (0.5-1.4) mg/dL Estim Creat Clear Calc 133.5 Estimated GFR > 60 Random Glucose 105 (60-115) mg/dL Calcium 10.0 (8.4-10.2) mg/dL Total Bilirubin 1.1 H (0.0-1.0) mg/dL Direct Bilirubin 0.6 H (0.0-0.5) mg/dL AST 273 H (5-37) U/L ALT 410 H (0-40) U/L Alkaline Phosphatase 298 H (39-117) U/L Total Protein 6.3 L (6.5-8.0) g/dL Albumin 3.4 L (3.5-5.0) g/dL Lipase 126 H (8-78) U/L Ethyl Alcohol < 10 mg/dL External Record Review External record reviewed: Inpatient record, Outpatient record, Prior outpatient labs and Prior outpatient radiology Medications Administered Discontinued Medications Generic Name Dose Route Start Last Admin Trade Name Freq PRN Reason Stop Dose Admin Lidocaine/Diphenhydr/Alum/Mg/Simeth 10 ml 08/02/23 06:15 08/02/23 06:25 Mag&Al/Sim/Diphenhyd/Lidocaine 10 Ml Oral.Susp PO 08/02/23 06:16 10 ml ONCE ONE Administration Protocol Ondansetron HCl 4 mg 08/02/23 06:17 08/02/23 06:26 Ondansetron Odt 4 Mg Tab.Rapdis TRANSLINGU 08/02/23 06:18 4 mg ONCE ONE Administration Oxycodone HCl 5 mg 08/02/23 07:11 08/02/23 07:20 Oxycodone Hcl Immed Release 5 Mg Tablet PO 08/02/23 07:12 5 mg ONCE ONE Administration Potassium Chloride 60 meq 08/02/23 06:19 08/02/23 06:25 Potassium Chloride Er 20 Meq Tab.Er.Prt PO 08/02/23 06:20 60 meq ONCE ONE Administration Discharge Plan Discharge Clinical Impression: Pancreatitis Patient Disposition: Home, Self-Care Instructions: Pancreatitis (ED) Additional Instructions: 1. I recommend that you continue to stick with a liquid diet until you are fully improving and then gradually increase do not start off with ground meat. 2. Recommend checking with a different pharmacy. Return to the ER for any worsening symptoms. Prescriptions: New ondansetron HCl 4 mg tablet 4 mg PO Q8H PRN (Reason: nausea and vomiting) 4 Days Qty: 7 0RF No Action oxycodone 5 mg Tablet 10 mg PO Q4H PRN (Reason: Pain, Moderate(Pain Scale 4-6)) Qty: 20 0RF Rx Instructions: Partial Fill upon patient request. Referrals: Physician,Unknown J [Primary Care Provider] - 2 days Interventions: ED Discharge Assessment Last Done: 08/02/23 08:00 Discharge Date/Time: 08/02/23 08:00
[2023-08-02] MEDS: Mag&Al/Sim/Diphenhyd/Lidocaine 10 ML ORAL.SUSP PO (06:25)
[2023-08-02] MEDS: Potassium Chloride ER 20 MEQ TAB.ER.PRT 60 MEQ PO (06:25)
[2023-08-02] MEDS: Ondansetron ODT 4 MG TAB.RAPDIS TRANSLINGU (06:26)
[2023-08-02 06:31] LABS: Ethanol < 10 mg/dL
[2023-08-02] MEDS: oxyCODONE HCl Immed Release 5 MG TABLET PO (07:20)
[2023-08-02 07:39] VITALS: TEMP 36.8
--- NOTE | 2023-08-02 07:39 | PC.NURSE ---
Alert and oriented, temp 98.2, patient continues to report abdominal pain, was medicated per mar with oxycodone.
--- NOTE | 2023-08-02 08:00 | PC.NURSE ---
Discharge plan reviewed with patient who verbalized understanding
== END 2023-08-02 08:00 | disposition home or self-care (01) ==
PROVIDERS: Emergency Provider Student in an Organized Health Care Education/Training Program
DX: K85.90 Acute pancreatitis without necrosis or infection, unspecified (principal); R11.2 Nausea with vomiting, unspecified; Z79.899 Other long term (current) drug therapy
CPT/HCPCS: 36415; 80053; 80307; 82248; 83690; 85025; 99283; 99284

== ENCOUNTER 2023-08-05 04:02 | Emergency (ER) | payer OTHER, SELFPAY ==
--- NOTE | ~2023-08-05 | CT_ITS ---
EXAMINATION: CT ABDOMEN AND PELVIS WITHOUT CONTRAST CLINICAL INFORMATION: Follow-up pancreatitis, left-sided CVA tenderness. COMPARISON: Abdominal CT of 07/30/2023 and MRCP of 07/31/2023. TECHNIQUE: Multidetector volumetric imaging was performed from the superior aspect of the liver through the pubic symphysis. Sagittal and coronal reformatted images were obtained on the technologist's workstation. This CT examination was performed using dose optimization techniques as appropriate, variously including the following: *Automated exposure control *Adjustment of mA and/or kV according to patient size (this includes techniques or standardized protocols for targeted exams where dose is matched to indication/reason for exam; i.e. extremities or head) *Use of iterative reconstruction technique DLP: 492 mGy-cm FINDINGS: LUNG BASES: The visualized lung bases are unremarkable. LIVER, GALLBLADDER, AND BILIARY TREE: The liver is somewhat enlarged measuring 20 cm wide by 19 cm long. No hepatic mass or biliary ductal dilatation is evident on this unenhanced examination. The gallbladder surgically absent. PANCREAS: Evaluation of the pancreas is limited on this noncontrast examination. However, infiltration about the pancreatic body and tail extending into the splenic hilum appears slightly improved since the prior examination. No peripancreatic drainable collection is detected. SPLEEN: Unremarkable. ADRENAL GLANDS: Unremarkable. KIDNEYS AND URETERS: Bilateral nonobstructing renal calculi are again evident, the largest in the midpole on the right measuring 7 mm. The ureters are collapsed. There is no obstructive uropathy. BLADDER: The bladder wall again appears thick walled and irregular, as on the prior examination. GASTROINTESTINAL TRACT: The small and large bowel are unremarkable. The appendix is unremarkable. ABDOMINAL WALL: No significant hernia is appreciated. LYMPH NODES: Normal. VASCULAR: Unremarkable. PELVIC VISCERA: Unremarkable. OSSEOUS STRUCTURES: Unremarkable. CT/CT abdomen pelvis wo IV con IMPRESSION: 1. No significant change to slight improvement in mild peripancreatic infiltration. The patient's left-sided pain might be due to peripancreatic infiltration extending into the left upper quadrant, which has improved since 07/30/2023. 2. No change in bilateral nonobstructing intrarenal calculi. 3. No significant change in mildly thick-walled urinary bladder, either on the basis of under distention or cystitis Fleischner guidelines were followed.
[2023-08-05 06:58] LABS: Sodium 139 mmol/L (135-145)
[2023-08-05 07:00] LABS: Anion Gap 13 (12-20); Carbon Dioxide 24 mmol/L (22-29); Chloride 106 mmol/L (96-108); Potassium 4.2 mmol/L (3.3-5.1)
[2023-08-05 07:01] LABS: Alanine Aminotransferase 293 U/L (0-40); Aspartate Amino Transferase 108 U/L (5-37); Bilirubin Direct 0.2 mg/dL (0.0-0.5); Bilirubin Total 0.6 mg/dL (0.0-1.0); Blood Urea Nitrogen 8 mg/dL (9-16); Calcium 9.5 mg/dL (8.4-10.2); Creatinine Clr Calc Pharmacy 136.8; Estimated Glomerular Filt Rate > 60; Glucose Random 113 mg/dL (60-115)
[2023-08-05 07:02] LABS: Albumin Level 3.7 g/dL (3.5-5.0); Alkaline Phosphatase 440 U/L (39-117); Lipase 70 U/L (8-78); Total Protein 6.8 g/dL (6.5-8.0)
[2023-08-05 07:29] LABS: MANUAL DIFF FLAG NO
[2023-08-05 07:31] LABS: Basophils Percent Auto 0.4 % (0-2); Eosinophils Absolute Auto 0.1 X10*3/uL (0.0-0.4); Eosinophils Percent Auto 1.7 % (0-4); Hematocrit 36.6 % (42.0-52.0); Hemoglobin 12.8 g/dl (14.0-18.0); Imm Gran Abs Auto 0.04 X10*3/uL (0.00-0.03); Imm Gran Pct Auto 0.5 % (0.0-0.4); Lymphocytes Absolute Auto 1.8 X10*3/uL (1.2-4.9); Lymphocytes Percent Auto 22.3 % (20-40); Mean Corpuscular Hemoglobin 31.9 pg (27.0-33.0); Mean Corpuscular Volume 91.3 fL (80.0-98.0); Mean Platelet Volume 9.6 fL (9.4-12.4); Monocytes Percent Auto 12.2 % (2-11); Neutrophils Absolute Auto 5.2 x10*3/uL (2.0-8.3); Neutrophils Percent Auto 62.9 % (45-73); Platelet Count 369 X10*3/uL (160-400); Red Blood Count 4.01 X10*6/uL (4.60-5.80); White Blood Count 8.2 X10*3/uL (4.8-10.8)
[2023-08-05] MEDS: Morphine Sulfate 4 MG/ML CARTRIDGE IVPUSH (07:31)
[2023-08-05] MEDS: ondansetron HCL 4 MG/2 ML VIAL IVPUSH ×2 (07:31→09:15)
[2023-08-05] MEDS: Ketorolac Tromethamine 30 MG/ML VIAL IVPUSH (07:31)
[2023-08-05 07:32] LABS: Potassium 4.2 mmol/L (3.3-5.1); Sodium 139 mmol/L (135-145)
--- NOTE | 2023-08-05 07:32 | PC.NURSE ---
MEDS NOT SCANNED DUE TO DOWNTIME
[2023-08-05 07:33] LABS: Alanine Aminotransferase 293 U/L (0-40); Anion Gap 13 (12-20); Aspartate Amino Transferase 108 U/L (5-37); Bilirubin Direct 0.2 mg/dL (0.0-0.5); Bilirubin Total 0.6 mg/dL (0.0-1.0); Blood Urea Nitrogen 8 mg/dL (9-16); Calcium 9.5 mg/dL (8.4-10.2); Carbon Dioxide 24 mmol/L (22-29); Chloride 106 mmol/L (96-108); Estimated Glomerular Filt Rate > 60; Glucose Random 113 mg/dL (60-115); Total Protein 6.8 g/dL (6.5-8.0)
[2023-08-05 07:34] LABS: Albumin Level 3.7 g/dL (3.5-5.0); Alkaline Phosphatase 440 U/L (39-117); Lipase 70 U/L (8-78)
[2023-08-05 07:42] VITALS: BP 140/86; PULSE 54; RESP 12; TEMP 36.8; O2SAT 100
[2023-08-05 08:27] LABS: Ethanol < 10 mg/dL
[2023-08-05] MEDS: Morphine Sulfate Immed Release 15 MG TABLET PO (09:15)
[2023-08-05 09:47] VITALS: BP 133/84; PULSE 63; RESP 12; TEMP 37.1; O2SAT 100
[2023-08-05 11:23] VITALS: BP 123/66; PULSE 59; RESP 16; O2SAT 97
== END 2023-08-05 11:33 | disposition home or self-care (01) ==
PROVIDERS: Student in an Organized Health Care Education/Training Program; Emergency Provider Emergency Medicine; PCP Family Medicine
DX: R10.2 Pelvic and perineal pain (principal); R11.10 Vomiting, unspecified; Z79.899 Other long term (current) drug therapy; Z87.442 Personal history of urinary calculi
CPT/HCPCS: 36415; 74176; 80053; 80307; 82248; 83690; 85025; 96374; 96375; 96376; 99283; 99284; J1885; J2270; J2405

== ENCOUNTER 2023-09-21 15:17 | Emergency (ER) | payer OTHER, SELFPAY ==
[2023-09-21 15:31] VITALS: BP 136/90; PULSE 84; O2SAT 98
--- NOTE | 2023-09-21 15:31 | ED_ITS ---
HPI - Abdominal Pain General Chief Complaint: Abdominal Pain Stated Complaint: ABD PAIN, N/V/D X3 DAYS Related Data Home Medications Medication Instructions Recorded Confirmed No Known Home Meds 09/22/23 09/22/23 Allergies Allergy/AdvReac Type Severity Reaction Status Date / Time cat dander [CATS] Allergy Unknown UNKNOWN Verified 07/30/23 05:11 dog dander [DOGS] Allergy Unknown UNKNOWN Verified 07/30/23 05:11 [facility] Past Medical History Medical History Kidney stones Surgical History H/O cystoscopy No pertinent past surgical history Social History Social History Household Members: Family Housing: Apartment Do you presently have visiting nurse or other home services: No Alcohol intake: former Patient Tobacco Use Status: Never used Tobacco Second Hand Smoke Exposure: No Substance Use Type: Marijuana Advance Directives Date on File: 10/21/21 service: No Current occupational status: unemployed Physical Exam ED Vital Signs: Vital Signs - 24 hr 09/21/23 15:37 Temperature 97.0 F Pulse Rate 85 Respiratory Rate 20 Blood Pressure 111/87 Pulse Oximetry 97 Oxygen Delivery Method Room Air BMI result Body Mass Index 26.5 Course Course Course Narrative: This is a rapid medical exam. Deferred additional HPI, ROS, PE to primary provider. 32 yo male with history of pancreatitis presents to the ER with upper abdominal pain with radiation to back after drinks margaritas at [employer] w/ vomiting a few days ago. Will obtain labs. UA. VSS Reevaluation(s) Reevaluation #1: A CT was ordered d/t elevated lipase but multiple calls by CT techs with no answer. Therefore it will be cancelled. Medical Decision Making Lab Data 09/21/23 15:51 09/21/23 15:51 Labs: Lab Results 09/21/23 Range/Units 15:51 WBC 12.0 H (4.8-10.8) X10*3/uL RBC 4.72 (4.60-5.80) X10*6/uL Hgb 15.1 (14.0-18.0) g/dl Hct 43.2 (42.0-52.0) % MCV 91.5 (80.0-98.0) fL MCH 32.0 (27.0-33.0) pg MCHC 35.0 (31.0-36.0) g/dl RDW 15.2 (11.0-16.0) % Plt Count 331 (160-400) X10*3/uL MPV 8.9 L (9.4-12.4) fL Immature Gran % (Auto) 0.4 (0.0-0.4) % Neut % (Auto) 81.9 H (45-73) % Lymph % (Auto) 7.7 L (20-40) % [place] % (Auto) 9.7 (2-11) % Eos % (Auto) 0.1 (0-4) % Baso % (Auto) 0.2 (0-2) % Lymph # (Auto) 0.9 L (1.2-4.9) X10*3/uL [place] # (Auto) 1.2 (0.1-1.2) X10*3/uL Eos # (Auto) 0.0 (0.0-0.4) X10*3/uL Baso # (Auto) 0.0 (0.0-0.2) X10*3/uL Abs Immat Gran (auto) 0.05 H (0.00-0.03) X10*3/uL Absolute Neuts (auto) 9.9 H (2.0-8.3) x10*3/uL Absolute Nucleated RBC 0.000 (0.0-0.012) X10*3/uL Nucleated RBC % (auto) 0.0 (0.0-0.2) /100WBC Sodium 138 (135-145) mmol/L Potassium 4.1 (3.3-5.1) mmol/L Chloride 102 (96-108) mmol/L Carbon Dioxide 24 (22-29) mmol/L Anion Gap 16 (12-20) BUN 13 (9-16) mg/dL Creatinine 0.90 (0.5-1.4) mg/dL Estim Creat Clear Calc 123.1 Estimated GFR > 60 Random Glucose 147 H (60-115) mg/dL Calcium 10.2 D (8.4-10.2) mg/dL Total Bilirubin 0.9 (0.0-1.0) mg/dL Direct Bilirubin 0.3 (0.0-0.5) mg/dL AST 101 H (5-37) U/L ALT 188 H (0-40) U/L Alkaline Phosphatase 233 H (39-117) U/L Troponin I High Sens < 2.7 (<3.5-35.0) ng/L Total Protein 7.8 (6.5-8.0) g/dL Albumin 4.3 (3.5-5.0) g/dL Lipase 791 H (8-78) U/L Discharge Plan Discharge Clinical Impression: Abdominal pain Patient Disposition: Left W/O Completing Treatment Prescriptions: No Action No Known Home Meds Discharge Date/Time: 09/21/23 20:42
[2023-09-21 15:37] VITALS: BP 111/87; PULSE 85; RESP 20; TEMP 36.1; O2SAT 97; BMI 26.5
[2023-09-21 15:55] LABS: MANUAL DIFF FLAG NO
[2023-09-21 15:57] LABS: Basophils Percent Auto 0.2 % (0-2); Eosinophils Percent Auto 0.1 % (0-4); Hematocrit 43.2 % (42.0-52.0); Hemoglobin 15.1 g/dl (14.0-18.0); Imm Gran Abs Auto 0.05 X10*3/uL (0.00-0.03); Imm Gran Pct Auto 0.4 % (0.0-0.4); Lymphocytes Absolute Auto 0.9 X10*3/uL (1.2-4.9); Lymphocytes Percent Auto 7.7 % (20-40); Mean Corpuscular Volume 91.5 fL (80.0-98.0); Mean Platelet Volume 8.9 fL (9.4-12.4); Monocytes Absolute Auto 1.2 X10*3/uL (0.1-1.2); Monocytes Percent Auto 9.7 % (2-11); Neutrophils Absolute Auto 9.9 x10*3/uL (2.0-8.3); Neutrophils Percent Auto 81.9 % (45-73); Platelet Count 331 X10*3/uL (160-400); Red Blood Count 4.72 X10*6/uL (4.60-5.80); Red Cell Distribution Width 15.2 % (11.0-16.0)
[2023-09-21 16:15] LABS: Alanine Aminotransferase 188 U/L (0-40); Albumin Level 4.3 g/dL (3.5-5.0); Alkaline Phosphatase 233 U/L (39-117); Anion Gap 16 (12-20); Aspartate Amino Transferase 101 U/L (5-37); Bilirubin Direct 0.3 mg/dL (0.0-0.5); Bilirubin Total 0.9 mg/dL (0.0-1.0); Blood Urea Nitrogen 13 mg/dL (9-16); Calcium 10.2 mg/dL (8.4-10.2); Carbon Dioxide 24 mmol/L (22-29); Chloride 102 mmol/L (96-108); Creatinine Clr Calc Pharmacy 123.1; Estimated Glomerular Filt Rate > 60; Glucose Random 147 mg/dL (60-115); Potassium 4.1 mmol/L (3.3-5.1); Sodium 138 mmol/L (135-145); Total Protein 7.8 g/dL (6.5-8.0)
[2023-09-21 16:23] LABS: Troponin-I High Sensitivity < 2.7 ng/L (<3.5-35.0)
[2023-09-21 16:24] LABS: Lipase 791 U/L (8-78)
--- NOTE | 2023-09-21 16:51 | MHC.EDTECH ---
tried to call patient for EKG. No answer at 165. Other patients stated that he left.
--- NOTE | 2023-09-21 20:22 | PC.NURSE ---
no call from waiting room
== END 2023-09-21 20:42 | disposition left against medical advice (07) ==
PROVIDERS: Nurse Practitioner Family; Emergency Provider Emergency Medicine; PCP Family Medicine
DX: R10.10 Upper abdominal pain, unspecified (principal); R11.2 Nausea with vomiting, unspecified
CPT/HCPCS: 36415; 80048; 80076; 83690; 84484; 85025; 99282; 99283

== ENCOUNTER 2023-09-22 03:13 | Inpatient (IN) | payer OTHER, SELFPAY ==
--- NOTE | ~2023-09-22 | CT_ITS ---
EXAMINATION: CT ABDOMEN AND PELVIS WITH CONTRAST CLINICAL INFORMATION: Mid abdominal pain COMPARISON: 08/05/2023 TECHNIQUE: Multidetector volumetric images were obtained from the superior aspect of the liver through the pubic symphysis following administration 85 mL of Omnipaque 350 intravenous contrast. Sagittal and coronal reformatted images were obtained on the technologist's workstation. Oral contrast: No This CT examination was performed using dose optimization techniques as appropriate, variously including the following: *Automated exposure control *Adjustment of mA and/or kV according to patient size (this includes techniques or standardized protocols for targeted exams where dose is matched to indication/reason for exam; i.e. extremities or head) *Use of iterative reconstruction technique DLP: 453 mGy-cm FINDINGS: LUNG BASES: The visualized lung bases are unremarkable. LIVER, GALLBLADDER, AND BILIARY TREE: The liver is normal in size, shape, and attenuation. A small focal region of hypoattenuation adjacent to the falciform ligament could be due to focal fatty infiltration or alterations in hepatic perfusion. No biliary ductal dilatation is present. Patient is status post cholecystectomy. PANCREAS: Mild peripancreatic stranding is suspicious for sequelae of pancreatitis. No focal fluid collection is seen. SPLEEN: Unremarkable. ADRENAL GLANDS: Unremarkable. KIDNEYS AND URETERS: Bilateral nephrograms are symmetric. No hydronephrosis or obstructing calculus identified. Few bilateral renal calculi or noted measuring up to 7 mm on the right. BLADDER: Empty and not adequately evaluated. GASTROINTESTINAL TRACT: No evidence of bowel obstruction. Limited assessment for wall thickening in the colon due to luminal collapse. Appendix appears nondilated. No free air is seen. ABDOMINAL WALL: No significant hernia is appreciated. LYMPH NODES: Normal. VASCULAR: Retroaortic left renal vein noted. PELVIC VISCERA: Unremarkable. OSSEOUS STRUCTURES: Unremarkable. CT/CT abdomen pelvis w IV con IMPRESSION: 1. Mild peripancreatic stranding suspicious for sequelae of pancreatitis. 2. Bilateral renal calculi without hydronephrosis.
--- NOTE | ~2023-09-22 | US_ITS ---
EXAMINATION: US ABDOMEN LIMITED CLINICAL INFORMATION: Abdominal pain. Evaluate bile ducts in patient with pancreatitis.. COMPARISON: CT imaging of abdomen from 06/16/2023 and 09/22/2023 TECHNIQUE: Real-time imaging of the right upper quadrant abdominal viscera. FINDINGS: PANCREAS: There is mild heterogeneity of the pancreas; this appears to correspond to the mild pancreatitis evident on CT exam from 09/22/2023. Note that images 8-10 of 60 appear to depict a segment of the common duct (not pancreatic duct). There is no pancreatic ductal dilatation. LIVER: The liver has normal size and contour. The parenchyma is mildly hyperechoic which is suggestive of steatosis. No focal lesion or intrahepatic ductal dilatation. GALLBLADDER: Surgically absent. COMMON BILE DUCT: The common duct measures up to 0.8 cm maximum diameter, unchanged compared to 06/16/2023. Otherwise, the duct is unremarkable. RIGHT KIDNEY: The right kidney measures 10.6 cm in length. No hydronephrosis. A stone in the mid to lower pole measures up to 0.7 cm. Also, there appears to be a 0.3 cm calyceal stone of the kidney. FREE FLUID: None detected. US/US abdomen limited IMPRESSION: * Common bile duct measures up to 0.8 cm diameter and is unchanged in caliber compared to 06/16/2023, status post cholecystectomy. * The imaging findings of pancreatitis were better depicted on the recent CT exam from 09/22/2023. * Diffuse hepatic steatosis. * Nephrolithiasis of the right kidney without hydronephrosis.
[2023-09-22 03:17] VITALS: BP 142/100; O2SAT 98; BMI 23.9
[2023-09-22 03:20] VITALS: BP 132/85; PULSE 88; RESP 16; TEMP 36.9; O2SAT 98
[2023-09-22 03:32] LABS: MANUAL DIFF FLAG NO
[2023-09-22 03:33] LABS: Basophils Percent Auto 0.2 % (0-2); Eosinophils Percent Auto 0.1 % (0-4); Hematocrit 44.4 % (42.0-52.0); Hemoglobin 15.6 g/dl (14.0-18.0); Imm Gran Abs Auto 0.04 X10*3/uL (0.00-0.03); Imm Gran Pct Auto 0.3 % (0.0-0.4); Lymphocytes Absolute Auto 1.3 X10*3/uL (1.2-4.9); Lymphocytes Percent Auto 10.7 % (20-40); Mean Corpuscular HGB Conc 35.1 g/dl (31.0-36.0); Mean Corpuscular Hemoglobin 31.8 pg (27.0-33.0); Mean Corpuscular Volume 90.6 fL (80.0-98.0); Monocytes Percent Auto 8.6 % (2-11); Neutrophils Absolute Auto 9.6 x10*3/uL (2.0-8.3); Neutrophils Percent Auto 80.1 % (45-73); Platelet Count 343 X10*3/uL (160-400); White Blood Count 11.9 X10*3/uL (4.8-10.8)
[2023-09-22 03:55] LABS: Alanine Aminotransferase 171 U/L (0-40); Albumin Level 4.5 g/dL (3.5-5.0); Alkaline Phosphatase 233 U/L (39-117); Anion Gap 21 (12-20); Aspartate Amino Transferase 66 U/L (5-37); Bilirubin Total 0.6 mg/dL (0.0-1.0); Blood Urea Nitrogen 14 mg/dL (9-16); Calcium 10.6 mg/dL (8.4-10.2); Carbon Dioxide 19 mmol/L (22-29); Chloride 101 mmol/L (96-108); Creatinine Clr Calc Pharmacy 127.4; Estimated Glomerular Filt Rate > 60; Glucose Random 136 mg/dL (60-115); Potassium 3.5 mmol/L (3.3-5.1); Sodium 137 mmol/L (135-145); Total Protein 8.4 g/dL (6.5-8.0)
[2023-09-22 04:03] LABS: Lipase 518 U/L (8-78)
[2023-09-22 04:37] VITALS: BP 151/97; PULSE 88; RESP 16; TEMP 37; O2SAT 98
[2023-09-22] MEDS: ondansetron HCL 4 MG/2 ML VIAL IVPUSH ×2 (04:43→07:48)
[2023-09-22] MEDS: 0.9 % Sodium Chloride 1,000 ML 999 ML IV (04:43)
[2023-09-22 04:51] LABS: Appearance Urine Clear; Color Urine Dark Yellow; Glucose Urine UA Negative (Negative); Leukocyte Esterase Urine Small (1+) (Negative); Nitrite Urine Negative (Negative); Specific Gravity - Urine >= 1.030 (1.005-1.025); UMIC TRIGGER UACC YES; Urine Blood Small (1+) (Negative); Urine Ketones Trace mg/dL (Negative); Urine Protein 300 (3+) mg/dL (Neg-Trace)
[2023-09-22 04:56] LABS: Bacteria Urine None Seen (None Seen); Squamous Epithelial Cell Urine 0-2 /HPF (0-2); UACC Culture Trigger YES
[2023-09-22] MEDS: iohexoL 350 MG/ML 100 ML INFUS..BTL 85 ML IV (05:02)
--- NOTE | 2023-09-22 05:25 | ED.ABDPAIN ---
HPI - Abdominal Pain General Chief Complaint: Abdominal Pain Stated Complaint: Abdominal Pain Time Seen by Provider: 09/22/23 03:41 Source: patient Mode of arrival: ambulatory History of Present Illness HPI narrative: 32-year-old male with presentation for mid upper abdominal pain that radiates towards the left side and wraps around and he feels it into his back as well with associated nausea and vomiting since yesterday as well as chills. Patient reports that his gallbladder was removed approximately 2 months ago but also endorses that he did indulge in [place] is approximately 2 days ago but states he did not drink that much. At this time patient states that he is having significant pain is unable to tolerate anything either drink. Related Data Previous Rx's Medication Instructions Recorded oxycodone 5 mg tablet 10 mg (2 x 5 mg) PO Q4H PRN Pain, 08/01/23 Moderate(Pain Scale 4-6) #20 tabs ondansetron HCl 4 mg tablet 4 mg PO Q8H PRN nausea and 08/02/23 vomiting 4 days #7 tabs ondansetron 4 mg disintegrating 4 mg PO Q8H PRN nausea and 08/05/23 tablet vomiting #20 tabs oxycodone 5 mg tablet 5 mg PO BID PRN pain #8 tabs 08/05/23 Allergies Allergy/AdvReac Type Severity Reaction Status Date / Time cat dander [CATS] Allergy Unknown UNKNOWN Verified 07/30/23 05:11 dog dander [DOGS] Allergy Unknown UNKNOWN Verified 07/30/23 05:11 Review of Systems Review of Systems Pertinent positives and negatives as stated in HPI [facility] Past Medical History Source: nursing notes reviewed Medical History Kidney stones Surgical History H/O cystoscopy No pertinent past surgical history Social History Social History Household Members: Family Housing: Apartment Do you presently have visiting nurse or other home services: No Alcohol intake: former Patient Tobacco Use Status: Never used Tobacco Smoked in Last 30 Days: No Second Hand Smoke Exposure: No Substance Use Type: Marijuana Advance Directives: Yes Advance Directives on File: Yes Advance Directives Date on File: 10/21/21 service: No Current occupational status: unemployed Physical Exam ED Vital Signs: Vital Signs - 24 hr 09/22/23 03:20 09/22/23 04:37 Temperature 98.5 F 98.6 F Pulse Rate 88 88 Respiratory Rate 16 16 Blood Pressure 132/85 151/97 H Pulse Oximetry 98 98 Oxygen Delivery Method Room Air Room Air BMI result Body Mass Index 23.9 VITAL SIGNS: Reviewed. GENERAL: Well developed, well nourished, in no acute distress. HEAD: Normocephalic/atraumatic EYES: PERRLA, EOMI LUNGS: Normal breath sounds. No adventitious sounds or accessory muscle use. SpO2<98> CARDIOVASCULAR: Regular rate and rhythm without noted murmurs ABDOMEN: Soft, epigastric pain, non-distended with bowel sounds. MUSCULOSKELETAL: No tenderness, deformities, or effusions noted on gross inspection. EXTREMITIES: No cyanosis, clubbing or edema. SKIN: Inspection of the skin reveals no rashes NEUROLOGIC: Alert and oriented x 4. Strength and sensation to light touch were grossly intact x 4. Medical Decision Making Medical Decision Making [facility] Narrative: 32-year-old male with history and clinical presentation, DDX: Alcoholic pancreatitis, retained stone pancreatitis, gastritis, no clinical suspicion for obstruction or colitis. I reviewed all investigations and hematologic indices are significant for stress response leukocytosis with left shift but no evidence of anemia or thrombocytopenia. Chemistry and sees indicate a metabolic acidosis that I suspect may be secondary to alcohol and patient is being treated with IV fluids/pain medications/anti emetics. Otherwise, chemistry and sees are negative for JAGDEEP and no evidence of electrolyte abnormalities. There is evidence of elevated transaminases that though over 12 hours they do appear to be improving although alkaline phosphatase remains elevated. In addition, patient's lipase remains elevated. CT scan demonstrates evidence of peripancreatic stranding consistent with objective and clinical diagnosis of pancreatitis. 0558: I spoke with inpatient hospitalist and he accepts admission. Differential Diagnosis Differential Diagnoses: The differential diagnosis associated with the presentation includes Please see the discussion above Admission/Observation Consideration of admission/observation: Escalation of care including admission/observation considered Please see the discussion above Consult Healthcare Provider Management of the patient was discussed with: Hospitalist Please see the discussion above Lab Data [facility] Lab Attestation statement: I reviewed the patient's lab results. Please see the discussion above 09/22/23 03:28 09/22/23 03:28 Labs: Lab Results 09/22/23 09/22/23 Range/Units 03:28 Unknown WBC 11.9 H (4.8-10.8) X10*3/uL RBC 4.90 (4.60-5.80) X10*6/uL Hgb 15.6 (14.0-18.0) g/dl Hct 44.4 (42.0-52.0) % MCV 90.6 (80.0-98.0) fL MCH 31.8 (27.0-33.0) pg MCHC 35.1 (31.0-36.0) g/dl RDW 15.0 (11.0-16.0) % Plt Count 343 (160-400) X10*3/uL MPV 9.0 L (9.4-12.4) fL Immature Gran % (Auto) 0.3 (0.0-0.4) % Neut % (Auto) 80.1 H (45-73) % Lymph % (Auto) 10.7 L (20-40) % [place] % (Auto) 8.6 (2-11) % Eos % (Auto) 0.1 (0-4) % Baso % (Auto) 0.2 (0-2) % Lymph # (Auto) 1.3 (1.2-4.9) X10*3/uL [place] # (Auto) 1.0 (0.1-1.2) X10*3/uL Eos # (Auto) 0.0 (0.0-0.4) X10*3/uL Baso # (Auto) 0.0 (0.0-0.2) X10*3/uL Abs Immat Gran (auto) 0.04 H (0.00-0.03) X10*3/uL Absolute Neuts (auto) 9.6 H (2.0-8.3) x10*3/uL Absolute Nucleated RBC 0.000 (0.0-0.012) X10*3/uL Nucleated RBC % (auto) 0.0 (0.0-0.2) /100WBC Sodium 137 (135-145) mmol/L Potassium 3.5 (3.3-5.1) mmol/L Chloride 101 (96-108) mmol/L Carbon Dioxide 19 L (22-29) mmol/L Anion Gap 21 H (12-20) BUN 14 (9-16) mg/dL Creatinine 0.87 (0.5-1.4) mg/dL Estim Creat Clear Calc 127.4 Estimated GFR > 60 Random Glucose 136 H (60-115) mg/dL Calcium 10.6 H (8.4-10.2) mg/dL Total Bilirubin 0.6 (0.0-1.0) mg/dL AST 66 H (5-37) U/L ALT 171 H (0-40) U/L Alkaline Phosphatase 233 H (39-117) U/L Total Protein 8.4 H (6.5-8.0) g/dL Albumin 4.5 (3.5-5.0) g/dL Lipase 518 H (8-78) U/L Urine Color Dark Yellow Urine Appearance Clear Urine pH 6.0 (5.0-9.0) Ur Specific [place] >= 1.030 H (1.005-1.025) Urine Protein 300 (3+) H (Neg-Trace) mg/dL Urine Glucose (UA) Negative (Negative) mg/dL Urine Ketones Trace (Negative) mg/dL Urine Blood Small (1+) H (Negative) Urine Nitrite Negative (Negative) Ur Leukocyte Esterase Small (1+) H (Negative) Urine RBC 11-20 H (0-2) /HPF Urine WBC 6-10 H (0-5) /HPF Ur Squamous Epith Cells 0-2 (0-2) /HPF Urine Bacteria None Seen (None Seen) Hyaline Casts 3-5 (0-2) /LPF Radiology Impression Discussion of test interpretation with radiology: I have reviewed the radiologist's reading. Radiologist Impression: Please see the discussion above External Record Review External record reviewed: Outpatient record, Prior outpatient labs and Prior outpatient radiology Medications Administered Discontinued Medications Generic Name Dose Route Start Last Admin Trade Name Freq PRN Reason Stop Dose Admin Sodium Chloride 1,000 mls @ 999 mls/hr 09/22/23 04:45 09/22/23 05:36 Ns IV 09/22/23 05:45 Infused .Q1H1M SOHAIL Infusion Iohexol 85 ml 09/22/23 05:01 09/22/23 05:02 Iohexol 350 Mg/Ml 100 Ml Infus..Btl IV 09/22/23 05:02 85 ml ONCE ONE Administration Ketorolac Tromethamine 15 mg 09/22/23 05:25 09/22/23 05:29 Ketorolac Tromethamine 30 Mg/Ml Vial IVPUSH 09/22/23 05:26 15 mg ONCE ONE Administration Ondansetron HCl 4 mg 09/22/23 04:35 09/22/23 04:43 Ondansetron Hcl 4 Mg/2 Ml Vial IVPUSH 09/22/23 04:36 4 mg ONCE ONE Administration Discharge Plan Discharge Clinical Impression: Pancreatitis Patient Disposition: Admitted As Inpatient Prescriptions: No Action oxycodone 5 mg Tablet 10 mg PO Q4H PRN (Reason: Pain, Moderate(Pain Scale 4-6)) Qty: 20 0RF Rx Instructions: Partial Fill upon patient request. ondansetron 4 mg tablet,disintegrating 4 mg PO Q8H PRN (Reason: nausea and vomiting) Qty: 20 0RF oxycodone 5 mg tablet 5 mg PO BID PRN (Reason: pain) Qty: 8 0RF Rx Instructions: Partial Fill upon patient request. ondansetron HCl 4 mg tablet 4 mg PO Q8H PRN (Reason: nausea and vomiting) 4 Days Qty: 7 0RF
[2023-09-22] MEDS: Ketorolac Tromethamine 30 MG/ML VIAL 15 MG IVPUSH (05:29)
--- NOTE | 2023-09-22 06:00 | PM.IMHP ---
History of Present Illness Date of Service: 09/22/23 Chief Complaint: Abdominal Pain This is a 32-year-old male with pertinent history of alcohol use disorder with alcoholic pancreatitis, history of gallstone pancreatitis status post cholecystectomy 06/11/2023 who presents to the emergency department for evaluation of epigastric pain. Patient states it started 2 days prior to presentation. It has been constant, progressive, nonradiating and without any relieving factors. Patient tried warm baths at home no relief. Also has associated nausea and nonbloody emesis. Unable to tolerate p.o. intake. Admits that he continues to drink alcohol. His last drink was about 4 days ago. No history of alcohol withdrawal as per the patient. Also has chills. No fever, chest discomfort, palpitations, shortness of breath, changes in urinary or bowel habits. In the emergency department, imaging concerning for pancreatitis and lipase found to be elevated Review of Systems Constitutional: Constitutional: Reports chills Cardiovascular: Cardiovascular: Reports no additional cardiovascular complaints Respiratory: Respiratory: Reports no additional respiratory complaints Gastrointestinal: Gastrointestinal: Reports abdominal pain, Reports nausea and Reports vomiting Genitourinary: Genitourinary: Reports no additional male genitourinary complaints Musculoskeletal: Musculoskeletal: Reports no additional musculoskeletal complaints PMFSH Medical History Kidney stones Pertinent family history: No family history of early CAD Surgical History H/O cystoscopy No pertinent past surgical history Social History Household Members: Family Housing: Apartment Do you presently have visiting nurse or other home services: No Alcohol intake: former Patient Tobacco Use Status: Never used Tobacco Second Hand Smoke Exposure: No Substance Use Type: Marijuana Advance Directives Date on File: 10/21/21 service: No Current occupational status: unemployed Meds Allergies Allergy/AdvReac Type Severity Reaction Status Date / Time cat dander [CATS] Allergy Unknown UNKNOWN Verified 07/30/23 05:11 dog dander [DOGS] Allergy Unknown UNKNOWN Verified 07/30/23 05:11 Physical Exam Vital Signs and Narrative: Vital Signs: Last Vital Signs Temp 98.6 F 09/22/23 04:37 Pulse 88 09/22/23 04:37 Resp 16 09/22/23 04:37 BP 151/97 H 09/22/23 04:37 Pulse Ox 98 09/22/23 04:37 O2 Del Method Room Air 09/22/23 04:37 BMI result Body Mass Index 23.9 Middle-aged male lying in bed in mild distress Neck supple, no JVD Regular rate and rhythm, S1-S2 heard Regular breath sounds bilaterally, no wheezing or crackles appreciated Abdomen with epigastric tenderness, no guarding, no rigidity, no rebound tenderness Patient is awake, alert and oriented to self, place, time and person ; no focal motor deficit Psych: Normal mood No pedal edema Results Labs 09/22/23 03:28 09/22/23 03:28 Labs: Laboratory Results - last 24 hr 09/22/23 09/22/23 03:28 Unknown MCV 90.6 MCH 31.8 MCHC 35.1 RDW 15.0 Plt Count 343 MPV 9.0 L Immature Gran % (Auto) 0.3 Neut % (Auto) 80.1 H Lymph % (Auto) 10.7 L [place] % (Auto) 8.6 Eos % (Auto) 0.1 Baso % (Auto) 0.2 Lymph # (Auto) 1.3 [place] # (Auto) 1.0 Eos # (Auto) 0.0 Baso # (Auto) 0.0 Abs Immat Gran (auto) 0.04 H Absolute Neuts (auto) 9.6 H Absolute Nucleated RBC 0.000 Nucleated RBC % (auto) 0.0 Anion Gap 21 H Estim Creat Clear Calc 127.4 Estimated GFR > 60 Random Glucose 136 H Calcium 10.6 H Total Bilirubin 0.6 AST 66 H ALT 171 H Alkaline Phosphatase 233 H Total Protein 8.4 H Albumin 4.5 Lipase 518 H Urine Color Dark Yellow Urine Appearance Clear Urine pH 6.0 Ur Specific [place] >= 1.030 H Urine Protein 300 (3+) H Urine Glucose (UA) Negative Urine Ketones Trace Urine Blood Small (1+) H Urine Nitrite Negative Ur Leukocyte Esterase Small (1+) H Urine RBC 11-20 H Urine WBC 6-10 H Ur Squamous Epith Cells 0-2 Urine Bacteria None Seen Hyaline Casts 3-5 Imaging Radiologist's Impressions: Impressions Abdomen/Pelvis CT 09/22/23 05:00 IMPRESSION: 1. Mild peripancreatic stranding suspicious for sequelae of pancreatitis. 2. Bilateral renal calculi without hydronephrosis. Assessment and Plan (1) Pancreatitis: Status: Acute Plan This is a 32-year-old male with pertinent history of alcohol use disorder with alcoholic pancreatitis, history of gallstone pancreatitis status post cholecystectomy 06/11/2023 who presents to the emergency department for evaluation of epigastric pain. #. Acute pancreatitis: Will admit patient and continue IV crystalloid resuscitation. IV opioid p.r.n. for pain relief. NPO for bowel rest and advance diet as tolerated. Obtaining triglycerides #. Elevated liver enzymes: Obtaining ultrasound of the abdomen to look at the biliary duct. May need MRCP #. Alcohol use disorder: Initiating thiamine. Monitor CIWA DVT prophylaxis: Lovenox Admit as inpatient and will require two night minimum hospital stay for IV crystalloid resuscitation and evaluation and treatment of pancreatitis. Time Spent With Patient Time: Total time managing care of this patient today ____ minutes. Quality Stroke Does the patient have a stroke diagnosis?: No VTE Prior VTE?: No VTE Risk Level:: Medical - moderate - high VTE Device Contraindication: Treatment Not Indicated VTE Drug Contraindication: N/A - Med Ordered
[2023-09-22] MEDS: HYDROmorphone HCl 0.5 MG/0.5 ML SYRINGE 0.25 MG IVPUSH (06:05)
[2023-09-22] MEDS: Thiamine HCL 100 MG in 0.9 % Sodium Chloride 100 ML 202 MG IV (06:25)
[2023-09-22 07:27] VITALS: BP 134/89; PULSE 70; RESP 20; TEMP 36.9; O2SAT 97
--- NOTE | 2023-09-22 07:34 | PC.NURSE ---
ultrasound at bedside
--- NOTE | 2023-09-22 07:42 | PHA.MEDREC ---
Pharmacy Consult ? Medication Reconciliation Pharmacy has completed the medication reconciliation.
[2023-09-22] MEDS: 0.9 % Sodium Chloride Flush 3 ML SYRINGE IVFLUSH ×2 (07:48→20:29)
[2023-09-22] MEDS: Morphine Sulfate 2 MG/ML CARTRIDGE IVPUSH ×5 (07:49→23:51)
[2023-09-22] MEDS: Lactated Ringers 1,000 ML 100 ML IVCONT ×2 (07:49→17:23)
--- NOTE | 2023-09-22 09:29 | PM.EVENT ---
Event Note Date of Service: 09/22/23 Event Note: Pt seen and examined. He is admitted this morning for acute pancreatitis. He has mild abdominal tenderness to palpation, pain is better. Will start liquid diet and advance as tolerated. Otherwise ass/plan per H and P from this morning Time Spent With Patient Time: Total time managing care of this patient today ____ minutes.
--- NOTE | 2023-09-22 09:57 | MHC.CM.PN ---
PT REPORTS HE LIVES WITH HIS AND KIDS AND IS INDEPENDENT WITH CARE HE DENIES HAVING SERVICES OR DME HCP ON FILE PCP: RACHEL PRYOR DCP: HOME NO SERVICES PT WILL NEED TRANSPORT ARRANGED, HOWEVER STATES HE IS IN WALKING DISTANCE IF FEELING WELL ENOUGH
[2023-09-22 10:06] LABS: Triglycerides 47 mg/dL (<150)
--- NOTE | 2023-09-22 12:37 | MHC.EDTECH ---
Patient arrived in overflow. Patient is mostly independent and is comfortable with no needs at this time. patients belongings are at the bedside.
[2023-09-22 16:00] VITALS: BP 147/84; PULSE 58; RESP 20; TEMP 37.4; O2SAT 98
[2023-09-22 19:50] VITALS: BP 132/81; PULSE 57; RESP 20; TEMP 36.6; O2SAT 99
[2023-09-23 03:17] VITALS: BP 132/84; PULSE 54; RESP 16; TEMP 36.2; O2SAT 98
[2023-09-23] MEDS: Morphine Sulfate 2 MG/ML CARTRIDGE IVPUSH (03:53)
[2023-09-23] MEDS: Lactated Ringers 1,000 ML 100 ML IVCONT ×3 (03:55→21:59)
[2023-09-23 05:56] LABS: MANUAL DIFF FLAG NO
[2023-09-23 06:21] LABS: Basophils Percent Auto 0.3 % (0-2); Eosinophils Absolute Auto 0.1 X10*3/uL (0.0-0.4); Eosinophils Percent Auto 0.9 % (0-4); Hematocrit 38.5 % (42.0-52.0); Hemoglobin 13.2 g/dl (14.0-18.0); Imm Gran Abs Auto 0.03 X10*3/uL (0.00-0.03); Imm Gran Pct Auto 0.3 % (0.0-0.4); Lymphocytes Percent Auto 22.9 % (20-40); Mean Corpuscular HGB Conc 34.3 g/dl (31.0-36.0); Mean Corpuscular Hemoglobin 31.7 pg (27.0-33.0); Mean Corpuscular Volume 92.3 fL (80.0-98.0); Monocytes Absolute Auto 0.8 X10*3/uL (0.1-1.2); Monocytes Percent Auto 9.3 % (2-11); Neutrophils Absolute Auto 5.8 x10*3/uL (2.0-8.3); Neutrophils Percent Auto 66.3 % (45-73); Platelet Count 296 X10*3/uL (160-400); Red Blood Count 4.17 X10*6/uL (4.60-5.80); Red Cell Distribution Width 14.6 % (11.0-16.0); White Blood Count 8.7 X10*3/uL (4.8-10.8)
[2023-09-23 06:25] LABS: Alanine Aminotransferase 191 U/L (0-40); Albumin Level 3.5 g/dL (3.5-5.0); Alkaline Phosphatase 283 U/L (39-117); Anion Gap 15 (12-20); Aspartate Amino Transferase 316 U/L (5-37); Bilirubin Direct 0.9 mg/dL (0.0-0.5); Bilirubin Total 1.6 mg/dL (0.0-1.0); Blood Urea Nitrogen 14 mg/dL (9-16); Calcium 9.1 mg/dL (8.4-10.2); Carbon Dioxide 25 mmol/L (22-29); Chloride 102 mmol/L (96-108); Creatinine Clr Calc Pharmacy 138.5; Estimated Glomerular Filt Rate > 60; Glucose Random 84 mg/dL (60-115); Lipase 233 U/L (8-78); Potassium 3.5 mmol/L (3.3-5.1); Sodium 138 mmol/L (135-145); Total Protein 6.4 g/dL (6.5-8.0)
[2023-09-23 07:33] VITALS: BP 129/81; PULSE 56; RESP 16; TEMP 36.5; O2SAT 100
[2023-09-23] MEDS: Acetaminophen 325 MG TABLET 650 MG PO (07:33)
[2023-09-23] MEDS: Enoxaparin Sodium 40 MG/0.4 ML SYRINGE SUBCUT (08:05)
[2023-09-23] MEDS: HYDROmorphone HCl 0.5 MG/0.5 ML SYRINGE IVPUSH ×3 (08:05→22:00)
--- NOTE | 2023-09-23 09:00 | HO.PM.IMPN ---
Subjective Subjective Date of Service: 09/23/23 Interval History: f/u pancreatitis, pain not controlled on morphine, lipase down Physical Exam Vital Signs: Vital Signs: Last Vital Signs Temp 97.7 F 09/23/23 07:33 Pulse 56 09/23/23 07:33 Resp 16 09/23/23 07:33 BP 129/81 09/23/23 07:33 Pulse Ox 100 09/23/23 07:33 O2 Del Method Room Air 09/23/23 07:33 BMI result Body Mass Index 23.9 Const: Other: General: AO X 3, no acute distress Resp: CTA bilateral CVS: S1,S2,RRR GI: +BS, NT, no distention Skin: No rash Neuro: motor grossly intact Psych: appropriate affect Objective Data Active Medications Acetaminophen (Acetaminophen 325 Mg Tablet) 650 mg PO Q6H PRN PRN Reason: Pain, Mild (Pain Scale 1-3) Last Admin: 09/23/23 07:33 Dose: 650 mg Documented By: KEMAR Enoxaparin Sodium (Enoxaparin Sodium 40 Mg/0.4 Ml Syringe) 40 mg SUBCUT Q24H [facility] Last Admin: 09/23/23 08:05 Dose: 40 mg Documented By: JANIA Hydromorphone HCl (Hydromorphone Hcl 0.5 Mg/0.5 Ml Syringe) 0.5 mg IVPUSH Q4H PRN; Protocol PRN Reason: Pain, Severe (Pain Scale 7-10) Last Admin: 09/23/23 08:05 Dose: 0.5 mg Documented By: JANIA Thiamine HCl 100 mg/ Sodium (Chloride) 101 mls @ 202 mls/hr IV DAILY [facility] Last Infusion: 09/22/23 07:49 Dose: Infused Documented By: RICHA Lactated Ringer's (Lr) 1,000 mls @ 100 mls/hr IVCONT .Q10H SOHAIL Last Admin: 09/23/23 03:55 Dose: 100 mls/hr Documented By: MASOOD Melatonin (Melatonin 3 Mg Tablet) 6 mg PO BEDTIME PRN PRN Reason: Insomnia Ondansetron HCl (Ondansetron Hcl 4 Mg/2 Ml Vial) 4 mg IVPUSH Q8H PRN PRN Reason: Nausea and Vomiting Last Admin: 09/22/23 07:48 Dose: 4 mg Documented By: RICHA Sodium Chloride (0.9 % Sodium Chloride Flush 3 Ml Syringe) 3 ml IVFLUSH QSHIFT [facility] Last Admin: 09/23/23 07:35 Dose: Not Given Documented By: KEMAR Non-Admin Reason: IV Running Labs 09/23/23 05:17 09/23/23 05:17 Labs: Laboratory Results - last 24 hr 09/22/23 09/23/23 09/23/23 09:51 05:17 05:17 MCV 92.3 MCH 31.7 MCHC 34.3 RDW 14.6 Plt Count 296 MPV 10.0 Immature Gran % (Auto) 0.3 Neut % (Auto) 66.3 Lymph % (Auto) 22.9 [place] % (Auto) 9.3 Eos % (Auto) 0.9 Baso % (Auto) 0.3 Lymph # (Auto) 2.0 [place] # (Auto) 0.8 Eos # (Auto) 0.1 Baso # (Auto) 0.0 Abs Immat Gran (auto) 0.03 Absolute Neuts (auto) 5.8 Absolute Nucleated RBC 0.000 Nucleated RBC % (auto) 0.0 Anion Gap 15 Estim Creat Clear Calc 138.5 Estimated GFR > 60 Random Glucose 84 Calcium 9.1 D Total Bilirubin 1.6 H Cancelled Direct Bilirubin 0.9 H AST ALT Alkaline Phosphatase Total Protein Albumin Triglycerides 47 Lipase 09/23/23 09/23/23 09/23/23 05:17 05:17 05:17 MCV MCH MCHC RDW Plt Count MPV Immature Gran % (Auto) Neut % (Auto) Lymph % (Auto) [place] % (Auto) Eos % (Auto) Baso % (Auto) Lymph # (Auto) [place] # (Auto) Eos # (Auto) Baso # (Auto) Abs Immat Gran (auto) Absolute Neuts (auto) Absolute Nucleated RBC Nucleated RBC % (auto) Anion Gap Estim Creat Clear Calc Estimated GFR Random Glucose Calcium Total Bilirubin Direct Bilirubin Cancelled AST 316 H Cancelled ALT 191 H Cancelled Alkaline Phosphatase 283 H Total Protein Albumin Triglycerides Lipase 09/23/23 09/23/23 09/23/23 05:17 05:17 05:17 MCV MCH MCHC RDW Plt Count MPV Immature Gran % (Auto) Neut % (Auto) Lymph % (Auto) [place] % (Auto) Eos % (Auto) Baso % (Auto) Lymph # (Auto) [place] # (Auto) Eos # (Auto) Baso # (Auto) Abs Immat Gran (auto) Absolute Neuts (auto) Absolute Nucleated RBC Nucleated RBC % (auto) Anion Gap Estim Creat Clear Calc Estimated GFR Random Glucose Calcium Total Bilirubin Direct Bilirubin AST ALT Alkaline Phosphatase Cancelled Total Protein 6.4 L Cancelled Albumin 3.5 Cancelled Triglycerides Lipase 233 H 09/23/23 05:17 MCV MCH MCHC RDW Plt Count MPV Immature Gran % (Auto) Neut % (Auto) Lymph % (Auto) [place] % (Auto) Eos % (Auto) Baso % (Auto) Lymph # (Auto) [place] # (Auto) Eos # (Auto) Baso # (Auto) Abs Immat Gran (auto) Absolute Neuts (auto) Absolute Nucleated RBC Nucleated RBC % (auto) Anion Gap Estim Creat Clear Calc Estimated GFR Random Glucose Calcium Total Bilirubin Direct Bilirubin AST ALT Alkaline Phosphatase Total Protein Albumin Triglycerides Lipase Cancelled Assessment and Plan (1) Pancreatitis: Status: Resolved Assessment and Plan: 32-year-old male with pertinent history of alcohol use disorder with alcoholic pancreatitis, history of gallstone pancreatitis status post cholecystectomy 06/11/2023 who presents to the emergency department for evaluation of epigastric pain. #. Acute pancreatitis: prior CCY, MRCP in past showed no stone, Lipase is trending down, denies Etoh, nl TG liquid diet and advance as tolerated, dilaudid and oxycodone for pain #. Elevated liver enzymes: Trending up, chronically high, check hep b, c #. Alcohol use disorder:on CIWA, although he told me he doesn't drink DVT prophylaxis: Lovenox Admit as inpatient and will require two night minimum hospital stay for IV crystalloid resuscitation and evaluation and treatment of pancreatiti Plan Time Spent With Patient Time: Total time managing care of this patient today ____ minutes. Quality Stroke Does the patient have a stroke diagnosis?: No VTE Prior VTE?: No VTE Risk Level:: Medical - moderate - high VTE Device Contraindication: Treatment Not Indicated VTE Drug Contraindication: N/A - Med Ordered
[2023-09-23] MEDS: Thiamine HCL 100 MG in 0.9 % Sodium Chloride 100 ML 202 MG IV (10:32)
[2023-09-23] MEDS: oxyCODONE HCl Immed Release 5 MG TABLET PO (10:33)
--- NOTE | 2023-09-23 14:31 | MHC.CM.PN ---
PER PHYSICIAN ROUNDS, PATIENT WITH HIGH PAIN STILL AND UNABLE TO ADVANCE DIET. NO PLAN FOR DC TODAY
[2023-09-23 14:48] VITALS: RESP 20
[2023-09-23 16:00] VITALS: BP 125/79; PULSE 64; RESP 17; TEMP 36.7; O2SAT 99
[2023-09-23 19:37] VITALS: BP 136/79; PULSE 60; RESP 17; TEMP 36.9; O2SAT 100
[2023-09-24] MEDS: HYDROmorphone HCl 0.5 MG/0.5 ML SYRINGE IVPUSH ×3 (02:18→10:46)
[2023-09-24 03:53] VITALS: BP 112/57; PULSE 53; RESP 14; TEMP 37.1; O2SAT 99
[2023-09-24 08:00] VITALS: BP 124/77; PULSE 52; RESP 16; TEMP 36.2; O2SAT 99
--- NOTE | 2023-09-24 10:21 | PM.DS ---
DS: Providers Provider Date of Service: 09/24/23 Date of admission: 09/22/23 05:59 Primary care physician: Cade Peres MD DS: Diagnosis Discharge Diagnosis (1) Pancreatitis: Status: Resolved DS: Summary Hospital Course Hospital Course: Chief Complaint: Abdominal Pain This is a 32-year-old male with pertinent history of alcohol use disorder with alcoholic pancreatitis, history of gallstone pancreatitis status post cholecystectomy 06/11/2023 who presents to the emergency department for evaluation of epigastric pain. Patient states it started 2 days prior to presentation. It has been constant, progressive, nonradiating and without any relieving factors. Patient tried warm baths at home no relief. Also has associated nausea and nonbloody emesis. Unable to tolerate p.o. intake. Admits that he continues to drink alcohol. His last drink was about 4 days ago. No history of alcohol withdrawal as per the patient. Also has chills. No fever, chest discomfort, palpitations, shortness of breath, changes in urinary or bowel habits. In the emergency department, imaging concerning for pancreatitis and lipase found to be elevated Hospital course: The patient was hospitalized for the treatment of acute pancreatitis, which involved hydration, intravenous pain medication, and a gradual transition to a regular diet. Lipase level has gone down. Currently, the patient is tolerating a regular diet well, with his pain well-controlled. He has been counseled to abstain from alcohol, and he comprehends the associated health risks. Time Spent with Patient Time attestation: Total time managing care of this patient today ____ minutes. Discharge coordination time: Greater than 30 minutes Quality: Safe Use of Opioids Does Pt have an Active Cancer Diagnosis on the Problem List?: No Quality: Stroke Does the patient have a stroke diagnosis?: No Physical Exam Vital Signs: Vital Signs: Last Vital Signs Temp 97.2 F 09/24/23 08:00 Pulse 52 09/24/23 08:00 Resp 16 09/24/23 08:00 BP 124/77 09/24/23 08:00 Pulse Ox 99 09/24/23 08:00 O2 Del Method Room Air 09/24/23 08:00 BMI result Body Mass Index 23.9 Const: Other: General: AO X 3, no acute distress Resp: CTA bilateral CVS: S1,S2,RRR GI: +BS, NT, no distention Skin: No rash Neuro: motor grossly intact Psych: appropriate affect DS: Data Data Completed and Pending Completed studies during hospitalization [Text1]: Procedures Extirpation of Matter from Left Ureter, Via Natural or Artificial Opening Endoscopic (10/18/21) Fluoroscopy of Left Kidney, Ureter and Bladder (10/18/21) Other Imaging of Gallbladder and Bile Ducts using Fluorescing Agent, Intraoperative (06/09/23) Resection of Gallbladder, Percutaneous Endoscopic Approach (06/09/23) Discharge Plan Discharge Anticipated Discharge Date/Time: 09/24/23 09:58 Patient Disposition: Home, Self-Care Discharge Diagnosis: Acute pancreatitis Referrals: Cade Peres MD [Primary Care Provider] - 1 Week Discharge Medications: No Action No Known Home Meds Discharge Orders: Discharge Order (Routine); Ordered 09/24/23 Ordered By: Luciano Martínez Diet: Advance to usual diet Activity on Discharge: As tolerated Stand Alone Forms: Patient Portal Discharge page Care Plan Goals: recovery from pancreatitis Health Concerns: pancreatitis Plan of Treatment: avoid alcohol, follow up with your Doctor in a week, call for appointment Assessment: jeyson
[2023-09-24] MEDS: Thiamine HCL 100 MG in 0.9 % Sodium Chloride 100 ML 202 MG IV (10:46)
--- NOTE | 2023-09-24 10:47 | MHC.CM.PN ---
Addendum entered by Flakita Montemayor 09/24/23 14:39: PTS MOTHER PICKED HIM UP HE DISCHARGED WITH NO SERVICES Original Note: PT WILL DC HOME TODAY WITH NO SERVICES PT MAY NEED SHUTTLE TRANSPORT
[2023-09-24] MEDS: 0.9 % Sodium Chloride Flush 3 ML SYRINGE IVFLUSH (10:48)
[2023-09-24] MEDS: ondansetron HCL 4 MG/2 ML VIAL IVPUSH (10:53)
[2023-09-24] MEDS: oxyCODONE HCl Immed Release 5 MG TABLET PO (13:21)
== END 2023-09-24 13:45 | disposition home or self-care (01) | DRG 282 ==
LOC: HO.ED 05:11 → HO.EDOVER 06:04 → HO.S3 14:00
PROVIDERS: Admitting Provider Student in an Organized Health Care Education/Training Program; Emergency Provider Student in an Organized Health Care Education/Training Program; PCP Family Medicine; Visit Provider Internal Medicine
DX: K85.90 Acute pancreatitis without necrosis or infection, unspecified (principal); F19.10 Other psychoactive substance abuse, uncomplicated
CPT/HCPCS: 36415; 74177; 76705; 80053; 80076; 81001; 82248; 83690; 84478; 85025; 87086; 99285; J1170; J1650; J1885; J2270; J2405; J3411; Q9967

== ENCOUNTER → 2023-09-22 05:59 | Outpatient (BNV) | payer OTHER, SELFPAY | PROVIDERS: Admitting Provider Student in an Organized Health Care Education/Training Program; Emergency Provider Student in an Organized Health Care Education/Training Program; PCP Family Medicine; Visit Provider Student in an Organized Health Care Education/Training Program | DX: K85.90 Acute pancreatitis without necrosis or infection, unspecified (principal) | CPT/HCPCS: 99222; 99232; 99239; 99499 ==

== ENCOUNTER 2023-11-20 07:40 | Emergency (ER) | payer OTHER, SELFPAY ==
[2023-11-20 07:43] VITALS: BP 137/90; BP 168/92; PULSE 114; PULSE 83; RESP 16; TEMP 36.6; O2SAT 100; O2SAT 98; BMI 24.0
--- NOTE | 2023-11-20 07:59 | ECG_ITS ---
Test Reason : MEDICATION Blood Pressure : / mmHG Vent. Rate : 086 BPM Atrial Rate : 086 BPM P-R Int : 144 ms QRS Dur : 086 ms QT Int : 380 ms P-R-T Axes : 076 072 052 degrees QTc Int : 454 ms Normal sinus rhythm Normal ECG When compared with ECG of 21-APR-2023 01:42, T wave amplitude has increased in Anterior leads Referred By: Aidee Velasco Electronically Signed By:ABY DURAN MD
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
[2023-11-20] MEDS: 0.9 % Sodium Chloride 1,000 ML 999 ML IV (08:17)
[2023-11-20 08:21] VITALS: BP 129/81; PULSE 81; RESP 16; TEMP 36.7
[2023-11-20 08:22] LABS: MANUAL DIFF FLAG NO
[2023-11-20] MEDS: ondansetron HCL 4 MG/2 ML VIAL IVPUSH ×2 (08:23→10:22)
[2023-11-20 08:24] LABS: Basophils Absolute Auto 0.1 X10*3/uL (0.0-0.2); Basophils Percent Auto 0.5 % (0-2); Eosinophils Percent Auto 0.1 % (0-4); Hematocrit 38.6 % (42.0-52.0); Hemoglobin 13.4 g/dl (14.0-18.0); Imm Gran Abs Auto 0.04 X10*3/uL (0.00-0.03); Imm Gran Pct Auto 0.4 % (0.0-0.4); Lymphocytes Absolute Auto 1.2 X10*3/uL (1.2-4.9); Lymphocytes Percent Auto 11.1 % (20-40); Mean Corpuscular HGB Conc 34.7 g/dl (31.0-36.0); Mean Corpuscular Hemoglobin 31.8 pg (27.0-33.0); Mean Corpuscular Volume 91.5 fL (80.0-98.0); Mean Platelet Volume 9.2 fL (9.4-12.4); Monocytes Absolute Auto 0.7 X10*3/uL (0.1-1.2); Monocytes Percent Auto 6.2 % (2-11); Neutrophils Absolute Auto 8.9 x10*3/uL (2.0-8.3); Neutrophils Percent Auto 81.7 % (45-73); Platelet Count 305 X10*3/uL (160-400); Red Blood Count 4.22 X10*6/uL (4.60-5.80); Red Cell Distribution Width 14.8 % (11.0-16.0); White Blood Count 10.9 X10*3/uL (4.8-10.8)
--- NOTE | 2023-11-20 08:35 | PC.NURSE ---
pt comes from home after 2-3 days of abdominal pain and 1-2 episodes of vomiting non-bloody emesis. pt reports drinking the last few days due to burying his brother yesterday. pt ia a&o x4, calm, and cooperative. 20G IV placed to LAC, labs drawn and sent. pt medicated per jan. pt reporting 8/10 pain to mid-abdomen that radiates to right side. pt also reports decreased po intake due to the pain/nausea/vomiting. pt currently resting quietly on stretcher, call gallego within pt reach. plan of care ongoing.
[2023-11-20 08:42] LABS: Alanine Aminotransferase 238 U/L (0-40); Albumin Level 4.1 g/dL (3.5-5.0); Alkaline Phosphatase 290 U/L (39-117); Anion Gap 19 (12-20); Aspartate Amino Transferase 209 U/L (5-37); Blood Urea Nitrogen 13 mg/dL (9-16); Calcium 9.8 mg/dL (8.4-10.2); Carbon Dioxide 23 mmol/L (22-29); Chloride 98 mmol/L (96-108); Creatinine Clr Calc Pharmacy 140.7; Estimated Glomerular Filt Rate > 60; Glucose Random 96 mg/dL (60-115); Lipase 239 U/L (8-78); Potassium 3.5 mmol/L (3.3-5.1); Sodium 136 mmol/L (135-145); Total Protein 7.6 g/dL (6.5-8.0)
[2023-11-20] MEDS: Magnesium Hydrox/Alum Hydrox 30 ML ORAL.SUSP PO (09:06)
[2023-11-20] MEDS: Lidocaine HCl Viscous 2 % 15 ML SOLUTION 10 ML MUCOUS MEM (09:06)
[2023-11-20] MEDS: Sucralfate Oral Suspension 1 GM/10 ML ORAL.SUSP PO (09:06)
[2023-11-20 10:47] LABS: Amphetamine Screen Urine Not Detected (Not Detect); Barbiturates, Urine Not Detected (Not Detect); Benzodiazepines Screen Urine Not Detected (Not Detect); Cannabinoid Screen Urine POSITIVE (Not Detect); Cocaine Screen Urine Not Detected (Not Detect); Fentanyl, urine Not Detected (Not Detect); Opiate Screen Urine Not Detected (Not Detect); Phencyclidine Screen Urine Not Detected (Not Detect)
== END 2023-11-20 11:09 | disposition home or self-care (01) ==
PROVIDERS: Emergency Provider Student in an Organized Health Care Education/Training Program; PCP Family Medicine
DX: K85.20 Alcohol induced acute pancreatitis without necrosis or infection (principal); K29.20 Alcoholic gastritis without bleeding; Z90.49 Acquired absence of other specified parts of digestive tract
CPT/HCPCS: 36415; 80053; 80307; 83690; 85025; 93005; 96361; 96374; 96376; 99284; 99285; J2405

== ENCOUNTER → 2023-11-20 07:59 | Outpatient (BNV) | payer OTHER, SELFPAY | PROVIDERS: Emergency Provider Student in an Organized Health Care Education/Training Program; PCP Family Medicine; Visit Provider Internal Medicine Cardiovascular Disease | DX: K29.20 Alcoholic gastritis without bleeding (principal) | CPT/HCPCS: 93010 ==

== ENCOUNTER 2024-01-26 05:06 | Emergency (ER) | payer OTHER, SELFPAY ==
--- NOTE | ~2024-01-26 | CT_ITS ---
EXAMINATION: CT ABDOMEN AND PELVIS WITHOUT CONTRAST CLINICAL INFORMATION: Flank pain with history of kidney stones COMPARISON: CT of 09/22/2023 and 08/05/2023 TECHNIQUE: Multidetector volumetric imaging was performed from the superior aspect of the liver through the pubic symphysis. Sagittal and coronal reformatted images were obtained on the technologist's workstation. This CT examination was performed using dose optimization techniques as appropriate, variously including the following: *Automated exposure control *Adjustment of mA and/or kV according to patient size (this includes techniques or standardized protocols for targeted exams where dose is matched to indication/reason for exam; i.e. extremities or head) *Use of iterative reconstruction technique DLP: 425 mGy-cm FINDINGS: LUNG BASES: The visualized lung bases are unremarkable. LIVER, GALLBLADDER, AND BILIARY TREE: The liver is normal in size, shape, and attenuation. No focal hepatic lesion or biliary ductal dilatation is present. The gallbladder is surgically absent. The common bile duct is prominent though stable, likely related to prior cholecystectomy. PANCREAS: Mild infiltration about the distal pancreatic body and tail, decreased since prior examinations, presumably the sequela of prior pancreatitis. No pancreatic mass or ductal dilatation. SPLEEN: Unremarkable. ADRENAL GLANDS: Unremarkable. KIDNEYS AND URETERS: The kidneys are normal in size, shape, and attenuation. There are several bilateral intrarenal calculi, unchanged. In the right kidney, the largest measures 8 x 6 mm in the lower pole. Several additional punctate calculi are also evident at the level of the right renal papillae. On the left, the largest calculus measures 5 x 2 mm in the lower pole. No ureteral calculi are detected. No hydronephrosis or hydroureter. No perinephric stranding. BLADDER: Unremarkable. GASTROINTESTINAL TRACT: The small and large bowel are unremarkable. The appendix is unremarkable. ABDOMINAL WALL: No significant hernia is appreciated. LYMPH NODES: Normal. VASCULAR: Unremarkable. PELVIC VISCERA: Unremarkable. OSSEOUS STRUCTURES: There is mild loss of height at T11, unchanged since 2022. CT/CT abdomen pelvis wo IV con IMPRESSION: 1. No change in bilateral nonobstructing intrarenal calculi. 2. Improvement in peripancreatic infiltration consistent with resolving pancreatitis. 3. No new or acute findings in the abdomen and pelvis. Fleischner guidelines were followed.
[2024-01-26 05:14] VITALS: BP 140/90; PULSE 82; O2SAT 97
[2024-01-26 05:19] VITALS: BP 137/106; PULSE 79; RESP 16; TEMP 36.9; O2SAT 98; BMI 23.5
[2024-01-26 05:32] LABS: MANUAL DIFF FLAG NO
[2024-01-26 05:33] LABS: Basophils Percent Auto 0.1 % (0-2); Eosinophils Percent Auto 0.1 % (0-4); Hematocrit 46.3 % (42.0-52.0); Hemoglobin 16.3 g/dl (14.0-18.0); Imm Gran Abs Auto 0.06 X10*3/uL (0.00-0.03); Imm Gran Pct Auto 0.4 % (0.0-0.4); Lymphocytes Absolute Auto 0.8 X10*3/uL (1.2-4.9); Lymphocytes Percent Auto 5.5 % (20-40); Mean Corpuscular HGB Conc 35.2 g/dl (31.0-36.0); Mean Corpuscular Hemoglobin 31.5 pg (27.0-33.0); Mean Corpuscular Volume 89.6 fL (80.0-98.0); Mean Platelet Volume 9.1 fL (9.4-12.4); Monocytes Absolute Auto 1.1 X10*3/uL (0.1-1.2); Monocytes Percent Auto 7.7 % (2-11); Neutrophils Absolute Auto 12.5 x10*3/uL (2.0-8.3); Neutrophils Percent Auto 86.2 % (45-73); Platelet Count 432 X10*3/uL (160-400); Red Blood Count 5.17 X10*6/uL (4.60-5.80); Red Cell Distribution Width 14.8 % (11.0-16.0); White Blood Count 14.5 X10*3/uL (4.8-10.8)
[2024-01-26] MEDS: Morphine Sulfate 4 MG/ML CARTRIDGE IVPUSH (06:16)
[2024-01-26] MEDS: ondansetron HCL 4 MG/2 ML VIAL IVPUSH (06:17)
[2024-01-26] MEDS: 0.9 % Sodium Chloride 1,000 ML 999 ML IV (06:18)
--- NOTE | 2024-01-26 06:23 | PC.NURSE ---
Pt ca&ox4, no signs of distress. Pt medicated per mar. Plan of care ongoing.
[2024-01-26 06:29] LABS: Alanine Aminotransferase 255 U/L (0-40); Alkaline Phosphatase 366 U/L (39-117); Anion Gap 17 (12-20); Aspartate Amino Transferase 118 U/L (5-37); Blood Urea Nitrogen 25 mg/dL (9-16); Calcium 11.1 mg/dL (8.4-10.2); Carbon Dioxide 22 mmol/L (22-29); Chloride 99 mmol/L (96-108); Creatinine Clr Calc Pharmacy 87.1; Estimated Glomerular Filt Rate > 60; Glucose Random 164 mg/dL (60-115); Potassium 3.9 mmol/L (3.3-5.1); Sodium 134 mmol/L (135-145); Total Protein 9.1 g/dL (6.5-8.0)
--- NOTE | 2024-01-26 06:32 | ED.ABDPAIN ---
HPI - Abdominal Pain General Chief Complaint: Abdominal Pain Stated Complaint: BILATERAL FLANK PAIN Time Seen by Provider: 01/26/24 06:31 Source: patient Mode of arrival: ambulatory Limitations: no limitations History of Present Illness HPI narrative: Patient with history of kidney stone and pancreatitis secondary to gallstone comes here for acute onset of left flank pain started about 3 days ago got worse prior to arrival radiating to the left lower abdomen having dark color urine also slight nausea no abdominal pain no fever no chills patient has left UPJ stone in the past status post nephrostomy and lithotripsy and stent placement. Had pancreatitis episode last year 09/20 post cholecystectomy secondary to gallstones. Related Data Previous Rx's Medication Instructions Recorded ondansetron 4 mg disintegrating 4 mg PO Q8H PRN nausea and 11/20/23 tablet vomiting 4 days #14 tabs sucralfate 100 mg/mL oral 10 ml PO BID #420 mL 11/20/23 suspension (Carafate) Allergies Allergy/AdvReac Type Severity Reaction Status Date / Time cat dander [CATS] Allergy Unknown UNKNOWN Verified 07/30/23 05:11 dog dander [DOGS] Allergy Unknown UNKNOWN Verified 07/30/23 05:11 Review of Systems Review of Systems Yes all other systems are reviewed and are negative [facility] Past Medical History Medical History Kidney stones Surgical History H/O cystoscopy No pertinent past surgical history Social History Social History Household Members: Family Housing: House Do you presently have visiting nurse or other home services: No Alcohol intake: former Patient Tobacco Use Status: Never used Tobacco Second Hand Smoke Exposure: No Substance Use Type: Marijuana Advance Directives: Yes Advance Directives on File: Yes Advance Directives Date on File: 10/21/21 service: No Current occupational status: unemployed Physical Exam ED Vital Signs: Vital Signs - 24 hr 01/26/24 05:19 Temperature 98.4 F Pulse Rate 79 Respiratory Rate 16 Blood Pressure 137/106 H Pulse Oximetry 98 Oxygen Delivery Method Room Air BMI result Body Mass Index 23.5 Appearance: Alert. Oriented X3. In moderate discomfort Eyes: No pallor or icterus ENT: Pharynx normal. Oral Mucosa moist Neck: Normal inspection. Neck supple. CVS: Normal heart rate and rhythm. Pulses normal. Respiratory: No respiratory distress. Equal air entry bilateral, no wheezing/rales/rhonchi Abdomen: Soft and nontender. Bowel sounds are present, no mass palpable, L CVA tenderness ++ Skin: Skin warm and dry. Normal skin color. Normal skin turgor. Extremities: No lower extremity edema. Neuro: Oriented X 3. No motor deficit. Medical Decision Making Medical Decision Making [facility] Narrative: Patient with left renal colic with history of kidney stone likely has kidney stone. Will give IV analgesics IV fluids CT scan. Unlikely patient has pancreatitis Differential Diagnosis Differential Diagnoses: The differential diagnosis associated with the presentation includes Patient with bilateral nonobstructive kidney stone with left distal ureteric stone pain management and re-evaluation Lab Data [facility] Lab Attestation statement: I reviewed the patient's lab results. 01/26/24 05:22 01/26/24 05:56 Labs: Lab Results 01/26/24 01/26/24 Range/Units 05:22 05:56 WBC 14.5 H (4.8-10.8) X10*3/uL RBC 5.17 D (4.60-5.80) X10*6/uL Hgb 16.3 D (14.0-18.0) g/dl Hct 46.3 (42.0-52.0) % MCV 89.6 (80.0-98.0) fL MCH 31.5 (27.0-33.0) pg MCHC 35.2 (31.0-36.0) g/dl RDW 14.8 (11.0-16.0) % Plt Count 432 H D (160-400) X10*3/uL MPV 9.1 L (9.4-12.4) fL Immature Gran % (Auto) 0.4 (0.0-0.4) % Neut % (Auto) 86.2 H (45-73) % Lymph % (Auto) 5.5 L (20-40) % [place] % (Auto) 7.7 (2-11) % Eos % (Auto) 0.1 (0-4) % Baso % (Auto) 0.1 (0-2) % Lymph # (Auto) 0.8 L (1.2-4.9) X10*3/uL [place] # (Auto) 1.1 (0.1-1.2) X10*3/uL Eos # (Auto) 0.0 (0.0-0.4) X10*3/uL Baso # (Auto) 0.0 (0.0-0.2) X10*3/uL Abs Immat Gran (auto) 0.06 H (0.00-0.03) X10*3/uL Absolute Neuts (auto) 12.5 H (2.0-8.3) x10*3/uL Absolute Nucleated RBC 0.000 (0.0-0.012) X10*3/uL Nucleated RBC % (auto) 0.0 (0.0-0.2) /100WBC Sodium 134 L (135-145) mmol/L Potassium 3.9 (3.3-5.1) mmol/L Chloride 99 (96-108) mmol/L Carbon Dioxide 22 (22-29) mmol/L Anion Gap 17 (12-20) BUN 25 H (9-16) mg/dL Creatinine 1.26 (0.5-1.4) mg/dL Estim Creat Clear Calc 87.1 Estimated GFR > 60 Random Glucose 164 H (60-115) mg/dL Calcium 11.1 H D (8.4-10.2) mg/dL Total Bilirubin 1.0 (0.0-1.0) mg/dL AST 118 H (5-37) U/L ALT 255 H (0-40) U/L Alkaline Phosphatase 366 H (39-117) U/L Total Protein 9.1 H (6.5-8.0) g/dL Albumin 5.0 (3.5-5.0) g/dL Lipase 552 H (8-78) U/L Medications Administered Generic Name Dose Route Start Last Admin Trade Name Freq PRN Reason Stop Dose Admin Sodium Chloride 1,000 mls @ 999 mls/hr 01/26/24 06:12 01/26/24 06:18 Ns IV 01/26/24 07:12 999 mls/hr .Q1H1M ONE Administration Discontinued Medications Generic Name Dose Route Start Last Admin Trade Name Freq PRN Reason Stop Dose Admin Morphine Sulfate 4 mg 01/26/24 06:12 01/26/24 06:16 Morphine Sulfate 4 Mg/Ml Cartridge IVPUSH 01/26/24 06:13 4 mg ONCE ONE Administration Protocol Ondansetron HCl 4 mg 01/26/24 06:12 01/26/24 06:17 Ondansetron Hcl 4 Mg/2 Ml Vial IVPUSH 01/26/24 06:13 4 mg ONCE ONE Administration Discharge Plan Discharge Clinical Impression: Calculus of left ureter Patient Disposition: Still a Patient Instructions: Renal Colic (ED) Prescriptions: No Action ondansetron 4 mg tablet,disintegrating 4 mg PO Q8H PRN (Reason: nausea and vomiting) 4 Days Qty: 14 0RF sucralfate [Carafate] 100 mg/mL suspension 10 ml PO BID Qty: 420 0RF
[2024-01-26 06:45] LABS: Lipase 552 U/L (8-78)
[2024-01-26] MEDS: Ketorolac Tromethamine 30 MG/ML VIAL IVPUSH (07:09)
[2024-01-26 07:49] LABS: Ethanol < 10 mg/dL
[2024-01-26 08:16] VITALS: BP 120/81; PULSE 60; RESP 18; TEMP 36.6; O2SAT 99
--- NOTE | 2024-01-26 08:20 | PC.NURSE ---
pt is alert and oriented, skin appropriate for ethnicity, respirations even and unlabored, ls clear, abd soft but tender on the left left lower and active bowel sounds in all 4 quadrants, pt reports that the pain wraps towards bilateral flank area , pain at 2/10, vs stable
[2024-01-26 08:23] LABS: Appearance Urine Hazy; Color Urine Orange; Glucose Urine UA Negative (Negative); Leukocyte Esterase Urine Negative (Negative); Specific Gravity - Urine >= 1.030 (1.005-1.025); UMIC TRIGGER UACC YES; Urine Protein 300 (3+) mg/dL (Neg-Trace)
[2024-01-26 08:31] LABS: Bacteria Urine None Seen (None Seen); Granular Casts Urine Present; RBC Urine 0-2 /HPF (0-2); Squamous Epithelial Cell Urine 0-2 /HPF (0-2); UACC Culture Trigger YES
[2024-01-26 08:33] LABS: Lactate Dehydrogenase 192 U/L (118-273)
== END 2024-01-26 09:16 | disposition home or self-care (01) ==
PROVIDERS: Internal Medicine; Emergency Provider Emergency Medicine; PCP Family Medicine
DX: N20.1 Calculus of ureter (principal); Z98.890 Other specified postprocedural states; Z90.49 Acquired absence of other specified parts of digestive tract
CPT/HCPCS: 36415; 74176; 80053; 80307; 81001; 83615; 83690; 85025; 87086; 96361; 96374; 96375; 99284; J1885; J2270; J2405

== ENCOUNTER 2024-04-04 23:57 | Inpatient (IN) | payer OTHER, SELFPAY ==
--- NOTE | ~2024-04-04 | XR_ITS ---
EXAMINATION: XR ABDOMEN KUB CLINICAL INDICATION: No bowel movement COMPARISON: Previous CT of the abdomen and pelvis December 2023 TECHNIQUE: AP view of the abdomen. FINDINGS: The bowel gas pattern is normal with no evidence of ileus or obstruction. No large stool burden. Bilateral renal stones. Bony structures are normal. Postcholecystectomy. XR/XR KUB IMPRESSION: No evidence of constipation or obstruction. Bilateral renal stones.
--- NOTE | ~2024-04-04 | US_ITS ---
EXAMINATION: US ABDOMEN LIMITED CLINICAL INFORMATION: Pain. Elevated liver function tests.. COMPARISON: Abdomen CT from 04/05/2024 TECHNIQUE: Real-time imaging of the right upper quadrant abdominal viscera, predominantly focused on the pancreas and liver. FINDINGS: Pancreatic echotexture is slightly heterogeneous but no focal lesion or pancreatic ductal dilatation. The pancreatic duct is 0.2 cm diameter. There is no visible peripancreatic fluid collection. Liver parenchyma is diffusely hyperechoic consistent with steatosis. No focal lesion or intrahepatic ductal dilatation. The main portal vein is at upper range of normal size (1.4 cm diameter) and normal hepatopedal flow is detected within the portal vein. Status post cholecystectomy. No dilated bile ducts are seen on this limited evaluation. The right kidney has normal size and parenchymal echotexture. There is no free fluid within Morison's pouch. US/US abdomen limited IMPRESSION: * No sonographic evidence of a peripancreatic fluid collection or pancreatic mass in this patient with recent CT imaging findings of pancreatitis. * Diffuse hepatic steatosis.
--- NOTE | ~2024-04-04 | CT_ITS ---
EXAMINATION: CT ABDOMEN AND PELVIS WITH CONTRAST CLINICAL INFORMATION: Abdominal pain. COMPARISON: 02/24/2024 TECHNIQUE: Multidetector volumetric images were obtained from the superior aspect of the liver through the pubic symphysis following administration 85 mL of Omnipaque 350 intravenous contrast. Sagittal and coronal reformatted images were obtained on the technologist's workstation. Oral contrast: No This CT examination was performed using dose optimization techniques as appropriate, variously including the following: *Automated exposure control *Adjustment of mA and/or kV according to patient size (this includes techniques or standardized protocols for targeted exams where dose is matched to indication/reason for exam; i.e. extremities or head) *Use of iterative reconstruction technique DLP: 436 mGy-cm FINDINGS: LUNG BASES: No pleural or pericardial effusion. LIVER, GALLBLADDER, AND BILIARY TREE: The liver is normal in size and contour. No focal hepatic lesion. Postcholecystectomy changes of the biliary ductal system. The gallbladder is surgically absent. PANCREAS: Diffuse edema. Homogeneous enhancement. No ductal dilatation. Diffuse peripancreatic stranding. The appearance is progressed since the comparison study. SPLEEN: Not enlarged. ADRENAL GLANDS: No adrenal mass. KIDNEYS AND URETERS: Kidneys are symmetric in size and enhancement. 8 mm nonobstructing calculus interpolar region of the right kidney. 4 mm nonobstructing calculi mid to lower pole left kidney. There are several additional punctate nonobstructing renal calculi. No hydronephrosis. BLADDER: Circumferential wall thickening. GASTROINTESTINAL TRACT: Diffuse wall thickening of the duodenum/proximal small bowel possibly on a reactive basis. No small bowel obstruction. Fluid-filled distal small bowel and proximal colon. ABDOMINAL WALL: No significant hernia is appreciated. LYMPH NODES: No bulky lymphadenopathy. VASCULAR: Normal caliber abdominal aorta. PELVIC VISCERA: Unremarkable. OSSEOUS STRUCTURES: No destructive bone lesions. CT/CT abdomen pelvis w IV con IMPRESSION: Diffuse pancreatic parenchymal edema. Extensive peripancreatic stranding without organized fluid collection. Possible reactive wall thickening of the duodenum. Findings most likely representing acute pancreatitis. There has been overall progression since the comparison study. Bilateral nonobstructing renal calculi. No hydronephrosis. Fleischner guidelines were followed.
[2024-04-05] VITALS (9 sets, daily range): BP systolic 128–170; BP diastolic 77–100; PULSE 62–80; RESP 16–18; TEMP 36.6–37.1; O2SAT 98–100; BMI 24.3
[2024-04-05 00:19] LABS: MANUAL DIFF FLAG NO
[2024-04-05 00:21] LABS: Basophils Percent Auto 0.2 % (0-2); Hematocrit 42.2 % (42.0-52.0); Hemoglobin 14.8 g/dl (14.0-18.0); Imm Gran Abs Auto 0.06 X10*3/uL (0.00-0.03); Imm Gran Pct Auto 0.4 % (0.0-0.4); Lymphocytes Absolute Auto 1.3 X10*3/uL (1.2-4.9); Lymphocytes Percent Auto 9.5 % (20-40); Mean Corpuscular HGB Conc 35.1 g/dl (31.0-36.0); Mean Corpuscular Hemoglobin 31.7 pg (27.0-33.0); Mean Corpuscular Volume 90.4 fL (80.0-98.0); Mean Platelet Volume 8.7 fL (9.4-12.4); Monocytes Absolute Auto 0.9 X10*3/uL (0.1-1.2); Neutrophils Absolute Auto 11.1 x10*3/uL (2.0-8.3); Neutrophils Percent Auto 82.9 % (45-73); Platelet Count 378 X10*3/uL (160-400); Red Blood Count 4.67 X10*6/uL (4.60-5.80); Red Cell Distribution Width 15.1 % (11.0-16.0); White Blood Count 13.4 X10*3/uL (4.8-10.8)
[2024-04-05 00:39] LABS: Alanine Aminotransferase 56 U/L (0-40); Albumin Level 4.2 g/dL (3.5-5.0); Alkaline Phosphatase 228 U/L (39-117); Anion Gap 17 (12-20); Aspartate Amino Transferase 46 U/L (5-37); Bilirubin Total 0.7 mg/dL (0.0-1.0); Blood Urea Nitrogen 14 mg/dL (9-16); Calcium 9.8 mg/dL (8.4-10.2); Carbon Dioxide 22 mmol/L (22-29); Chloride 103 mmol/L (96-108); Creatinine Clr Calc Pharmacy 126.2; Estimated Glomerular Filt Rate > 60; Glucose Random 121 mg/dL (60-115); Potassium 3.3 mmol/L (3.3-5.1); Sodium 139 mmol/L (135-145); Total Protein 7.6 g/dL (6.5-8.0)
--- NOTE | 2024-04-05 06:27 | ED_ITS ---
HPI - Abdominal Pain General Chief Complaint: Abdominal Pain Stated Complaint: abd pain Time Seen by Provider: 04/05/24 06:18 Source: patient Mode of arrival: ambulatory History of Present Illness HPI narrative: 43-year-old male who reports abdominal discomfort off and on for the past 4 days since Wednesday, denies any recent use of alcohol and states he has not had a bowel movement since Wednesday. He also reports difficulty eating and drinking since Wednesday. Related Data Previous Rx's ?Medication ?Instructions ?Recorded ondansetron 4 mg disintegrating 4 mg PO Q8H PRN nausea and 11/20/23 tablet vomiting 4 days #14 tabs sucralfate 100 mg/mL oral 10 ml PO BID #420 mL 11/20/23 suspension (Carafate) morphine 15 mg immediate release 15 mg PO Q6H PRN pain #10 tabs 01/26/24 tablet ondansetron 4 mg disintegrating 4 mg PO Q8H PRN nausea and 01/26/24 tablet vomiting #20 tabs Allergies Allergy/AdvReac Type Severity Reaction Status Date / Time cat dander [CATS] Allergy Unknown UNKNOWN Verified 04/05/24 00:07 dog dander [DOGS] Allergy Unknown UNKNOWN Verified 04/05/24 00:07 Review of Systems Review of Systems Pertinent positives and negatives as stated in HPI PMFSH Past Medical History Source: nursing notes reviewed Medical History Kidney stones Surgical History H/O cystoscopy No pertinent past surgical history Social History Social History Household Members: Family Housing: House Do you presently have visiting nurse or other home services: No Alcohol intake: former Patient Tobacco Use Status: Never used Tobacco Smoked in Last 30 Days: No Second Hand Smoke Exposure: No Use of substances other than those prescribed or required for medical reasons: Yes Substance Use Type: Marijuana Substance Use Frequency: Daily Last Used Substance: Hours (ago) Advance Directives: Yes Advance Directives on File: Yes Advance Directives Date on File: 10/21/21 service: No Current occupational status: unemployed Physical Exam ED Vital Signs: Vital Signs - 24 hr 04/05/24 00:01 04/05/24 02:52 Temperature 97.8 F 98.7 F Pulse Rate 80 70 Respiratory Rate 18 16 Blood Pressure 141/100 H 144/99 H Pulse Oximetry 98 98 Oxygen Delivery Method Room Air Nasal Cannula BMI result Body Mass Index 24.3 VITAL SIGNS: Reviewed. GENERAL: Well developed, well nourished, in no acute distress. HEAD: Normocephalic/atraumatic EYES: PERRLA, EOMI LUNGS: Normal breath sounds. No adventitious sounds or accessory muscle use. SpO2<98> CARDIOVASCULAR: Regular rate and rhythm without noted murmurs ABDOMEN: Soft, non-tender, non-distended with bowel sounds. MUSCULOSKELETAL: No tenderness, deformities, or effusions noted on gross inspection. EXTREMITIES: No cyanosis, clubbing or edema. SKIN: Inspection of the skin reveals no rashes NEUROLOGIC: Alert and oriented x 4. Strength and sensation to light touch were grossly intact x 4. Medical Decision Making Medical Decision Making MDM Narrative: 33-year-old male with history and clinical presentation, DDX: Gastritis, pancreatitis, possible constipation but low clinical suspicion for obstruction or other intra-abdominal infection. Signed out to CHRISTIE Wall -follow-up KUB/UA/p.o. challenge last lipase Differential Diagnosis Differential Diagnoses: The differential diagnosis associated with the presentation includes Please see the discussion above Admission/Observation Consideration of admission/observation: Escalation of care including admission/observation considered Please see the discussion above Lab Data 04/05/24 00:14 04/05/24 00:14 Labs: Lab Results 04/05/24 Range/Units 00:14 WBC 13.4 H (4.8-10.8) X10*3/uL RBC 4.67 (4.60-5.80) X10*6/uL Hgb 14.8 (14.0-18.0) g/dl Hct 42.2 (42.0-52.0) % MCV 90.4 (80.0-98.0) fL MCH 31.7 (27.0-33.0) pg MCHC 35.1 (31.0-36.0) g/dl RDW 15.1 (11.0-16.0) % Plt Count 378 (160-400) X10*3/uL MPV 8.7 L (9.4-12.4) fL Immature Gran % (Auto) 0.4 (0.0-0.4) % Neut % (Auto) 82.9 H (45-73) % Lymph % (Auto) 9.5 L (20-40) % [place] % (Auto) 7.0 (2-11) % Eos % (Auto) 0.0 (0-4) % Baso % (Auto) 0.2 (0-2) % Lymph # (Auto) 1.3 (1.2-4.9) X10*3/uL [place] # (Auto) 0.9 (0.1-1.2) X10*3/uL Eos # (Auto) 0.0 (0.0-0.4) X10*3/uL Baso # (Auto) 0.0 (0.0-0.2) X10*3/uL Abs Immat Gran (auto) 0.06 H (0.00-0.03) X10*3/uL Absolute Neuts (auto) 11.1 H (2.0-8.3) x10*3/uL Absolute Nucleated RBC 0.000 (0.0-0.012) X10*3/uL Nucleated RBC % (auto) 0.0 (0.0-0.2) /100WBC Sodium 139 (135-145) mmol/L Potassium 3.3 (3.3-5.1) mmol/L Chloride 103 (96-108) mmol/L Carbon Dioxide 22 (22-29) mmol/L Anion Gap 17 (12-20) BUN 14 (9-16) mg/dL Creatinine 0.87 (0.5-1.4) mg/dL Estim Creat Clear Calc 126.2 Estimated GFR > 60 Random Glucose 121 H (60-115) mg/dL Calcium 9.8 D (8.4-10.2) mg/dL Total Bilirubin 0.7 (0.0-1.0) mg/dL AST 46 H (5-37) U/L ALT 56 H (0-40) U/L Alkaline Phosphatase 228 H (39-117) U/L Total Protein 7.6 (6.5-8.0) g/dL Albumin 4.2 (3.5-5.0) g/dL Medications Administered Discontinued Medications Generic Name Dose Route Start Last Admin Trade Name Freq PRN Reason Stop Dose Admin Ondansetron HCl 4 mg 04/05/24 06:18 04/05/24 06:28 Ondansetron Odt 4 Mg Tab.Marisela GARCIAU 04/05/24 06:19 4 mg ONCE ONE Administration Discharge Plan Discharge Clinical Impression: Abdominal pain Patient Disposition: Still a Patient Instructions: Gastritis (ED), Diet for Stomach Ulcers and Gastritis (ED) Prescriptions: No Action ondansetron 4 mg tablet,disintegrating 4 mg PO Q8H PRN (Reason: nausea and vomiting) 4 Days Qty: 14 0RF sucralfate [Carafate] 100 mg/mL suspension 10 ml PO BID Qty: 420 0RF morphine 15 mg tablet 15 mg PO Q6H PRN (Reason: pain) Qty: 10 0RF Rx Instructions: partial fill okay; Partial Fill upon patient request. ondansetron 4 mg tablet,disintegrating 4 mg PO Q8H PRN (Reason: nausea and vomiting) Qty: 20 0RF Print Language: Tajik
[2024-04-05] MEDS: Ondansetron ODT 4 MG TAB.RAPDIS TRANSLINGU (06:28)
[2024-04-05 06:53] LABS: Appearance Urine Clear; Color Urine Dark Yellow; Glucose Urine UA Negative (Negative); Leukocyte Esterase Urine Trace (Negative); Nitrite Urine Negative (Negative); PH 6.5 (5.0-9.0); Specific Gravity - Urine 1.025 (1.005-1.025); UMIC TRIGGER UACC YES; Urine Blood Negative (Negative); Urine Ketones 40 mg/dL (Negative); Urine Protein 100 (2+) mg/dL (Neg-Trace)
[2024-04-05 07:04] LABS: Bacteria Urine None Seen (None Seen); Hyaline Casts Urine 0-2 /LPF (0-2); RBC Urine 0-2 /HPF (0-2); UACC Culture Trigger YES
[2024-04-05] MEDS: Sucralfate Oral Suspension 1 GM/10 ML ORAL.SUSP PO (07:37)
[2024-04-05] MEDS: Lidocaine HCl Viscous 2 % 15 ML SOLUTION 10 ML MUCOUS MEM (07:37)
[2024-04-05] MEDS: Magnesium Hydrox/Alum Hydrox 30 ML ORAL.SUSP PO (07:37)
--- NOTE | 2024-04-05 07:39 | PC.NURSE ---
pt reporting increased abd/epigastric pain, medicated per JAN - delay in med administration d/t no viscous lidocaine in pyxis, pharmacy contacted for medication reload.
[2024-04-05 08:23] LABS: Lipase 465 U/L (8-78)
[2024-04-05] MEDS: droPERidol 5 MG/2 ML VIAL 1.25 MG IVPUSH (09:08)
[2024-04-05] MEDS: 0.9 % Sodium Chloride 1,000 ML 999 ML IV (09:09)
[2024-04-05] MEDS: Morphine Sulfate 4 MG/ML CARTRIDGE IVPUSH (09:09)
[2024-04-05] MEDS: Famotidine/PF 20 MG/2 ML VIAL IVPUSH ×2 (09:09→21:28)
--- NOTE | 2024-04-05 09:16 | PC.NURSE ---
pt a&ox4, cont'd abd pain w nausea, 20G PIV placed R AC, 1LNS running, medicated per JAN. pt pending CT scan. no new orders at this time.
[2024-04-05] MEDS: iohexoL 350 MG/ML 100 ML INFUS..BTL IV (09:34)
[2024-04-05] MEDS: Lactated Ringers 500 ML 50 ML IV (11:17)
[2024-04-05 11:40] LABS: Amphetamine Screen Urine Not Detected (Not Detect); Barbiturates, Urine Not Detected (Not Detect); Benzodiazepines Screen Urine Not Detected (Not Detect); Buprenorphine Scr Not Detected (Not Detect); Cannabinoid Screen Urine POSITIVE (Not Detect); Cocaine Screen Urine Not Detected (Not Detect); Fentanyl, urine Not Detected (Not Detect); Methadone Screen, Urine Not Detected (Not Detect); Opiate Screen Urine Not Detected (Not Detect); Oxycodone Screen Urine Not Detected (Not Detect); Phencyclidine Screen Urine Not Detected (Not Detect)
--- NOTE | 2024-04-05 11:51 | PHA.MEDREC ---
Pharmacy Consult ? Medication Reconciliation Pharmacy has completed the medication reconciliation with the patient, he reported no medication or OTC use at home. Reported that all meds that he has had were temporary and is no longer taking them.
--- NOTE | 2024-04-05 12:09 | P.HPHOSP_ITS ---
History of Present Illness Date of Service: 04/05/24 Chief Complaint: Epigastric pain 33-year-old gentleman with past medical history significant for kidney stone, status post cholecystectomy May 2023 for gallstone pancreatitis, with recurrent episodes of acute pancreatitis underwent MRCP and CT scan July 2023 and was noted to have no acute issues and has recurrent pancreatitis was felt to be related to alcohol use presented to [facility] today with 3-4 days' history of epigastric pain associated with nausea, dry heaving, no vomiting, with pain radiating to bilateral flank and to back,, associated chills and sweating, patient also complaining of concentrated urine but no associated dysuria or burning, admit to drinking 2 to 3 beer daily last drink 2 weeks ago, denies withdrawal symptoms, no tremors no visual or auditory hallucinations, no tactile disturbance, workup in ED included CT abdomen and pelvis that showed diffuse pancreatic parenchymal edema, extensive peripancreatic standing without organized fluid collection possible reactive wall thickening of the duodenal findings likely representing acute pancreatitis, WBC of 13.4 stable H&H and platelets, normal renal function, electrolytes, calcium 9.8, significantly improved AST and ALT from December 2023, lipase of 465, patient treated in the emergency room with IV fluids IV analgesics, Pepcid, antiemetics but since symptoms persisted patient is being admitted to [facility] due to recurrent episodes of acute pancreatitis. Review of Systems 2 Review of Systems: General no headache no dizziness , complaining of chills and sweating. CVS no chest pain, no palpitation. Respiratory no cough no sob Gastrointestinal nausea, epigastric pain with radiation to both flanks and back, constipation Skin no rash Neuro no tremors Musculoskeletal no pain All other system reviewed and negative [facility] Medical History Kidney stones Surgical History H/O cystoscopy No pertinent past surgical history Social History Household Members: Family Housing: House Do you presently have visiting nurse or other home services: No Alcohol intake: former Patient Tobacco Use Status: Never used Tobacco Smoked in Last 30 Days: No Second Hand Smoke Exposure: No Use of substances other than those prescribed or required for medical reasons: Yes Substance Use Type: Marijuana Substance Use Frequency: Daily Last Used Substance: Hours (ago) Advance Directives: Yes Advance Directives on File: Yes Advance Directives Date on File: 10/21/21 service: No Current occupational status: unemployed Meds Allergies Allergy/AdvReac Type Severity Reaction Status Date / Time cat dander [CATS] Allergy Unknown UNKNOWN Verified 04/05/24 00:07 dog dander [DOGS] Allergy Unknown UNKNOWN Verified 04/05/24 00:07 Active Medications: Current Medications Acetaminophen (Acetaminophen 325 Mg Tablet) 650 mg PO Q6H PRN PRN Reason: Pain, Mild (Pain Scale 1-3) Benzonatate (Benzonatate 100 Mg Capsule) 100 mg PO TID PRN PRN Reason: Cough Docusate Sodium (Docusate Sodium 100 Mg Capsule) 100 mg PO DAILY PRN PRN Reason: Constipation Hydromorphone HCl (Hydromorphone Hcl 1 Mg/Ml Syringe) 0.5 mg IVPUSH Q4H PRN; Protocol PRN Reason: Pain, Severe (Pain Scale 7-10) Lactated Ringer's (Lr) 500 mls @ 50 mls/hr IV .Q10H [facility] Stop: 04/05/24 20:59 Last Admin: 04/05/24 11:17 Dose: 50 mls/hr Magnesium Hydroxide (Milk Of Magnesia 30 Ml Oral.Susp) 30 ml PO DAILY PRN PRN Reason: Constipation Melatonin (Melatonin 3 Mg Tablet) 6 mg PO BEDTIME PRN PRN Reason: Insomnia Ondansetron HCl (Ondansetron Hcl 4 Mg/2 Ml Vial) 4 mg IVPUSH Q8H PRN PRN Reason: Nausea and Vomiting Oxycodone HCl (Oxycodone Hcl Immed Release 5 Mg Tablet) 5 mg PO Q6H PRN PRN Reason: Pain, Moderate(Pain Scale 4-6) Senna (Sennosides 8.6 Mg Tablet) 17.2 mg PO BEDTIME PRN PRN Reason: Constipation Sodium Chloride (0.9 % Sodium Chloride Flush 3 Ml Syringe) 3 ml IVFLUSH QSHIFT [facility] Physical Exam 2 Vital Signs and Narrative: Vital Signs: Last Vital Signs Temp 98.0 F 04/05/24 11:53 Pulse 65 04/05/24 11:53 Resp 18 04/05/24 11:53 BP 143/87 H 04/05/24 11:53 Pulse Ox 99 04/05/24 11:53 O2 Del Method Room Air 04/05/24 11:53 BMI result Body Mass Index 24.3 Const: Other: General awake alert x3, in no acute distress. Anicteric sclera Neck supple no JVD. CVS regular rate rhythm, Respiratory lungs clear to auscultation, no respiratory distress, no wheeze, no rhonchi. Gastrointestinal abdomen soft, epigastric tenderness, bowel sounds audible, no guarding , no rigidity. Extremities no edema. Neuro non focal , no tremors Skin no rash Appropriate affect Results Labs 04/05/24 00:14 04/05/24 00:14 Labs: Laboratory Results - last 24 hr 04/05/24 04/05/24 04/05/24 00:14 06:47 07:48 MCV 90.4 MCH 31.7 MCHC 35.1 RDW 15.1 Plt Count 378 MPV 8.7 L Immature Gran % (Auto) 0.4 Neut % (Auto) 82.9 H Lymph % (Auto) 9.5 L [place] % (Auto) 7.0 Eos % (Auto) 0.0 Baso % (Auto) 0.2 Lymph # (Auto) 1.3 [place] # (Auto) 0.9 Eos # (Auto) 0.0 Baso # (Auto) 0.0 Abs Immat Gran (auto) 0.06 H Absolute Neuts (auto) 11.1 H Absolute Nucleated RBC 0.000 Nucleated RBC % (auto) 0.0 Anion Gap 17 Estim Creat Clear Calc 126.2 Estimated GFR > 60 Random Glucose 121 H Calcium 9.8 D Total Bilirubin 0.7 AST 46 H ALT 56 H Alkaline Phosphatase 228 H Total Protein 7.6 Albumin 4.2 Lipase 465 H Urine Color Dark Yellow Urine Appearance Clear Urine pH 6.5 Ur Specific [place] 1.025 Urine Protein 100 (2+) H Urine Glucose (UA) Negative Urine Ketones 40 Urine Blood Negative Urine Nitrite Negative Ur Leukocyte Esterase Trace H Urine RBC 0-2 Urine WBC 6-10 H Ur Squamous Epith Cells 3-5 Urine Bacteria None Seen Hyaline Casts 0-2 Urine Opiates Screen Not Detected Ur Buprenorphine Scrn Not Detected Ur Oxycodone Screen Not Detected Urine Methadone Screen Not Detected Urine Fentanyl Screen Not Detected Ur Barbiturates Screen Not Detected Ur Phencyclidine Scrn Not Detected Ur Amphetamines Screen Not Detected U Benzodiazepines Scrn Not Detected Urine Cocaine Screen Not Detected U Marijuana (THC) Screen POSITIVE H Imaging Radiologist's Impressions: Impressions KUB X-Ray 04/05/24 06:35 IMPRESSION: No evidence of constipation or obstruction. Bilateral renal stones. Abdomen/Pelvis CT 04/05/24 09:34 IMPRESSION: Diffuse pancreatic parenchymal edema. Extensive peripancreatic stranding without organized fluid collection. Possible reactive wall thickening of the duodenum. Findings most likely representing acute pancreatitis. There has been overall progression since the comparison study. Bilateral nonobstructing renal calculi. No hydronephrosis. Fleischner guidelines were followed. Assessment and Plan (1) Recurrent acute pancreatitis: Status: Acute Plan 33-year-old gentleman with past medical history significant for renal calculi and gallstone pancreatitis status post cholecystectomy, presented due to epigastric pain and diagnosed to have recurrent acute pancreatitis. Recurrent acute pancreatitis Admit to medical floor, treat with IV fluids, IV analgesics, IV Pepcid and antiemetics Clear liquid diet and advance as tolerated Follow CBC, electrolytes, renal function, calcium and lipase Strongly recommend to abstain from alcohol Symptoms also exacerbated by possible marijuana use Chronic transaminitis improving follow labs. Alcohol use disorder no evidence of withdrawal symptoms will follow JERRELL, check magnesium Code status full code Low risk recommend early ambulation In my clinical judgment patient need to night inpatient hospitalization for management of acute pancreatitis ,requiring IV fluids, and IV analgesics, treatment can not be provided in less acute setting. Quality Stroke Does the patient have a stroke diagnosis?: No VTE Prior VTE?: No VTE Risk Level:: Medical - low VTE Device Contraindication: Treatment Not Indicated VTE Drug Contraindication: Treatment Not Indicated
[2024-04-05] MEDS: Potassium Chloride ER 20 MEQ TAB.ER.PRT PO (12:49)
[2024-04-05] MEDS: Lactated Ringers 1,000 ML 125 ML IVCONT ×2 (12:49→21:28)
[2024-04-05] MEDS: HYDROmorphone HCl 1 MG/ML SYRINGE 0.5 MG IVPUSH ×3 (12:49→22:48)
[2024-04-05 13:03] LABS: Magnesium 1.8 mg/dL (1.6-2.6)
[2024-04-05] MEDS: oxyCODONE HCl Immed Release 5 MG TABLET PO (16:42)
--- NOTE | 2024-04-05 20:17 | PC.NURSE ---
pt reports level on 1/10 pain.
--- NOTE | 2024-04-05 20:43 | PC.NURSE ---
report given to DELIA Pettit pt to be transported to [facility] 5
--- NOTE | 2024-04-05 23:41 | PC.NURSE ---
Patient is alert and oriented x3, pleasant and cooperative. He is able to make his needs known and has been using a call gallego appropriately. Patient medicated with PRN Dilaudid 0.5 mg IV for 7/10 mid abdominal pain with relief in pain to 3/10. Per patient, pain is at tolerable level. Patient denies nausea/vomiting at present. He requested and provided with apple juice, tolerated well. CIWA completed, score 0. Patient ambulates independently with a steady gait. Skin assessment completed, skin is intact. 20 G IV line in R AC is patent, maintenance LR IV infusing at 125 mL/hr. Patient is watching a TV show on his phone and offers no complaints at present, call gallego in patient's reach. Plan of care ongoing.
[2024-04-06 03:05] VITALS: RESP 16
[2024-04-06] MEDS: HYDROmorphone HCl 1 MG/ML SYRINGE 0.5 MG IVPUSH ×5 (03:05→22:17)
[2024-04-06] MEDS: Lactated Ringers 1,000 ML 125 ML IVCONT ×3 (05:29→22:24)
[2024-04-06] MEDS: Acetaminophen 325 MG TABLET 650 MG PO (05:36)
[2024-04-06 05:44] LABS: Hematocrit 37.7 % (42.0-52.0); Hemoglobin 13.1 g/dl (14.0-18.0); Mean Corpuscular HGB Conc 34.7 g/dl (31.0-36.0); Mean Corpuscular Hemoglobin 31.7 pg (27.0-33.0); Mean Corpuscular Volume 91.3 fL (80.0-98.0); Mean Platelet Volume 9.7 fL (9.4-12.4); Platelet Count 318 X10*3/uL (160-400); Red Blood Count 4.13 X10*6/uL (4.60-5.80); Red Cell Distribution Width 14.8 % (11.0-16.0)
[2024-04-06 06:03] VITALS: BP 128/88; PULSE 56; RESP 16; TEMP 36.7; O2SAT 99
[2024-04-06 06:07] LABS: Alanine Aminotransferase 85 U/L (0-40); Albumin Level 3.4 g/dL (3.5-5.0); Alkaline Phosphatase 296 U/L (39-117); Anion Gap 16 (12-20); Aspartate Amino Transferase 216 U/L (5-37); Bilirubin Direct 0.5 mg/dL (0.0-0.5); Bilirubin Total 1.1 mg/dL (0.0-1.0); Blood Urea Nitrogen 12 mg/dL (9-16); Calcium 9.1 mg/dL (8.4-10.2); Carbon Dioxide 20 mmol/L (22-29); Chloride 104 mmol/L (96-108); Creatinine Clr Calc Pharmacy 154.6; Estimated Glomerular Filt Rate > 60; Glucose Random 98 mg/dL (60-115); Lipase 167 U/L (8-78); Potassium 3.3 mmol/L (3.3-5.1); Sodium 137 mmol/L (135-145); Total Protein 6.3 g/dL (6.5-8.0)
[2024-04-06] MEDS: Famotidine/PF 20 MG/2 ML VIAL IVPUSH ×2 (09:16→22:16)
[2024-04-06] MEDS: 0.9 % Sodium Chloride Flush 3 ML SYRINGE IVFLUSH (09:16)
--- NOTE | 2024-04-06 11:18 | PC.NURSE ---
Patient up to shower, IVs covered. patient reports no pain at this time.
--- NOTE | 2024-04-06 14:08 | HO.PM.IMPN ---
Subjective Subjective Date of Service: 04/06/24 Interval History: Complaining of persistent abdominal pain, no nausea, no vomiting requesting for ice cream, denies fever, no chills, no lightheadedness, no dizziness, labs showed worsening of LFTs, lipase trending down. No acute events overnight. Review of Systems All other system reviewed and negative Physical Exam Vital Signs: Vital Signs: Last Vital Signs Temp 98.1 F 04/06/24 06:03 Pulse 56 04/06/24 06:03 Resp 16 04/06/24 06:03 BP 128/88 04/06/24 06:03 Pulse Ox 99 04/06/24 06:03 O2 Del Method Room Air 04/06/24 06:03 BMI result Body Mass Index 24.3 Const: Other: General awake alert x3, in no acute distress. Anicteric sclera Neck supple no JVD. CVS regular rate rhythm, Respiratory lungs clear to auscultation, no respiratory distress, no wheeze, no rhonchi. Gastrointestinal abdomen soft, epigastric tenderness, bowel sounds audible, no guarding , no rigidity. Extremities no edema. Neuro non focal , no tremors Skin no rash Appropriate affect Objective Data Active Medications Acetaminophen (Acetaminophen 325 Mg Tablet) 650 mg PO Q6H PRN PRN Reason: Pain, Mild (Pain Scale 1-3) Last Admin: 04/06/24 05:36 Dose: 650 mg Documented By: ASHLIE Benzonatate (Benzonatate 100 Mg Capsule) 100 mg PO TID PRN PRN Reason: Cough Docusate Sodium (Docusate Sodium 100 Mg Capsule) 100 mg PO DAILY PRN PRN Reason: Constipation Famotidine (Famotidine/Pf 20 Mg/2 Ml Vial) 20 mg IVPUSH BID [facility] Last Admin: 04/06/24 09:16 Dose: 20 mg Documented By: KONSTANTIN Hydromorphone HCl (Hydromorphone Hcl 1 Mg/Ml Syringe) 0.5 mg IVPUSH Q4H PRN; Protocol PRN Reason: Pain, Severe (Pain Scale 7-10) Last Admin: 04/06/24 09:16 Dose: 0.5 mg Documented By: KONSTANTIN Lactated Ringer's (Lr) 1,000 mls @ 125 mls/hr IVCONT .Q8H [facility] Last Admin: 04/06/24 14:07 Dose: 125 mls/hr Documented By: KONSTANTIN Magnesium Hydroxide (Milk Of Magnesia 30 Ml Oral.Susp) 30 ml PO DAILY PRN PRN Reason: Constipation Melatonin (Melatonin 3 Mg Tablet) 6 mg PO BEDTIME PRN PRN Reason: Insomnia Ondansetron HCl (Ondansetron Hcl 4 Mg/2 Ml Vial) 4 mg IVPUSH Q8H PRN PRN Reason: Nausea and Vomiting Oxycodone HCl (Oxycodone Hcl Immed Release 5 Mg Tablet) 5 mg PO Q6H PRN PRN Reason: Pain, Moderate(Pain Scale 4-6) Last Admin: 04/05/24 16:42 Dose: 5 mg Documented By: PARADCHRISTO Senna (Sennosides 8.6 Mg Tablet) 17.2 mg PO BEDTIME PRN PRN Reason: Constipation Sodium Chloride (0.9 % Sodium Chloride Flush 3 Ml Syringe) 3 ml IVFLUSH QSHIFT [facility] Last Admin: 04/06/24 09:16 Dose: 3 ml Documented By: KONSTANTIN Labs 04/06/24 05:04 04/06/24 05:04 Labs: Laboratory Results - last 24 hr 04/06/24 05:04 MCV 91.3 MCH 31.7 MCHC 34.7 RDW 14.8 Plt Count 318 MPV 9.7 Absolute Nucleated RBC 0.000 Nucleated RBC % (auto) 0.0 Anion Gap 16 Estim Creat Clear Calc 154.6 Estimated GFR > 60 Random Glucose 98 Calcium 9.1 D Total Bilirubin 1.1 H Direct Bilirubin 0.5 AST 216 H ALT 85 H Alkaline Phosphatase 296 H Total Protein 6.3 L Albumin 3.4 L Lipase 167 H Microbiology Microbiology Results: Microbiology 04/05/24 Unknown Urine Culture - Final Urine clean catch - Urine chong top No growth. Assessment and Plan (1) Recurrent acute pancreatitis: Status: Acute Plan 33-year-old gentleman with past medical history significant for renal calculi and gallstone pancreatitis status post cholecystectomy, presented due to epigastric pain and diagnosed to have recurrent acute pancreatitis. Recurrent acute pancreatitis Persistent abdominal pain, continue IV fluids, IV analgesics, IV Pepcid and antiemetics WBC normalized, normal renal function , blood sugars stable, noted to have bump in LFTs , lipase improved to 167 Patient cholangiopancreatography/MRI from July 2023 showed common bile duct within normal limits and no choledocholithiasis Mild drop in hematocrit dilutional, follow CBC Will advance diet as tolerated, monitor CBC, electrolytes, renal function, calcium and lipase Strongly recommend to abstain from alcohol Chronic transaminitis mild worsening of LFTs total bili 1.1 follow labs Alcohol use disorder no evidence of withdrawal symptoms , CIWA 0, magnesium 1.8 Code status full code Low risk recommend early ambulation In my clinical judgment patient need continued inpatient hospitalization for management of acute pancreatitis ,requiring IV fluids, and IV analgesics, treatment can not be provided in less acute setting. Quality Stroke Does the patient have a stroke diagnosis?: No VTE Prior VTE?: No VTE Risk Level:: Medical - low VTE Device Contraindication: Treatment Not Indicated VTE Drug Contraindication: Treatment Not Indicated
[2024-04-06 14:22] VITALS: BP 121/76; PULSE 57; RESP 18; TEMP 36.9; O2SAT 100
--- NOTE | 2024-04-06 14:37 | PC.NURSE ---
Patient reports not able to tolerate regular diet d/t nausea, tiger texted Dr. Billings, down grade to clear liquid and give ensure
[2024-04-06 16:00] VITALS: BP 136/90; PULSE 57; RESP 18; TEMP 36.2; O2SAT 100
[2024-04-06 19:27] VITALS: BP 130/76; PULSE 59; RESP 20; TEMP 36.5; O2SAT 99
[2024-04-06] MEDS: Melatonin 3 MG TABLET 6 MG PO (23:24)
[2024-04-06] MEDS: Zolpidem Tartrate 5 MG TABLET PO (23:25)
[2024-04-07] MEDS: HYDROmorphone HCl 1 MG/ML SYRINGE 0.5 MG IVPUSH ×5 (02:24→19:40)
--- NOTE | 2024-04-07 06:03 | PM.EVENT ---
Event Note Date of Service: 04/07/24 Event Note: Patient reports cloudy urine and increased urinary frequency. Obtaining UA Time Spent With Patient Time: Total time managing care of this patient today ____ minutes.
[2024-04-07] MEDS: Lactated Ringers 1,000 ML 125 ML IVCONT ×3 (06:16→21:46)
[2024-04-07 06:21] VITALS: BP 145/82; PULSE 53; RESP 20; TEMP 36.9; O2SAT 99
[2024-04-07 07:00] LABS: Hematocrit 38.2 % (42.0-52.0); Hemoglobin 13.1 g/dl (14.0-18.0); Mean Corpuscular HGB Conc 34.3 g/dl (31.0-36.0); Mean Corpuscular Hemoglobin 32.2 pg (27.0-33.0); Mean Corpuscular Volume 93.9 fL (80.0-98.0); Mean Platelet Volume 9.8 fL (9.4-12.4); Platelet Count 326 X10*3/uL (160-400); Red Blood Count 4.07 X10*6/uL (4.60-5.80); Red Cell Distribution Width 14.8 % (11.0-16.0); White Blood Count 8.9 X10*3/uL (4.8-10.8)
[2024-04-07 08:00] VITALS: BP 136/74; PULSE 57; RESP 18; TEMP 36.7; O2SAT 100
[2024-04-07] MEDS: Famotidine/PF 20 MG/2 ML VIAL IVPUSH ×2 (09:29→19:40)
[2024-04-07] MEDS: oxyCODONE HCl Immed Release 5 MG TABLET PO ×2 (09:29→21:44)
[2024-04-07 11:36] VITALS: BP 140/79; PULSE 53; RESP 16; TEMP 36.8; O2SAT 98
--- NOTE | 2024-04-07 13:14 | HO.PM.IMPN ---
Subjective Subjective Date of Service: 04/07/24 Interval History: Complaining of persistent abdominal pain with radiation to both flanks, tolerating clear Ensure and clear liquid diet, denies nausea, no vomiting, no diarrhea, no fevers, no chills no other acute issues overnight. Review of Systems All all other system reviewed and negative Physical Exam Vital Signs: Vital Signs: Last Vital Signs Temp 98.2 F 04/07/24 11:36 Pulse 53 04/07/24 11:36 Resp 16 04/07/24 11:36 BP 140/79 H 04/07/24 11:36 Pulse Ox 98 04/07/24 11:36 O2 Del Method Room Air 04/07/24 11:36 BMI result Body Mass Index 24.3 Const: Other: General awake alert x3, in no acute distress. Anicteric sclera Neck supple no JVD. CVS regular rate rhythm, Respiratory lungs clear to auscultation, no respiratory distress, no wheeze, no rhonchi. Gastrointestinal abdomen soft, no distension, epigastric tenderness, bowel sounds audible, no guarding , no rigidity. Extremities no edema. Neuro non focal , no tremors Skin no rash Appropriate affect Objective Data Active Medications Acetaminophen (Acetaminophen 325 Mg Tablet) 650 mg PO Q6H PRN PRN Reason: Pain, Mild (Pain Scale 1-3) Last Admin: 04/06/24 05:36 Dose: 650 mg Documented By: ASHLIE Benzonatate (Benzonatate 100 Mg Capsule) 100 mg PO TID PRN PRN Reason: Cough Docusate Sodium (Docusate Sodium 100 Mg Capsule) 100 mg PO DAILY PRN PRN Reason: Constipation Famotidine (Famotidine/Pf 20 Mg/2 Ml Vial) 20 mg IVPUSH BID [facility] Last Admin: 04/07/24 09:29 Dose: 20 mg Documented By: ANAYELI Hydromorphone HCl (Hydromorphone Hcl 1 Mg/Ml Syringe) 0.5 mg IVPUSH Q4H PRN; Protocol PRN Reason: Pain, Severe (Pain Scale 7-10) Last Admin: 04/07/24 10:16 Dose: 0.5 mg Documented By: ANAYELI Lactated Ringer's (Lr) 1,000 mls @ 125 mls/hr IVCONT .Q8H [facility] Last Admin: 04/07/24 06:16 Dose: 125 mls/hr Documented By: MARCO Magnesium Hydroxide (Milk Of Magnesia 30 Ml Oral.Susp) 30 ml PO DAILY PRN PRN Reason: Constipation Melatonin (Melatonin 3 Mg Tablet) 6 mg PO BEDTIME PRN PRN Reason: Insomnia Last Admin: 04/06/24 23:24 Dose: 6 mg Documented By: MARCO Ondansetron HCl (Ondansetron Hcl 4 Mg/2 Ml Vial) 4 mg IVPUSH Q8H PRN PRN Reason: Nausea and Vomiting Oxycodone HCl (Oxycodone Hcl Immed Release 5 Mg Tablet) 5 mg PO Q6H PRN PRN Reason: Pain, Moderate(Pain Scale 4-6) Last Admin: 04/07/24 09:29 Dose: 5 mg Documented By: ANAYELI Senna (Sennosides 8.6 Mg Tablet) 17.2 mg PO BEDTIME PRN PRN Reason: Constipation Sodium Chloride (0.9 % Sodium Chloride Flush 3 Ml Syringe) [facility] Last Admin: 04/07/24 09:30 Dose: Not Given Documented By: ANAYELI Non-Admin Reason: IV Running Zolpidem Tartrate (Zolpidem Tartrate 5 Mg Tablet) 5 mg PO BEDTIME PRN PRN Reason: Insomnia Last Admin: 04/06/24 23:25 Dose: 5 mg Documented By: MARCO Labs 04/07/24 06:23 04/07/24 13:00 Labs: Laboratory Results - last 24 hr 04/07/24 06:23 MCV 93.9 MCH 32.2 MCHC 34.3 RDW 14.8 Plt Count 326 MPV 9.8 Absolute Nucleated RBC 0.000 Nucleated RBC % (auto) 0.0 Assessment and Plan (1) Recurrent acute pancreatitis: Status: Acute Plan 33-year-old gentleman with past medical history significant for renal calculi and gallstone pancreatitis status post cholecystectomy, presented due to epigastric pain and diagnosed to have recurrent acute pancreatitis. Recurrent acute pancreatitis. Persistent abdominal pain, slowly improving, continue IV fluids, IV analgesics, IV Pepcid and antiemetics WBC normalized, normal renal function , blood sugars stable, , AST ALT and alk-phos continue to rise, lipase improved to 167, normal calcium and bicarb Patient cholangiopancreatography/MRI from July 2023 showed common bile duct within normal limits and no choledocholithiasis No right upper quadrant tenderness to palpation, Stable hematocrit Advance diet to full liquids, with clear ensure monitor CBC, electrolytes, renal function, LFTs If noted to have worsening LFTs will obtain abdominal ultrasound Strongly recommend to abstain from alcohol Chronic transaminitis mild worsening of LFTs total bili 1.1 follow labs Alcohol use disorder no evidence of withdrawal symptoms , CIWA 0, magnesium 1.8 Code status full code Low risk recommend early ambulation In my clinical judgment patient need continued inpatient hospitalization for management of acute pancreatitis ,requiring IV fluids, and IV analgesics, treatment can not be provided in less acute setting. Quality Stroke Does the patient have a stroke diagnosis?: No VTE Prior VTE?: No VTE Risk Level:: Medical - low VTE Device Contraindication: Treatment Not Indicated VTE Drug Contraindication: Treatment Not Indicated
[2024-04-07 13:32] LABS: Alanine Aminotransferase 137 U/L (0-40); Alkaline Phosphatase 374 U/L (39-117); Anion Gap 14 (12-20); Aspartate Amino Transferase 215 U/L (5-37); Bilirubin Direct 0.4 mg/dL (0.0-0.5); Bilirubin Total 0.8 mg/dL (0.0-1.0); Blood Urea Nitrogen 10 mg/dL (9-16); Calcium 9.6 mg/dL (8.4-10.2); Carbon Dioxide 25 mmol/L (22-29); Chloride 102 mmol/L (96-108); Creatinine Clr Calc Pharmacy 126.2; Estimated Glomerular Filt Rate > 60; Glucose Random 90 mg/dL (60-115); Potassium 3.3 mmol/L (3.3-5.1); Sodium 138 mmol/L (135-145); Total Protein 7.2 g/dL (6.5-8.0)
--- NOTE | 2024-04-07 13:59 | MHC.CM.PN ---
PT REPORTS HE LIVES WITH HIS AND CHILDREN HE IS INDEPENDENT WITH CARE, HAS NO DME AND NO SERVICES PT HAS A HCP ON FILE PCP: RACHEL MEADE DCP: HOME NO SERVICES PT WILL ATTEMPT TO SECURE A RIDE, BUT ALSO REPORTS HE LIVES [place]LO[place] [facility] [place] AND WOULD LIKE TO WALK IF FEELING WELL ENOUGH
[2024-04-07 15:52] VITALS: BP 124/84; PULSE 55; RESP 18; TEMP 36.8; O2SAT 96
[2024-04-07 19:22] VITALS: BP 134/84; PULSE 64; RESP 18; TEMP 36.9; O2SAT 100
[2024-04-07] MEDS: 0.9 % Sodium Chloride Flush 3 ML SYRINGE IVFLUSH (19:42)
[2024-04-07] MEDS: Milk of Magnesia 30 ML ORAL.SUSP PO (19:49)
[2024-04-07 23:27] VITALS: BP 137/79; PULSE 53; RESP 18; TEMP 36.4; O2SAT 100
[2024-04-08] MEDS: Zolpidem Tartrate 5 MG TABLET PO (01:25)
[2024-04-08] MEDS: HYDROmorphone HCl 1 MG/ML SYRINGE 0.5 MG IVPUSH ×2 (01:26→05:55)
[2024-04-08] MEDS: Lactated Ringers 1,000 ML 125 ML IVCONT (05:54)
[2024-04-08 07:15] LABS: Alanine Aminotransferase 163 U/L (0-40); Albumin Level 3.7 g/dL (3.5-5.0); Alkaline Phosphatase 369 U/L (39-117); Anion Gap 16 (12-20); Aspartate Amino Transferase 269 U/L (5-37); Bilirubin Direct 0.2 mg/dL (0.0-0.5); Bilirubin Total 0.7 mg/dL (0.0-1.0); Blood Urea Nitrogen 9 mg/dL (9-16); Calcium 9.3 mg/dL (8.4-10.2); Carbon Dioxide 20 mmol/L (22-29); Chloride 105 mmol/L (96-108); Creatinine Clr Calc Pharmacy 132.3; Estimated Glomerular Filt Rate > 60; Glucose Random 98 mg/dL (60-115); Potassium 3.7 mmol/L (3.3-5.1); Sodium 137 mmol/L (135-145); Total Protein 7.1 g/dL (6.5-8.0)
[2024-04-08 07:48] VITALS: BP 128/83; PULSE 63; RESP 20; TEMP 36.4; O2SAT 99
[2024-04-08] MEDS: oxyCODONE HCl Immed Release 5 MG TABLET PO (08:08)
[2024-04-08] MEDS: Famotidine/PF 20 MG/2 ML VIAL IVPUSH (08:08)
[2024-04-08] MEDS: 0.9 % Sodium Chloride Flush 3 ML SYRINGE IVFLUSH ×2 (08:09→20:33)
[2024-04-08] MEDS: ondansetron HCL 4 MG/2 ML VIAL IVPUSH (12:23)
--- NOTE | 2024-04-08 13:42 | P.PNIM_ITS ---
Subjective Subjective Date of Service: 04/08/24 Interval History: Being followed for acute pancreatitis This morning patient was feeling better, with no abdominal pain no nausea, vomiting, tolerated full liquid diet, eager to eat solids, therefore patient placed on regular diet and IV fluid discontinued, however 4 hours later patient became nauseous and developed abdominal pain, no recurrent fevers, no chills, no diarrhea, last bowel movement 04/06. No lightheadedness, no dizziness patient feels discouraged. Review of Systems All other system reviewed and negative Physical Exam 2 Vital Signs: Vital Signs: Last Vital Signs Temp 97.6 F 04/08/24 07:48 Pulse 63 04/08/24 07:48 Resp 20 04/08/24 07:48 BP 128/83 04/08/24 07:48 Pulse Ox 99 04/08/24 07:48 O2 Del Method Room Air 04/08/24 07:48 BMI result Body Mass Index 24.3 Const: Other: General awake alert x3, in no acute distress. Anicteric sclera Neck supple no JVD. CVS regular rate rhythm, Respiratory lungs clear to auscultation, no respiratory distress, no wheeze, no rhonchi. Gastrointestinal abdomen soft, no distension, nontender, bowel sounds audible, no guarding , no rigidity. Extremities no edema. Neuro non focal , no tremors Skin no rash Appropriate affect Objective Data Active Medications Acetaminophen (Acetaminophen 325 Mg Tablet) 650 mg PO Q6H PRN PRN Reason: Pain, Mild (Pain Scale 1-3) Last Admin: 04/06/24 05:36 Dose: 650 mg Documented By: ASHLIE Benzonatate (Benzonatate 100 Mg Capsule) 100 mg PO TID PRN PRN Reason: Cough Docusate Sodium (Docusate Sodium 100 Mg Capsule) 100 mg PO DAILY PRN PRN Reason: Constipation Hydromorphone HCl (Hydromorphone Hcl 0.5 Mg/0.5 Ml Syringe) 0.5 mg IVPUSH Q4H PRN; Protocol PRN Reason: Pain, Severe (Pain Scale 7-10) Lactated Ringer's (Lr) 1,000 mls @ 100 mls/hr IVCONT .Q10H SOHAIL Magnesium Hydroxide (Milk Of Magnesia 30 Ml Oral.Susp) 30 ml PO DAILY PRN PRN Reason: Constipation Last Admin: 04/07/24 19:49 Dose: 30 ml Documented By: SONAL Melatonin (Melatonin 3 Mg Tablet) 6 mg PO BEDTIME PRN PRN Reason: Insomnia Last Admin: 04/06/24 23:24 Dose: 6 mg Documented By: MARCO Ondansetron HCl (Ondansetron Hcl 4 Mg/2 Ml Vial) 4 mg IVPUSH Q8H PRN PRN Reason: Nausea and Vomiting Last Admin: 04/08/24 12:23 Dose: 4 mg Documented By: HERRERA Oxycodone HCl (Oxycodone Hcl Immed Release 5 Mg Tablet) 5 mg PO Q4H PRN PRN Reason: Pain, Moderate(Pain Scale 4-6) Senna (Sennosides 8.6 Mg Tablet) 17.2 mg PO BEDTIME PRN PRN Reason: Constipation Sodium Chloride (0.9 % Sodium Chloride Flush 3 Ml Syringe) 3 ml IVFLUSH QSHIFT [facility] Last Admin: 04/08/24 08:09 Dose: 3 ml Documented By: HERRERA Zolpidem Tartrate (Zolpidem Tartrate 5 Mg Tablet) 5 mg PO BEDTIME PRN PRN Reason: Insomnia Last Admin: 04/08/24 01:25 Dose: 5 mg Documented By: SONAL Labs 04/07/24 06:23 04/08/24 06:37 Labs: Laboratory Results - last 24 hr 04/08/24 06:37 Anion Gap 16 Estim Creat Clear Calc 132.3 Estimated GFR > 60 Random Glucose 98 Calcium 9.3 Magnesium 2.0 Total Bilirubin 0.7 Direct Bilirubin 0.2 AST 269 H ALT 163 H Alkaline Phosphatase 369 H Total Protein 7.1 Albumin 3.7 Assessment and Plan (1) Recurrent acute pancreatitis: Status: Acute Plan 33-year-old gentleman with past medical history significant for renal calculi and gallstone pancreatitis status post cholecystectomy, presented due to epigastric pain and diagnosed to have recurrent acute pancreatitis. Recurrent acute pancreatitis. Abdominal pain resolved this morning, but recurred again without eating solid food Continue IV fluids, IV analgesics, IV Pepcid and antiemetics WBC normalized, normal renal function , blood sugars stable, , AST ALT and alk- phos continue to rise, lipase improved to 167, normal calcium and bicarb cholangiopancreatography/MRI from July 2023 showed common bile duct within normal limits and no choledocholithiasis No right upper quadrant tenderness to palpation, Stable hematocrit Will place back on clear liquid diet with clear ensure, monitor CBC, electrolytes, renal function, LFTs Check abdominal ultrasound If symptoms persist with any new findings on abdominal ultrasound will obtain GI consultation Strongly recommend to abstain from alcohol Chronic transaminitis worsening transaminases , normal bilirubin, due to worsening pain will obtain abdominal ultrasound Alcohol use disorder no evidence of withdrawal symptoms , CIWA 0, magnesium 2, as per patient last drink week prior to presentation Code status full code Low risk recommend early ambulation In my clinical judgment patient need continued inpatient hospitalization for management of acute pancreatitis ,requiring IV fluids, and IV analgesics, treatment can not be provided in less acute setting. Quality Stroke Does the patient have a stroke diagnosis?: No VTE Prior VTE?: No VTE Risk Level:: Medical - low VTE Device Contraindication: Treatment Not Indicated VTE Drug Contraindication: Treatment Not Indicated
[2024-04-08] MEDS: HYDROmorphone HCl 0.5 MG/0.5 ML SYRINGE IVPUSH ×2 (13:49→20:32)
[2024-04-08] MEDS: Lactated Ringers 1,000 ML 100 ML IVCONT (13:50)
[2024-04-08 15:28] VITALS: BP 146/86; PULSE 53; RESP 18; TEMP 36.5; O2SAT 99
[2024-04-08 19:15] VITALS: BP 148/75; PULSE 69; RESP 18; TEMP 36.7; O2SAT 99
[2024-04-09 03:58] VITALS: BP 125/83; PULSE 55; RESP 20; TEMP 37.1; O2SAT 99
[2024-04-09 06:43] LABS: Hematocrit 33.9 % (42.0-52.0); Hemoglobin 11.7 g/dl (14.0-18.0); Mean Corpuscular HGB Conc 34.5 g/dl (31.0-36.0); Mean Corpuscular Hemoglobin 31.6 pg (27.0-33.0); Mean Corpuscular Volume 91.6 fL (80.0-98.0); Mean Platelet Volume 9.8 fL (9.4-12.4); Platelet Count 315 X10*3/uL (160-400); Red Cell Distribution Width 14.9 % (11.0-16.0); White Blood Count 7.7 X10*3/uL (4.8-10.8)
[2024-04-09] MEDS: Lactated Ringers 1,000 ML 100 ML IVCONT ×2 (06:46→16:58)
[2024-04-09 06:51] LABS: Alanine Aminotransferase 117 U/L (0-40); Albumin Level 3.4 g/dL (3.5-5.0); Alkaline Phosphatase 291 U/L (39-117); Anion Gap 13 (12-20); Aspartate Amino Transferase 75 U/L (5-37); Bilirubin Direct 0.2 mg/dL (0.0-0.5); Bilirubin Total 0.5 mg/dL (0.0-1.0); Blood Urea Nitrogen 7 mg/dL (9-16); Carbon Dioxide 27 mmol/L (22-29); Chloride 106 mmol/L (96-108); Creatinine Clr Calc Pharmacy 123.3; Estimated Glomerular Filt Rate > 60; Glucose Random 85 mg/dL (60-115); Lipase 21 U/L (8-78); Sodium 142 mmol/L (135-145); Total Protein 6.1 g/dL (6.5-8.0); Triglycerides 56 mg/dL (<150)
[2024-04-09 08:00] VITALS: BP 137/79; PULSE 57; RESP 18; TEMP 37.1; O2SAT 97
[2024-04-09] MEDS: HYDROmorphone HCl 0.5 MG/0.5 ML SYRINGE IVPUSH ×2 (08:05→13:06)
[2024-04-09] MEDS: 0.9 % Sodium Chloride Flush 3 ML SYRINGE IVFLUSH ×2 (08:05→19:49)
--- NOTE | 2024-04-09 13:38 | P.PNIM_ITS ---
Subjective Subjective Date of Service: 04/09/24 Interval History: abd pain improved, no N/V LFTs improved Review of Systems Review of Systems: Yes all other systems are reviewed and are negative Physical Exam 2 Vital Signs: Vital Signs: Last Vital Signs Temp 98.7 F 04/09/24 08:00 Pulse 57 04/09/24 08:00 Resp 18 04/09/24 08:00 BP 137/79 04/09/24 08:00 Pulse Ox 97 04/09/24 08:00 O2 Del Method Room Air 04/09/24 08:00 BMI result Body Mass Index 24.3 Gen: in no acute distress HEENT: sclera anicteric, moist mucus membranes Neck: supple Lungs: clear to auscultation bilaterally Heart: regular rate and rhythm, no murmurs Abd: soft, non-tender, non-distended Ext: no edema Skin: warm/well-perfused Neuro: alert and oriented x3, no focal findings Psych: appropriate affect Objective Data Active Medications Acetaminophen (Acetaminophen 325 Mg Tablet) 650 mg PO Q6H PRN PRN Reason: Pain, Mild (Pain Scale 1-3) Last Admin: 04/06/24 05:36 Dose: 650 mg Documented By: ASHLIE Benzonatate (Benzonatate 100 Mg Capsule) 100 mg PO TID PRN PRN Reason: Cough Docusate Sodium (Docusate Sodium 100 Mg Capsule) 100 mg PO DAILY PRN PRN Reason: Constipation Hydromorphone HCl (Hydromorphone Hcl 0.5 Mg/0.5 Ml Syringe) 0.5 mg IVPUSH Q4H PRN; Protocol PRN Reason: Pain, Severe (Pain Scale 7-10) Last Admin: 04/09/24 13:06 Dose: 0.5 mg Documented By: HERRERA Lactated Ringer's (Lr) 1,000 mls @ 100 mls/hr IVCONT .Q10H SOHAIL Last Admin: 04/09/24 09:48 Dose: Not Given Documented By: HERREAR Non-Admin Reason: IV Running Magnesium Hydroxide (Milk Of Magnesia 30 Ml Oral.Susp) 30 ml PO DAILY PRN PRN Reason: Constipation Last Admin: 04/07/24 19:49 Dose: 30 ml Documented By: SONAL Melatonin (Melatonin 3 Mg Tablet) 6 mg PO BEDTIME PRN PRN Reason: Insomnia Last Admin: 04/06/24 23:24 Dose: 6 mg Documented By: MARCO Ondansetron HCl (Ondansetron Hcl 4 Mg/2 Ml Vial) 4 mg IVPUSH Q8H PRN PRN Reason: Nausea and Vomiting Last Admin: 04/08/24 12:23 Dose: 4 mg Documented By: HERRERA Oxycodone HCl (Oxycodone Hcl Immed Release 5 Mg Tablet) 5 mg PO Q4H PRN PRN Reason: Pain, Moderate(Pain Scale 4-6) Senna (Sennosides 8.6 Mg Tablet) 17.2 mg PO BEDTIME PRN PRN Reason: Constipation Sodium Chloride (0.9 % Sodium Chloride Flush 3 Ml Syringe) 3 ml IVFLUSH QSHIFT SOHAIL Last Admin: 04/09/24 08:05 Dose: 3 ml Documented By: HERRERA Zolpidem Tartrate (Zolpidem Tartrate 5 Mg Tablet) 5 mg PO BEDTIME PRN PRN Reason: Insomnia Last Admin: 04/08/24 01:25 Dose: 5 mg Documented By: WRIGHTS Labs 04/09/24 05:31 04/09/24 05:31 Labs: Laboratory Results - last 24 hr 04/09/24 05:31 MCV 91.6 MCH 31.6 MCHC 34.5 RDW 14.9 Plt Count 315 MPV 9.8 Absolute Nucleated RBC 0.000 Nucleated RBC % (auto) 0.0 Anion Gap 13 Estim Creat Clear Calc 123.3 Estimated GFR > 60 Random Glucose 85 Calcium 9.0 Total Bilirubin 0.5 Direct Bilirubin 0.2 AST 75 H ALT 117 H Alkaline Phosphatase 291 H Total Protein 6.1 L Albumin 3.4 L Triglycerides 56 Lipase 21 Impressions Abdomen Ultrasound 04/08/24 13:00 IMPRESSION: * No sonographic evidence of a peripancreatic fluid collection or pancreatic mass in this patient with recent CT imaging findings of pancreatitis. * Diffuse hepatic steatosis. Assessment and Plan (1) Recurrent acute pancreatitis: Status: Acute Plan d5 33yo M with hx nephrolithiasis + gallstone pancreatitis s/p cholecystectomy admitted for recurrent acute pancreatitis, likely due to ETOH acute pancreatitis - failed dietary trial yesterday but will try again today given clinical improvement, improved LFTs, and no new issues on US - continue IV fluids, PO oxycodone AUD - Addiction Medicine consultation VTE ppx - early ambulation In my clinical judgment, the patient requires continued inpatient hospitalization for the following reasons: acute pancreatitis requiring IV fluids Total time managing care of this patient today: 35 minutes. Quality Stroke Does the patient have a stroke diagnosis?: No VTE Prior VTE?: No VTE Risk Level:: Medical - low VTE Device Contraindication: Treatment Not Indicated VTE Drug Contraindication: Treatment Not Indicated
[2024-04-09 15:41] VITALS: BP 141/90; PULSE 53; RESP 18; TEMP 37.2; O2SAT 100
[2024-04-09] MEDS: oxyCODONE HCl Immed Release 5 MG TABLET PO ×2 (17:04→22:35)
[2024-04-09] MEDS: ondansetron HCL 4 MG/2 ML VIAL IVPUSH (17:51)
[2024-04-09 19:54] VITALS: BP 158/91; PULSE 62; RESP 20; TEMP 36.8; O2SAT 100
[2024-04-09] MEDS: Sennosides 8.6 MG TABLET 17.2 MG PO (19:59)
[2024-04-09] MEDS: Magnesium Hydrox/Alum Hydrox 30 ML ORAL.SUSP PO (19:59)
[2024-04-10] MEDS: Zolpidem Tartrate 5 MG TABLET PO (00:15)
[2024-04-10 01:10] VITALS: BP 140/82; PULSE 58; RESP 20; TEMP 37.4; O2SAT 100
[2024-04-10] MEDS: Lactated Ringers 1,000 ML 100 ML IVCONT (05:49)
[2024-04-10] MEDS: oxyCODONE HCl Immed Release 5 MG TABLET PO (06:23)
[2024-04-10 08:00] VITALS: BP 120/72; PULSE 69; RESP 18; TEMP 36.6; O2SAT 100
--- NOTE | 2024-04-10 09:53 | P.DS_ITS ---
DS: Providers Provider Date of Service: 04/10/24 Date of admission: 04/05/24 11:57 Date of discharge: 04/10/24 Primary care physician: Cade Peres MD Consults: 04/09/24 08:30 Addiction Medicine Routine Consulting Provider: Addiction Covering Reason for consultation: EtOH. pancreatitis DS: Diagnosis Discharge Diagnosis (1) Recurrent acute pancreatitis: Status: Acute (2) Alcohol use disorder: Status: Acute DS: Summary Hospital Course Hospital Course: From the history and physical by the admitting hospitalist, Stacie Billings MD, 04/05/24: 33-year-old gentleman with past medical history significant for kidney stone, status post cholecystectomy May 2023 for gallstone pancreatitis, with recurrent episodes of acute pancreatitis underwent MRCP and CT scan July 2023 and was noted to have no acute issues and has recurrent pancreatitis was felt to be related to alcohol use presented to [facility] today with 3-4 days' history of epigastric pain associated with nausea, dry heaving, no vomiting, with pain radiating to bilateral flank and to back,, associated chills and sweating, patient also complaining of concentrated urine but no associated dysuria or burning, admit to drinking 2 to 3 beer daily last drink 2 weeks ago, denies withdrawal symptoms, no tremors no visual or auditory hallucinations, no tactile disturbance, workup in ED included CT abdomen and pelvis that showed diffuse pancreatic parenchymal edema, extensive peripancreatic standing without organized fluid collection possible reactive wall thickening of the duodenal findings likely representing acute pancreatitis, WBC of 13.4 stable H&H and platelets, normal renal function, electrolytes, calcium 9.8, significantly improved AST and ALT from December 2023, lipase of 465, patient treated in the emergency room with IV fluids IV analgesics, Pepcid, antiemetics but since symptoms persisted patient is being admitted to [facility] due to recurrent episodes of acute pancreatitis. 33yo M with hx nephrolithiasis + gallstone pancreatitis s/p cholecystectomy who was admitted for recurrent acute pancreatitis that was again likely due to alcohol intake. He was treated with bowel rest, IV fluids, and opioids. Diet was advanced to regular after 1 failure. LFTs improved and pain resolved completely. He was counseled to avoid alcohol entirely. The Recovery Team was consulted but he declined services. Time Attestation Discharge Coordination Time (in mins): 35 Quality: Safe Use of Opioids Does Pt have an Active Cancer Diagnosis on the Problem List?: No Quality: Stroke Does the patient have a stroke diagnosis?: No Physical Exam Vital Signs: Vital Signs: Last Vital Signs Temp 97.8 F 04/10/24 08:00 Pulse 69 04/10/24 08:00 Resp 18 04/10/24 08:00 BP 120/72 04/10/24 08:00 Pulse Ox 100 04/10/24 08:00 O2 Del Method Room Air 04/10/24 08:00 BMI result Body Mass Index 24.3 Gen: in no acute distress HEENT: sclera anicteric, moist mucus membranes Neck: supple Lungs: clear to auscultation bilaterally Heart: regular rate and rhythm, no murmurs Abd: soft, non-tender, non-distended Ext: no edema Skin: warm/well-perfused Neuro: alert and oriented x3, no focal findings Psych: appropriate affect DS: Data Data Completed and Pending Completed studies during hospitalization [Text1]: Laboratory Results WBC 7.7 X10*3/uL (4.8-10.8) 04/09/24 05:31 RBC 3.70 X10*6/uL (4.60-5.80) L 04/09/24 05:31 Hgb 11.7 g/dl (14.0-18.0) L 04/09/24 05:31 Hct 33.9 % (42.0-52.0) L 04/09/24 05:31 MCV 91.6 fL (80.0-98.0) 04/09/24 05:31 MCH 31.6 pg (27.0-33.0) 04/09/24 05:31 MCHC 34.5 g/dl (31.0-36.0) 04/09/24 05:31 RDW 14.9 % (11.0-16.0) 04/09/24 05:31 Plt Count 315 X10*3/uL (160-400) 04/09/24 05:31 MPV 9.8 fL (9.4-12.4) 04/09/24 05:31 Immature Gran % (Auto) 0.4 % (0.0-0.4) 04/05/24 00:14 Neut % (Auto) 82.9 % (45-73) H 04/05/24 00:14 Lymph % (Auto) 9.5 % (20-40) L 04/05/24 00:14 Trinity % (Auto) 7.0 % (2-11) 04/05/24 00:14 Eos % (Auto) 0.0 % (0-4) 04/05/24 00:14 Baso % (Auto) 0.2 % (0-2) 04/05/24 00:14 Lymph # (Auto) 1.3 X10*3/uL (1.2-4.9) 04/05/24 00:14 Trinity # (Auto) 0.9 X10*3/uL (0.1-1.2) 04/05/24 00:14 Eos # (Auto) 0.0 X10*3/uL (0.0-0.4) 04/05/24 00:14 Baso # (Auto) 0.0 X10*3/uL (0.0-0.2) 04/05/24 00:14 Abs Immat Gran (auto) 0.06 X10*3/uL (0.00-0.03) H 04/05/24 00:14 Absolute Neuts (auto) 11.1 x10*3/uL (2.0-8.3) H 04/05/24 00:14 Absolute Nucleated RBC 0.000 X10*3/uL (0.0-0.012) 04/09/24 05:31 Nucleated RBC % (auto) 0.0 /100WBC (0.0-0.2) 04/09/24 05:31 Sodium 142 mmol/L (135-145) 04/09/24 05:31 Potassium 4.0 mmol/L (3.3-5.1) 04/09/24 05:31 Chloride 106 mmol/L (96-108) 04/09/24 05:31 Carbon Dioxide 27 mmol/L (22-29) 04/09/24 05:31 Anion Gap 13 (12-20) 04/09/24 05:31 BUN 7 mg/dL (9-16) L 04/09/24 05:31 Creatinine 0.89 mg/dL (0.5-1.4) 04/09/24 05:31 Estim Creat Clear Calc 123.3 04/09/24 05:31 Estimated GFR > 60 04/09/24 05:31 Random Glucose 85 mg/dL (60-115) 04/09/24 05:31 Calcium 9.0 mg/dL (8.4-10.2) 04/09/24 05:31 Magnesium 2.0 mg/dL (1.6-2.6) 04/08/24 06:37 Total Bilirubin 0.5 mg/dL (0.0-1.0) 04/09/24 05:31 Direct Bilirubin 0.2 mg/dL (0.0-0.5) 04/09/24 05:31 AST 75 U/L (5-37) H 04/09/24 05:31 ALT 117 U/L (0-40) H 04/09/24 05:31 Alkaline Phosphatase 291 U/L (39-117) H 04/09/24 05:31 Total Protein 6.1 g/dL (6.5-8.0) L 04/09/24 05:31 Albumin 3.4 g/dL (3.5-5.0) L 04/09/24 05:31 Triglycerides 56 mg/dL (<150) 04/09/24 05:31 Lipase 21 U/L (8-78) 04/09/24 05:31 Urine Color Dark Yellow 04/05/24 06:47 Urine Appearance Clear 04/05/24 06:47 Urine pH 6.5 (5.0-9.0) 04/05/24 06:47 Ur Specific Coden 1.025 (1.005-1.025) 04/05/24 06:47 Urine Protein 100 (2+) mg/dL (Neg-Trace) H 04/05/24 06:47 Urine Glucose (UA) Negative mg/dL (Negative) 04/05/24 06:47 Urine Ketones 40 mg/dL (Negative) 04/05/24 06:47 Urine Blood Negative (Negative) 04/05/24 06:47 Urine Nitrite Negative (Negative) 04/05/24 06:47 Ur Leukocyte Esterase Trace (Negative) H 04/05/24 06:47 Urine RBC 0-2 /HPF (0-2) 04/05/24 06:47 Urine WBC 6-10 /HPF (0-5) H 04/05/24 06:47 Ur Squamous Epith Cells 3-5 /HPF (0-2) 04/05/24 06:47 Urine Bacteria None Seen (None Seen) 04/05/24 06:47 Hyaline Casts 0-2 /LPF (0-2) 04/05/24 06:47 Urine Opiates Screen Not Detected (Not Detect) 05 06:47 Ur Buprenorphine Scrn Not Detected ng/mL (Not Detect) 04/05/24 06:47 Ur Oxycodone Screen Not Detected ng/mL (Not Detect) 04/05/24 06:47 Urine Methadone Screen Not Detected ng/mL (Not Detect) 04/05/24 06:47 Urine Fentanyl Screen Not Detected (Not Detect) 04/05/24 06:47 Ur Barbiturates Screen Not Detected (Not Detect) 04/05/24 06:47 Ur Phencyclidine Scrn Not Detected (Not Detect) 04/05/24 06:47 Ur Amphetamines Screen Not Detected (Not Detect) 04/05/24 06:47 U Benzodiazepines Scrn Not Detected (Not Detect) 04/05/24 06:47 Urine Cocaine Screen Not Detected (Not Detect) 04/05/24 06:47 U Marijuana (THC) Screen POSITIVE (Not Detect) H 04/05/24 06:47 Impressions KUB X-Ray 04/05/24 06:35 IMPRESSION: No evidence of constipation or obstruction. Bilateral renal stones. Abdomen/Pelvis CT 04/05/24 09:34 IMPRESSION: Diffuse pancreatic parenchymal edema. Extensive peripancreatic stranding without organized fluid collection. Possible reactive wall thickening of the duodenum. Findings most likely representing acute pancreatitis. There has been overall progression since the comparison study. Bilateral nonobstructing renal calculi. No hydronephrosis. Fleischner guidelines were followed. Abdomen Ultrasound 04/08/24 13:00 IMPRESSION: * No sonographic evidence of a peripancreatic fluid collection or pancreatic mass in this patient with recent CT imaging findings of pancreatitis. * Diffuse hepatic steatosis. Discharge Plan Discharge Anticipated Discharge Date/Time: 04/10/24 09:51 Patient Disposition: Home, Self-Care Discharge Diagnosis: pancreatitis Referrals: Cade Peres MD [Primary Care Provider] - 1 Week Discharge Orders: Discharge Order (Routine); Ordered 04/10/24 Ordered By: Louann Newell Diet: Advance to usual diet Activity on Discharge: no alcohol Stand Alone Forms: Patient Portal Discharge page Print Language: [place] Care Plan Goals: prevent future episodes of pancreatitis Health Concerns: pancreatitis Plan of Treatment: avoid alcohol entirely take acetaminophen as needed for pain Please follow up with your primary care doctor within 1 week. Return to the hospital if you experience recurrent or worsening symptoms. Assessment: See Discharge Summary. Patient Instructions: Gastritis (ED), Diet for Stomach Ulcers and Gastritis (ED) Discharge Date/Time: 04/10/24 12:11
--- NOTE | 2024-04-10 11:35 | MHC.RECOVRN ---
Met with pt in 468 after consult placed to Addiction Medicine for alcohol use and pancreatitis. Pt had presented to the ED reporting abdominal pain off and on for 4 days, constipation, vomiting, inability to eat and drink. Upon evaluation, pt admitted for recurrent acute pancreatitis. Pt sitting in chair, awake, alert, easily engages in conversation, awaiting discharge paperwork. Immediately after t/w introduces self pt informs t/w that ever since he reported having a drink at [employer] the providers have attributed his pancreatitis to alcohol, pt reports it is related to gallstones. Pt reports he does not have concerns regarding his alcohol use, family and friends do not have concerns. Pt has not received any medication for alcohol withdrawal while here, has not scored on CIWA. Pt declines information/resources related to alcohol use. Pt denies questions or concerns for t/w. Roxana Ellis APRN, aware.
--- NOTE | 2024-04-10 12:30 | MHC.CM.PN ---
PT WILL DC HOME TODAY WITH NO SERVICES VIA PRIVATE TRANSPORT
== END 2024-04-10 12:11 | disposition home or self-care (01) | DRG 282 ==
LOC: HO.ED 04-05 10:51 → HO.EDOVER 04-05 12:07 → HO.IMC 04-06 14:18
PROVIDERS: Student in an Organized Health Care Education/Training Program; Admitting Provider Hospitalist; Emergency Provider Emergency Medicine; PCP Family Medicine; Visit Provider Family Medicine
DX: K85.20 Alcohol induced acute pancreatitis without necrosis or infection (principal); F10.90 Alcohol use, unspecified, uncomplicated; Z87.442 Personal history of urinary calculi
CPT/HCPCS: 36415; 74018; 74177; 76705; 80048; 80053; 80076; 80307; 81001; 83690; 83735; 84478; 85025; 85027; 87086; 92950; 99285; J1170; J1790; J2270; J2405; J7120; Q9967

== ENCOUNTER → 2024-04-05 11:57 | Outpatient (BNV) | payer OTHER, SELFPAY | PROVIDERS: Admitting Provider Hospitalist; Emergency Provider Emergency Medicine; PCP Family Medicine; Visit Provider Hospitalist | DX: K85.90 Acute pancreatitis without necrosis or infection, unspecified (principal); F10.90 Alcohol use, unspecified, uncomplicated | CPT/HCPCS: 99223; 99232; 99239 ==

== ENCOUNTER 2024-06-01 13:04 | Emergency (ER) | payer OTHER, SELFPAY ==
--- NOTE | ~2024-06-01 | CT_ITS ---
EXAMINATION: CT ABDOMEN AND PELVIS WITH CONTRAST CLINICAL INFORMATION: Abdominal pain COMPARISON: 04/05/2024 TECHNIQUE: Multidetector volumetric images were obtained from the superior aspect of the liver through the pubic symphysis following administration 85 mL of Omnipaque 350 intravenous contrast. Sagittal and coronal reformatted images were obtained on the technologist's workstation. Oral contrast: No This CT examination was performed using dose optimization techniques as appropriate, variously including the following: *Automated exposure control *Adjustment of mA and/or kV according to patient size (this includes techniques or standardized protocols for targeted exams where dose is matched to indication/reason for exam; i.e. extremities or head) *Use of iterative reconstruction technique DLP: 443 mGy-cm FINDINGS: LUNG BASES: The visualized lung bases are unremarkable. LIVER, GALLBLADDER, AND BILIARY TREE: There is mild intrahepatic ductal dilatation. Gallbladder is surgically absent. CBD is prominent without evidence of choledocholithiasis. CBD measured 1.5 cm. PANCREAS: Visualized on the previous examination. Pancreatic stranding has been resolved. There is mild prominence of pancreatic duct SPLEEN: Unremarkable. ADRENAL GLANDS: Unremarkable. KIDNEYS AND URETERS: There are multiple bilateral renal stones without hydroureteronephrosis seen. BLADDER: There is circumferential thickening of urinary bladder GASTROINTESTINAL TRACT: The small and large bowel are unremarkable. The appendix is not seen ABDOMINAL WALL: No significant hernia is appreciated. LYMPH NODES: Normal. VASCULAR: Unremarkable. PELVIC VISCERA: Unremarkable. OSSEOUS STRUCTURES: Unremarkable. CT/CT abdomen pelvis w IV con IMPRESSION: 1. Bilateral nephrolithiasis without hydroureteronephrosis. 2. Resolution of pancreatitis seen on the prior study 3. Mild intrahepatic ductal dilatation and prominent CBD without evidence of choledocholithiasis. 4. Circumferential thickening of urinary bladder, correlate with clinical history and urinary tests. Fleischner guidelines were followed.
[2024-06-01 13:09] VITALS: BP 128/72; PULSE 98; O2SAT 99
[2024-06-01 13:10] VITALS: BP 126/95; PULSE 105; RESP 20; TEMP 36.8; O2SAT 100
[2024-06-01 13:15] VITALS: BMI 23.8
--- NOTE | 2024-06-01 13:27 | ED_ITS ---
HPI - General Adult General Chief complaint: Abdominal Pain Stated complaint: ABD PAIN NAUSEA VOMITING History of Present Illness ED Provider: Dr. Cook HPI narrative: 33 y/o M patient; PMH s/p cholecystectomy, gallstone and alcohol pancreatitis; presents from home reporting nausea/vomiting and epigastric abdominal pain since last night. He states since symptom onset he has been unable to have a bowel movement and has not been passing any gas. Denies: fever or chills, chest pain, SOB, cough/congestion. Patient last admitted to this hospital 04/05 - 04/10/2024 for pancreatitis. Patient denies any current alcohol use. Related Data Previous Rx's ?Medication ?Instructions ?Recorded dicyclomine 10 mg capsule 10 mg PO BID 7 days #14 caps 06/01/24 ondansetron HCl 4 mg tablet 4 mg PO Q8H PRN nausea and 06/01/24 vomiting 7 days #14 tabs Allergies Allergy/AdvReac Type Severity Reaction Status Date / Time cat dander [CATS] Allergy Unknown UNKNOWN Verified 06/01/24 13:17 dog dander [DOGS] Allergy Unknown UNKNOWN Verified 06/01/24 13:17 Review of Systems 2 Review of Systems: Yes all other systems are reviewed and are negative Neurologic: Denies Sensory deficit (Neuro) [facility] Past Medical History Attestation statement: The following information was validated with the patient. Source: old records reviewed Medical History Kidney stones Surgical History H/O cystoscopy No pertinent past surgical history Social History Social History Household Members: Significant Other and Children Housing: House Do you presently have visiting nurse or other home services: No Alcohol intake: former Patient Tobacco Use Status: Never used Tobacco Smoked in Last 30 Days: No Second Hand Smoke Exposure: No Use of substances other than those prescribed or required for medical reasons: No Substance Use Type: Marijuana Advance Directives: Yes Advance Directives on File: Yes Advance Directives Date on File: 10/21/21 Do you have a plan to hurt others: No Plan service: No Current occupational status: unemployed Physical Exam ED Vital Signs: Vital Signs - 24 hr 06/01/24 13:10 06/01/24 14:45 06/01/24 17:13 Temperature 98.3 F 99.8 F 98.3 F Pulse Rate 105 H 61 62 Respiratory Rate 20 16 15 Blood Pressure 126/95 H 121/78 126/81 Pulse Oximetry 100 100 100 Oxygen Delivery Method Room Air Room Air Room Air BMI result Body Mass Index 23.8 Patient is afebrile, mildly tachycardic, normotensive. Const General: cooperative Orientation/consciousness: patient oriented x3 HENMT Head: Yes normal to inspection and Yes atraumatic Eyes General: appearance normal, both eyes and all related structures Pupils: Equal, round and reactive pupils present EOM: EOMs intact bilaterally Neck Neck: Yes normal visual inspection, Yes full ROM, Yes supple and No tender Chest Chest palpation & inspection: normal inspection of the chest and normal palpation of entire chest wall Resp Effort & Inspection: normal respiratory effort, able to speak in complete sentences, no cough and no respiratory distress Auscultation: clear to auscultation bilaterally Cardio Rate: tachycardic Rhythm: regular rhythm Peripheral pulses: Peripheral pulses 2+ throughout GI Other: Epigastric abdominal tenderness Inspection: Yes normal to inspection, No Abdominal wall edema and No distended Palpation (GI): Soft to palpation, not firm, Tenderness to palpation present (GI), no guarding and not rigid Auscultation: Hypoactive bowel sounds present General: Yes no CVA tenderness Back/Spine/Pelvis Back: no CVA tenderness Neuro General: patient oriented x3 Cranial nerves: Yes Equal, round and reactive pupils present Motor exam (neuro): 5/5 motor strength present throughout Sensory Exam: No Sensory deficit (Neuro) Course Course Course Narrative: Patient is afebrile, mildly tachycardic, and normotensive. Will obtain laboratory studies, CT Abdomen/Pelvis w IV Contrast. Providing IVF 1L, Zofran 4mg IV, Dilaudid 1mg IV, and Tylenol 1g IV. Reevaluation(s) Reevaluation #1: Patient's skin feels warm - obtained rectal temp which is 101F. Ordered for blood cultures and LA - providing Zosyn for empiric antibiotic coverage. Laboratory studies reviewed. Leukocytosis 11.0. LA 1.6. Alk phos 410, lipase 177 (last 21 on 04/09/2024). Required repeat medication with Dilaudid 1mg and Zofran 4mg IV. Reevaluation #2: CT Abdomen/Pelvis without new abnormalities. Discussed with hospitalist for admission due to fever, tachycardia, significant pain requiring frequent doses of nausea/pain controlling medications, and elevated lipase. However on re-evaluating patient he appears much improved - reports resolution of nausea and abdominal pain. Discussed PO trial and possible discharge to home if able to tolerate food/liquids. Patient reports he would prefer discharge to home. Possibly symptoms 2/2 to food poisoning. Able to tolerate crackers and soda. Provided Bentyl for stomach cramping. Plan: Discharge to home with PCP follow up Return precautions given Rx Zofran sent to pharmacy Medications Administered Discontinued Medications Generic Name Dose Route Start Last Admin Trade Name Freq PRN Reason Stop Dose Admin Hydromorphone HCl 1 mg 06/01/24 13:39 06/01/24 14:06 Hydromorphone Hcl 1 Mg/Ml Syringe IVPUSH 06/01/24 13:40 1 mg ONCE ONE Administration Protocol Hydromorphone HCl 1 mg 06/01/24 15:48 06/01/24 16:05 Hydromorphone Hcl 1 Mg/Ml Syringe IVPUSH 06/01/24 15:49 1 mg ONCE ONE Administration Protocol Sodium Chloride 1,000 mls @ 999 mls/hr 06/01/24 13:30 06/01/24 15:52 Ns IV 06/01/24 14:30 Infused .Q1H1M SOHAIL Infusion Acetaminophen 1,000 mg in 100 mls @ 400 mls/hr 06/01/24 13:39 06/01/24 14:23 Ofirmev IV 06/01/24 13:53 Infused ONCE ONE Infusion Piperacillin Sod/Tazobactam 50 mls @ 100 mls/hr 06/01/24 13:44 06/01/24 14:52 Sod 3.375 gm/ Sodium Chloride IV 06/01/24 14:13 Infused ONCE ONE Infusion Iohexol 85 ml 06/01/24 15:01 06/01/24 15:02 Iohexol 350 Mg/Ml 100 Ml Infus..Btl IV 06/01/24 15:02 85 ml ONCE ONE Administration Ondansetron HCl 4 mg 06/01/24 14:12 06/01/24 14:21 Ondansetron Hcl 4 Mg/2 Ml Vial IVPUSH 06/01/24 14:13 4 mg ONCE ONE Administration Ondansetron HCl 4 mg 06/01/24 16:16 06/01/24 16:32 Ondansetron Hcl 4 Mg/2 Ml Vial IVPUSH 06/01/24 16:17 4 mg ONCE ONE Administration Medical Decision Making Lab Data 06/01/24 13:38 06/01/24 13:38 Labs: Lab Results 06/01/24 06/01/24 06/01/24 Range/Units 13:38 14:02 17:27 WBC 11.0 H (4.8-10.8) X10*3/uL RBC 5.10 D (4.60-5.80) X10*6/uL Hgb 16.1 D (14.0-18.0) g/dl Hct 44.4 D (42.0-52.0) % MCV 87.1 (80.0-98.0) fL MCH 31.6 (27.0-33.0) pg MCHC 36.3 H (31.0-36.0) g/dl RDW 15.9 (11.0-16.0) % Plt Count 390 (160-400) X10*3/uL MPV 8.9 L (9.4-12.4) fL Immature Gran % (Auto) 0.5 H (0.0-0.4) % Neut % (Auto) 81.2 H (45-73) % Lymph % (Auto) 10.8 L (20-40) % Clare % (Auto) 7.1 (2-11) % Eos % (Auto) 0.2 (0-4) % Baso % (Auto) 0.2 (0-2) % Lymph # (Auto) 1.2 (1.2-4.9) X10*3/uL Clare # (Auto) 0.8 (0.1-1.2) X10*3/uL Eos # (Auto) 0.0 (0.0-0.4) X10*3/uL Baso # (Auto) 0.0 (0.0-0.2) X10*3/uL Abs Immat Gran (auto) 0.06 H (0.00-0.03) X10*3/uL Absolute Neuts (auto) 8.9 H (2.0-8.3) x10*3/uL Absolute Nucleated RBC 0.000 (0.0-0.012) X10*3/uL Nucleated RBC % (auto) 0.0 (0.0-0.2) /100WBC Sodium 134 L (135-145) mmol/L Potassium 3.5 (3.3-5.1) mmol/L Chloride 98 (96-108) mmol/L Carbon Dioxide 23 (22-29) mmol/L Anion Gap 17 (12-20) BUN 18 H (9-16) mg/dL Creatinine 1.08 (0.5-1.4) mg/dL Estim Creat Clear Calc 101.6 Estimated GFR > 60 Random Glucose 158 H (60-115) mg/dL Lactic Acid 1.6 (0.5-2.0) mmol/L Calcium 11.0 H D (8.4-10.2) mg/dL Total Bilirubin 0.8 (0.0-1.0) mg/dL Direct Bilirubin 0.3 (0.0-0.5) mg/dL AST 50 H (5-37) U/L ALT 111 H (0-40) U/L Alkaline Phosphatase 410 H (39-117) U/L Total Protein 8.7 H (6.5-8.0) g/dL Albumin 4.6 (3.5-5.0) g/dL Lipase 177 H (8-78) U/L Urine Color Dark Yellow Urine Appearance Clear Urine pH 6.0 (5.0-9.0) Ur Specific Burgess >= 1.030 H (1.005-1.025) Urine Protein 100 (2+) H (Neg-Trace) mg/dL Urine Glucose (UA) Negative (Negative) mg/dL Urine Ketones Trace (Negative) mg/dL Urine Blood Negative (Negative) Urine Nitrite Negative (Negative) Ur Leukocyte Esterase Negative (Negative) Radiology Impression Discussion of test interpretation with radiology: I have reviewed the radiologist's reading. Radiologist Impression: EXAMINATION: CT ABDOMEN AND PELVIS WITH CONTRAST CLINICAL INFORMATION: Abdominal pain COMPARISON: 04/05/2024 TECHNIQUE: Multidetector volumetric images were obtained from the superior aspect of the liver through the pubic symphysis following administration 85 mL of Omnipaque 350 intravenous contrast. Sagittal and coronal reformatted images were obtained on the technologist's workstation. Oral contrast: No This CT examination was performed using dose optimization techniques as appropriate, variously including the following: *Automated exposure control *Adjustment of mA and/or kV according to patient size (this includes techniques or standardized protocols for targeted exams where dose is matched to indication/reason for exam; i.e. extremities or head) *Use of iterative reconstruction technique DLP: 443 mGy-cm FINDINGS: LUNG BASES: The visualized lung bases are unremarkable. LIVER, GALLBLADDER, AND BILIARY TREE: There is mild intrahepatic ductal dilatation. Gallbladder is surgically absent. CBD is prominent without evidence of choledocholithiasis. CBD measured 1.5 cm. PANCREAS: Visualized on the previous examination. Pancreatic stranding has been resolved. There is mild prominence of pancreatic duct SPLEEN: Unremarkable. ADRENAL GLANDS: Unremarkable. KIDNEYS AND URETERS: There are multiple bilateral renal stones without hydroureteronephrosis seen. BLADDER: There is circumferential thickening of urinary bladder GASTROINTESTINAL TRACT: The small and large bowel are unremarkable. The appendix is not seen ABDOMINAL WALL: No significant hernia is appreciated. LYMPH NODES: Normal. VASCULAR: Unremarkable. PELVIC VISCERA: Unremarkable. OSSEOUS STRUCTURES: Unremarkable. CT/CT abdomen pelvis w IV con IMPRESSION: 1. Bilateral nephrolithiasis without hydroureteronephrosis. 2. Resolution of pancreatitis seen on the prior study 3. Mild intrahepatic ductal dilatation and prominent CBD without evidence of choledocholithiasis. 4. Circumferential thickening of urinary bladder, correlate with clinical history and urinary tests. Fleischner guidelines were followed. Discharge Plan Discharge Clinical Impression: Vomiting Patient Disposition: Home, Self-Care Instructions: Gastroenteritis (DC) Additional Instructions: As we discussed, you were seen today for nausea/vomiting/abdominal pain. Your CT was reassuring. Your labs were reassuring. You received IV fluids, pain medication and nausea medication. Recommend you follow up with your PCP within the next 24 - 48 hours for re- evaluation. Return to the emergency department for: Worsening abdominal pain Prescriptions: New ondansetron HCl 4 mg tablet 4 mg PO Q8H PRN (Reason: nausea and vomiting) 7 Days Qty: 14 0RF dicyclomine 10 mg capsule 10 mg PO BID 7 Days Qty: 14 0RF Print Language: Albanian
[2024-06-01 13:43] LABS: MANUAL DIFF FLAG NO
[2024-06-01 13:50] LABS: Basophils Percent Auto 0.2 % (0-2); Eosinophils Percent Auto 0.2 % (0-4); Hematocrit 44.4 % (42.0-52.0); Hemoglobin 16.1 g/dl (14.0-18.0); Imm Gran Abs Auto 0.06 X10*3/uL (0.00-0.03); Imm Gran Pct Auto 0.5 % (0.0-0.4); Lymphocytes Absolute Auto 1.2 X10*3/uL (1.2-4.9); Lymphocytes Percent Auto 10.8 % (20-40); Mean Corpuscular HGB Conc 36.3 g/dl (31.0-36.0); Mean Corpuscular Hemoglobin 31.6 pg (27.0-33.0); Mean Corpuscular Volume 87.1 fL (80.0-98.0); Mean Platelet Volume 8.9 fL (9.4-12.4); Monocytes Absolute Auto 0.8 X10*3/uL (0.1-1.2); Monocytes Percent Auto 7.1 % (2-11); Neutrophils Absolute Auto 8.9 x10*3/uL (2.0-8.3); Neutrophils Percent Auto 81.2 % (45-73); Platelet Count 390 X10*3/uL (160-400); Red Cell Distribution Width 15.9 % (11.0-16.0)
[2024-06-01] MEDS: 0.9 % Sodium Chloride 1,000 ML 999 ML IV (14:05)
[2024-06-01] MEDS: HYDROmorphone HCl 1 MG/ML SYRINGE IVPUSH ×2 (14:06→16:05)
[2024-06-01] MEDS: Acetaminophen 1,000 MG/100 ML PIGGYBACK 400 MG IV (14:09)
[2024-06-01] MEDS: ondansetron HCL 4 MG/2 ML VIAL IVPUSH ×2 (14:21→16:32)
[2024-06-01] MEDS: Piperacillin Sodium/Tazobactam 3.375 GM in 0.9 % Sodium Chloride 50 ML IV (14:22)
[2024-06-01 14:32] LABS: Lactic Acid 1.6 mmol/L (0.5-2.0)
[2024-06-01 14:37] LABS: Alanine Aminotransferase 111 U/L (0-40); Albumin Level 4.6 g/dL (3.5-5.0); Alkaline Phosphatase 410 U/L (39-117); Anion Gap 17 (12-20); Aspartate Amino Transferase 50 U/L (5-37); Bilirubin Direct 0.3 mg/dL (0.0-0.5); Bilirubin Total 0.8 mg/dL (0.0-1.0); Blood Urea Nitrogen 18 mg/dL (9-16); Carbon Dioxide 23 mmol/L (22-29); Chloride 98 mmol/L (96-108); Creatinine Clr Calc Pharmacy 101.6; Estimated Glomerular Filt Rate > 60; Glucose Random 158 mg/dL (60-115); Lipase 177 U/L (8-78); Potassium 3.5 mmol/L (3.3-5.1); Sodium 134 mmol/L (135-145); Total Protein 8.7 g/dL (6.5-8.0)
[2024-06-01 14:45] VITALS: BP 121/78; PULSE 61; RESP 16; TEMP 37.7; O2SAT 100
[2024-06-01] MEDS: iohexoL 350 MG/ML 100 ML INFUS..BTL 85 ML IV (15:02)
[2024-06-01 17:13] VITALS: BP 126/81; PULSE 62; RESP 15; TEMP 36.8; O2SAT 100
[2024-06-01 17:33] LABS: Appearance Urine Clear; Color Urine Dark Yellow; Glucose Urine UA Negative (Negative); Leukocyte Esterase Urine Negative (Negative); Nitrite Urine Negative (Negative); Specific Gravity - Urine >= 1.030 (1.005-1.025); UMIC TRIGGER UACC YES; Urine Blood Negative (Negative); Urine Ketones Trace mg/dL (Negative); Urine Protein 100 (2+) mg/dL (Neg-Trace)
[2024-06-01] MEDS: Dicyclomine HCl 10 MG CAPSULE PO (18:01)
[2024-06-01 18:02] LABS: Bacteria Urine None Seen (None Seen); Hyaline Casts Urine 0-2 /LPF (0-2); RBC Urine 0-2 /HPF (0-2); Squamous Epithelial Cell Urine 0-2 /HPF (0-2); WBC Urine 0-5 /HPF (0-5)
[2024-06-01 18:26] VITALS: BP 128/84; PULSE 65; RESP 16; TEMP 36.9; O2SAT 99
== END 2024-06-01 18:26 | disposition home or self-care (01) ==
PROVIDERS: Emergency Provider Emergency Medicine; PCP Family Medicine
DX: R10.13 Epigastric pain (principal); R11.2 Nausea with vomiting, unspecified; R00.0 Tachycardia, unspecified; Z79.899 Other long term (current) drug therapy
CPT/HCPCS: 36415; 74177; 80048; 80076; 81001; 83605; 83690; 85025; 87040; 96361; 96374; 96375; 96376; 99284; J0131; J1170; J2405; J2543; Q9967

== ENCOUNTER 2024-06-02 09:00 | Emergency (ER) | payer OTHER, SELFPAY ==
--- NOTE | ~2024-06-02 | XR_ITS ---
EXAMINATION: XR ABDOMEN KUB CLINICAL INDICATION: Constipation, vomiting COMPARISON: CT abdomen from 06/01/2024 TECHNIQUE: AP view of the abdomen. FINDINGS: There is nonspecific bowel gas pattern without free air under the diaphragm. There are clips of cholecystectomy seen and there is calcification projecting over the lower pole of right kidney XR/XR KUB IMPRESSION: No acute abnormalities. Nephrolithiasis on the right
[2024-06-02 09:04] VITALS: BP 121/93; BP 138/88; PULSE 90; PULSE 92; RESP 16; TEMP 36.9; O2SAT 96; BMI 26.4
--- NOTE | 2024-06-02 09:10 | PC.NURSE ---
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 patient states he is having diffuse abdominal pain and has not had a bowel movement in 4 days. patient complaining of feeling bloated and he was still nauseated this morning which prompted him to call 911. patient with mild tenderness throughout abdomen, bowel sounds are present in all four quadrants, patient denies any chest pain or shortness of breath, states he tried to vomit this morning but he states all that came out was bile.
[2024-06-02 09:16] VITALS: BP 121/93; PULSE 90; RESP 19; TEMP 36.9; O2SAT 96
[2024-06-02 11:27] VITALS: BP 136/89; PULSE 85; RESP 16; TEMP 37; O2SAT 98
--- NOTE | 2024-06-02 11:38 | ED_ITS ---
HPI - Abdominal Pain General Chief Complaint: Abdominal Pain Stated Complaint: CONSTIPATION FOOD POISONING Time Seen by Provider: 06/02/24 11:38 Source: patient, EMS, RN notes reviewed and old records reviewed Mode of arrival: EMS Limitations: no limitations History of Present Illness ED Provider: RACHAEL EVANS PA-C HPI narrative: 33 year old male with pmhx significant for etoh use disorder and recurrent pancreatitis presents to the ED today via EMS from home for evaluation of nausea, vomiting, constipation, and abdominal pain x3 days. Patient was evaluated in our ED yesterday for same. After receiving IV fluids and Zofran, he was able to tolerate p.o. intake with improvement in symptoms and was discharged home with Zofran. 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 He presents today with continued N/V with diffuse abdominal pain. Additionally admits to continued constipation. He states he has been unable to pass a BM or flatus in 3-4 days which is not his baseline. Admits he typically passes 2-3 bowel movements daily. Denies history of constipation. Has not been taking anything for this at home. Denies fevers, chills, sore throat, flank pain, dysuria, hematuria, diarrhea, hematemesis, hematochezia, melena. Related Data Previous Rx's ?Medication ?Instructions ?Recorded dicyclomine 10 mg capsule 10 mg PO BID 7 days #14 caps 06/01/24 ondansetron HCl 4 mg tablet 4 mg PO Q8H PRN nausea and 06/01/24 vomiting 7 days #14 tabs docusate sodium 100 mg capsule 100 mg PO DAILY PRN constipation 06/02/24 (Colace) #10 caps naproxen 500 mg tablet 500 mg PO Q8-12H PRN pain (scale 06/02/24 score 1-3) #20 tabs polyethylene glycol 3350 17 17 g PO DAILY 4 days #68 grams 06/02/24 gram/dose oral powder (Miralax) prednisone 10 mg tablet 10 mg PO DAILY 3 days #3 tabs 06/02/24 tramadol 50 mg tablet 50 mg PO TID #7 tabs 06/02/24 Allergies Allergy/AdvReac Type Severity Reaction Status Date / Time cat dander [CATS] Allergy Unknown UNKNOWN Verified 07/05/24 09:10 dog dander [DOGS] Allergy Unknown UNKNOWN Verified 06/02/24 09:10 Review of Systems Review of Systems Constitutional: No fever, chills, fatigue, night sweats, weight changes ENT/Mouth: No ear pain, hearing loss, nasal congestion, sinus pain, rhinorrhea, sore throat Eyes: No eye pain, swelling, redness, vision changes, discharge Cardio: No chest pain, palpitations, [place], orthopnea, peripheral edema Pulm: No SOB, cough, sputum, wheezing, dyspnea, hemoptysis GI: No hematemesis, diarrhea, hematochezia, melena, +nausea, +vomiting, +constipation, +abdominal pain : No irregular bleeding, dysuria, frequency, urgency, hesitancy, hematuria, flank pain, urinary flow changes, urinary incontinence or retention MSK: No back pain, neck pain, joint pain, myalgias Skin: No lesions, rashes Neuro: No weakness, numbness, paresthesias, LOC, dizziness, headache Psych: No anxiety/panic, depression, SI/HI, AH/VH All other systems reviewed and are negative. [facility] Past Medical History Attestation statement: The following information was validated with the patient. Source: old records reviewed and nursing notes reviewed Medical History Kidney stones Surgical History H/O cystoscopy No pertinent past surgical history Social History Social History Household Members: Significant Other and Children Housing: House Do you presently have visiting nurse or other home services: No Alcohol intake: former Patient Tobacco Use Status: Never used Tobacco Smoked in Last 30 Days: No Second Hand Smoke Exposure: No Substance Use Type: Marijuana Advance Directives: Yes Advance Directives on File: Yes Advance Directives Date on File: 10/21/21 Do you have a plan to hurt others: No Plan service: No Current occupational status: unemployed Physical Exam ED Vital Signs: Vital Signs - 24 hr 06/02/24 14:39 06/02/24 14:41 Temperature 98.1 F 98.7 F Pulse Rate 63 65 Respiratory Rate 18 17 Blood Pressure 115/65 115/65 Pulse Oximetry 97 98 Oxygen Delivery Method Room Air Room Air BMI result Body Mass Index 26.4 Vital signs stable, afebrile Const General: cooperative, healthy appearing, comfortable and no acute distress Orientation/consciousness: patient oriented x3 Limitations: no limitations HENMT Head: Yes normal to inspection, Yes No palpable skull fracture present, Yes normocephalic and Yes atraumatic Eyes General: appearance normal, both eyes and all related structures Pupils: Equal, round and reactive pupils present Neck Neck: Yes normal visual inspection Resp Effort & Inspection: normal respiratory effort and able to speak in complete sentences Auscultation: clear to auscultation bilaterally Cardio Rate: regular rate Rhythm: regular rhythm GI Other: + Abdomen soft, nondistened, mildly tender palpation of the without rebound tenderness or guarding, normoactive bs x4. Inspection: Yes normal to inspection General: Yes no CVA tenderness Back/Spine/Pelvis Other: No midline spinous tenderness or step off deformity. No paraspinal muscle tenderness. Back: no CVA tenderness Skin General skin exam: no rashes or lesions noted Neuro General: patient oriented x3, gait normal and tone normal Cranial nerves: Yes Equal, round and reactive pupils present Extrem General: Yes normal to inspection Course Course Course Narrative: 1339-- CBC without leukocytosis or left shift. No anemia. H&H stable. Chemistry with resolution of hyponatremia. BUN elevated to 17 however creatinine WNL. Patient receiving IV fluids. AST 56, ALT 110, alk phos 459. Liver enzymes chronically elevated secondary to ETOH abuse. Total bilirubin WNL. Very low suspicion for obstructive pathology. Lipase now WNL when compared to labs obtained yesterday. No concern for acute pancreatitis. Patient has received Zofran and IV fluids with resolution of nausea. Requesting pain medication. Dilaudid ordered with improvement. Awaiting KUB. 1430-- KUB without evidence of obstruction or fecal retention. There is incidental findings of nephrolithiasis of right kidney. I have also reviewed CT abdomen/pelvis obtained yesterday which shows bilateral nephrolithiasis without evidence of hydroureternephrosis. Pancreatitis had resolved. > I did discuss results with patient. he reports significant improvement in symptoms with zofran, IVF, and dilaudid. Given patient's history, I do have suspicion patient may be passing small renal stones. he tells me this discomfort is similar to previous stones. will prescribe naproxen and prednisone. tramadol sent for break through pain. advised him to follow up with his urologist. Patient has remained stable throughout ED visit today. Discussed worrisome signs and symptoms and when to return to the ED. All questions answered at this time. Patient is agreeable with disposition and stable for discharge. Medical Decision Making Medical Decision Making [facility] Narrative: 33 year old male with pmhx significant for etoh use disorder and recurrent pancreatitis presents to the ED today via EMS from home for evaluation of nausea, vomiting, constipation, and abdominal pain x3 days. Patient initially hypertensive, vitals otherwise WNL. He is afebrile. He is nontoxic-appearing and in no acute distress. Lying comfortably on the exam bed. Abdomen is soft, mildly ttp of the lower abdomen without rebound tenderness or guarding. no cvat bilaterally. skinb w/d/i. no rashes. Differential diagnosis includes constipation, SBO, anemia, electrolyte abnormality, dehydration, pancreatitis Plan for repeat labs, KUB, pain control, IVF, and re-evaluation. Differential Diagnosis Differential Diagnoses: The differential diagnosis associated with the presentation includes as above. Admission/Observation Not warranted. Lab Data [facility] Lab Attestation statement: I reviewed the patient's lab results. as above. 06/02/24 11:57 06/02/24 11:57 Labs: Lab Results 06/02/24 Range/Units 11:57 WBC 10.1 (4.8-10.8) X10*3/uL RBC 4.82 (4.60-5.80) X10*6/uL Hgb 15.4 (14.0-18.0) g/dl Hct 42.6 (42.0-52.0) % MCV 88.4 (80.0-98.0) fL MCH 32.0 (27.0-33.0) pg MCHC 36.2 H (31.0-36.0) g/dl RDW 15.9 (11.0-16.0) % Plt Count 399 (160-400) X10*3/uL MPV 8.9 L (9.4-12.4) fL Immature Gran % (Auto) 0.4 (0.0-0.4) % Neut % (Auto) 76.0 H (45-73) % Lymph % (Auto) 16.2 L (20-40) % Bibb % (Auto) 6.6 (2-11) % Eos % (Auto) 0.6 (0-4) % Baso % (Auto) 0.2 (0-2) % Lymph # (Auto) 1.6 (1.2-4.9) X10*3/uL Bibb # (Auto) 0.7 (0.1-1.2) X10*3/uL Eos # (Auto) 0.1 (0.0-0.4) X10*3/uL Baso # (Auto) 0.0 (0.0-0.2) X10*3/uL Abs Immat Gran (auto) 0.04 H (0.00-0.03) X10*3/uL Absolute Neuts (auto) 7.7 (2.0-8.3) x10*3/uL Absolute Nucleated RBC 0.000 (0.0-0.012) X10*3/uL Nucleated RBC % (auto) 0.0 (0.0-0.2) /100WBC Sodium 136 (135-145) mmol/L Potassium 3.4 (3.3-5.1) mmol/L Chloride 101 (96-108) mmol/L Carbon Dioxide 25 (22-29) mmol/L Anion Gap 13 (12-20) BUN 17 H (9-16) mg/dL Creatinine 0.97 (0.5-1.4) mg/dL Estim Creat Clear Calc 113.2 Estimated GFR > 60 Random Glucose 115 (60-115) mg/dL Calcium 10.3 H D (8.4-10.2) mg/dL Magnesium 1.8 (1.6-2.6) mg/dL Total Bilirubin 0.8 (0.0-1.0) mg/dL AST 56 H (5-37) U/L ALT 110 H (0-40) U/L Alkaline Phosphatase 459 H (39-117) U/L Total Protein 8.3 H (6.5-8.0) g/dL Albumin 4.4 (3.5-5.0) g/dL Lipase 76 (8-78) U/L Independent Interpretation I performed an independent interpretation of an: Plain X-Ray Interpretation: KUB without fecal retention, agree with radiologist's interpretation. Radiology Impression Discussion of test interpretation with radiology: I have reviewed the radiologist's reading. Radiologist Impression: EXAMINATION: XR ABDOMEN KUB CLINICAL INDICATION: Constipation, vomiting COMPARISON: CT abdomen from 06/01/2024 TECHNIQUE: AP view of the abdomen. FINDINGS: There is nonspecific bowel gas pattern without free air under the diaphragm. There are clips of cholecystectomy seen and there is calcification projecting over the lower pole of right kidney XR/XR KUB IMPRESSION: No acute abnormalities. Nephrolithiasis on the right Independent Historian Clinical information obtained from an independent historian. History obtained from or confirmed by: EMS External Record Review External record reviewed: Inpatient record, Office record, Outpatient record, Prior outpatient labs, Prior outpatient radiology, Primary care record and Outside ED record Prescription Management I considered prescription management with: Other (miralax, colace) Chronic Conditions Patient?s care impacted by: Other (pancreatitis, etoh abuse) Social Determinants Patient?s care significantly limited by Social Determinants of Health including: Other Social Determinant of Health Medications Administered Discontinued Medications Generic Name Dose Route Start Last Admin Trade Name Freq PRN Reason Stop Dose Admin Hydromorphone HCl 1 mg 06/02/24 13:16 06/02/24 13:22 Hydromorphone Hcl 1 Mg/Ml Syringe IVPUSH 06/02/24 13:17 1 mg ONCE ONE Administration Protocol Sodium Chloride 1,000 mls @ 999 mls/hr 06/02/24 11:45 06/02/24 14:24 Ns IV 06/02/24 12:45 Infused .Q1H1M SOHAIL Infusion Ondansetron HCl 4 mg 06/02/24 11:40 06/02/24 11:54 Ondansetron Hcl 4 Mg/2 Ml Vial IVPUSH 06/02/24 11:41 4 mg ONCE ONE Administration Critical Care Time Critical Care Time Critical Care Time: No Discharge Plan Discharge Clinical Impression: Abdominal pain, Nausea & vomiting Patient Disposition: Home, Self-Care Instructions: Acute Nausea and Vomiting (ED), Abdominal Pain (ED) Additional Instructions: Your blood work today is reassuring. The x-ray of your abdomen does not demonstrate constipation or obstruction. You received IV fluids, Zofran and pain medication with improvement in symptoms. You may be passing kidney stones however there is no evidence of obstructing stone on CT scan obtained yesterday. Prednisone as an anti-inflammatory that has been sent to your pharmacy. Take this for the next 3 days. Naproxen is an anti-inflammatory pain medication that has been sent to your pharmacy. Take this as needed for pain. Tramadol as an opioid pain medication that has been sent to your pharmacy for you to take for breakthrough pain that has not covered with naproxen. Colace as a stool softener that has been sent to your pharmacy. You may take this as needed. Continue taking Zofran as needed for nausea and vomiting. This was sent to your pharmacy yesterday. MiraLax as laxative that has been sent to your pharmacy. Take this as needed. Follow up with your PCP and urologist as needed. Return with new or worsening symptoms. In the case of an emergency call 911. Prescriptions: New prednisone 10 mg tablet 10 mg PO DAILY 3 Days Qty: 3 0RF naproxen 500 mg tablet 500 mg PO Q8-12H PRN (Reason: pain (scale score 1-3)) Qty: 20 0RF tramadol 50 mg tablet 50 mg PO TID Qty: 7 0RF docusate sodium [Colace] 100 mg capsule 100 mg PO DAILY PRN (Reason: constipation) Qty: 10 0RF polyethylene glycol 3350 [Miralax] 17 gram/dose powder 17 g PO DAILY 4 Days Qty: 68 0RF No Action ondansetron HCl 4 mg tablet 4 mg PO Q8H PRN (Reason: nausea and vomiting) 7 Days Qty: 14 0RF dicyclomine 10 mg capsule 10 mg PO BID 7 Days Qty: 14 0RF Referrals: Cade Peres MD [Primary Care Provider] - Interventions: ED Discharge Assessment Last Done: 06/02/24 14:41 Discharge Date/Time: 06/02/24 14:42 Print Language: Arabic
[2024-06-02] MEDS: 0.9 % Sodium Chloride 1,000 ML 999 ML IV (11:54)
[2024-06-02] MEDS: ondansetron HCL 4 MG/2 ML VIAL IVPUSH (11:54)
[2024-06-02 12:01] LABS: MANUAL DIFF FLAG NO
[2024-06-02 12:02] LABS: Basophils Percent Auto 0.2 % (0-2); Eosinophils Absolute Auto 0.1 X10*3/uL (0.0-0.4); Eosinophils Percent Auto 0.6 % (0-4); Hematocrit 42.6 % (42.0-52.0); Hemoglobin 15.4 g/dl (14.0-18.0); Imm Gran Abs Auto 0.04 X10*3/uL (0.00-0.03); Imm Gran Pct Auto 0.4 % (0.0-0.4); Lymphocytes Absolute Auto 1.6 X10*3/uL (1.2-4.9); Lymphocytes Percent Auto 16.2 % (20-40); Mean Corpuscular HGB Conc 36.2 g/dl (31.0-36.0); Mean Corpuscular Volume 88.4 fL (80.0-98.0); Mean Platelet Volume 8.9 fL (9.4-12.4); Monocytes Absolute Auto 0.7 X10*3/uL (0.1-1.2); Monocytes Percent Auto 6.6 % (2-11); Neutrophils Absolute Auto 7.7 x10*3/uL (2.0-8.3); Platelet Count 399 X10*3/uL (160-400); Red Blood Count 4.82 X10*6/uL (4.60-5.80); Red Cell Distribution Width 15.9 % (11.0-16.0); White Blood Count 10.1 X10*3/uL (4.8-10.8)
[2024-06-02 12:16] LABS: Alanine Aminotransferase 110 U/L (0-40); Albumin Level 4.4 g/dL (3.5-5.0); Alkaline Phosphatase 459 U/L (39-117); Anion Gap 13 (12-20); Aspartate Amino Transferase 56 U/L (5-37); Bilirubin Total 0.8 mg/dL (0.0-1.0); Blood Urea Nitrogen 17 mg/dL (9-16); Calcium 10.3 mg/dL (8.4-10.2); Carbon Dioxide 25 mmol/L (22-29); Chloride 101 mmol/L (96-108); Creatinine Clr Calc Pharmacy 113.2; Estimated Glomerular Filt Rate > 60; Glucose Random 115 mg/dL (60-115); Lipase 76 U/L (8-78); Magnesium 1.8 mg/dL (1.6-2.6); Potassium 3.4 mmol/L (3.3-5.1); Sodium 136 mmol/L (135-145); Total Protein 8.3 g/dL (6.5-8.0)
[2024-06-02] MEDS: HYDROmorphone HCl 1 MG/ML SYRINGE IVPUSH (13:22)
[2024-06-02 14:39] VITALS: BP 115/65; PULSE 63; RESP 18; TEMP 36.7; O2SAT 97
[2024-06-02 14:41] VITALS: BP 115/65; PULSE 65; RESP 17; TEMP 37.1; O2SAT 98
== END 2024-06-02 14:42 | disposition home or self-care (01) ==
PROVIDERS: Physician Assistant Medical; Emergency Provider Emergency Medicine Emergency Medical Services; PCP Family Medicine
DX: R11.2 Nausea with vomiting, unspecified (principal); R10.9 Unspecified abdominal pain
CPT/HCPCS: 36415; 74018; 80053; 83690; 83735; 85025; 96361; 96374; 96375; 99284; J1170; J2405

== ENCOUNTER 2024-06-16 05:16 | Emergency (ER) | payer OTHER, SELFPAY ==
[2024-06-16] VITALS (9 sets, daily range): BP systolic 112–143; BP diastolic 74–100; PULSE 54–90; RESP 14–18; TEMP 36.6–36.7; O2SAT 98–100; BMI 24.3
--- NOTE | ~2024-06-16 | XR_ITS ---
EXAMINATION: XR ABDOMEN KUB CLINICAL INDICATION: Abdominal pain. COMPARISON: 06/02/2024 TECHNIQUE: 2 views of the abdomen. FINDINGS: Imaged lung bases are clear. The left renal shadow is obscured by overlying bowel contents. 8 mm and 3 mm calculi project over the lower pole of the right kidney. Nonobstructive bowel gas pattern. Surgical clips project over the right upper quadrant. XR/XR KUB IMPRESSION: Right-sided nephrolithiasis.
--- NOTE | ~2024-06-16 | CT_ITS ---
EXAMINATION: CT ABDOMEN AND PELVIS WITH CONTRAST CLINICAL INFORMATION: Diffuse abdominal pain. COMPARISON: June 01, 2024 TECHNIQUE: Multidetector volumetric images were obtained from the superior aspect of the liver through the pubic symphysis following administration 85 mL of Omnipaque 350 intravenous contrast. Sagittal and coronal reformatted images were obtained on the technologist's workstation. Oral contrast: No This CT examination was performed using dose optimization techniques as appropriate, variously including the following: *Automated exposure control *Adjustment of mA and/or kV according to patient size (this includes techniques or standardized protocols for targeted exams where dose is matched to indication/reason for exam; i.e. extremities or head) *Use of iterative reconstruction technique DLP: 420 mGy-cm FINDINGS: LUNG BASES: No pleural or pericardial effusion. LIVER, GALLBLADDER, AND BILIARY TREE: The liver is enlarged and decreased in attenuation. No suspicious hepatic lesion. Postcholecystectomy changes biliary ductal system. There is focal fat along the falciform ligament. The gallbladder is surgically absent. PANCREAS: Atrophic. Main pancreatic duct is mildly prominent to 4 mm. SPLEEN: Not enlarged. ADRENAL GLANDS: No adrenal mass. KIDNEYS AND URETERS: Bilateral nonobstructing renal calculi. The calculus on the right measures 8 mm. The calculus on the left measures 5 mm. No hydronephrosis or perinephric fluid collection. BLADDER: Mild diffuse bladder wall thickening. GASTROINTESTINAL TRACT: Small hiatal hernia. There is wall thickening of the proximal to mid small bowel. No small bowel obstruction. ABDOMINAL WALL: No significant hernia is appreciated. LYMPH NODES: No bulky lymphadenopathy. VASCULAR: Normal caliber abdominal aorta. Retroaortic left renal vein. PELVIC VISCERA: Mild enlargement of the prostate gland. OSSEOUS STRUCTURES: No destructive bone lesions. CT/CT abdomen pelvis w IV con IMPRESSION: Wall thickening of the proximal to mid small bowel. No small bowel obstruction. This likely represents enteritis. Infectious and inflammatory etiologies should be considered. Bilateral nonobstructing renal calculus. No hydronephrosis. Electronically signed by: Dwayne Aguilera MD 08/04/2024 09:26 AM EDT
[2024-06-16 05:56] LABS: MANUAL DIFF FLAG NO
[2024-06-16 05:57] LABS: Basophils Absolute Auto 0.1 X10*3/uL (0.0-0.2); Basophils Percent Auto 0.8 % (0-2); Eosinophils Absolute Auto 0.1 X10*3/uL (0.0-0.4); Eosinophils Percent Auto 1.4 % (0-4); Hematocrit 41.8 % (42.0-52.0); Hemoglobin 14.9 g/dl (14.0-18.0); Imm Gran Abs Auto 0.02 X10*3/uL (0.00-0.03); Imm Gran Pct Auto 0.3 % (0.0-0.4); Lymphocytes Absolute Auto 2.9 X10*3/uL (1.2-4.9); Lymphocytes Percent Auto 39.6 % (20-40); Mean Corpuscular HGB Conc 35.6 g/dl (31.0-36.0); Mean Corpuscular Hemoglobin 31.8 pg (27.0-33.0); Mean Corpuscular Volume 89.1 fL (80.0-98.0); Mean Platelet Volume 8.8 fL (9.4-12.4); Monocytes Absolute Auto 0.5 X10*3/uL (0.1-1.2); Monocytes Percent Auto 6.4 % (2-11); Neutrophils Absolute Auto 3.8 x10*3/uL (2.0-8.3); Neutrophils Percent Auto 51.5 % (45-73); Platelet Count 450 X10*3/uL (160-400); Red Blood Count 4.69 X10*6/uL (4.60-5.80); Red Cell Distribution Width 15.9 % (11.0-16.0); White Blood Count 7.3 X10*3/uL (4.8-10.8)
[2024-06-16 06:27] LABS: Creatinine Clr Calc Pharmacy 102.6; Estimated Glomerular Filt Rate > 60
[2024-06-16 06:28] LABS: Anion Gap 17 (12-20); Blood Urea Nitrogen 16 mg/dL (9-16); Carbon Dioxide 23 mmol/L (22-29); Chloride 104 mmol/L (96-108); Sodium 141 mmol/L (135-145)
[2024-06-16 06:29] LABS: Alanine Aminotransferase 38 U/L (0-40); Alkaline Phosphatase 235 U/L (39-117); Aspartate Amino Transferase 32 U/L (5-37); Bilirubin Total 0.3 mg/dL (0.0-1.0); Calcium 9.5 mg/dL (8.4-10.2); Glucose Random 103 mg/dL (60-115); Total Protein 6.9 g/dL (6.5-8.0)
--- NOTE | 2024-06-16 06:46 | ED_ITS ---
HPI - Abdominal Pain General Chief Complaint: Abdominal Pain Stated Complaint: abd pain Time Seen by Provider: 06/16/24 06:46 Source: patient and RN notes reviewed Mode of arrival: ambulatory Limitations: no limitations History of Present Illness ED Provider: Rachel Rodriguez PA-C HPI narrative: This is a 33-year-old male, with a with a hx of kidney stones, status post cholecystectomy May 2023 for gallstone pancreatitis, with recurrent episodes of acute pancreatitisho presents emergency department complaints of abdominal pain for the last 4 days. Pt reports that 4 days ago he developed abdominal pain that waxes and wanes in severity. Reports that he has not had a bowel movement in 4 days, and has not been able to pass gas in 4 days as well. He endorses nausea, no vomiting. He has been unable to eat or drink secondary to worsening pain and reports that he starts to spit up whatever he has tried to swallow. He denies any fevers, chest pain, shortness of breath. Denies etoh abuse, he smokes marijuana. No other complaints or concerns at this time. MD elicited complaint: abdominal pain Pertinent past history: other (pancreatitis) Onset (ago): day(s) Pain Consistency: constant Location: diffuse Severity: moderate Quality: cramping and aching Radiation: none Migration to: no migration Exacerbating factors: nothing Relieving factors: nothing Associated symptoms: nausea Related Data Previous Rx's ?Medication ?Instructions ?Recorded dicyclomine 10 mg capsule 10 mg PO BID 7 days #14 caps 06/01/24 ondansetron HCl 4 mg tablet 4 mg PO Q8H PRN nausea and 06/01/24 vomiting 7 days #14 tabs docusate sodium 100 mg capsule 100 mg PO DAILY PRN constipation 06/02/24 (Colace) #10 caps naproxen 500 mg tablet 500 mg PO Q8-12H PRN pain (scale 06/02/24 score 1-3) #20 tabs polyethylene glycol 3350 17 17 g PO DAILY 4 days #68 grams 06/02/24 gram/dose oral powder (Miralax) prednisone 10 mg tablet 10 mg PO DAILY 3 days #3 tabs 06/02/24 tramadol 50 mg tablet 50 mg PO TID #7 tabs 06/02/24 ondansetron 4 mg disintegrating 4 mg PO Q6H PRN nausea and 06/16/24 tablet vomiting #14 tabs Allergies Allergy/AdvReac Type Severity Reaction Status Date / Time cat dander [CATS] Allergy Unknown UNKNOWN Verified 06/16/24 05:39 dog dander [DOGS] Allergy Unknown UNKNOWN Verified 06/16/24 05:39 Review of Systems Review of Systems Yes all other systems are reviewed and are negative Constitutional: Reports as per [facility] Past Medical History Attestation statement: The following information was validated with the patient. Medical History Kidney stones Surgical History H/O cystoscopy No pertinent past surgical history Social History Social History Household Members: Significant Other and Children Housing: House Do you presently have visiting nurse or other home services: No Alcohol intake: former Patient Tobacco Use Status: Never used Tobacco Smoked in Last 30 Days: No Second Hand Smoke Exposure: No Use of substances other than those prescribed or required for medical reasons: Yes Substance Use Type: Marijuana Substance Use Frequency: Daily Advance Directives: Yes Advance Directives on File: Yes Advance Directives Date on File: 10/21/21 service: No Current occupational status: unemployed Physical Exam ED Vital Signs: Vital Signs - 24 hr 06/16/24 05:37 06/16/24 07:58 06/16/24 08:31 Temperature 98.1 F 98 F Pulse Rate 72 86 Respiratory Rate 18 16 16 Blood Pressure 127/88 112/74 Pulse Oximetry 98 98 Oxygen Delivery Method Room Air Room Air 06/16/24 09:14 06/16/24 09:56 06/16/24 10:00 Temperature Pulse Rate 77 77 Respiratory Rate 16 16 Blood Pressure 143/100 H 143/100 H Pulse Oximetry 100 98 Oxygen Delivery Method Room Air Room Air 06/16/24 14:48 06/16/24 16:07 Temperature 98.0 F Pulse Rate 54 58 Respiratory Rate 16 14 Blood Pressure 116/74 120/81 Pulse Oximetry 98 Oxygen Delivery Method Room Air BMI result Body Mass Index 24.3 Const General: cooperative, comfortable and no acute distress Orientation/consciousness: patient oriented x3 Limitations: no limitations HENMT Head: Yes normal to inspection, Yes normocephalic and Yes atraumatic Ears: hearing grossly normal bilaterally General nose exam: Normal external nose present Face and sinus: Yes normal facial exam Mouth: Normal oral and palatal mucosa present, oropharynx normal and moist mucous membranes Throat: Yes posterior oropharynx normal Eyes General: appearance normal, both eyes and all related structures Eyelids: Yes eyelids normal Conjunctivae: conjunctivae normal Sclerae: sclerae normal Pupils: Equal, round and reactive pupils present EOM: EOMs intact bilaterally Neck Neck: Yes normal visual inspection, Yes full ROM and Yes no lymphadenopathy Lymphatic: no lymphadenopathy noted Chest Chest palpation & inspection: normal inspection of the chest Resp Effort & Inspection: normal respiratory effort and able to speak in complete sentences Auscultation: clear to auscultation bilaterally, no crackles, no rales, no rhonchi and no wheezes Cardio Rate: regular rate Rhythm: regular rhythm Heart sounds: S1 normal heart sound present and S2 normal heart sound present GI Other: abdomen is soft with diffuse tenderness through entire abdomen, no rebound or guarding Inspection: Yes normal to inspection Skin General skin exam: no rashes or lesions noted Trauma: no lacerations or abrasions Wounds: no wounds Neuro General: patient oriented x3 and moves all extremities Cranial nerves: Yes Equal, round and reactive pupils present Extrem General: Yes normal to inspection Right upper extremity: normal to inspection Left upper extremity: normal to inspection Right lower extremity: normal to inspection Left lower extremity: normal to inspection Course Reevaluation(s) Reevaluation #1: KUB x-ray was performed, preliminary report revealing right renal stone, no ileus or obstruction this was interpreted by the in-house radiologist. Lipase is still pending at this time. Time: 07:45 Reevaluation #2: Patient endorsing worsening pain and nausea, KUB was negative however given worsening pain, will obtain CT abd & pelvis with IV contrast Time: 08:36 Reevaluation #3: CT abdomen and pelvis finally read, revealing mild small bowel wall thickening likely infectious or inflammatory enteritis, no obstruction. There nonobstructing bilateral renal calculi. No hydronephrosis. Stable biliary ductal dilatation, no change in bladder wall thickening. Discussed findings with patient, he endorses some nausea. Time: 15:04 Additional Reevaluation(s): he is eating drinking without difficulty, given return precautions and GI follow up. He understands and agrees with plan. Feeling better, stable yarbrough/c. Medical Decision Making Medical Decision Making [facility] Narrative: This is a [id number]-male, kidney stone, status post cholecystectomy May 2023 for gallstone pancreatitis, with recurrent episodes of acute pancreatitis, who presents to the ER with complaints of abdominal pain x 3-4 days. On arrival, vital signs within normal limits. He is nontoxic appearing, speaking in full sentences. Labs were performed prior to my assessment, he has no leukocytosis, stable H&H, chemistry revealing hypokalemia at 3.0, alk phos 235. I will add on a lipase due to history of pancreatitis. Abdomen is soft however with diffuse tenderness throughout. Plan: Labs, UA, IV fluids, Zofran Differential Diagnosis Differential Diagnoses: The differential diagnosis associated with the presentation includes Pancreatitis, small-bowel obstruction, gastritis, gastrenteritis Admission/Observation Consideration of admission/observation: Escalation of care including admission/observation considered Escalation of care including admission/observation considered however given workup today not warranted at this time. Lab Data [facility] Lab Attestation statement: I reviewed the patient's lab results. No leukocytosis, stable H&H, alk phos elevated at 235 > hx of elevated alk phos, better than usual, CHEM WNL 06/16/24 05:47 06/16/24 05:47 Labs: Lab Results 06/16/24 06/16/24 Range/Units 05:47 13:46 WBC 7.3 (4.8-10.8) X10*3/uL RBC 4.69 (4.60-5.80) X10*6/uL Hgb 14.9 (14.0-18.0) g/dl Hct 41.8 L (42.0-52.0) % MCV 89.1 (80.0-98.0) fL MCH 31.8 (27.0-33.0) pg MCHC 35.6 (31.0-36.0) g/dl RDW 15.9 (11.0-16.0) % Plt Count 450 H (160-400) X10*3/uL MPV 8.8 L (9.4-12.4) fL Immature Gran % (Auto) 0.3 (0.0-0.4) % Neut % (Auto) 51.5 (45-73) % Lymph % (Auto) 39.6 (20-40) % Mcdonough % (Auto) 6.4 (2-11) % Eos % (Auto) 1.4 (0-4) % Baso % (Auto) 0.8 (0-2) % Lymph # (Auto) 2.9 (1.2-4.9) X10*3/uL Mcdonough # (Auto) 0.5 (0.1-1.2) X10*3/uL Eos # (Auto) 0.1 (0.0-0.4) X10*3/uL Baso # (Auto) 0.1 (0.0-0.2) X10*3/uL Abs Immat Gran (auto) 0.02 (0.00-0.03) X10*3/uL Absolute Neuts (auto) 3.8 (2.0-8.3) x10*3/uL Absolute Nucleated RBC 0.000 (0.0-0.012) X10*3/uL Nucleated RBC % (auto) 0.0 (0.0-0.2) /100WBC Sodium 141 (135-145) mmol/L Potassium 3.0 L (3.3-5.1) mmol/L Chloride 104 (96-108) mmol/L Carbon Dioxide 23 (22-29) mmol/L Anion Gap 17 (12-20) BUN 16 (9-16) mg/dL Creatinine 1.07 (0.5-1.4) mg/dL Estim Creat Clear Calc 102.6 Estimated GFR > 60 Random Glucose 103 (60-115) mg/dL Calcium 9.5 D (8.4-10.2) mg/dL Total Bilirubin 0.3 (0.0-1.0) mg/dL AST 32 (5-37) U/L ALT 38 (0-40) U/L Alkaline Phosphatase 235 H (39-117) U/L Total Protein 6.9 (6.5-8.0) g/dL Albumin 4.0 (3.5-5.0) g/dL Lipase 5 L (8-78) U/L Urine Color Dark Yellow Urine Appearance Clear Urine pH 6.5 (5.0-9.0) Ur Specific [place] >= 1.030 H (1.005-1.025) Urine Protein 30 (1+) H (Neg-Trace) mg/dL Urine Glucose (UA) Negative (Negative) mg/dL Urine Ketones Negative (Negative) mg/dL Urine Blood Negative (Negative) Urine Nitrite Negative (Negative) Ur Leukocyte Esterase Negative (Negative) Urine RBC 0-2 (0-2) /HPF Urine WBC 0-5 (0-5) /HPF Ur Squamous Epith Cells 0-2 (0-2) /HPF Calcium Oxalate Crystal Present Urine Bacteria None Seen (None Seen) Hyaline Casts 0-2 (0-2) /LPF Radiology Impression Discussion of test interpretation with radiology: I have reviewed the radiologist's reading. Radiologist Impression: revealing mild small bowel wall thickening likely infectious or inflammatory enteritis, no obstruction. There nonobstructing bilateral renal calculi. No hydronephrosis. Stable biliary ductal dilatation, no change in bladder wall thickening. Discussed findings with patient, he endorses some nausea. Medications Administered Discontinued Medications Generic Name Dose Route Start Last Admin Trade Name Freq PRN Reason Stop Dose Admin Diphenhydramine HCl 25 mg 06/16/24 09:11 06/16/24 09:55 Diphenhydramine Hcl 50 Mg/Ml Vial IVPUSH 06/16/24 09:12 25 mg ONCE ONE Administration Hydromorphone HCl 0.5 mg 06/16/24 09:11 06/16/24 09:56 Hydromorphone Hcl 0.5 Mg/0.5 Ml Syringe IVPUSH 06/16/24 09:12 0.5 mg ONCE ONE Administration Protocol Sodium Chloride 1,000 mls @ 999 mls/hr 06/16/24 07:05 06/16/24 13:09 Ns IV 06/16/24 08:05 Infused .Q1H1M ONE Infusion Iohexol 100 ml 06/16/24 10:05 06/16/24 10:05 Iohexol 350 Mg/Ml 100 Ml Infus..Btl IV 06/16/24 10:06 85 ml ONCE ONE Administration Morphine Sulfate 4 mg 06/16/24 08:03 06/16/24 08:31 Morphine Sulfate 4 Mg/Ml Cartridge IVPUSH 06/16/24 08:04 4 mg ONCE ONE Administration Protocol Ondansetron HCl 4 mg 06/16/24 07:05 06/16/24 08:01 Ondansetron Hcl 4 Mg/2 Ml Vial IVPUSH 06/16/24 07:06 4 mg ONCE ONE Administration Ondansetron HCl 4 mg 06/16/24 15:05 06/16/24 15:13 Ondansetron Hcl 4 Mg/2 Ml Vial IVPUSH 06/16/24 15:06 4 mg ONCE ONE Administration Prochlorperazine Edisylate 10 mg 06/16/24 09:11 06/16/24 09:56 Prochlorperazine Edisylate 10 Mg/2 Ml Vial IVPUSH 06/16/24 09:12 10 mg ONCE ONE Administration Discharge Plan Discharge Clinical Impression: Abdominal pain Patient Disposition: Home, Self-Care Instructions: Abdominal Pain (ED) Additional Instructions: You were seen in the emergency room due to abdominal pain Your CT scan shows enteritis, this could be viral. Your labs are reassuring. Please drink plenty of fluids get plenty of rest. Stick to a bland diet. Take Zofran as needed for nausea. Follow-up with the GI specialist, call today or tomorrow to make an appointment. If any new or worsening symptoms occur, including but not limited to severe abdominal pain, chest pain, shortness of breath, please please return for re- evaluation Prescriptions: New ondansetron 4 mg tablet,disintegrating 4 mg PO Q6H PRN (Reason: nausea and vomiting) Qty: 14 0RF No Action ondansetron HCl 4 mg tablet 4 mg PO Q8H PRN (Reason: nausea and vomiting) 7 Days Qty: 14 0RF dicyclomine 10 mg capsule 10 mg PO BID 7 Days Qty: 14 0RF prednisone 10 mg tablet 10 mg PO DAILY 3 Days Qty: 3 0RF naproxen 500 mg tablet 500 mg PO Q8-12H PRN (Reason: pain (scale score 1-3)) Qty: 20 0RF tramadol 50 mg tablet 50 mg PO TID Qty: 7 0RF docusate sodium [Colace] 100 mg capsule 100 mg PO DAILY PRN (Reason: constipation) Qty: 10 0RF polyethylene glycol 3350 [Miralax] 17 gram/dose powder 17 g PO DAILY 4 Days Qty: 68 0RF Referrals: [facility] G[facility] [Provider Group] Interventions: ED Discharge Assessment Last Done: 06/16/24 16:07 Discharge Date/Time: 06/16/24 16:07 Print Language: Malian
[2024-06-16] MEDS: 0.9 % Sodium Chloride 1,000 ML 999 ML IV (08:00)
[2024-06-16] MEDS: ondansetron HCL 4 MG/2 ML VIAL IVPUSH ×2 (08:01→15:13)
[2024-06-16 08:03] LABS: Lipase 5 U/L (8-78)
[2024-06-16] MEDS: Morphine Sulfate 4 MG/ML CARTRIDGE IVPUSH (08:31)
[2024-06-16] MEDS: diphenhydrAMINE HCL 50 MG/ML VIAL 25 MG IVPUSH (09:55)
[2024-06-16] MEDS: HYDROmorphone HCl 0.5 MG/0.5 ML SYRINGE IVPUSH (09:56)
[2024-06-16] MEDS: Prochlorperazine Edisylate 10 MG/2 ML VIAL IVPUSH (09:56)
--- NOTE | 2024-06-16 10:02 | PC.NURSE ---
Pt medicated for nausea and pain with Zofran and Morphine with minimal effectiveness. Pt becomes restless and unable to sit therefore stands to alleviate pain. Pt unable to go to CT d/t noted nausea and vomiting. Provider at bedside for reassessment. New orders placed for nausea and vomiting as CT scan is necessary at this time. Pt medicated with new orders per JAN. Pt reports very quick effects and is visibly more comfortable. Pt proceeds to CT now.
[2024-06-16] MEDS: iohexoL 350 MG/ML 100 ML INFUS..BTL IV (10:05)
[2024-06-16 13:54] LABS: Appearance Urine Clear; Color Urine Dark Yellow; Glucose Urine UA Negative (Negative); Leukocyte Esterase Urine Negative (Negative); Nitrite Urine Negative (Negative); PH 6.5 (5.0-9.0); Specific Gravity - Urine >= 1.030 (1.005-1.025); UMIC TRIGGER UACC YES; Urine Blood Negative (Negative); Urine Ketones Negative (Negative); Urine Protein 30 (1+) mg/dL (Neg-Trace)
[2024-06-16 14:08] LABS: Bacteria Urine None Seen (None Seen); Calcium Oxalate Crystals Urine Present; Hyaline Casts Urine 0-2 /LPF (0-2); RBC Urine 0-2 /HPF (0-2); Squamous Epithelial Cell Urine 0-2 /HPF (0-2); WBC Urine 0-5 /HPF (0-5)
== END 2024-06-16 16:07 | disposition home or self-care (01) ==
PROVIDERS: Physician Assistant Medical; Emergency Provider Internal Medicine
DX: R10.9 Unspecified abdominal pain (principal); Z87.442 Personal history of urinary calculi
CPT/HCPCS: 36415; 74018; 74177; 80053; 81001; 83690; 85025; 96361; 96374; 96375; 99284; J0737; J1170; J1200; J2270; J2405; Q9967

== ENCOUNTER 2024-06-20 05:55 | Emergency (ER) | payer OTHER, SELFPAY ==
--- NOTE | ~2024-06-20 | US_ITS ---
EXAMINATION: US RETROPERITONEAL LIMITED (RENAL ONLY) CLINICAL INFORMATION: Flank pain. COMPARISON: 06/16/2024 CT TECHNIQUE: Real-time sonographic evaluation performed FINDINGS: RIGHT KIDNEY: 10.6 x 6.5 x 4.9 cm (SAG x AP x TRV). Echogenic medullary pyramids noted. There is a lower pole nonobstructive stone observed at 7 x 6 x 7 mm. Cortical thickness normal. No hydronephrosis, suspicious mass or perinephric collection. LEFT KIDNEY: 9.8 x 5.0 x 5.6 cm (SAG x AP x TRV). The kidney is normal in size, contour, and echogenicity. Renal cortical thickness is normal. No hydronephrosis or suspicious mass. There is a lower pole nonobstructive stone at 3 x 8 x 4 mm. Medullary. Ribs appear slightly echogenic. US/US renal BI IMPRESSION: Bilateral nephrolithiasis. No hydronephrosis..
--- NOTE | ~2024-06-20 | XR_ITS ---
EXAMINATION: XR ABDOMEN KUB CLINICAL INDICATION: Constipation COMPARISON: 06/16/2024 TECHNIQUE: AP view of the abdomen. FINDINGS: Bowel gas pattern normal. No obstruction or free air or mass effect. Surgical clips seen in the right upper quadrant. Punctate calcifications are seen in the right midabdomen possibly related to the right kidney measuring up to 5 mm. XR/XR KUB IMPRESSION: No evidence for bowel obstruction or large stool burden.
--- NOTE | ~2024-06-20 | US_ITS ---
EXAMINATION: US PELVIS LIMITED (BLADDER) CLINICAL INFORMATION: Difficulty voiding with question of ureteral vesicle junction stone. COMPARISON: CT abdomen pelvis earlier today TECHNIQUE: Real-time imaging of the bladder. FINDINGS: BLADDER: Bladder was only partially filled at 53 mL. Bilateral ureteral jets are demonstrated. A postvoid volume was not obtained. The prostate appeared normal at 19.5 mL. US/US bladder IMPRESSION: No significant abnormality is seen.
--- NOTE | ~2024-06-20 | CT_ITS ---
EXAMINATION: CT ABDOMEN AND PELVIS WITHOUT CONTRAST CLINICAL INFORMATION: Abdominal pain no bowel movement or flatus x10 days COMPARISON: Ultrasound renal bilateral from 06/19/2024 CT abdomen from 06/16/2024 and 06/01/2024 TECHNIQUE: Multidetector volumetric imaging was performed from the superior aspect of the liver through the pubic symphysis. Sagittal and coronal reformatted images were obtained on the technologist's workstation. This CT examination was performed using dose optimization techniques as appropriate, variously including the following: *Automated exposure control *Adjustment of mA and/or kV according to patient size (this includes techniques or standardized protocols for targeted exams where dose is matched to indication/reason for exam; i.e. extremities or head) *Use of iterative reconstruction technique DLP: 422 mGy-cm FINDINGS: LUNG BASES: No pneumothorax. No large pleural effusion. LIVER, GALLBLADDER, AND BILIARY TREE: Liver is enlarged measuring 18.7 cm with decreased attenuation suggesting hepatic steatosis. No focal hepatic lesion or biliary ductal dilatation is present. Gallbladder surgically absent with persistent postoperative dilatation of the common bile duct. PANCREAS: Unremarkable. SPLEEN: Unremarkable. ADRENAL GLANDS: Unremarkable. KIDNEYS AND URETERS: Right-sided nephrolithiasis the largest measuring up to 9 mm without hydronephrosis. Left-sided nephrolithiasis the largest measuring up to 6 mm without hydronephrosis. BLADDER: Circumferential urinary bladder wall thickening redemonstrated. GASTROINTESTINAL TRACT: The small and large bowel are unremarkable. The appendix is not definitively visualized. ABDOMINAL WALL: Small fat filled umbilical hernia. LYMPH NODES: No enlarged lymph nodes per size criteria. VASCULAR: Aorta is nonaneurysmal. Retroaortic left renal vein. PELVIC VISCERA: Prostate measures 4.0 cm with calcifications within its body. OSSEOUS STRUCTURES: Unremarkable. CT/CT abdomen pelvis wo IV con IMPRESSION: 1. No acute process of the abdomen or pelvis identified. 2. Liver is enlarged measuring 18.7 cm with decreased attenuation suggesting hepatic steatosis. 3. Status post cholecystectomy with persistent postoperative dilatation of the common bile duct. 4. Bilateral nephrolithiasis without hydronephrosis. 5. Circumferential urinary bladder wall thickening redemonstrated. 6. Small fat filled umbilical hernia. 7. Retroaortic left renal vein.
[2024-06-20 06:02] VITALS: BP 140/92; BP 149/99; PULSE 106; PULSE 110; RESP 19; TEMP 36.8; O2SAT 97; O2SAT 98; BMI 26.4
[2024-06-20 06:07] VITALS: BP 149/99; PULSE 106; RESP 19; TEMP 36.8; O2SAT 98
--- NOTE | 2024-06-20 07:12 | ED.GENADULT ---
HPI - General Adult General Chief complaint: Abdominal Pain Stated complaint: ABD PAIN,UNABLE TO PASS STONE X1 1/2 WK PER EMS Time Seen by Provider: 06/20/24 07:03 Source: patient Mode of arrival: ambulatory Limitations: no limitations History of Present Illness ED Provider: Roberto Caballero PA-C HPI narrative: This is a 33 year old male with history of alcohol use disorder, recurrent pancreatitis, and kidney stones presenting with constipation and left flank pain x 1.5 weeks. He reports he has not had bowel movement in over a week and has not been passing gas. Also reports nausea and vomiting, he feels like he has not been able to keep any food or water down. He was seen here 2 days ago for the same chief complaint and was given docusate, prednisone, and Zofran with no relief. He has a history of cholecystectomy 4-5 months ago. Denies recent travel or antibiotic use. Denies fevers, chills, chest pain, sob, headaches, visual changes. Related Data Previous Rx's ?Medication ?Instructions ?Recorded dicyclomine 10 mg capsule 10 mg PO BID 7 days #14 caps 06/01/24 ondansetron HCl 4 mg tablet 4 mg PO Q8H PRN nausea and 06/01/24 vomiting 7 days #14 tabs docusate sodium 100 mg capsule 100 mg PO DAILY PRN constipation 06/02/24 (Colace) #10 caps naproxen 500 mg tablet 500 mg PO Q8-12H PRN pain (scale 06/02/24 score 1-3) #20 tabs polyethylene glycol 3350 17 17 g PO DAILY 4 days #68 grams 06/02/24 gram/dose oral powder (Miralax) prednisone 10 mg tablet 10 mg PO DAILY 3 days #3 tabs 06/02/24 tramadol 50 mg tablet 50 mg PO TID #7 tabs 06/02/24 ondansetron 4 mg disintegrating 4 mg PO Q6H PRN nausea and 06/16/24 tablet vomiting #14 tabs ondansetron HCl 4 mg tablet 4 mg PO Q8H PRN nausea and 06/20/24 vomiting #14 tabs Allergies Allergy/AdvReac Type Severity Reaction Status Date / Time cat dander [CATS] Allergy Unknown UNKNOWN Verified 06/20/24 06:06 dog dander [DOGS] Allergy Unknown UNKNOWN Verified 06/20/24 06:06 Review of Systems Review of Systems: Yes all other systems are reviewed and are negative [facility] Past Medical History Attestation statement: The following information was validated with the patient. Source: old records reviewed and nursing notes reviewed Medical History Kidney stones Surgical History H/O cystoscopy No pertinent past surgical history Social History Social History Household Members: Significant Other and Children Housing: House Do you presently have visiting nurse or other home services: No Alcohol intake: former Patient Tobacco Use Status: Never used Tobacco Smoked in Last 30 Days: No Second Hand Smoke Exposure: No Substance Use Type: Marijuana Advance Directives: Yes Advance Directives on File: Yes Advance Directives Date on File: 10/21/21 Do you have a plan to hurt others: No Plan service: No Current occupational status: unemployed Physical Exam ED Vital Signs: Vital Signs - 24 hr 06/20/24 06:02 06/20/24 06:07 06/20/24 10:17 Temperature 98.2 F 98.2 F Pulse Rate 106 H 106 H 73 Respiratory Rate 19 19 22 H Blood Pressure 149/99 H 149/99 H 156/105 H Pulse Oximetry 97 98 100 Oxygen Delivery Method Room Air Room Air Room Air 06/20/24 12:17 06/20/24 14:33 Temperature 97.9 F 97.9 F Pulse Rate 91 71 Respiratory Rate 16 16 Blood Pressure 131/99 H 135/82 Pulse Oximetry 99 100 Oxygen Delivery Method Room Air Room Air BMI result Body Mass Index 26.4 vss Appearance: Alert.? Oriented X3.? No acute distress.? Head: Normocephalic, atraumatic, no step-offs or deformities Eyes: Pupils equal, round and reactive to light.? Neck: Normal inspection.? Neck supple.? CVS: Normal heart rate and rhythm.? Pulses normal.? Respiratory: No respiratory distress.? Breath sounds normal.? Abdomen: Soft, normoactive bowel sounds. Diffusely tender to palpation. Skin: Skin warm and dry.? Normal skin color.? Normal skin turgor.? Extremities: No lower extremity edema.? No calf ttp. 5/5 strength to bilateral upper and lower extremities Back: No midline tenderness, no C-spine tenderness, full range of motion, + CVA tenderness on the left side. Neuro: Oriented X 3.? No motor deficit.? No sensory deficit. CN 2-12 intact Course Reevaluation(s) Reevaluation #1: CBC unremarkable. Chemistry no acute findings requiring intervention. Patient's transaminases and alk-phos elevated at baseline. No acute findings. Normal lipase. CT abdomen pelvis no acute process of the abdomen or pelvis identified. Enlarged liver question hepatic steatosis, status post cholecystectomy, bilateral nephrolithiasis without hydronephrosis there is a 9 mm stone noted to the right kidney without hydro. Left-sided nephrolithiasis largest measuring 6 mm without hydronephrosis. Renal ultrasound of bilateral nephrolithiasis no hydronephrosis. Bladder ultrasound is pending initially when they went to do it, patient's bladder is underdistended. I did discuss this case with Dr. Webb who recommends outpatient follow-up, no need for intervention at this time Time: 13:11 Reevaluation #2: Dr. Jones evaluated patient, he believes this is likely cyclic vomiting due to his unremarkable workup. Will have him follow up outpatient with Urology, will give droperidol for nausea and vomiting, he does report that he smokes marijuana 3 to 4 times a day. Time: 13:25 Reevaluation #3: Patient feeling better at this time . Educated patient on diagnosis and treatment plan, answered all question, patient verbalizes understanding. At this time patient will be discharged home, advised to return with new or worsening symptoms. Educated on worrisome signs and symptoms and when to return. At this time I feel comfortable discharge home. Medications Administered Discontinued Medications Generic Name Dose Route Start Last Admin Trade Name Jose Franciscoq PRN Reason Stop Dose Admin Bisacodyl 10 mg 06/20/24 07:06 06/20/24 08:17 Bisacodyl 5 Mg Tablet.Dr HOPKINS 06/20/24 07:07 10 mg ONCE ONE Administration Droperidol 1.25 mg 06/20/24 13:21 06/20/24 13:27 Droperidol 5 Mg/2 Ml Vial IVPUSH 06/20/24 13:22 1.25 mg ONCE ONE Administration Fentanyl 50 mcg 06/20/24 13:10 06/20/24 13:28 Fentanyl Citrate/Pf 100 Mcg/2 Ml Vial IVPUSH 06/20/24 13:11 Not Given ONCE ONE Protocol Hydromorphone HCl 1 mg 06/20/24 09:29 06/20/24 10:20 Hydromorphone Hcl 1 Mg/Ml Syringe IVPUSH 06/20/24 09:30 1 mg ONCE ONE Administration Protocol Hydromorphone HCl 1 mg 06/20/24 12:12 06/20/24 12:18 Hydromorphone Hcl 1 Mg/Ml Syringe IVPUSH 06/20/24 12:13 1 mg ONCE ONE Administration Protocol Sodium Chloride 1,000 mls @ 999 mls/hr 06/20/24 09:30 06/20/24 11:25 Ns IV 06/20/24 10:30 Infused .Q1H1M SOHAIL Infusion Ketorolac Tromethamine 30 mg 06/20/24 08:54 06/20/24 09:05 Ketorolac Tromethamine 15 Mg/Ml Vial IVPUSH 06/20/24 08:55 30 mg ONCE ONE Administration Ondansetron HCl 4 mg 06/20/24 09:29 06/20/24 10:20 Ondansetron Hcl 4 Mg/2 Ml Vial IVPUSH 06/20/24 09:30 4 mg ONCE ONE Administration Ondansetron HCl 4 mg 06/20/24 13:10 06/20/24 13:28 Ondansetron Hcl 4 Mg/2 Ml Vial IVPUSH 06/20/24 13:11 Not Given ONCE ONE Tamsulosin HCl 0.4 mg 06/20/24 09:29 06/20/24 10:20 Tamsulosin Hcl 0.4 Mg Capsule PO 06/20/24 09:30 0.4 mg ONCE ONE Administration Medical Decision Making Medical Decision Making MDM Narrative: 33 year old male with history of pancreatitis presenting with constipation and left flank pain for over a week. PE - abdomen diffusely tender to palpation. + CVA tenderness on the left side Hx and PE concerning for kidney stone vs functional constipation vs cyclic vomiting. Unlikely small bowel obstruction, pancreatitis, appendicitis, peritonitis, pylo, dissection. Plan - labs, imaging, urine Differential Diagnosis Differential Diagnoses: The differential diagnosis associated with the presentation includes Hx and PE concerning for kidney stone vs functional constipation vs cyclic vomiting. Unlikely small bowel obstruction, pancreatitis, appendicitis, peritonitis, pylo, dissection. Admission/Observation Consideration of admission/observation: Escalation of care including admission/observation considered possible Consult Healthcare Provider Management of the patient was discussed with: [employer] Lab Data MDM Lab Attestation statement: I reviewed the patient's lab results. 06/20/24 07:29 06/20/24 07:29 Labs: Lab Results 06/20/24 06/20/24 Range/Units 07:29 12:59 WBC 10.0 (4.8-10.8) X10*3/uL RBC 5.47 (4.60-5.80) X10*6/uL Hgb 17.4 (14.0-18.0) g/dl Hct 49.0 (42.0-52.0) % MCV 89.6 (80.0-98.0) fL MCH 31.8 (27.0-33.0) pg MCHC 35.5 (31.0-36.0) g/dl RDW 16.1 H (11.0-16.0) % Plt Count 422 H (160-400) X10*3/uL MPV 9.0 L (9.4-12.4) fL Immature Gran % (Auto) 0.5 H (0.0-0.4) % Neut % (Auto) 62.6 (45-73) % Lymph % (Auto) 28.1 (20-40) % [place] % (Auto) 7.5 (2-11) % Eos % (Auto) 0.7 (0-4) % Baso % (Auto) 0.6 (0-2) % Lymph # (Auto) 2.8 (1.2-4.9) X10*3/uL [place] # (Auto) 0.8 (0.1-1.2) X10*3/uL Eos # (Auto) 0.1 (0.0-0.4) X10*3/uL Baso # (Auto) 0.1 (0.0-0.2) X10*3/uL Abs Immat Gran (auto) 0.05 H (0.00-0.03) X10*3/uL Absolute Neuts (auto) 6.3 (2.0-8.3) x10*3/uL Absolute Nucleated RBC 0.000 (0.0-0.012) X10*3/uL Nucleated RBC % (auto) 0.0 (0.0-0.2) /100WBC Sodium 139 (135-145) mmol/L Potassium 3.4 (3.3-5.1) mmol/L Chloride 101 (96-108) mmol/L Carbon Dioxide 21 L (22-29) mmol/L Anion Gap 20 (12-20) BUN 14 (9-16) mg/dL Creatinine 1.19 (0.5-1.4) mg/dL Estim Creat Clear Calc 92.2 Estimated GFR > 60 Random Glucose 128 H (60-115) mg/dL Calcium 10.2 D (8.4-10.2) mg/dL Magnesium 1.9 (1.6-2.6) mg/dL Total Bilirubin 0.3 (0.0-1.0) mg/dL AST 47 H (5-37) U/L ALT 65 H (0-40) U/L Alkaline Phosphatase 316 H (39-117) U/L Total Protein 8.2 H (6.5-8.0) g/dL Albumin 4.5 (3.5-5.0) g/dL Lipase < 4 L (8-78) U/L Urine Color Dark Yellow Urine Appearance Cloudy Urine pH 6.0 (5.0-9.0) Ur Specific [place] >= 1.030 H (1.005-1.025) Urine Protein 100 (2+) H (Neg-Trace) mg/dL Urine Glucose (UA) Negative (Negative) mg/dL Urine Ketones Trace (Negative) mg/dL Urine Blood Negative (Negative) Urine Nitrite Negative (Negative) Ur Leukocyte Esterase Small (1+) H (Negative) Urine RBC 0-2 (0-2) /HPF Urine WBC 6-10 H (0-5) /HPF Ur Squamous Epith Cells 6-10 (0-2) /HPF Calcium Oxalate Crystal Present Urine Bacteria None Seen (None Seen) Hyaline Casts >20 (0-2) /LPF Independent Interpretation I performed an independent interpretation of an: Ultrasound (US/US renal BI IMPRESSION: Bilateral nephrolithiasis. No hydronephrosis..) and CT Scan ( CT/CT abdomen pelvis wo IV con IMPRESSION: 1. No acute process of the abdomen or pelvis identified. 2. Liver is enlarged measuring 18.7 cm with decreased attenuation suggesting hepatic steatosis. 3. Status post cholecystectomy with persistent postoperative dilatation of the common bile duct. 4. ) Radiology Impression Discussion of test interpretation with radiology: I have reviewed the radiologist's reading. External Record Review External record reviewed: Inpatient record, Office record, Outpatient record, Prior outpatient labs, Prior outpatient radiology, Primary care record and Outside ED record Chronic Conditions Patient?s care impacted by: Other (alcoholism, kidney stones, pancreatitis ) Critical Care Time Critical Care Time Critical Care Time: Yes Total Critical Care Time: 45 Attestation: I attest to this time spent taking care of the patient, obtaining history, physical, reviewing labs, imaging, speaking to my attending, specialist or hospitalist. Discharge Plan Discharge Clinical Impression: Acute right flank pain, Nausea & vomiting, Cyclic vomiting syndrome, Kidney calculi Patient Disposition: Home, Self-Care Instructions: Acute Nausea and Vomiting (ED), Abdominal Pain (ED), Kidney Stones (ED) Additional Instructions: Take your medications as prescribed. If you were prescribed antibiotics today, it is important that you take your medication to their entirety, do not skip any doses, do not finish them early. Follow-up with your primary care provider this week. Return to the emergency department with new or worsening symptoms. Such as fevers, chills, chest pain, shortness of breath, nausea, vomiting, dizziness, headache, vision changes, lethargy In case of emergency call 911 Follow up with Urology Prescriptions: New ondansetron HCl 4 mg tablet 4 mg PO Q8H PRN (Reason: nausea and vomiting) Qty: 14 0RF No Action ondansetron HCl 4 mg tablet 4 mg PO Q8H PRN (Reason: nausea and vomiting) 7 Days Qty: 14 0RF dicyclomine 10 mg capsule 10 mg PO BID 7 Days Qty: 14 0RF ondansetron 4 mg tablet,disintegrating 4 mg PO Q6H PRN (Reason: nausea and vomiting) Qty: 14 0RF prednisone 10 mg tablet 10 mg PO DAILY 3 Days Qty: 3 0RF naproxen 500 mg tablet 500 mg PO Q8-12H PRN (Reason: pain (scale score 1-3)) Qty: 20 0RF tramadol 50 mg tablet 50 mg PO TID Qty: 7 0RF docusate sodium [Colace] 100 mg capsule 100 mg PO DAILY PRN (Reason: constipation) Qty: 10 0RF polyethylene glycol 3350 [Miralax] 17 gram/dose powder 17 g PO DAILY 4 Days Qty: 68 0RF Referrals: Physician,Unknown J [Primary Care Provider] - 2 days [facility] [Provider Group] - 2 days Stand Alone Forms: Work/School Release Print Language: Belgian
[2024-06-20 07:32] LABS: MANUAL DIFF FLAG NO
[2024-06-20 07:33] LABS: Basophils Absolute Auto 0.1 X10*3/uL (0.0-0.2); Basophils Percent Auto 0.6 % (0-2); Eosinophils Absolute Auto 0.1 X10*3/uL (0.0-0.4); Eosinophils Percent Auto 0.7 % (0-4); Hemoglobin 17.4 g/dl (14.0-18.0); Imm Gran Abs Auto 0.05 X10*3/uL (0.00-0.03); Imm Gran Pct Auto 0.5 % (0.0-0.4); Lymphocytes Absolute Auto 2.8 X10*3/uL (1.2-4.9); Lymphocytes Percent Auto 28.1 % (20-40); Mean Corpuscular HGB Conc 35.5 g/dl (31.0-36.0); Mean Corpuscular Hemoglobin 31.8 pg (27.0-33.0); Mean Corpuscular Volume 89.6 fL (80.0-98.0); Monocytes Absolute Auto 0.8 X10*3/uL (0.1-1.2); Monocytes Percent Auto 7.5 % (2-11); Neutrophils Absolute Auto 6.3 x10*3/uL (2.0-8.3); Neutrophils Percent Auto 62.6 % (45-73); Platelet Count 422 X10*3/uL (160-400); Red Blood Count 5.47 X10*6/uL (4.60-5.80); Red Cell Distribution Width 16.1 % (11.0-16.0)
[2024-06-20 07:51] LABS: Alanine Aminotransferase 65 U/L (0-40); Albumin Level 4.5 g/dL (3.5-5.0); Alkaline Phosphatase 316 U/L (39-117); Anion Gap 20 (12-20); Aspartate Amino Transferase 47 U/L (5-37); Bilirubin Total 0.3 mg/dL (0.0-1.0); Blood Urea Nitrogen 14 mg/dL (9-16); Calcium 10.2 mg/dL (8.4-10.2); Carbon Dioxide 21 mmol/L (22-29); Chloride 101 mmol/L (96-108); Creatinine Clr Calc Pharmacy 92.2; Estimated Glomerular Filt Rate > 60; Glucose Random 128 mg/dL (60-115); Lipase < 4 U/L (8-78); Magnesium 1.9 mg/dL (1.6-2.6); Potassium 3.4 mmol/L (3.3-5.1); Sodium 139 mmol/L (135-145); Total Protein 8.2 g/dL (6.5-8.0)
[2024-06-20] MEDS: bisacodyL 5 MG TABLET.DR 10 MG PO (08:17)
[2024-06-20] MEDS: Ketorolac Tromethamine 15 MG/ML VIAL 30 MG IVPUSH (09:05)
[2024-06-20 10:17] VITALS: BP 156/105; PULSE 73; RESP 22; O2SAT 100
[2024-06-20] MEDS: 0.9 % Sodium Chloride 1,000 ML 999 ML IV (10:19)
[2024-06-20] MEDS: ondansetron HCL 4 MG/2 ML VIAL IVPUSH (10:20)
[2024-06-20] MEDS: Tamsulosin HCL 0.4 MG CAPSULE PO (10:20)
[2024-06-20] MEDS: HYDROmorphone HCl 1 MG/ML SYRINGE IVPUSH ×2 (10:20→12:18)
[2024-06-20 12:17] VITALS: BP 131/99; PULSE 91; RESP 16; TEMP 36.6; O2SAT 99
[2024-06-20 13:05] LABS: Appearance Urine Cloudy; Color Urine Dark Yellow; Glucose Urine UA Negative (Negative); Leukocyte Esterase Urine Small (1+) (Negative); Nitrite Urine Negative (Negative); Specific Gravity - Urine >= 1.030 (1.005-1.025); UMIC TRIGGER UACC YES; Urine Blood Negative (Negative); Urine Ketones Trace mg/dL (Negative); Urine Protein 100 (2+) mg/dL (Neg-Trace)
[2024-06-20] MEDS: droPERidol 5 MG/2 ML VIAL 1.25 MG IVPUSH (13:27)
[2024-06-20 13:31] LABS: Bacteria Urine None Seen (None Seen); Calcium Oxalate Crystals Urine Present; Hyaline Casts Urine >20 /LPF (0-2); RBC Urine 0-2 /HPF (0-2); UACC Culture Trigger YES
[2024-06-20 14:33] VITALS: BP 135/82; PULSE 71; RESP 16; TEMP 36.6; O2SAT 100
[2024-06-20 14:51] VITALS: BP 133/93; PULSE 89; RESP 16; TEMP 36.8; O2SAT 100
== END 2024-06-20 14:52 | disposition home or self-care (01) ==
PROVIDERS: Physician Assistant; Emergency Provider Emergency Medicine Emergency Medical Services
DX: R10.9 Unspecified abdominal pain (principal); R11.2 Nausea with vomiting, unspecified; R11.15 Cyclical vomiting syndrome unrelated to migraine; N20.0 Calculus of kidney
CPT/HCPCS: 36415; 74018; 74176; 76775; 76857; 80053; 81001; 83690; 83735; 85025; 87086; 96361; 96374; 96375; 96376; 99284; 99285; J1170; J1790; J1885; J2405; J3010

== ENCOUNTER 2024-06-28 01:17 | Emergency (ER) | payer OTHER, SELFPAY ==
[2024-06-28 01:20] VITALS: BP 130/86; PULSE 96; O2SAT 99
[2024-06-28 01:28] VITALS: BP 135/95; PULSE 88; RESP 18; TEMP 36.8; O2SAT 97; BMI 23.3
[2024-06-28 01:49] LABS: MANUAL DIFF FLAG NO
[2024-06-28 01:50] LABS: Basophils Percent Auto 0.2 % (0-2); Eosinophils Percent Auto 0.3 % (0-4); Hematocrit 45.5 % (42.0-52.0); Hemoglobin 16.6 g/dl (14.0-18.0); Imm Gran Abs Auto 0.03 X10*3/uL (0.00-0.03); Imm Gran Pct Auto 0.3 % (0.0-0.4); Lymphocytes Absolute Auto 1.6 X10*3/uL (1.2-4.9); Mean Corpuscular HGB Conc 36.5 g/dl (31.0-36.0); Mean Corpuscular Hemoglobin 32.2 pg (27.0-33.0); Mean Corpuscular Volume 88.3 fL (80.0-98.0); Mean Platelet Volume 8.9 fL (9.4-12.4); Monocytes Absolute Auto 0.7 X10*3/uL (0.1-1.2); Monocytes Percent Auto 7.5 % (2-11); Neutrophils Absolute Auto 7.4 x10*3/uL (2.0-8.3); Neutrophils Percent Auto 75.7 % (45-73); Platelet Count 307 X10*3/uL (160-400); Red Blood Count 5.15 X10*6/uL (4.60-5.80); Red Cell Distribution Width 17.7 % (11.0-16.0); White Blood Count 9.7 X10*3/uL (4.8-10.8)
[2024-06-28 02:13] LABS: Alanine Aminotransferase 79 U/L (0-40); Alkaline Phosphatase 406 U/L (39-117); Anion Gap 18 (12-20); Aspartate Amino Transferase 47 U/L (5-37); Blood Urea Nitrogen 12 mg/dL (9-16); Carbon Dioxide 25 mmol/L (22-29); Chloride 98 mmol/L (96-108); Creatinine Clr Calc Pharmacy 114.3; Estimated Glomerular Filt Rate > 60; Glucose Random 136 mg/dL (60-115); Lipase < 4 U/L (8-78); Magnesium 1.5 mg/dL (1.6-2.6); Sodium 138 mmol/L (135-145); Total Protein 7.3 g/dL (6.5-8.0)
--- NOTE | 2024-06-28 04:30 | ED_ITS ---
HPI - Abdominal Pain General Chief Complaint: Abdominal Pain Stated Complaint: abd pain Time Seen by Provider: 06/28/24 02:00 History of Present Illness HPI narrative: Patient is a 33-year-old male presents today with having nausea vomiting abdominal pain that is been ongoing for few weeks. History of similar pains in the past history of alcohol abuse in the past history of pancreatitis in the past presented with similar abdominal pain again. Had multiple CT scan done within the last month. Patient denies any chest pain. Denies any shortness of breath. Denies any diaphoresis. Claims he has not been drinking any alcohol. Related Data Previous Rx's ?Medication ?Instructions ?Recorded dicyclomine 10 mg capsule 10 mg PO BID 7 days #14 caps 06/01/24 ondansetron HCl 4 mg tablet 4 mg PO Q8H PRN nausea and 06/01/24 vomiting 7 days #14 tabs docusate sodium 100 mg capsule 100 mg PO DAILY PRN constipation 06/02/24 (Colace) #10 caps naproxen 500 mg tablet 500 mg PO Q8-12H PRN pain (scale 06/02/24 score 1-3) #20 tabs polyethylene glycol 3350 17 17 g PO DAILY 4 days #68 grams 06/02/24 gram/dose oral powder (Miralax) prednisone 10 mg tablet 10 mg PO DAILY 3 days #3 tabs 06/02/24 tramadol 50 mg tablet 50 mg PO TID #7 tabs 06/02/24 ondansetron 4 mg disintegrating 4 mg PO Q6H PRN nausea and 06/16/24 tablet vomiting #14 tabs ondansetron HCl 4 mg tablet 4 mg PO Q8H PRN nausea and 06/20/24 vomiting #14 tabs Allergies Allergy/AdvReac Type Severity Reaction Status Date / Time cat dander [CATS] Allergy Unknown UNKNOWN Verified 06/28/24 01:30 dog dander [DOGS] Allergy Unknown UNKNOWN Verified 06/28/24 01:30 Review of Systems Review of Systems Positive nausea vomiting Yes all other systems are reviewed and are negative PMFSH Past Medical History Attestation statement: The following information was validated with the patient. Medical History Kidney stones Surgical History H/O cystoscopy No pertinent past surgical history Social History Social History Household Members: Significant Other and Children Housing: House Do you presently have visiting nurse or other home services: No Alcohol intake: former Patient Tobacco Use Status: Never used Tobacco Smoked in Last 30 Days: No Second Hand Smoke Exposure: No Use of substances other than those prescribed or required for medical reasons: Yes Substance Use Type: Marijuana Substance Use Frequency: Chronic Longstanding Advance Directives: Yes Advance Directives on File: Yes Advance Directives Date on File: 10/21/21 Do you have a plan to hurt others: No Plan service: No Current occupational status: unemployed Physical Exam ED Vital Signs: Vital Signs - 24 hr 06/28/24 01:28 Temperature 98.3 F Pulse Rate 88 Respiratory Rate 18 Blood Pressure 135/95 H Pulse Oximetry 97 Oxygen Delivery Method Room Air BMI result Body Mass Index 23.3 Appearance: Alert. Oriented X3. No acute distress. Eyes: Pupils equal, round and reactive to light. ENT: Pharynx normal. Neck: Normal inspection. Neck supple. No lymph nodes noted. No crepitus CVS: Normal heart rate and rhythm. Pulses normal. Normal S1 and S2 Respiratory: No respiratory distress. Breath sounds normal. No Wheezing. No rales Abdomen: Soft and nontender. No rigidity. No distention. good BS x4 Skin: Skin warm and dry. Normal skin color. Normal skin turgor. Extremities: No lower extremity edema. Neurovascular intact to all extremities. No Lacerations. No Rash Neuro: Oriented X 3. No motor deficit. No sensory deficit. Moving all extermities. No slurred speech Medical Decision Making Medical Decision Making [facility] Narrative: Patient has been to the emergency department multiple times for similar episodes of nausea vomiting. Had already had 3 CT scans done in the last month. All grossly negative. Patient's electrolytes were checked. Given a p.o. challenge with good p.o. intake. Will discharge patient home. No evidence of obstruction. Differential Diagnosis Differential Diagnoses: The differential diagnosis associated with the presentation includes Lab Data [facility] Lab Attestation statement: I reviewed the patient's lab results. 06/28/24 01:45 06/28/24 01:45 Labs: Lab Results 06/28/24 Range/Units 01:45 WBC 9.7 (4.8-10.8) X10*3/uL RBC 5.15 (4.60-5.80) X10*6/uL Hgb 16.6 (14.0-18.0) g/dl Hct 45.5 (42.0-52.0) % MCV 88.3 (80.0-98.0) fL MCH 32.2 (27.0-33.0) pg MCHC 36.5 H (31.0-36.0) g/dl RDW 17.7 H (11.0-16.0) % Plt Count 307 D (160-400) X10*3/uL MPV 8.9 L (9.4-12.4) fL Immature Gran % (Auto) 0.3 (0.0-0.4) % Neut % (Auto) 75.7 H (45-73) % Lymph % (Auto) 16.0 L (20-40) % [place] % (Auto) 7.5 (2-11) % Eos % (Auto) 0.3 (0-4) % Baso % (Auto) 0.2 (0-2) % Lymph # (Auto) 1.6 (1.2-4.9) X10*3/uL [place] # (Auto) 0.7 (0.1-1.2) X10*3/uL Eos # (Auto) 0.0 (0.0-0.4) X10*3/uL Baso # (Auto) 0.0 (0.0-0.2) X10*3/uL Abs Immat Gran (auto) 0.03 (0.00-0.03) X10*3/uL Absolute Neuts (auto) 7.4 (2.0-8.3) x10*3/uL Absolute Nucleated RBC 0.000 (0.0-0.012) X10*3/uL Nucleated RBC % (auto) 0.0 (0.0-0.2) /100WBC Sodium 138 (135-145) mmol/L Potassium 3.0 L (3.3-5.1) mmol/L Chloride 98 (96-108) mmol/L Carbon Dioxide 25 (22-29) mmol/L Anion Gap 18 (12-20) BUN 12 (9-16) mg/dL Creatinine 0.96 (0.5-1.4) mg/dL Estim Creat Clear Calc 114.3 Estimated GFR > 60 Random Glucose 136 H (60-115) mg/dL Calcium 10.0 (8.4-10.2) mg/dL Magnesium 1.5 L (1.6-2.6) mg/dL Total Bilirubin 1.0 (0.0-1.0) mg/dL AST 47 H (5-37) U/L ALT 79 H (0-40) U/L Alkaline Phosphatase 406 H (39-117) U/L Total Protein 7.3 (6.5-8.0) g/dL Albumin 4.0 (3.5-5.0) g/dL Lipase < 4 L (8-78) U/L Ethyl Alcohol < 10 mg/dL External Record Review External record reviewed: Prior outpatient radiology Chronic Conditions Nausea vomiting Social Determinants Patient?s care significantly limited by Social Determinants of Health including: Alcoholism and drug addiction in family and Problems related to primary support group Medications Administered Discontinued Medications Generic Name Dose Route Start Last Admin Trade Name Freq PRN Reason Stop Dose Admin Sodium Chloride 1,000 mls @ 999 mls/hr 06/28/24 04:30 06/28/24 05:43 Ns IV 06/28/24 05:30 Infused .Q1H1M SOHAIL Infusion Ondansetron HCl 4 mg 06/28/24 04:35 06/28/24 04:36 Ondansetron Hcl 4 Mg/2 Ml Vial IVPUSH 06/28/24 04:36 4 mg ONCE ONE Administration Discharge Plan Discharge Clinical Impression: Vomiting Patient Disposition: Home, Self-Care Instructions: Acute Nausea and Vomiting (ED) Prescriptions: No Action ondansetron HCl 4 mg tablet 4 mg PO Q8H PRN (Reason: nausea and vomiting) 7 Days Qty: 14 0RF dicyclomine 10 mg capsule 10 mg PO BID 7 Days Qty: 14 0RF ondansetron 4 mg tablet,disintegrating 4 mg PO Q6H PRN (Reason: nausea and vomiting) Qty: 14 0RF prednisone 10 mg tablet 10 mg PO DAILY 3 Days Qty: 3 0RF naproxen 500 mg tablet 500 mg PO Q8-12H PRN (Reason: pain (scale score 1-3)) Qty: 20 0RF tramadol 50 mg tablet 50 mg PO TID Qty: 7 0RF docusate sodium [Colace] 100 mg capsule 100 mg PO DAILY PRN (Reason: constipation) Qty: 10 0RF polyethylene glycol 3350 [Miralax] 17 gram/dose powder 17 g PO DAILY 4 Days Qty: 68 0RF ondansetron HCl 4 mg tablet 4 mg PO Q8H PRN (Reason: nausea and vomiting) Qty: 14 0RF Referrals: Physician,Unknown J [Primary Care Provider] - 06/30/24 Print Language: Telugu
[2024-06-28] MEDS: ondansetron HCL 4 MG/2 ML VIAL IVPUSH (04:36)
[2024-06-28] MEDS: 0.9 % Sodium Chloride 1,000 ML 999 ML IV (04:36)
[2024-06-28 04:45] LABS: Ethanol < 10 mg/dL
[2024-06-28 06:11] VITALS: BP 135/95; PULSE 88; RESP 18; TEMP 36.8; O2SAT 97
== END 2024-06-28 06:12 | disposition home or self-care (01) ==
PROVIDERS: Physician Assistant; Emergency Provider Emergency Medicine Emergency Medical Services
DX: R11.2 Nausea with vomiting, unspecified (principal); Z79.899 Other long term (current) drug therapy
CPT/HCPCS: 36415; 80053; 80307; 83690; 83735; 85025; 96361; 96374; 99284; J2405

== ENCOUNTER 2024-11-14 02:22 | Emergency (ER) | payer OTHER, SELFPAY ==
[2024-11-14] VITALS (7 sets, daily range): BP systolic 130–147; BP diastolic 86–102; PULSE 67–115; RESP 16–20; TEMP 36.6–37.1; O2SAT 95–100; BMI 29.3
--- NOTE | 2024-11-14 | ECG_ITS ---
Test Reason : ABDOMINAL PAIN Blood Pressure : / mmHG Vent. Rate : 097 BPM Atrial Rate : 097 BPM P-R Int : 134 ms QRS Dur : 086 ms QT Int : 340 ms P-R-T Axes : 073 063 053 degrees QTc Int : 431 ms Normal sinus rhythm Right atrial enlargement Borderline ECG When compared with ECG of 20-NOV-2023 08:04, No significant change was found Referred By: Generic ED Physician Electronically Signed By:SHEN SOSA
--- NOTE | ~2024-11-14 | CT_ITS ---
EXAMINATION: CT ABDOMEN AND PELVIS WITH CONTRAST CLINICAL INFORMATION: Abdominal pain. Epigastric pain. Concerning pancreatitis. COMPARISON: CT dated June 20, 2024. TECHNIQUE: Multidetector volumetric images were obtained from the superior aspect of the liver through the pubic symphysis following administration 85 mL of Omnipaque 350 intravenous contrast. Sagittal and coronal reformatted images were obtained on the technologist's workstation. Oral contrast: No This CT examination was performed using dose optimization techniques as appropriate, variously including the following: *Automated exposure control *Adjustment of mA and/or kV according to patient size (this includes techniques or standardized protocols for targeted exams where dose is matched to indication/reason for exam; i.e. extremities or head) *Use of iterative reconstruction technique DLP: 429 mGy-cm FINDINGS: LUNG BASES: No acute airspace disease or gross pulmonary nodules. LIVER, GALLBLADDER, AND BILIARY TREE: Liver measures 18 cm. Hypodensity in decreased enhancement at the parenchyma adjacent to the falciform ligament. No enhancing lesion. Main portal veins, hepatic veins and intrahepatic portions of the IVC are patent. Status post cholecystectomy likely laparoscopic. Common bile duct measures 5 mm. PANCREAS: No peripancreatic fluid collections. No peripancreatic edema pattern. No focal mass in the pancreatic parenchyma. No main pancreatic ductal dilatation. Homogeneous enhancement of the parenchyma. SPLEEN: 8 cm. No focal mass. ADRENAL GLANDS: Soft tissue fullness, left adrenal gland which measures 15 Hounsfield units in the previous non-IV contrast CT. KIDNEYS AND URETERS: Multifocal, different sizes calcifications throughout the pelvicalyceal systems, the largest measures 5 mm in the right kidney and 3.5 mm on the left kidney. No renal mass. No hydronephrosis. Normal enhancement of the renal parenchyma Subcentimeter cysts, bilaterally.. BLADDER: Thickened wall likely collapsed. GASTROINTESTINAL TRACT: Segmental areas of wall thickening involving the distal and proximal jejunal loops with narrowed lumen and gas and fluid-filled mildly prominent proximal jejunal loops. Wall thickening involving the terminal ileum and distal ileal loops. No intestinal obstruction pattern. No pneumatosis intestinalis. No pneumoperitoneum. No ascites. Appendix is normal. ABDOMINAL WALL: Small tiny fat-containing umbilical hernia, periumbilical. LYMPH NODES: Prominent, nonspecific lymph nodes in the mesentery. VASCULAR: No aneurysm or dissection, abdominal aorta. Retroaortic trajectory left main renal vein, congenital. PELVIC VISCERA: Calcifications in normal-sized prostate gland OSSEOUS STRUCTURES: No acute fracture or listhesis in the axial skeleton. No lytic or blastic lesions CT/CT abdomen pelvis w IV con IMPRESSION: Acute inflammatory small bowel disease versus enteritis. Bilateral nonobstructing nephrolithiasis. No acute pancreatitis. Hepatomegaly. Fleischner guidelines were followed. Electronically signed by: Jered Soto MD 11/14/2024 07:32 AM [facility]
[2024-11-14 02:45] LABS: MANUAL DIFF FLAG NO
[2024-11-14 02:46] LABS: Basophils Percent Auto 0.1 % (0-2); Hematocrit 47.5 % (42.0-52.0); Hemoglobin 17.3 g/dl (14.0-18.0); Imm Gran Abs Auto 0.05 X10*3/uL (0.00-0.03); Imm Gran Pct Auto 0.4 % (0.0-0.4); Lymphocytes Absolute Auto 1.3 X10*3/uL (1.2-4.9); Lymphocytes Percent Auto 9.3 % (20-40); Mean Corpuscular HGB Conc 36.4 g/dl (31.0-36.0); Mean Corpuscular Hemoglobin 30.8 pg (27.0-33.0); Mean Corpuscular Volume 84.7 fL (80.0-98.0); Mean Platelet Volume 8.8 fL (9.4-12.4); Monocytes Absolute Auto 0.9 X10*3/uL (0.1-1.2); Monocytes Percent Auto 6.2 % (2-11); Neutrophils Absolute Auto 11.6 x10*3/uL (2.0-8.3); Platelet Count 336 X10*3/uL (160-400); Red Blood Count 5.61 X10*6/uL (4.60-5.80); Red Cell Distribution Width 15.2 % (11.0-16.0); White Blood Count 13.8 X10*3/uL (4.8-10.8)
[2024-11-14 03:01] LABS: Alanine Aminotransferase 118 U/L (0-40); Alkaline Phosphatase 262 U/L (39-117); Anion Gap 20 (12-20); Aspartate Amino Transferase 40 U/L (5-37); Bilirubin Direct 0.3 mg/dL (0.0-0.5); Bilirubin Total 0.8 mg/dL (0.0-1.0); Blood Urea Nitrogen 29 mg/dL (9-16); Calcium 10.1 mg/dL (8.4-10.2); Carbon Dioxide 21 mmol/L (22-29); Chloride 97 mmol/L (96-108); Creatinine Clr Calc Pharmacy 77.1; Estimated Glomerular Filt Rate 51; Glucose Random 205 mg/dL (60-115); Lipase 84 U/L (8-78); Potassium 3.2 mmol/L (3.3-5.1); Sodium 135 mmol/L (135-145); Total Protein 9.3 g/dL (6.5-8.0)
--- NOTE | 2024-11-14 03:14 | ED_ITS ---
HPI - General Adult General Chief complaint: Abdominal Pain Stated complaint: abd pain Time Seen by Provider: 11/14/24 03:14 History of Present Illness ED Provider: Kevin GLASGOW narrative: The patient is a 34-year-old male who has a history of kidney stones. He also has a history of gallstone pancreatitis. He has had a cholecystectomy. The patient says that 4 days ago he had eaten at an [employer] restaurant with some friends. Ever since then he has been having epigastric abdominal pain, nausea, and vomiting. Denies drug use. He says does not drink alcohol heavily these days. Has been using [id number] remedies without success for his discomfort. He indicates his epigastrium as the area of greatest discomfort, in the middle of his abdomen. Related Data Previous Rx's ?Medication ?Instructions ?Recorded dicyclomine 10 mg capsule 10 mg PO BID 7 days #14 caps 06/01/24 ondansetron HCl 4 mg tablet 4 mg PO Q8H PRN nausea and 06/01/24 vomiting 7 days #14 tabs docusate sodium 100 mg capsule 100 mg PO DAILY PRN constipation 06/02/24 (Colace) #10 caps naproxen 500 mg tablet 500 mg PO Q8-12H PRN pain (scale 06/02/24 score 1-3) #20 tabs polyethylene glycol 3350 17 17 g PO DAILY 4 days #68 grams 06/02/24 gram/dose oral powder (Miralax) prednisone 10 mg tablet 10 mg PO DAILY 3 days #3 tabs 06/02/24 tramadol 50 mg tablet 50 mg PO TID #7 tabs 06/02/24 ondansetron 4 mg disintegrating 4 mg PO Q6H PRN nausea and 06/16/24 tablet vomiting #14 tabs ondansetron HCl 4 mg tablet 4 mg PO Q8H PRN nausea and 06/20/24 vomiting #14 tabs Allergies Allergy/AdvReac Type Severity Reaction Status Date / Time cat dander [CATS] Allergy Unknown UNKNOWN Verified 11/14/24 02:34 dog dander [DOGS] Allergy Unknown UNKNOWN Verified 11/14/24 02:34 Review of Systems 2 Review of Systems: Yes all other systems are reviewed and are negative PMFSH Past Medical History Medical History Kidney stones Surgical History H/O cystoscopy No pertinent past surgical history Social History Social History Household Members: Significant Other and Children Housing: House Do you presently have visiting nurse or other home services: No Alcohol intake: former Patient Tobacco Use Status: Never used Tobacco Smoked in Last 30 Days: No Second Hand Smoke Exposure: No Use of substances other than those prescribed or required for medical reasons: No Substance Use Type: Marijuana Advance Directives: Yes Advance Directives on File: Yes Advance Directives Date on File: 10/21/21 service: No Current occupational status: unemployed Physical Exam ED Vital Signs: Vital Signs - 24 hr 11/14/24 02:31 11/14/24 03:36 11/14/24 05:10 Temperature 97.9 F Pulse Rate 107 H Respiratory Rate 20 18 17 Blood Pressure 130/95 H Pulse Oximetry 95 Oxygen Delivery Method Room Air 11/14/24 05:43 Temperature 98.5 F Pulse Rate 82 Respiratory Rate 16 Blood Pressure 147/90 H Pulse Oximetry 99 Oxygen Delivery Method Room Air BMI result Body Mass Index 29.3 Const Other: The patient arrived awake and alert and looking extremely uncomfortable. He was curled up in a ball. It seemed to be uncomfortable for him to try to straighten himself out. HENMT Other: Face is symmetrical. Mucous membranes slightly dry. Eyes Other: No scleral icterus General: appearance normal, both eyes and all related structures Resp Effort & Inspection: normal respiratory effort Auscultation: clear to auscultation bilaterally Cardio Rate: regular rate Rhythm: regular rhythm Heart sounds: S1 normal heart sound present and S2 normal heart sound present GI Other: The patient had diffuse abdominal tenderness which was more prominent in the upper abdomen than the lower abdomen. Back/Spine/Pelvis Other: No CVA percussion tenderness Skin Other: Skin is dry and unremarkable Neuro Other: The patient is awake and alert with a normal mental status. Cranial nerves are grossly intact. He moves his extremities normally. Extrem Other: No peripheral edema Medications Administered Discontinued Medications Generic Name Dose Route Start Last Admin Trade Name Freq PRN Reason Stop Dose Admin Belladonna Alkaloids/Phenobarbital 10 ml 11/14/24 07:46 11/14/24 07:55 Phenobarb/Hyoscy/Atropine/Scop 10 Ml Elixir PO 11/14/24 07:47 10 ml ONCE ONE Administration Diphenhydramine HCl 25 mg 11/14/24 03:20 11/14/24 03:36 Diphenhydramine Hcl 50 Mg/Ml Vial IVPUSH 11/14/24 03:21 25 mg ONCE ONE Administration Famotidine 20 mg 11/14/24 03:20 11/14/24 03:36 Famotidine/Pf 20 Mg/2 Ml Vial IVPUSH 11/14/24 03:21 20 mg ONCE ONE Administration Sodium Chloride 1,000 mls @ 999 mls/hr 11/14/24 04:00 11/14/24 06:28 Ns IV 11/14/24 05:00 Infused .Q1H1M SOHAIL Infusion Sodium Chloride 1,000 mls @ 999 mls/hr 11/14/24 05:00 11/14/24 06:27 Ns IV 11/14/24 06:00 Infused .Q1H1M SOHAIL Infusion Sodium Chloride 1,000 mls @ 999 mls/hr 11/14/24 07:45 11/14/24 07:54 Ns IV 11/14/24 08:45 999 mls/hr .Q1H1M SOHAIL Administration Sodium Chloride 1,000 mls @ 999 mls/hr 11/14/24 08:00 11/14/24 07:58 Ns IV 11/14/24 09:00 Not Given .Q1H1M SOHAIL Iohexol 85 ml 11/14/24 03:48 11/14/24 03:54 Iohexol 350 Mg/Ml 100 Ml Infus..Btl IV 11/14/24 03:49 85 ml ONCE ONE Administration Metoclopramide HCl 10 mg 11/14/24 03:20 11/14/24 03:36 Metoclopramide Hcl 10 Mg/2 Ml Vial IVPUSH 11/14/24 03:21 10 mg ONCE ONE Administration Morphine Sulfate 4 mg 11/14/24 03:20 11/14/24 03:36 Morphine Sulfate 4 Mg/Ml Cartridge IVPUSH 11/14/24 03:21 4 mg ONCE ONE Administration Protocol Morphine Sulfate 4 mg 11/14/24 05:00 11/14/24 05:10 Morphine Sulfate 4 Mg/Ml Cartridge IVPUSH 11/14/24 05:01 4 mg ONCE ONE Administration Protocol Ondansetron HCl 4 mg 11/14/24 05:00 11/14/24 05:10 Ondansetron Hcl 4 Mg/2 Ml Vial IVPUSH 11/14/24 05:01 4 mg ONCE ONE Administration Medical Decision Making Medical Decision Making [facility] Narrative: The patient is a 34-year-old male who has a history of pancreatitis. I believe he has had both gallstone pancreatitis and alcoholic pancreatitis. Has had a cholecystectomy. The patient presents with 4 days of abdominal pain and also vomiting and diarrhea. He says his symptoms began after eating out at [email or web address]. He says he is not currently heavy alcohol user. He denies any IV drug use The patient had diffuse upper abdominal tenderness. The patient was treated symptomatically. He had a minimal elevation of his lipase. A CT scan of his abdomen and pelvis was done. He received total of 3 L of IV fluids. His labs showed that he had an acute rise in his BUN and creatinine suggestive of acute dehydration. The CT of the abdomen and pelvis did not show findings of pancreatitis but did show multiple segments of wall thickening of several areas of the small bowel. After 3 L of fluid and symptomatic treatment the patient was feeling moderately better but not completely better. He was given a trial of devon winter to see if he might be able to tolerate oral intake and be discharged. However after taking the devon winter he felt considerably worse. Findings on CT scan and given his rise in BUN and creatinine I think hospitalization is not unreasonable in this patient. Lab Data 11/14/24 02:41 11/14/24 02:41 Labs: Lab Results 11/14/24 Range/Units 02:41 WBC 13.8 H (4.8-10.8) X10*3/uL RBC 5.61 (4.60-5.80) X10*6/uL Hgb 17.3 (14.0-18.0) g/dl Hct 47.5 (42.0-52.0) % MCV 84.7 (80.0-98.0) fL MCH 30.8 (27.0-33.0) pg MCHC 36.4 H (31.0-36.0) g/dl RDW 15.2 (11.0-16.0) % Plt Count 336 (160-400) X10*3/uL MPV 8.8 L (9.4-12.4) fL Immature Gran % (Auto) 0.4 (0.0-0.4) % Neut % (Auto) 84.0 H (45-73) % Lymph % (Auto) 9.3 L (20-40) % [place] % (Auto) 6.2 (2-11) % Eos % (Auto) 0.0 (0-4) % Baso % (Auto) 0.1 (0-2) % Lymph # (Auto) 1.3 (1.2-4.9) X10*3/uL [place] # (Auto) 0.9 (0.1-1.2) X10*3/uL Eos # (Auto) 0.0 (0.0-0.4) X10*3/uL Baso # (Auto) 0.0 (0.0-0.2) X10*3/uL Abs Immat Gran (auto) 0.05 H (0.00-0.03) X10*3/uL Absolute Neuts (auto) 11.6 H (2.0-8.3) x10*3/uL Absolute Nucleated RBC 0.000 (0.0-0.012) X10*3/uL Nucleated RBC % (auto) 0.0 (0.0-0.2) /100WBC Sodium 135 (135-145) mmol/L Potassium 3.2 L (3.3-5.1) mmol/L Chloride 97 (96-108) mmol/L Carbon Dioxide 21 L (22-29) mmol/L Anion Gap 20 (12-20) BUN 29 H (9-16) mg/dL Creatinine 1.56 H (0.5-1.4) mg/dL Estim Creat Clear Calc 77.1 Estimated GFR 51 Random Glucose 205 H (60-115) mg/dL Calcium 10.1 (8.4-10.2) mg/dL Magnesium 2.0 (1.6-2.6) mg/dL Total Bilirubin 0.8 (0.0-1.0) mg/dL Direct Bilirubin 0.3 (0.0-0.5) mg/dL AST 40 H (5-37) U/L ALT 118 H (0-40) U/L Alkaline Phosphatase 262 H (39-117) U/L C-Reactive Protein 0.17 (< or = 0.50) mg/dL Total Protein 9.3 H (6.5-8.0) g/dL Albumin 5.0 (3.5-5.0) g/dL Lipase 84 H (8-78) U/L Ethyl Alcohol 11 mg/dL Discharge Plan Discharge Clinical Impression: Enteritis, Abdominal pain, Acute dehydration Patient Disposition: Admitted As Inpatient Print Language: St Helen[place]
[2024-11-14] MEDS: Metoclopramide HCl 10 MG/2 ML VIAL IVPUSH (03:36)
[2024-11-14] MEDS: diphenhydrAMINE HCL 50 MG/ML VIAL 25 MG IVPUSH (03:36)
[2024-11-14] MEDS: Famotidine/PF 20 MG/2 ML VIAL IVPUSH (03:36)
[2024-11-14] MEDS: Morphine Sulfate 4 MG/ML CARTRIDGE IVPUSH ×2 (03:36→05:10)
[2024-11-14 03:41] LABS: C Reactive Protein 0.17 mg/dL (< or = 0.50); Ethanol 11 mg/dL
--- NOTE | 2024-11-14 03:44 | PC.NURSE ---
this rn assumed care of pt, pt reporting 10/10 lower abdominal pain at this time, pt medicated per jan, pt to Ct at this time.
[2024-11-14] MEDS: iohexoL 350 MG/ML 100 ML INFUS..BTL 85 ML IV (03:54)
[2024-11-14] MEDS: 0.9 % Sodium Chloride 1,000 ML 999 ML IV ×3 (04:16→07:54)
[2024-11-14] MEDS: ondansetron HCL 4 MG/2 ML VIAL IVPUSH (05:10)
[2024-11-14] MEDS: PHENobarb/Hyoscy/Atropine/Scop 10 ML ELIXIR PO (07:55)
--- NOTE | 2024-11-14 13:40 | PHA.MEDREC ---
Addendum entered by Desmond Kwon 11/14/24 13:58: reviewed Original Note: Pharmacy Consult ? Medication Reconciliation Pharmacy has completed the medication reconciliation. Patient states he isn't taking any medications.
== END 2024-11-14 14:58 | disposition home or self-care (01) ==
PROVIDERS: Emergency Medicine; Emergency Provider Emergency Medicine Emergency Medical Services; PCP Internal Medicine
DX: K52.9 Noninfective gastroenteritis and colitis, unspecified (principal); E86.0 Dehydration; R10.2 Pelvic and perineal pain; R94.31 Abnormal electrocardiogram [ECG] [EKG]; R11.2 Nausea with vomiting, unspecified; Z51.81 Encounter for therapeutic drug level monitoring; Z79.899 Other long term (current) drug therapy
CPT/HCPCS: 36415; 74177; 80048; 80076; 80307; 83690; 83735; 85025; 86140; 93005; 96361; 96374; 96375; 96376; 99285; J1200; J2270; J2405; J2765; Q9967

== ENCOUNTER → 2024-11-14 02:47 | Outpatient (BNV) | payer OTHER, SELFPAY | PROVIDERS: Emergency Provider Emergency Medicine Emergency Medical Services; PCP Internal Medicine; Visit Provider Internal Medicine | DX: I51.7 Cardiomegaly (principal) | CPT/HCPCS: 93010 ==

== ENCOUNTER → 2024-11-14 03:22 | Outpatient (BNV) | payer OTHER, SELFPAY | PROVIDERS: Emergency Provider Emergency Medicine; PCP Internal Medicine; Visit Provider Radiology Diagnostic Radiology | DX: N20.0 Calculus of kidney (principal); R16.0 Hepatomegaly, not elsewhere classified | CPT/HCPCS: 74177 ==

== ENCOUNTER 2024-11-14 23:00 | Emergency (ER) | payer OTHER, SELFPAY ==
[2024-11-14 23:10] VITALS: BP 160/110; PULSE 118; O2SAT 98
[2024-11-14 23:16] VITALS: BP 133/90; PULSE 98; RESP 20; TEMP 37.7; O2SAT 97; BMI 29.3
[2024-11-14 23:19] VITALS: BP 133/90; PULSE 98; RESP 20; TEMP 37.7; O2SAT 97
[2024-11-15 01:08] LABS: MANUAL DIFF FLAG NO
[2024-11-15 01:09] LABS: Basophils Percent Auto 0.2 % (0-2); Eosinophils Absolute Auto 0.1 X10*3/uL (0.0-0.4); Eosinophils Percent Auto 0.4 % (0-4); Hematocrit 40.1 % (42.0-52.0); Hemoglobin 14.4 g/dl (14.0-18.0); Imm Gran Abs Auto 0.06 X10*3/uL (0.00-0.03); Imm Gran Pct Auto 0.5 % (0.0-0.4); Lymphocytes Absolute Auto 2.3 X10*3/uL (1.2-4.9); Lymphocytes Percent Auto 18.2 % (20-40); Mean Corpuscular HGB Conc 35.9 g/dl (31.0-36.0); Mean Corpuscular Volume 86.4 fL (80.0-98.0); Mean Platelet Volume 8.9 fL (9.4-12.4); Monocytes Absolute Auto 0.9 X10*3/uL (0.1-1.2); Monocytes Percent Auto 7.2 % (2-11); Neutrophils Absolute Auto 9.2 x10*3/uL (2.0-8.3); Neutrophils Percent Auto 73.5 % (45-73); Platelet Count 284 X10*3/uL (160-400); Red Blood Count 4.64 X10*6/uL (4.60-5.80); Red Cell Distribution Width 14.9 % (11.0-16.0); White Blood Count 12.4 X10*3/uL (4.8-10.8)
[2024-11-15 01:24] LABS: Albumin Level 4.1 g/dL (3.5-5.0); Anion Gap 15 (12-20); Aspartate Amino Transferase 49 U/L (5-37); Bilirubin Direct 0.4 mg/dL (0.0-0.5); Bilirubin Total 1.1 mg/dL (0.0-1.0); Blood Urea Nitrogen 26 mg/dL (9-16); Calcium 9.4 mg/dL (8.4-10.2); Carbon Dioxide 24 mmol/L (22-29); Chloride 100 mmol/L (96-108); Creatinine Clr Calc Pharmacy 127.9; Estimated Glomerular Filt Rate > 60; Glucose Random 113 mg/dL (60-115); Lipase 45 U/L (8-78); Potassium 3.1 mmol/L (3.3-5.1); Sodium 136 mmol/L (135-145); Total Protein 7.2 g/dL (6.5-8.0)
[2024-11-15 01:36] LABS: Alanine Aminotransferase 88 U/L (0-40); Alkaline Phosphatase 216 U/L (39-117)
[2024-11-15 01:53] VITALS: BP 131/89; PULSE 80; RESP 18; TEMP 37.7; O2SAT 99
--- NOTE | 2024-11-15 03:02 | ED_ITS ---
HPI - Abdominal Pain General Chief Complaint: Abdominal Pain Stated Complaint: N/V/D Time Seen by Provider: 11/15/24 02:15 Source: patient Mode of arrival: ambulatory Limitations: no limitations History of Present Illness ED Provider: HPI narrative: Patient with nausea vomiting diarrhea since yesterday was seen here received IV fluids went home came back with the same symptoms having diffuse abdominal discomfort vomited diarrhea taking p.o. fluids had only 1 bowel movement prior been nauseated but no vomiting patient has had a CT scan done yesterday which showed enteritis Related Data Previous Rx's ?Medication ?Instructions ?Recorded ondansetron 4 mg disintegrating 4 mg PO TID PRN nausea and 11/14/24 tablet vomiting 5 days #10 tabs dicyclomine 20 mg tablet 20 mg PO TID PRN Abdominal 11/15/24 Discomfort #20 tabs levofloxacin 500 mg tablet 500 mg PO DAILY 5 days #5 tabs 11/15/24 Allergies Allergy/AdvReac Type Severity Reaction Status Date / Time cat dander [CATS] Allergy Unknown UNKNOWN Verified 11/14/24 23:18 dog dander [DOGS] Allergy Unknown UNKNOWN Verified 11/14/24 23:18 Review of Systems Review of Systems Yes all other systems are reviewed and are negative PMFSH Past Medical History Medical History Kidney stones Surgical History H/O cystoscopy No pertinent past surgical history Social History Social History Household Members: Significant Other and Children Housing: House Do you presently have visiting nurse or other home services: No Alcohol intake: former Patient Tobacco Use Status: Never used Tobacco Smoked in Last 30 Days: No Second Hand Smoke Exposure: No Use of substances other than those prescribed or required for medical reasons: No Substance Use Type: Marijuana Advance Directives: Yes Advance Directives on File: Yes Advance Directives Date on File: 10/21/21 service: No Current occupational status: unemployed Physical Exam ED Vital Signs: Vital Signs - 24 hr 11/14/24 23:16 11/14/24 23:19 11/15/24 01:53 Temperature 99.9 F 99.9 F 99.9 F Pulse Rate 98 98 80 Respiratory Rate 20 20 18 Blood Pressure 133/90 H 133/90 H 131/89 Pulse Oximetry 97 97 99 Oxygen Delivery Method Room Air Room Air Room Air 11/15/24 03:48 Temperature 99.9 F Pulse Rate 80 Respiratory Rate 18 Blood Pressure 131/89 Pulse Oximetry 99 Oxygen Delivery Method Room Air BMI result Body Mass Index 29.3 Appearance: Alert. Oriented X3. No acute distress. Eyes: No pallor or icterus ENT: Pharynx normal. Oral Mucosa moist Neck: Normal inspection. Neck supple. CVS: Normal heart rate and rhythm. Pulses normal. Respiratory: No respiratory distress. Equal air entry bilateral, no wheezing/rales/rhonchi Abdomen: Soft and nontender. Bowel sounds are present, no mass palpable, no CVA tenderness Skin: Skin warm and dry. Normal skin color. Normal skin turgor. Extremities: No lower extremity edema. No calf tenderness Neuro: Oriented X 3. No motor deficit. Medical Decision Making Medical Decision Making [facility] Narrative: Patient with enteritis taking p.o. fluids has still nausea diffuse abdominal cramps will give dicyclomine advised to continue on the stone follow up as outpatient does not meet the criteria for admission at this time as patient is taking p.o. fluids and vitals are stable Lab Data [facility] Lab Attestation statement: I reviewed the patient's lab results. 11/15/24 01:04 11/15/24 01:04 Labs: Lab Results 11/15/24 Range/Units 01:04 WBC 12.4 H (4.8-10.8) X10*3/uL RBC 4.64 (4.60-5.80) X10*6/uL Hgb 14.4 (14.0-18.0) g/dl Hct 40.1 L (42.0-52.0) % MCV 86.4 (80.0-98.0) fL MCH 31.0 (27.0-33.0) pg MCHC 35.9 (31.0-36.0) g/dl RDW 14.9 (11.0-16.0) % Plt Count 284 (160-400) X10*3/uL MPV 8.9 L (9.4-12.4) fL Immature Gran % (Auto) 0.5 H (0.0-0.4) % Neut % (Auto) 73.5 H (45-73) % Lymph % (Auto) 18.2 L (20-40) % [place] % (Auto) 7.2 (2-11) % Eos % (Auto) 0.4 (0-4) % Baso % (Auto) 0.2 (0-2) % Lymph # (Auto) 2.3 (1.2-4.9) X10*3/uL [place] # (Auto) 0.9 (0.1-1.2) X10*3/uL Eos # (Auto) 0.1 (0.0-0.4) X10*3/uL Baso # (Auto) 0.0 (0.0-0.2) X10*3/uL Abs Immat Gran (auto) 0.06 H (0.00-0.03) X10*3/uL Absolute Neuts (auto) 9.2 H (2.0-8.3) x10*3/uL Absolute Nucleated RBC 0.000 (0.0-0.012) X10*3/uL Nucleated RBC % (auto) 0.0 (0.0-0.2) /100WBC Sodium 136 (135-145) mmol/L Potassium 3.1 L (3.3-5.1) mmol/L Chloride 100 (96-108) mmol/L Carbon Dioxide 24 (22-29) mmol/L Anion Gap 15 (12-20) BUN 26 H (9-16) mg/dL Creatinine 0.94 (0.5-1.4) mg/dL Estim Creat Clear Calc 127.9 Estimated GFR > 60 Random Glucose 113 (60-115) mg/dL Calcium 9.4 D (8.4-10.2) mg/dL Total Bilirubin 1.1 H (0.0-1.0) mg/dL Direct Bilirubin 0.4 (0.0-0.5) mg/dL AST 49 H (5-37) U/L ALT 88 H (0-40) U/L Alkaline Phosphatase 216 H (39-117) U/L Total Protein 7.2 (6.5-8.0) g/dL Albumin 4.1 (3.5-5.0) g/dL Lipase 45 (8-78) U/L Medications Administered Discontinued Medications Generic Name Dose Route Start Last Admin Trade Name Freq PRN Reason Stop Dose Admin Dicyclomine HCl 20 mg 11/15/24 03:02 11/15/24 03:12 Dicyclomine Hcl 10 Mg Capsule PO 11/15/24 03:03 20 mg ONCE ONE Administration Levofloxacin 500 mg 11/15/24 03:02 11/15/24 03:12 Levofloxacin 500 Mg Tablet PO 11/15/24 03:03 500 mg ONCE ONE Administration Ondansetron HCl 4 mg 11/15/24 03:03 11/15/24 03:13 Ondansetron Odt 4 Mg Tab.Rapdis TRANSLINGU 11/15/24 03:04 4 mg ONCE ONE Administration Discharge Plan Discharge Clinical Impression: Gastroenteritis Patient Disposition: Home, Self-Care Instructions: Gastroenteritis (ED) Additional Instructions: Drink plenty of fluids Take medication as prescribed Follow with your PCP if not better Prescriptions: New levofloxacin 500 mg tablet 500 mg PO DAILY 5 Days Qty: 5 0RF dicyclomine 20 mg tablet 20 mg PO TID PRN (Reason: Abdominal Discomfort) Qty: 20 0RF No Action ondansetron 4 mg tablet,disintegrating 4 mg PO TID PRN (Reason: nausea and vomiting) 5 Days Qty: 10 0RF Interventions: ED Discharge Assessment Last Done: 11/15/24 03:48 Discharge Date/Time: 11/15/24 03:48 Print Language: German
[2024-11-15] MEDS: Dicyclomine HCl 10 MG CAPSULE 20 MG PO (03:12)
[2024-11-15] MEDS: levoFLOXacin 500 MG TABLET PO (03:12)
[2024-11-15] MEDS: Ondansetron ODT 4 MG TAB.RAPDIS TRANSLINGU (03:13)
[2024-11-15 03:48] VITALS: BP 131/89; PULSE 80; RESP 18; TEMP 37.7; O2SAT 99
== END 2024-11-15 03:48 | disposition home or self-care (01) ==
PROVIDERS: Emergency Provider Internal Medicine; PCP Family Medicine
DX: K52.9 Noninfective gastroenteritis and colitis, unspecified (principal); R11.2 Nausea with vomiting, unspecified; R10.9 Unspecified abdominal pain; F12.90 Cannabis use, unspecified, uncomplicated; Z79.899 Other long term (current) drug therapy
CPT/HCPCS: 36415; 80048; 80076; 83690; 85025; 99283; 99284

== ENCOUNTER 2025-03-24 16:27 | Inpatient (IN) | payer OTHER, SELFPAY ==
[2025-03-24] VITALS (8 sets, daily range): BP systolic 123–152; BP diastolic 80–91; PULSE 61–93; RESP 12–20; TEMP 36.5–36.8; O2SAT 98–100; BMI 26.5
--- NOTE | ~2025-03-24 | CT_ITS ---
CLINICAL HISTORY: abd pain CT abdomen and pelvis without contrast Comparison: CT - CT ABDOMEN PELVIS W IV CON - 11/14/24 03:[address]/SR - CT ABDOMEN PELVIS W IV CON - 11/14/24 03:26 EST Findings: The lung bases are clear. Mild hepatomegaly. The gallbladder is absent. The adrenal glands, pancreas and spleen are unremarkable. Multiple bilateral renal calculi. The largest on the right measures up to 7 mm. The largest on the left measures up to 5 mm. No current ureteral calculus identified. The bladder is decompressed and questionably thick-walled. No bowel obstruction or free air. A normal appendix is suggested on coronal 37 and 38. No free fluid, abscess or adenopathy. No suspicious bone lesion. Impression: No definite acute process. There are several bilateral renal calculi without current ureteral calculus or obstructive uropathy. The bladder is decompressed and questionably thick-walled. This document has been electronically signed by: Filippo Chapman MD on 03/25/2025 11:11:11
--- NOTE | ~2025-03-24 | XR_ITS ---
CLINICAL HISTORY: pain 1 view chest x-ray Comparison: None Findings: Lungs are clear without acute infiltrates. No pneumothorax. Heart size normal. No acute bony abnormalities. Impression: No acute processes This document has been electronically signed by: Robert Faria MD on 03/24/2025 17:41:03
--- NOTE | 2025-03-24 16:38 | ECG_ITS ---
Test Reason : CP Blood Pressure : */* mmHG Vent. Rate : 88 BPM Atrial Rate : 88 BPM P-R Int : 144 ms QRS Dur : 88 ms QT Int : 372 ms P-R-T Axes : 72 59 37 degrees QTcB Int : 450 ms Normal sinus rhythm Normal ECG When compared with ECG of 14-Nov-2024 02:47, No significant change was found Referred By: Leida Peter Electronically Signed By: SHEN SOSA
--- NOTE | 2025-03-24 16:55 | ED.CHESTPAIN ---
HPI - Chest Pain General Chief Complaint: Chest Pain Stated Complaint: chest pain x2 days Time Seen by Provider: 03/24/25 16:38 Source: patient Limitations: no limitations History of Present Illness ED Provider: Leida Peter PA-C HPI narrative: 34-year-old male with a history of alcohol use disorder recurrent pancreatitis, presents with chest pain x3 days. Pain along anterolateral left chest with radiation down his left arm. Patient's symptoms are intermittent. Unable to describe the nature of his discomfort. Associated dizziness, headache, nausea, vomiting with chills. Denies recent cough or cold symptoms, sick contacts with similar symptoms, abdominal pain or fever. Patient last consumed alcohol 3 weeks ago. Related Data Previous Rx's ?Medication ?Instructions ?Recorded ondansetron 4 mg disintegrating 4 mg PO TID PRN nausea and 11/14/24 tablet vomiting 5 days #10 tabs dicyclomine 20 mg tablet 20 mg PO TID PRN Abdominal 11/15/24 Discomfort #20 tabs levofloxacin 500 mg tablet 500 mg PO DAILY 5 days #5 tabs 11/15/24 Allergies Allergy/AdvReac Type Severity Reaction Status Date / Time cat dander [CATS] Allergy Unknown UNKNOWN Verified 03/24/25 16:36 dog dander [DOGS] Allergy Unknown UNKNOWN Verified 03/24/25 16:36 Review of Systems Review of Systems: Yes all other systems are reviewed and are negative Constitutional: Constitutional: Reports chills, Denies fatigue, Denies fever(s) and Reports headache(s) ENT: Reports headache(s) Cardiovascular: Cardiovascular: Reports chest pain and Denies dyspnea Respiratory: Respiratory: Denies cough and Denies dyspnea Gastrointestinal: Gastrointestinal: Denies abdominal pain, Denies diarrhea, Reports nausea and Reports vomiting Neurologic: Reports headache(s) Endocrine: Endocrine: Denies fatigue PMFSH Past Medical History Attestation statement: The following information was validated with the patient. Medical History Kidney stones Surgical History H/O cystoscopy No pertinent past surgical history Social History Social History Household Members: Significant Other and Children Housing: House Do you presently have visiting nurse or other home services: No Alcohol intake: former Patient Tobacco Use Status: Never used Tobacco Second Hand Smoke Exposure: No Substance Use Type: Marijuana Advance Directives: Yes Advance Directives on File: Yes Advance Directives Date on File: 10/21/21 Nutrition Risks: No Nutritional Risk service: No Current occupational status: unemployed Physical Exam Vital Signs: Vital Signs: Last Vital Signs Temp 97.7 F 03/24/25 21:08 Pulse 68 03/24/25 23:06 Resp 12 03/24/25 22:09 BP 142/84 H 03/24/25 23:06 Pulse Ox 100 03/24/25 21:08 O2 Del Method Room Air 03/24/25 21:08 BMI result Body Mass Index 26.5 Const: Other: Alert well-appearing Orientation/consciousness: patient oriented x3 Resp: Effort & Inspection: normal respiratory effort Cardio: Other: Normal peripheral perfusion GI: Other: Abdomen is soft, nontender nondistended no guarding Skin: Other: Warm dry no rash Neuro: General: patient oriented x3, gait normal, no focal motor deficits and CN's II-XI intact bilaterally Psych: Other: Cooperative Course Reevaluation(s) Reevaluation #1: Pain-free well in appearance, awaiting a 3rd trop, there was a bump in the 2nd, Reevaluation #2: Patient was diaphoretic actively vomiting, complaining of epigastric pain, it was time for his 3rd troponin, I am repeating an EKG, giving morphine and Zofran Time: 21:01 Reevaluation #3: Third troponin further elevated, I am cancelling the CT scan, the patient was having an NSTEMI, we will be paging cardiology Time: 21:39 Consultations Consultation #1: Dr. Bella .....recommneds aspirin, lovenox, and beta alexandra Time: 21:40 Medications Administered Generic Name Dose Route Start Last Admin Trade Name Freq PRN Reason Stop Dose Admin Sodium Chloride 1,000 mls @ 999 mls/hr 03/24/25 22:15 03/24/25 22:14 Ns IV 03/24/25 23:15 999 mls/hr .Q1H1M SOHAIL Administration Nitroglycerin 0.4 mg 03/24/25 22:00 03/24/25 23:06 Nitroglycerin 0.4 Mg Tab.Subl SUBLINGUAL 0.4 mg Q5MX3 PRN Administration Chest Pain Discontinued Medications Generic Name Dose Route Start Last Admin Trade Name Freq PRN Reason Stop Dose Admin Acetaminophen 975 mg 03/24/25 17:13 03/24/25 17:24 Acetaminophen 325 Mg Tablet PO 03/24/25 17:14 975 mg ONCE ONE Administration Aspirin 324 mg 03/24/25 21:44 03/24/25 21:48 Aspirin 81 Mg Tab.Chew PO 03/24/25 21:45 324 mg ONCE ONE Administration Diazepam 2.5 mg 03/24/25 19:34 03/24/25 20:04 Diazepam 10 Mg/2 Ml Cartridge IVPUSH 03/24/25 19:35 2.5 mg STAT STA Administration Diphenhydramine HCl 25 mg 03/24/25 17:13 03/24/25 17:23 Diphenhydramine Hcl 50 Mg/Ml Vial IVPUSH 03/24/25 17:14 25 mg ONCE ONE Administration Sodium Chloride 1,000 mls @ 999 mls/hr 03/24/25 17:00 03/24/25 20:26 Ns IV 03/24/25 18:00 Infused .Q1H1M SOHAIL Infusion Ketorolac Tromethamine 15 mg 03/24/25 17:13 03/24/25 17:23 Ketorolac Tromethamine 15 Mg/Ml Vial IVPUSH 03/24/25 17:14 15 mg ONCE ONE Administration Morphine Sulfate 4 mg 03/24/25 21:00 03/24/25 21:06 Morphine Sulfate 4 Mg/Ml Cartridge IVPUSH 03/24/25 21:01 4 mg ONCE ONE Administration Protocol Nitroglycerin 0.4 mg 03/24/25 21:44 03/24/25 21:57 Nitroglycerin 0.4 Mg Tab.Subl SUBLINGUAL 0.4 mg Q5MX3 PRN Administration Chest Pain Ondansetron HCl 4 mg 03/24/25 21:00 03/24/25 21:06 Ondansetron Hcl 4 Mg/2 Ml Vial IVPUSH 03/24/25 21:01 4 mg ONCE ONE Administration Prochlorperazine Edisylate 10 mg 03/24/25 17:13 03/24/25 17:24 Prochlorperazine Edisylate 10 Mg/2 Ml Vial IVPUSH 03/24/25 17:14 10 mg ONCE ONE Administration Medical Decision Making Medical Decision Making [facility] Narrative: 34-year-old male with a history of alcohol use disorder recurrent pancreatitis, presents with chest pain x3 days. Pain along anterolateral left chest with radiation down his left arm. Patient's symptoms are intermittent. Unable to describe the nature of his discomfort. Associated dizziness, headache, nausea, vomiting with chills. Denies recent cough or cold symptoms, sick contacts with similar symptoms, abdominal pain or fever. Patient last consumed alcohol 3 weeks ago. Problem: Recurrent pancreatitis, alcohol use disorder History: Per patient I have considered the following differential diagnoses: ACS, viral syndrome, pneumonia, costochondritis, pancreatitis Plan: I am considering ACS, although the patient has no known risk factors for coronary artery disease. Screening labs including a cardiac enzymes EKG and chest x-ray we will be obtained. Patient has a broad constellation of symptoms, they could be viral related, adding on a viral panel. We will treat the nausea and headache with fluid Compazine Benadryl Toradol Tylenol. Thought about pancreatitis given distribution of his chest pain, however he is not complaining of abdominal pain, his abdominal exam was benign, we will add a lipase. I have independently reviewed the following tests: Labs: No leukocytosis but left shift noted, not anemic, lipase less than 4, 1st troponin 22.7, no additional electrolyte abnormality, ethanol negative, trop 53.7, trop 110.6, dimer < 150 EKG: Normal sinus rhythm, rate 88, no ischemic changes no ectopy QTC 450 EKG 2: Normal sinus rhythm, rate of 79, no ischemic changes no ectopy QTC 449 Chest x-ray:Impression: No acute processes Lab Data 03/24/25 16:50 03/24/25 16:50 Labs: Lab Results 03/24/25 03/24/25 03/24/25 Range/Units 16:50 17:04 19:05 WBC 10.2 (4.8-10.8) X10*3/uL RBC 5.31 (4.60-5.80) X10*6/uL Hgb 16.6 (14.0-18.0) g/dl Hct 46.4 (42.0-52.0) % MCV 87.4 (80.0-98.0) fL MCH 31.3 (27.0-33.0) pg MCHC 35.8 (31.0-36.0) g/dl RDW 17.1 H (11.0-16.0) % Plt Count 386 D (160-400) X10*3/uL MPV 8.7 L (9.4-12.4) fL Immature Gran % (Auto) 0.5 H (0.0-0.4) % Neut % (Auto) 74.9 H (45-73) % Lymph % (Auto) 16.5 L (20-40) % [place] % (Auto) 7.7 (2-11) % Eos % (Auto) 0.1 (0-4) % Baso % (Auto) 0.3 (0-2) % Lymph # (Auto) 1.7 (1.2-4.9) X10*3/uL [place] # (Auto) 0.8 (0.1-1.2) X10*3/uL Eos # (Auto) 0.0 (0.0-0.4) X10*3/uL Baso # (Auto) 0.0 (0.0-0.2) X10*3/uL Abs Immat Gran (auto) 0.05 H (0.00-0.03) X10*3/uL Absolute Neuts (auto) 7.6 (2.0-8.3) x10*3/uL Absolute Nucleated RBC 0.020 H (0.0-0.012) X10*3/uL Nucleated RBC % (auto) 0.2 (0.0-0.2) /100WBC ESR 2 (0-15) MM/HR Hold Blue Top SEE NOTE Sodium 138 (135-145) mmol/L Potassium 3.6 (3.3-5.1) mmol/L Chloride 103 (96-108) mmol/L Carbon Dioxide 24 (22-29) mmol/L Anion Gap 15 (12-20) BUN 12 (9-16) mg/dL Creatinine 1.08 (0.5-1.4) mg/dL Estim Creat Clear Calc 100.7 Estimated GFR > 60 Random Glucose 146 H (60-115) mg/dL Calcium 9.8 (8.4-10.2) mg/dL Magnesium 1.7 (1.6-2.6) mg/dL Total Bilirubin 0.3 (0.0-1.0) mg/dL AST 27 (5-37) U/L ALT 36 (0-40) U/L Alkaline Phosphatase 171 H (39-117) U/L Troponin I High Sens 22.7 D 53.7 H D (<3.5-35.0) ng/L C-Reactive Protein < 0.10 (< or = 0.50) mg/dL Total Protein 7.7 (6.5-8.0) g/dL Albumin 4.3 (3.5-5.0) g/dL Lipase < 4 L (8-78) U/L Ethyl Alcohol < 10 mg/dL Influenza Type A (PCR) NEGATIVE (Negative) Influenza Type B (PCR) NEGATIVE (Negative) RSV RNA Qual (PCR) NEGATIVE (Negative) SARS-CoV-2 RNA (RT-PCR) NEGATIVE (Negative) 03/24/25 Range/Units 21:03 WBC (4.8-10.8) X10*3/uL RBC (4.60-5.80) X10*6/uL Hgb (14.0-18.0) g/dl Hct (42.0-52.0) % MCV (80.0-98.0) fL MCH (27.0-33.0) pg MCHC (31.0-36.0) g/dl RDW (11.0-16.0) % Plt Count (160-400) X10*3/uL MPV (9.4-12.4) fL Immature Gran % (Auto) (0.0-0.4) % Neut % (Auto) (45-73) % Lymph % (Auto) (20-40) % [place] % (Auto) (2-11) % Eos % (Auto) (0-4) % Baso % (Auto) (0-2) % Lymph # (Auto) (1.2-4.9) X10*3/uL [place] # (Auto) (0.1-1.2) X10*3/uL Eos # (Auto) (0.0-0.4) X10*3/uL Baso # (Auto) (0.0-0.2) X10*3/uL Abs Immat Gran (auto) (0.00-0.03) X10*3/uL Absolute Neuts (auto) (2.0-8.3) x10*3/uL Absolute Nucleated RBC (0.0-0.012) X10*3/uL Nucleated RBC % (auto) (0.0-0.2) /100WBC ESR (0-15) MM/HR Hold Blue Top Sodium (135-145) mmol/L Potassium (3.3-5.1) mmol/L Chloride (96-108) mmol/L Carbon Dioxide (22-29) mmol/L Anion Gap (12-20) BUN (9-16) mg/dL Creatinine (0.5-1.4) mg/dL Estim Creat Clear Calc Estimated GFR Random Glucose (60-115) mg/dL Calcium (8.4-10.2) mg/dL Magnesium (1.6-2.6) mg/dL Total Bilirubin (0.0-1.0) mg/dL AST (5-37) U/L ALT (0-40) U/L Alkaline Phosphatase (39-117) U/L Troponin I High Sens 110.6 H* D (<3.5-35.0) ng/L C-Reactive Protein (< or = 0.50) mg/dL Total Protein (6.5-8.0) g/dL Albumin (3.5-5.0) g/dL Lipase (8-78) U/L Ethyl Alcohol mg/dL Influenza Type A (PCR) (Negative) Influenza Type B (PCR) (Negative) RSV RNA Qual (PCR) (Negative) SARS-CoV-2 RNA (RT-PCR) (Negative) Critical Care Time Critical Care Time Critical Care Time: Yes Total Critical Care Time: 30 Attestation: I Leida Peter PA-C have personally performed 30 minutes of critical care time not including lines and procedures Discharge Plan Discharge Clinical Impression: Chest pain, Elevated troponin Patient Disposition: Admitted As Inpatient
[2025-03-24 16:56] LABS: MANUAL DIFF FLAG NO
[2025-03-24 17:00] LABS: Basophils Percent Auto 0.3 % (0-2); Eosinophils Percent Auto 0.1 % (0-4); Hematocrit 46.4 % (42.0-52.0); Hemoglobin 16.6 g/dl (14.0-18.0); Imm Gran Abs Auto 0.05 X10*3/uL (0.00-0.03); Imm Gran Pct Auto 0.5 % (0.0-0.4); Lymphocytes Absolute Auto 1.7 X10*3/uL (1.2-4.9); Lymphocytes Percent Auto 16.5 % (20-40); Mean Corpuscular HGB Conc 35.8 g/dl (31.0-36.0); Mean Corpuscular Hemoglobin 31.3 pg (27.0-33.0); Mean Corpuscular Volume 87.4 fL (80.0-98.0); Mean Platelet Volume 8.7 fL (9.4-12.4); Monocytes Absolute Auto 0.8 X10*3/uL (0.1-1.2); Monocytes Percent Auto 7.7 % (2-11); NRBC Pct Auto 0.2 /100WBC (0.0-0.2); Neutrophils Absolute Auto 7.6 x10*3/uL (2.0-8.3); Neutrophils Percent Auto 74.9 % (45-73); Platelet Count 386 X10*3/uL (160-400); Red Blood Count 5.31 X10*6/uL (4.60-5.80); Red Cell Distribution Width 17.1 % (11.0-16.0); White Blood Count 10.2 X10*3/uL (4.8-10.8)
[2025-03-24 17:19] LABS: Alanine Aminotransferase 36 U/L (0-40); Albumin Level 4.3 g/dL (3.5-5.0); Alkaline Phosphatase 171 U/L (39-117); Anion Gap 15 (12-20); Aspartate Amino Transferase 27 U/L (5-37); Bilirubin Total 0.3 mg/dL (0.0-1.0); Blood Urea Nitrogen 12 mg/dL (9-16); Calcium 9.8 mg/dL (8.4-10.2); Carbon Dioxide 24 mmol/L (22-29); Chloride 103 mmol/L (96-108); Creatinine Clr Calc Pharmacy 100.7; Estimated Glomerular Filt Rate > 60; Ethanol < 10 mg/dL; Glucose Random 146 mg/dL (60-115); Lipase < 4 U/L (8-78); Magnesium 1.7 mg/dL (1.6-2.6); Potassium 3.6 mmol/L (3.3-5.1); Sodium 138 mmol/L (135-145); Total Protein 7.7 g/dL (6.5-8.0)
[2025-03-24 17:23] LABS: Troponin-I High Sensitivity 22.7 ng/L (<3.5-35.0)
[2025-03-24] MEDS: Ketorolac Tromethamine 15 MG/ML VIAL IVPUSH (17:23)
[2025-03-24] MEDS: diphenhydrAMINE HCL 50 MG/ML VIAL 25 MG IVPUSH (17:23)
[2025-03-24] MEDS: Acetaminophen 325 MG TABLET 975 MG PO (17:24)
[2025-03-24] MEDS: 0.9 % Sodium Chloride 1,000 ML 999 ML IV ×2 (17:24→22:14)
[2025-03-24] MEDS: Prochlorperazine Edisylate 10 MG/2 ML VIAL IVPUSH (17:24)
--- NOTE | 2025-03-24 17:35 | PC.NURSE ---
Med given as ordered. Fluids started
[2025-03-24 17:48] LABS: Influenza A PCR NEGATIVE (Negative); Influenza B PCR NEGATIVE (Negative); Resp Syncy Virus RNA Qual PCR NEGATIVE (Negative); SARS COV2 PCR INHOUSE NEGATIVE (Negative)
[2025-03-24 19:28] LABS: Troponin-I High Sensitivity 53.7 ng/L (<3.5-35.0)
[2025-03-24] MEDS: diazePAM 10 MG/2 ML CARTRIDGE 2.5 MG IVPUSH (20:04)
--- NOTE | 2025-03-24 21:00 | ECG_ITS ---
Test Reason : CP Blood Pressure : */* mmHG Vent. Rate : 79 BPM Atrial Rate : 79 BPM P-R Int : 142 ms QRS Dur : 82 ms QT Int : 392 ms P-R-T Axes : 45 49 29 degrees QTcB Int : 449 ms Normal sinus rhythm Normal ECG When compared with ECG of 24-Mar-2025 16:56, No significant change was found Referred By: Leida Peter Electronically Signed By: SHEN SOSA
[2025-03-24] MEDS: ondansetron HCL 4 MG/2 ML VIAL IVPUSH ×2 (21:06→23:47)
[2025-03-24] MEDS: Morphine Sulfate 4 MG/ML CARTRIDGE IVPUSH (21:06)
--- NOTE | 2025-03-24 21:13 | PC.NURSE ---
Pt found to be diaphoretic, pacing at the bedside, vomiting, and reporting epigastric/chest pain. MLP made aware and at bedside. EKG, vitals, and labs obtained. Pt medicated as per new orders. Pending ct scan. Monitoring is ongoing.
[2025-03-24 21:35] LABS: Troponin-I High Sensitivity 110.6 ng/L (<3.5-35.0)
[2025-03-24] MEDS: Aspirin 81 MG TAB.CHEW 324 MG PO (21:48)
[2025-03-24] MEDS: Nitroglycerin 0.4 MG TAB.SUBL SUBLINGUAL ×4 (21:57→23:06)
--- NOTE | 2025-03-24 22:05 | P.HPHOSP_ITS ---
History of Present Illness Date of Service: 03/24/25 Chief Complaint: Chest pain 34-year-old male with a past medical history of alcohol use disorder-last use 3 weeks ago; history of gallstone pancreatitis; presented to the hospital today with a chief complaint of chest discomfort for about 3 days. Patient reports that he has been having intermittent chest discomfort for the past 3 days. Today he had increased chest pain located in left side of the chest radiating to the left arm, associated diaphoresis, nausea and vomiting hence presented to the ER for further evaluation. Denies any chest pain at the time of my interview. Patient denies any fever chills cough or sputum production. Denies any urinary symptoms. Denies smoking Review of all other systems is negative except mentioned above ER course: Per ER team, patient is chest pain-free. EKG nonischemic. Bqouryxw-10-88 3- 110. Discussed with Dr. Bella who suggested Lovenox, aspirin, beta alexandra. [facility] Medical History Kidney stones Surgical History H/O cystoscopy No pertinent past surgical history Social History Household Members: Significant Other and Children Housing: House Do you presently have visiting nurse or other home services: No Alcohol intake: former Patient Tobacco Use Status: Never used Tobacco Second Hand Smoke Exposure: No Substance Use Type: Marijuana Advance Directives: Yes Advance Directives on File: Yes Advance Directives Date on File: 10/21/21 service: No Current occupational status: unemployed Meds Allergies Allergy/AdvReac Type Severity Reaction Status Date / Time cat dander [CATS] Allergy Unknown UNKNOWN Verified 03/24/25 16:36 dog dander [DOGS] Allergy Unknown UNKNOWN Verified 03/24/25 16:36 Active Medications: Current Medications Acetaminophen (Acetaminophen 325 Mg Tablet) 650 mg PO Q6H PRN PRN Reason: Pain, Mild 1-3,fever,headache Calcium Carbonate (Calcium Carbonate 750 Mg Tab.Chew) 750 mg PO Q4H PRN PRN Reason: Heartburn Docusate Sodium (Docusate Sodium 100 Mg Capsule) 100 mg PO BID SOHAIL Enoxaparin Sodium (Enoxaparin Sodium 100 Mg/Ml Syringe) 85 mg SUBCUT Q12H [facility] Dextrose/Sodium Chloride (D51/2ns) 1,000 mls @ 100 mls/hr IVCONT .Q10H [facility] Magnesium Hydroxide (Milk Of Magnesia 30 Ml Oral.Susp) 30 ml PO DAILY PRN PRN Reason: Constipation Melatonin (Melatonin 3 Mg Tablet) 6 mg PO BEDTIME PRN PRN Reason: Insomnia Nitroglycerin (Nitroglycerin 0.4 Mg Tab.Subl) 0.4 mg SUBLINGUAL Q5MX3 PRN PRN Reason: Chest Pain Last Admin: 03/24/25 21:57 Dose: 0.4 mg Nitroglycerin (Nitroglycerin 0.4 Mg Tab.Subl) 0.4 mg SUBLINGUAL Q5MX3 PRN PRN Reason: Chest Pain Pantoprazole Sodium (Pantoprazole Sodium 40 Mg/10 Ml Vial) 40 mg IVPUSH DAILY@0630 [facility] Sodium Chloride (0.9 % Sodium Chloride Flush 3 Ml Syringe) 3 ml IVFLUSH QSHIFT [facility] Physical Exam 2 Vital Signs and Narrative: Vital Signs: Last Vital Signs Temp 97.7 F 03/24/25 21:08 Pulse 65 03/24/25 21:08 Resp 20 03/24/25 21:08 BP 152/89 H 03/24/25 21:08 Pulse Ox 100 03/24/25 21:08 O2 Del Method Room Air 03/24/25 21:08 BMI result Body Mass Index 26.5 Gen: Appears be in no acute distress HEENT: NCAT, Moist mucosa. Pulmonary: Vesicular breath sounds, fair air entry CVS: Normal S1-S2 Abdomen: BS+, Soft, Nontender Extremities: Warm well perfused Neuro: Alert and awake. Results Labs 03/24/25 16:50 03/24/25 16:50 Labs: Laboratory Results - last 24 hr 03/24/25 03/24/25 16:50 17:04 MCV 87.4 MCH 31.3 MCHC 35.8 RDW 17.1 H Plt Count 386 D MPV 8.7 L Immature Gran % (Auto) 0.5 H Neut % (Auto) 74.9 H Lymph % (Auto) 16.5 L [place] % (Auto) 7.7 Eos % (Auto) 0.1 Baso % (Auto) 0.3 Lymph # (Auto) 1.7 [place] # (Auto) 0.8 Eos # (Auto) 0.0 Baso # (Auto) 0.0 Abs Immat Gran (auto) 0.05 H Absolute Neuts (auto) 7.6 Absolute Nucleated RBC 0.020 H Nucleated RBC % (auto) 0.2 Hold Blue Top SEE NOTE Anion Gap 15 Estim Creat Clear Calc 100.7 Estimated GFR > 60 Random Glucose 146 H Calcium 9.8 Magnesium 1.7 Total Bilirubin 0.3 AST 27 ALT 36 Alkaline Phosphatase 171 H Total Protein 7.7 Albumin 4.3 Lipase < 4 L Ethyl Alcohol < 10 Influenza Type A (PCR) NEGATIVE Influenza Type B (PCR) NEGATIVE RSV RNA Qual (PCR) NEGATIVE SARS-CoV-2 RNA (RT-PCR) NEGATIVE Assessment and Plan (1) Elevated troponin: Status: Acute Plan 34-year-old male with a past medical history of alcohol use disorder-last use 3 weeks ago; history of gallstone pancreatitis; presented to the hospital today with a chief complaint of chest discomfort for about 3 days. Noted elevated troponins. Concern for NSTEMI. NSTEMI: Given therapeutic Lovenox Continue aspirin, metoprolol, Lipitor Will obtain TSH, A1c, lipid profile Cardiology was notified Echocardiogram Telemetry D-dimer pending DVT prophylaxis: Patient on Lovenox Code status: Full code Quality Stroke Does the patient have a stroke diagnosis?: No VTE Prior VTE?: No VTE Risk Level:: Medical - moderate - high VTE Device Contraindication: Treatment Not Indicated VTE Drug Contraindication: N/A - Med Ordered
[2025-03-24 22:06] LABS: C Reactive Protein < 0.10 mg/dL (< or = 0.50)
[2025-03-24 22:20] LABS: D Dimer High Sensitivity < 150 NG/ML
[2025-03-24 22:40] LABS: Erythrocyte Sedimentation Rate 2 MM/HR (0-15)
--- NOTE | 2025-03-24 23:12 | PC.NURSE ---
Pt is exhibiting signs of anxiety, pacing at the bedside, reporting chest/epigastric pain has returned, /. Reports feeling nauseous. VSS. NSR on monitor with HR 60's. Nitro 0.4mg SL given Q5min x3 with no improvement. Braman text sent to the hospitalist. Pending new orders.
--- NOTE | 2025-03-24 23:29 | ECG_ITS ---
Test Reason : CHEST PAIN Blood Pressure : */* mmHG Vent. Rate : 54 BPM Atrial Rate : 54 BPM P-R Int : 132 ms QRS Dur : 88 ms QT Int : 442 ms P-R-T Axes : 37 65 52 degrees QTcB Int : 419 ms Sinus bradycardia Otherwise normal ECG When compared with ECG of 24-Mar-2025 21:01, No significant change was found Referred By: Everett Perez Electronically Signed By: SHEN SOSA
[2025-03-24] MEDS: Morphine Sulfate 2 MG/ML CARTRIDGE 1 MG IVPUSH (23:47)
[2025-03-24] MEDS: Dextrose 5 % and 0.45 % NaCl 1,000 ML 100 ML IVCONT (23:47)
[2025-03-24] MEDS: Enoxaparin Sodium 100 MG/ML SYRINGE 85 MG SUBCUT (23:47)
[2025-03-24] MEDS: 0.9 % Sodium Chloride Flush 3 ML SYRINGE IVFLUSH (23:48)
[2025-03-25] VITALS (7 sets, daily range): BP systolic 105–134; BP diastolic 60–87; PULSE 53–77; RESP 14–19; TEMP 36.6–37.1; O2SAT 98–100; BMI 26.2
[2025-03-25 00:17] LABS: Troponin-I High Sensitivity 121.2 ng/L (<3.5-35.0)
--- NOTE | 2025-03-25 03:00 | PC.NURSE ---
Pt reports chest/epigastric pain has returned. States Morphine has been helping with the pain and is requesting more. Last time given was 2347 and is about an hour early. [place] text sent to the hospitalist who approves for this medicine to be given at this time. Pt aware of plan of care.
[2025-03-25] MEDS: Morphine Sulfate 2 MG/ML CARTRIDGE 1 MG IVPUSH ×5 (03:01→21:25)
[2025-03-25] MEDS: Pantoprazole Sodium 40 MG/10 ML VIAL IVPUSH (06:38)
[2025-03-25 07:10] LABS: MANUAL DIFF FLAG NO
[2025-03-25 07:29] LABS: Basophils Percent Auto 0.2 % (0-2); Eosinophils Absolute Auto 0.1 X10*3/uL (0.0-0.4); Eosinophils Percent Auto 0.8 % (0-4); Estimated Average Glucose 103 mg/dL; Hematocrit 44.4 % (42.0-52.0); Hemoglobin 15.1 g/dl (14.0-18.0); Hemoglobin A1C 133.7222 umol/L; Hemoglobin A1c % 5.2 % (<6.0); Imm Gran Abs Auto 0.05 X10*3/uL (0.00-0.03); Imm Gran Pct Auto 0.4 % (0.0-0.4); Lymphocytes Absolute Auto 3.8 X10*3/uL (1.2-4.9); Lymphocytes Percent Auto 31.2 % (20-40); Mean Corpuscular Hemoglobin 30.7 pg (27.0-33.0); Mean Corpuscular Volume 90.2 fL (80.0-98.0); Mean Platelet Volume 9.1 fL (9.4-12.4); Monocytes Percent Auto 7.8 % (2-11); Neutrophils Absolute Auto 7.3 x10*3/uL (2.0-8.3); Neutrophils Percent Auto 59.6 % (45-73); Platelet Count 337 X10*3/uL (160-400); Red Blood Count 4.92 X10*6/uL (4.60-5.80); Red Cell Distribution Width 16.5 % (11.0-16.0); Total Hemoglobin (HGBA1C) 3960.1156 umol/L; White Blood Count 12.2 X10*3/uL (4.8-10.8)
[2025-03-25 07:47] LABS: Alanine Aminotransferase 59 U/L (0-40); Albumin Level 3.5 g/dL (3.5-5.0); Alkaline Phosphatase 175 U/L (39-117); Anion Gap 13 (12-20); Aspartate Amino Transferase 112 U/L (5-37); Bilirubin Total 0.6 mg/dL (0.0-1.0); Blood Urea Nitrogen 10 mg/dL (9-16); Carbon Dioxide 22 mmol/L (22-29); Chloride 107 mmol/L (96-108); Cholesterol 101 mg/dL (<200); Estimated Glomerular Filt Rate > 60; Glucose Random 108 mg/dL (60-115); HDL Cholesterol 34 mg/dL (>40); LDL Cholesterol Calculated 52 mg/dL (<100); Potassium 3.7 mmol/L (3.3-5.1); Sodium 138 mmol/L (135-145); Total Protein 6.2 g/dL (6.5-8.0); Triglycerides 79 mg/dL (<150)
[2025-03-25 07:54] LABS: TSH reflex Free T4 2.89 uIU/mL (0.32-4.0)
[2025-03-25 08:17] LABS: Calcium 8.6 mg/dL (8.4-10.2)
--- NOTE | 2025-03-25 08:18 | PHA.MEDREC ---
Pharmacy Consult ? Medication Reconciliation Pharmacy has completed the medication reconciliation. Spoke with patient to confirm.
--- NOTE | 2025-03-25 10:03 | P.CONCA_ITS ---
History of Present Illness History of Present Illness Date of Service: 03/25/25 Chief complaint: NSTEMI Narrative: This is a cardiology consultation regarding elevated troponins. Patient has a history of alcohol use disorder and last week was apparently 3 weeks ago. There is also history of gallstone pancreatitis. Current complaint is for chest/upper abdominal pain he describes the pain in the lower part of the ribs and upper end of abdomen. Apparently that goes to the left shoulder and he also feels like a tingling in the left chest. Then troponins were checked and they were slightly abnormal and hence he is admitted. Patient denies any prior cardiac history. No known coronary disease or myocardial infarction or cardiomyopathy or in fact anything cardiac related. He denies any recent alcohol excess. When he walks, he states that he is getting tired but not clear if he is rather describing shortness of breath. Because of these symptoms, he was admitted for further care. Currently, he states he feels good. Whenever he gets the pains, he also feels nauseous. Review of Systems 2 Review of Systems: Yes all other systems are reviewed and are negative Constitutional: Constitutional: Reports as per HPI and Reports no additional constitutional complaints Eyes: Eyes: Reports as per HPI and Denies no additional eye complaints ENT: Denies system reviewed and no additional complaints, except as documented and Reports as per HPI Cardiovascular: Cardiovascular: Reports as per HPI, Reports no additional cardiovascular complaints, Denies acrocyanosis, Denies cool extremities, Reports chest pain, Denies leg edema, Denies lightheadedness, Denies palpitations and Denies dyspnea Respiratory: Respiratory: Reports as per HPI, Denies no additional respiratory complaints and Denies dyspnea Gastrointestinal: Gastrointestinal: Reports as per HPI and Denies no additional gastrointestinal complaints Genitourinary: Genitourinary: Reports no additional male genitourinary complaints and Reports as per HPI Musculoskeletal: Musculoskeletal: Reports no additional musculoskeletal complaints and Reports as per HPI Integumentary/Breasts: Skin/Breast: Reports system reviewed and no additional complaints, except as docu Neurologic: Reports system reviewed and no additional complaints, except as documented and Reports as per HPI Psychiatric: Psychiatric: Reports no additional psychiatric complaints and Reports as per HPI Endocrine: Endocrine: Reports no additional endocrine complaints, Reports as per HPI and Denies palpitations Hematologic/Lymphatic: Hematologic/Lymphatic: Reports no additional hematologic/lymphatic complaints and Reports as per HPI Allergic/Immunologic: Allergic/Immunologic: Reports no additional allergic/immunologic complaints and Reports as per HPI [facility] Past Medical History Medical History Kidney stones Family History Pertinent family history: No pertinent family history Surgical History Surgical History H/O cystoscopy No pertinent past surgical history Social History Social History Household Members: Family Housing: Apartment Do you presently have visiting nurse or other home services: No Alcohol intake: former Patient Tobacco Use Status: Never used Tobacco Second Hand Smoke Exposure: No Use of substances other than those prescribed or required for medical reasons: Yes Substance Use Type: Marijuana Substance Use Frequency: Daily Have you been hit, kicked, punched, or otherwise hurt by someone within the past year? If so, by whom?: No Do you feel safe in your current relationship?: No Current Relationship Is there a partner from a previous relationship who is making you feel unsafe now?: No Are you made to feel afraid or neglected: No Advance Directives: Yes Advance Directives on File: Yes Advance Directives Date on File: 10/21/21 Do you have a plan to hurt others: No Plan Recently lost weight without trying: No How much weight loss: Not applicable Eating poorly because of decreased appetite: No Nutrition screen score: 0 Nutrition Risks: No Nutritional Risk Poor oral hygiene: No service: No Current occupational status: unemployed Meds Allergies Allergy/AdvReac Type Severity Reaction Status Date / Time cat dander [CATS] Allergy Unknown UNKNOWN Verified 03/24/25 16:36 dog dander [DOGS] Allergy Unknown UNKNOWN Verified 03/24/25 16:36 Active Medications: Current Medications Acetaminophen (Acetaminophen 325 Mg Tablet) 650 mg PO Q6H PRN PRN Reason: Pain, Mild 1-3,fever,headache Aspirin (Aspirin Enteric Coated 81 Mg Tablet.Dr) 81 mg PO DAILY [facility] Atorvastatin Calcium (Atorvastatin Calcium 80 Mg Tablet) 80 mg PO BEDTIME [facility] Calcium Carbonate (Calcium Carbonate 750 Mg Tab.Chew) 750 mg PO Q4H PRN PRN Reason: Heartburn Docusate Sodium (Docusate Sodium 100 Mg Capsule) 100 mg PO BID [facility] Enoxaparin Sodium (Enoxaparin Sodium 100 Mg/Ml Syringe) 85 mg SUBCUT Q12H [facility] Last Admin: 03/24/25 23:47 Dose: 85 mg Magnesium Hydroxide (Milk Of Magnesia 30 Ml Oral.Susp) 30 ml PO DAILY PRN PRN Reason: Constipation Melatonin (Melatonin 3 Mg Tablet) 6 mg PO BEDTIME PRN PRN Reason: Insomnia Metoprolol Tartrate (Metoprolol Tartrate 25 Mg Tablet) 25 mg PO BID [facility]; Protocol Morphine Sulfate (Morphine Sulfate 2 Mg/Ml Cartridge) 1 mg IVPUSH Q4H PRN; Protocol PRN Reason: Chest Pain Last Admin: 03/25/25 08:00 Dose: 1 mg Nitroglycerin (Nitroglycerin 0.4 Mg Tab.Subl) 0.4 mg SUBLINGUAL Q5MX3 PRN PRN Reason: Chest Pain Last Admin: 03/24/25 23:06 Dose: 0.4 mg Pantoprazole Sodium (Pantoprazole Sodium 40 Mg/10 Ml Vial) 40 mg IVPUSH DAILY@0630 [facility] Last Admin: 03/25/25 06:38 Dose: 40 mg Sodium Chloride (0.9 % Sodium Chloride Flush 3 Ml Syringe) 3 ml IVFLUSH QSHIFT [facility] Last Admin: 03/25/25 09:26 Dose: Not Given Home Medications ?Medication ?Instructions ?Recorded ?Confirmed ?Last Taken ?Type No Known Home Meds 03/25/25 03/25/25 Unknown History Physical Exam 2 Vital Signs: Vital Signs: Last Vital Signs Temp 98.6 F 03/25/25 08:39 Pulse 65 03/25/25 08:39 Resp 16 03/25/25 08:39 BP 124/84 03/25/25 08:39 Pulse Ox 99 03/25/25 08:39 O2 Del Method Room Air 03/25/25 08:39 BMI result Body Mass Index 26.5 Const: General: comfortable and no acute distress O rientation/consciousness: patient oriented x3 HEENT: Other: Unremarkable Head: Yes normal to inspection Neck: Neck: Yes normal visual inspection Chest: Chest palpation & inspection: normal inspection of the chest Resp: Auscultation: clear to auscultation bilaterally Cardio: Palpation: normal PMI Heart sounds: S1 normal heart sound present, S2 normal heart sound present, no gallops, no murmurs and no rubs GI: Palpation (GI): Soft to palpation Back/Spine/Pelvis: Other: unremarkable Skin: General skin exam: no rashes or lesions noted Neuro: General: patient oriented x3 Extrem: General: Yes normal to inspection Psych: Mental Status: mental status grossly normal Objective Labs and Meds 03/25/25 06:44 03/25/25 06:44 Lab results: Laboratory Results - last 24 hr 03/24/25 03/24/25 03/24/25 16:50 17:04 19:05 WBC 10.2 RBC 5.31 Hgb 16.6 Hct 46.4 MCV 87.4 MCH 31.3 MCHC 35.8 RDW 17.1 H Plt Count 386 D MPV 8.7 L Immature Gran % (Auto) 0.5 H Neut % (Auto) 74.9 H Lymph % (Auto) 16.5 L [place] % (Auto) 7.7 Eos % (Auto) 0.1 Baso % (Auto) 0.3 Lymph # (Auto) 1.7 Edd[place] # (Auto) 0.8 Eos # (Auto) 0.0 Baso # (Auto) 0.0 Abs Immat Gran (auto) 0.05 H Absolute Neuts (auto) 7.6 Absolute Nucleated RBC 0.020 H Nucleated RBC % (auto) 0.2 ESR 2 D-Dimer High Sensitivty Hold Blue Top SEE NOTE Sodium 138 Potassium 3.6 Chloride 103 Carbon Dioxide 24 Anion Gap 15 BUN 12 Creatinine 1.08 Estim Creat Clear Calc 100.7 Estimated GFR > 60 Random Glucose 146 H Estimat Average Glucose Hemoglobin A1c % Calcium 9.8 Magnesium 1.7 Total Bilirubin 0.3 AST 27 ALT 36 Alkaline Phosphatase 171 H Total Creatine Kinase Troponin I High Sens 22.7 D 53.7 H D C-Reactive Protein < 0.10 Total Protein 7.7 Albumin 4.3 Triglycerides Cholesterol LDL Cholesterol, Calc HDL Cholesterol Lipase < 4 L TSH Ethyl Alcohol < 10 Influenza Type A (PCR) NEGATIVE Influenza Type B (PCR) NEGATIVE RSV RNA Qual (PCR) NEGATIVE SARS-CoV-2 RNA (RT-PCR) NEGATIVE 03/24/25 03/24/25 03/24/25 21:03 22:07 23:34 WBC RBC Hgb Hct MCV MCH MCHC RDW Plt Count MPV Immature Gran % (Auto) Neut % (Auto) Lymph % (Auto) Edd[place] % (Auto) Eos % (Auto) Baso % (Auto) Lymph # (Auto) Edd[place] # (Auto) Eos # (Auto) Baso # (Auto) Abs Immat Gran (auto) Absolute Neuts (auto) Absolute Nucleated RBC Nucleated RBC % (auto) ESR D-Dimer High Sensitivty < 150 Hold Blue Top Sodium Potassium Chloride Carbon Dioxide Anion Gap BUN Creatinine Estim Creat Clear Calc Estimated GFR Random Glucose Estimat Average Glucose Hemoglobin A1c % Calcium Magnesium Total Bilirubin AST ALT Alkaline Phosphatase Total Creatine Kinase Troponin I High Sens 110.6 H* D 121.2 H* C-Reactive Protein Total Protein Albumin Triglycerides Cholesterol LDL Cholesterol, Calc HDL Cholesterol Lipase TSH Ethyl Alcohol Influenza Type A (PCR) Influenza Type B (PCR) RSV RNA Qual (PCR) SARS-CoV-2 RNA (RT-PCR) 03/25/25 06:44 WBC 12.2 H RBC 4.92 Hgb 15.1 Hct 44.4 MCV 90.2 MCH 30.7 MCHC 34.0 RDW 16.5 H Plt Count 337 MPV 9.1 L Immature Gran % (Auto) 0.4 Neut % (Auto) 59.6 Lymph % (Auto) 31.2 Eddy % (Auto) 7.8 Eos % (Auto) 0.8 Baso % (Auto) 0.2 Lymph # (Auto) 3.8 Eddy # (Auto) 1.0 Eos # (Auto) 0.1 Baso # (Auto) 0.0 Abs Immat Gran (auto) 0.05 H Absolute Neuts (auto) 7.3 Absolute Nucleated RBC 0.000 Nucleated RBC % (auto) 0.0 ESR D-Dimer High Sensitivty Hold Blue Top Sodium 138 Potassium 3.7 Chloride 107 Carbon Dioxide 22 Anion Gap 13 BUN 10 Creatinine 0.83 Estim Creat Clear Calc 131.0 Estimated GFR > 60 Random Glucose 108 Estimat Average Glucose 103 Hemoglobin A1c % 5.2 Calcium 8.6 D Magnesium Total Bilirubin 0.6 AST 112 H ALT 59 H Alkaline Phosphatase 175 H Total Creatine Kinase 42 Troponin I High Sens C-Reactive Protein Total Protein 6.2 L Albumin 3.5 Triglycerides 79 Cholesterol 101 LDL Cholesterol, Calc 52 HDL Cholesterol 34 L Lipase TSH 2.89 Ethyl Alcohol Influenza Type A (PCR) Influenza Type B (PCR) RSV RNA Qual (PCR) SARS-CoV-2 RNA (RT-PCR) ECG Interpretation: EKG with underlying sinus rhythm at 88/Min; no significant ST-T changes and otherwise unremarkable. Normal IL and corrected QT. follow-up EKGs unremarkable. Assessment and Plan (1) Chest pain: Status: Acute (2) Elevated troponin: Status: Acute Plan Labs show abnormal LFTs which are somewhat chronic but AST is higher than before. High sensitivity troponins are 22, 53, 110 and 121. CKs within normal range. Normal lipase. Either alcohol unremarkable. Overall, somewhat atypical symptoms but elevated troponins. Less likely primary NSTEMI. Need to ensure there is no abdominal pathology as he also gets nausea with the symptoms. Consider appropriate imaging. From cardiac, obtain echocardiogram tomorrow. May keep on aspirin, Lovenox, beta-blockers. Further plan pending echocardiogram reviewed. If any overt wall motion abnormalities, may need catheterization. To be decided. We will follow up with you tomorrow. Discussed with Rupal Lindquist. Procedures Date of Service Date of Service: 03/25/25
[2025-03-25 10:37] LABS: Amphetamine Screen Urine Not Detected (Not Detect); Barbiturates, Urine Not Detected (Not Detect); Benzodiazepines Screen Urine Not Detected (Not Detect); Buprenorphine Scr Not Detected (Not Detect); Cannabinoid Screen Urine POSITIVE (Not Detect); Cocaine Screen Urine Not Detected (Not Detect); Fentanyl, urine Not Detected (Not Detect); Methadone Screen, Urine Not Detected (Not Detect); Opiate Screen Urine POSITIVE (Not Detect); Phencyclidine Screen Urine Not Detected (Not Detect)
[2025-03-25 10:49] LABS: Oxycodone Screen Urine Not Detected (Not Detect)
[2025-03-25] MEDS: Aspirin Enteric Coated 81 MG TABLET.DR PO (11:00)
[2025-03-25] MEDS: Metoprolol Tartrate 25 MG TABLET PO (11:00)
[2025-03-25] MEDS: Enoxaparin Sodium 100 MG/ML SYRINGE 85 MG SUBCUT (11:00)
[2025-03-25] MEDS: Docusate Sodium 100 MG CAPSULE PO ×2 (11:00→19:55)
--- NOTE | 2025-03-25 11:58 | HO.PM.IMPN ---
Subjective Subjective Date of Service: 03/25/25 Review of Systems Follow up chest pain no further chest pain no nausea or vomiting Physical Exam Vital Signs: Vital Signs: Last Vital Signs Temp 98.8 F 03/25/25 11:44 Pulse 61 03/25/25 11:44 Resp 16 03/25/25 11:44 BP 125/86 03/25/25 11:44 Pulse Ox 98 03/25/25 11:44 O2 Del Method Room Air 03/25/25 11:44 BMI result Body Mass Index 26.2 Appearing in no acute distress lung sounds are clear to auscultation heart regular rate rhythm, clear S1, S2 positive bowel sounds, abdomen is soft, nontender neuro patient is alert x3, no focal deficits Objective Data Active Medications Acetaminophen (Acetaminophen 325 Mg Tablet) 650 mg PO Q6H PRN PRN Reason: Pain, Mild 1-3,fever,headache Aspirin (Aspirin Enteric Coated 81 Mg Tablet.Dr) 81 mg PO DAILY [facility] Last Admin: 03/25/25 11:00 Dose: 81 mg Documented By: TITA Atorvastatin Calcium (Atorvastatin Calcium 80 Mg Tablet) 80 mg PO BEDTIME [facility] Calcium Carbonate (Calcium Carbonate 750 Mg Tab.Chew) 750 mg PO Q4H PRN PRN Reason: Heartburn Docusate Sodium (Docusate Sodium 100 Mg Capsule) 100 mg PO BID [facility] Last Admin: 03/25/25 11:00 Dose: 100 mg Documented By: TITA Enoxaparin Sodium (Enoxaparin Sodium 100 Mg/Ml Syringe) 85 mg SUBCUT Q12H [facility] Last Admin: 03/25/25 11:00 Dose: 85 mg Documented By: TITA Magnesium Hydroxide (Milk Of Magnesia 30 Ml Oral.Susp) 30 ml PO DAILY PRN PRN Reason: Constipation Melatonin (Melatonin 3 Mg Tablet) 6 mg PO BEDTIME PRN PRN Reason: Insomnia Metoprolol Tartrate (Metoprolol Tartrate 25 Mg Tablet) 25 mg PO BID [facility]; Protocol Last Admin: 03/25/25 11:00 Dose: 25 mg Documented By: TITA Morphine Sulfate (Morphine Sulfate 2 Mg/Ml Cartridge) 1 mg IVPUSH Q4H PRN; Protocol PRN Reason: Chest Pain Last Admin: 03/25/25 11:20 Dose: 1 mg Documented By: TITA Nitroglycerin (Nitroglycerin 0.4 Mg Tab.Subl) 0.4 mg SUBLINGUAL Q5MX3 PRN PRN Reason: Chest Pain Last Admin: 03/24/25 23:06 Dose: 0.4 mg Documented By: CHANTALE Pantoprazole Sodium (Pantoprazole Sodium 40 Mg/10 Ml Vial) 40 mg IVPUSH DAILY@0630 [facility] Last Admin: 03/25/25 06:38 Dose: 40 mg Documented By: CHANTALE Sodium Chloride (0.9 % Sodium Chloride Flush 3 Ml Syringe) 3 ml IVFLUSH QSHIFT [facility] Last Admin: 03/25/25 09:26 Dose: Not Given Documented By: ROBERTO Non-Admin Reason: IV Running Labs 03/25/25 06:44 03/25/25 06:44 Labs: Laboratory Results - last 24 hr 03/24/25 03/24/25 03/24/25 16:50 17:04 22:07 MCV 87.4 MCH 31.3 MCHC 35.8 RDW 17.1 H Plt Count 386 D MPV 8.7 L Immature Gran % (Auto) 0.5 H Neut % (Auto) 74.9 H Lymph % (Auto) 16.5 L [place] % (Auto) 7.7 Eos % (Auto) 0.1 Baso % (Auto) 0.3 Lymph # (Auto) 1.7 [place] # (Auto) 0.8 Eos # (Auto) 0.0 Baso # (Auto) 0.0 Abs Immat Gran (auto) 0.05 H Absolute Neuts (auto) 7.6 Absolute Nucleated RBC 0.020 H Nucleated RBC % (auto) 0.2 ESR 2 D-Dimer High Sensitivty < 150 Hold Blue Top SEE NOTE Anion Gap 15 Estim Creat Clear Calc 100.7 Estimated GFR > 60 Random Glucose 146 H Estimat Average Glucose Hemoglobin A1c % Calcium 9.8 Magnesium 1.7 Total Bilirubin 0.3 AST 27 ALT 36 Alkaline Phosphatase 171 H Total Creatine Kinase C-Reactive Protein < 0.10 Total Protein 7.7 Albumin 4.3 Triglycerides Cholesterol LDL Cholesterol, Calc HDL Cholesterol Lipase < 4 L TSH Urine Opiates Screen Ur Buprenorphine Scrn Ur Oxycodone Screen Urine Methadone Screen Urine Fentanyl Screen Ur Barbiturates Screen Ur Phencyclidine Scrn Ur Amphetamines Screen U Benzodiazepines Scrn Urine Cocaine Screen U Marijuana (THC) Screen Ethyl Alcohol < 10 Influenza Type A (PCR) NEGATIVE Influenza Type B (PCR) NEGATIVE RSV RNA Qual (PCR) NEGATIVE SARS-CoV-2 RNA (RT-PCR) NEGATIVE 03/25/25 03/25/25 06:44 Unknown MCV 90.2 MCH 30.7 MCHC 34.0 RDW 16.5 H Plt Count 337 MPV 9.1 L Immature Gran % (Auto) 0.4 Neut % (Auto) 59.6 Lymph % (Auto) 31.2 [place] % (Auto) 7.8 Eos % (Auto) 0.8 Baso % (Auto) 0.2 Lymph # (Auto) 3.8 [place] # (Auto) 1.0 Eos # (Auto) 0.1 Baso # (Auto) 0.0 Abs Immat Gran (auto) 0.05 H Absolute Neuts (auto) 7.3 Absolute Nucleated RBC 0.000 Nucleated RBC % (auto) 0.0 ESR D-Dimer High Sensitivty Hold Blue Top Anion Gap 13 Estim Creat Clear Calc 131.0 Estimated GFR > 60 Random Glucose 108 Estimat Average Glucose 103 Hemoglobin A1c % 5.2 Calcium 8.6 D Magnesium Total Bilirubin 0.6 AST 112 H ALT 59 H Alkaline Phosphatase 175 H Total Creatine Kinase 42 C-Reactive Protein Total Protein 6.2 L Albumin 3.5 Triglycerides 79 Cholesterol 101 LDL Cholesterol, Calc 52 HDL Cholesterol 34 L Lipase TSH 2.89 Urine Opiates Screen POSITIVE H Ur Buprenorphine Scrn Not Detected Ur Oxycodone Screen Not Detected Urine Methadone Screen Not Detected Urine Fentanyl Screen Not Detected Ur Barbiturates Screen Not Detected Ur Phencyclidine Scrn Not Detected Ur Amphetamines Screen Not Detected U Benzodiazepines Scrn Not Detected Urine Cocaine Screen Not Detected U Marijuana (THC) Screen POSITIVE H Ethyl Alcohol Influenza Type A (PCR) Influenza Type B (PCR) RSV RNA Qual (PCR) SARS-CoV-2 RNA (RT-PCR) Assessment and Plan (1) Chest pain: Status: Acute Plan 34-year-old male with a past medical history of alcohol use disorder-last use 3 weeks ago; history of gallstone pancreatitis; presented to the hospital with a chief complaint of chest discomfort for about 3 days. Noted elevated troponins. Concern for NSTEMI. Possible NSTEMI monitor on telemetry elevated troponin 53.7>110.6>121.2 Given therapeutic Lovenox, continue Continue aspirin, metoprolol, Lipitor Cardiology Following> rec echocardiogram TSH, A1C, LDL and D-dimer normal no further chest pain, monitor Epigastric pain ABD ct [facility] GI consult for concern for gastritis vs ulcer causing pain PPI Transaminitis Reported hx of last drink 3 weeks ago but denies regular use no cirrhosis on Abd CT Follow DVT prophylaxis: Patient on Lovenox Code status: Full code Quality Stroke Does the patient have a stroke diagnosis?: No VTE Prior VTE?: No VTE Risk Level:: Medical - moderate - high VTE Device Contraindication: Treatment Not Indicated VTE Drug Contraindication: N/A - Med Ordered
[2025-03-25] MEDS: Omeprazole 20 MG CAPSULE.DR PO ×2 (13:05→16:37)
--- NOTE | 2025-03-25 16:34 | MHC.CM.PN ---
PT LIVES WITH HIS AND KIDS AND IS INDEPENDENT WITH CARE HE HAS NO SERVICES AND NO DME, HE WORKS FT HCP ON FILE PCP: RACHEL PRYOR DCP: [facility]
[2025-03-25] MEDS: 0.9 % Sodium Chloride Flush 3 ML SYRINGE IVFLUSH ×2 (16:39→19:56)
[2025-03-25] MEDS: Atorvastatin Calcium 80 MG TABLET PO (19:54)
[2025-03-25] MEDS: Calcium Carbonate 750 MG TAB.CHEW PO (19:56)
[2025-03-26] VITALS (8 sets, daily range): BP systolic 101–127; BP diastolic 57–83; PULSE 51–71; RESP 16–18; TEMP 36.4–37.1; O2SAT 96–100
--- NOTE | 2025-03-26 | ECG_ITS ---
Test Reason : CP Blood Pressure : */* mmHG Vent. Rate : 52 BPM Atrial Rate : 52 BPM P-R Int : 148 ms QRS Dur : 84 ms QT Int : 446 ms P-R-T Axes : 62 56 36 degrees QTcB Int : 414 ms Sinus bradycardia Otherwise normal ECG When compared with ECG of 24-Mar-2025 23:32, No significant change was found Referred By: Dylon Zendejas Electronically Signed By: Jose Juan Chavez
[2025-03-26] MEDS: Enoxaparin Sodium 100 MG/ML SYRINGE 85 MG SUBCUT ×3 (00:31→22:29)
[2025-03-26] MEDS: Nitroglycerin 0.4 MG TAB.SUBL SUBLINGUAL (00:32)
[2025-03-26] MEDS: HYDROmorphone HCl 0.5 MG/0.5 ML SYRINGE IVPUSH ×5 (00:54→20:29)
[2025-03-26] MEDS: Famotidine/PF 20 MG/2 ML VIAL IVPUSH (00:54)
[2025-03-26 01:21] LABS: Troponin-I High Sensitivity 116.6 ng/L (<3.5-35.0)
[2025-03-26] MEDS: Omeprazole 20 MG CAPSULE.DR PO (05:39)
[2025-03-26] MEDS: Pantoprazole Sodium 40 MG/10 ML VIAL IVPUSH (05:39)
--- NOTE | 2025-03-26 07:00 | CA_ITS ---
Transthoracic Echocardiogram Patient (Last, First, Middle): Onesimo Brito A Gender: Male Date of : 1990 Age: 34 Procedure Date: 03/26/2025 Procedure Type: Transthoracic [place] [facility] [place]: 180.34 cm Weight: 85.28 kg BSA: 2.05 m2 Heart Rate: bpm BP: 101 / 57 mmHg Prenatal Genetic Counselor: Referring MD: Everett Perez MD Symptoms: NSTEMI Study Quality: Good ECG Rhythm: Undetermined Conclusions: - Normal left ventricular cavity size. There is normal left ventricular wall thickness. The left ventricular systolic function is low normal. The visually estimated ejection fraction is between 50-55%. - The apical anterior, mid anterior, apical lateral, and mid anterolateral segments are hypokinetic. - There is no evidence of pericardial effusion. Findings Left Ventricle Normal left ventricular cavity size. There is normal left ventricular wall thickness. The left ventricular systolic function is low normal. The visually estimated ejection fraction is between 50-55%. There is evidence of regional wall motion abnormalities. Diastolic function is normal for age. Wall Motion Rest Echo Findings The apical anterior, mid anterior, apical lateral, and mid anterolateral segments are hypokinetic. Right Ventricle Normal right ventricular cavity size and systolic function. Atria The left atrium is mildly dilated. The right atrium is normal in size. Aortic Valve Normal aortic valve structure and function. There is no aortic valve stenosis. There is no aortic valve regurgitation. Mitral Valve The mitral valve appears normal. There is no mitral valve regurgitation. There is no mitral valve stenosis. Pulmonic Valve The pulmonic valve is normal. There is no pulmonic valve regurgitation. Tricuspid Valve Normal tricuspid valve structure. There is no tricuspid valve regurgitation. Normal right atrial pressure. There is no evidence of pulmonary hypertension. Great Vessels All visible segments of the aorta are normal in size. Venous The inferior vena cava is normal in size and collapses greater than 50% with inspiration. Pericardium/Pleural There is no evidence of pericardial effusion. Prior Study Comparison No prior study available for comparison. Measurements 2D Linear Measurements IVSd: 1.06 0.6-0.9/0.6-1.0 cm LVIDd: 5.08 3.9-5.3/4.2-5.9 cm LVIDd Index: 2.48 2.4-3.2/2.2-3.1 cm/m2 LVIDs: 2.94 2.0-3.6 cm LVPWd: 1.05 0.7-1.1 cm Ao Root: 3.50 2.1-3.5 cm LA Diam: 3.80 2.7-3.8/3.0-4.0 cm LAIDs Index: 1.85 1.5-2.3 cm/m2 LV Mass: 250.22 67-162/88-224 g LV Mass Index: 122.06 43-95/49-115 g/m2 LVOT Diam: 2.60 3.0+(-)1.3 cm 2D Systolic Function EF 4C: 57.60 >55% EF 2C: 69.50 >55% EF BiP: 62.40 >55% Mitral Valve MV Pk E: 0.81 MV PK A: 0.58 MV Decel Time: 214.00 E/A: 1.40 E'Lateral: 15.60 E'Medial: 12.30 E/E' Med: 6.60 E/E' Lat: 5.20 PHT: 63.00 MVA PHT: 3.49 Decel White: 3.81 Aortic Valve AoV Pk Jerrod: 1.15 AoV Pk Grad: 5.00 LVOT LVOT Pk Jerrod: 0.84 LVOT Mn Jerrod: 0.50 LVOT VTI: 0.20 LVOT Pk Grad: 3.00 LVOT Mn Grad: 1.00 LVOT Diam: 2.60 LVOT Area: 5.31 Diastolic Function MV Pk E: 0.81 MV Pk A: 0.58 E/A: 1.40 E'Medial: 12.30 E/E' Med: 6.60 E' Laterial: 15.60 E/E' Lat: 5.20 Right Ventricle TAPSE (mm): 30.00 TVS' Jerrod: 12.00 Tricuspid Valve TR Pk Jerrod: 2.31 TR Pk Grad: 21.00 RA Press: 3.00 RVSP: 24.00 Great Vessels Aorta Ao Root-2D: 3.50 2.0-3.7 cm Ao Asc: 2.80 2.1-3.4 cm Pulmonary Valve PV Pk Jerrod: 0.90 Peak PV Grad: 3.00 Updated in Other Vendor System with Status of Final Jose Juan Chavez MD electronically signed on 03/26/2025 11:08:57 AM with status of Final
[2025-03-26] MEDS: Aspirin Enteric Coated 81 MG TABLET.DR PO (07:44)
[2025-03-26] MEDS: Docusate Sodium 100 MG CAPSULE PO ×2 (07:44→20:29)
[2025-03-26] MEDS: 0.9 % Sodium Chloride Flush 3 ML SYRINGE IVFLUSH ×3 (07:44→20:29)
[2025-03-26] MEDS: Metoprolol Tartrate 25 MG TABLET PO ×2 (07:44→20:29)
--- NOTE | 2025-03-26 10:03 | PM.PNCARD ---
Subjective Subjective Date of Service: 03/26/25 Interval history: Seen examined at bedside. He is saying he has been feeling better. After eating breakfast he started getting some nausea today Physical Exam Vital Signs: Last Vital Signs Temp 97.5 F 03/26/25 07:35 Pulse 60 03/26/25 07:44 Resp 18 03/26/25 07:35 BP 117/83 03/26/25 07:44 Pulse Ox 99 03/26/25 07:35 O2 Del Method Room Air 03/26/25 07:35 BMI result Body Mass Index 26.2 GENERAL APPEARANCE: in no acute distress, pleasant. NECK: no carotid bruit, no jugular venous distention. SKIN: no suspicious lesions, warm and dry. HEART: no murmurs, regular rate and rhythm. LUNGS: clear to auscultation bilaterally. ABDOMEN: soft, nontender. EXTREMITIES: no edema. PERIPHERAL PULSES: equal. NEUROLOGIC: No gross deficits, AAO X 3 Objective Labs and Meds 03/25/25 06:44 03/25/25 06:44 Lab results: Laboratory Results - last 24 hr 03/25/25 03/26/25 Unknown 00:49 Troponin I High Sens 116.6 H* Urine Opiates Screen POSITIVE H Ur Buprenorphine Scrn Not Detected Ur Oxycodone Screen Not Detected Urine Methadone Screen Not Detected Urine Fentanyl Screen Not Detected Ur Barbiturates Screen Not Detected Ur Phencyclidine Scrn Not Detected Ur Amphetamines Screen Not Detected U Benzodiazepines Scrn Not Detected Urine Cocaine Screen Not Detected U Marijuana (THC) Screen POSITIVE H Progress Note: A&P Assessment and plan (1) Chest pain: Status: Acute (2) Elevated troponin: Status: Acute (3) Abdominal discomfort: Status: Acute Plan 34 year gentleman presenting with vague abdominal and chest discomfort along with arm tingling. His high sensitive troponin level was 53, 110, 121 and 116. He is saying he was feeling better since yesterday but started having some nausea after eating breakfast this morning. Unclear whether his symptoms gel atrial GI or cardiovascular. EKGs did not have any dynamic changes. We will review the echocardiography. If echo is normal my plan will be to do an exercise stress test on him. If ECHO is abnormal then we may have to proceed with diagnostic angiogram. I have discussed this with the patient detail. Thank you for allowing me to participate in the care of your patient. Please feel free to contact me if you have any questions. Time Spent With Patient Time: Total time managing care of this patient today ____ minutes. Progress Note: Quality Stroke Does the patient have a stroke diagnosis?: No Procedures Date of Service Date of Service: 03/26/25
--- NOTE | 2025-03-26 11:31 | P.DS_ITS ---
DS: Providers Provider Date of Service: 03/26/25 Date of admission: 03/24/25 22:00 Date of discharge: 03/26/25 Primary care physician: None Physician Consults: 03/24/25 22:00 Consult to Cardiology Routine Consulting Provider: [facility] Reason for consultation: nstemi DS: Diagnosis Discharge Diagnosis (1) Chest pain: Status: Acute (2) Elevated troponin: Status: Acute (3) Abdominal discomfort: Status: Acute DS: Summary Hospital Course Hospital Course: 34-year-old male with a past medical history of alcohol use disorder-last use 3 weeks ago; history of gallstone pancreatitis; presented to the hospital today with a chief complaint of chest discomfort for about 3 days. Patient reports that he has been having intermittent chest discomfort for the past 3 days. Today he had increased chest pain located in left side of the chest radiating to the left arm, associated diaphoresis, nausea and vomiting hence presented to the ER for further evaluation. Denies any chest pain at the time of my interview. Patient denies any fever chills cough or sputum production. Denies any urinary symptoms. Denies smoking Hospital Course Admitted to telemetry where monitor failed to demonstrate any acute dysrhythmias. Seen by Cardiology. Troponins peaked at 122.. 2D echo demonstrated evidence of regional wall motion abnormalities in the apical anterior mid anterior apical lateral and mid anterior lateral segments. Given these findings he will be transfer to [facility] for catheterization. He is medically stable at the time of discharge Time Attestation Discharge Coordination Time (in mins): 35 Quality: Safe Use of Opioids Does Pt have an Active Cancer Diagnosis on the Problem List?: No Quality: Stroke Does the patient have a stroke diagnosis?: No Physical Exam Vital Signs: Vital Signs: Last Vital Signs Temp 97.5 F 03/26/25 07:35 Pulse 60 03/26/25 07:44 Resp 18 03/26/25 07:35 BP 117/83 03/26/25 07:44 Pulse Ox 99 03/26/25 07:35 O2 Del Method Room Air 03/26/25 07:35 BMI result Body Mass Index 26.2 Const: Other: Awake alert oriented x3 in no acute distress Resp: Other: Clear to auscultation bilaterally no rales rhonchi or wheezes Cardio: Other: No S4; positive S1-S2; no S3 murmurs rubs or gallops GI: Other: Soft nontender nondistended normoactive bowel sounds Neuro: Other: Cranial nerves 2-12 grossly intact as tested. Motor is 5/5 all extremities. Sensation is intact. Cognition appropriate. Gait steady Extrem: Other: No edema bilaterally DS: Data Data Completed and Pending Completed studies during hospitalization [Text1]: Procedures Extirpation of Matter from Left Ureter, Via Natural or Artificial Opening Endoscopic (10/18/21) Fluoroscopy of Left Kidney, Ureter and Bladder (10/18/21) Other Imaging of Gallbladder and Bile Ducts using Fluorescing Agent, Intraoperative (06/09/23) Resection of Gallbladder, Percutaneous Endoscopic Approach (06/09/23) Labs on day of discharge: Laboratory Results - last 24 hr 03/26/25 00:49 Troponin I High Sens 116.6 H* Discharge Plan Discharge Anticipated Discharge Date/Time: 03/26/25 11:28 Patient Disposition: Xfer Acute Care Hospital Discharge Diagnosis: NSTEMI Referrals: Physician,None [Primary Care Provider] - 1 Week Discharge Medications: New atorvastatin 80 mg Tablet 80 mg PO BEDTIME Qty: 30 0RF aspirin 81 mg Tablet,Delayed Release (Dr/Ec) 81 mg PO DAILY Qty: 30 0RF metoprolol tartrate 25 mg Tablet 25 mg PO BID Qty: 60 0RF Protocol: Hold for SBP/HR < HOLD for SBP < : 90 HOLD for HR < : 60 Diet: Advance to usual diet Activity on Discharge: As tolerated Stand Alone Forms: Patient Portal Discharge page Print Language: Greenlandic Care Plan Goals: Continue all meds as outlined on transfer sheet Health Concerns: Transfer to [facility] for urgent cardiac catheterization Plan of Treatment: As per receiving facility Assessment: See discharge summary
[2025-03-26] MEDS: LORazepam 1 MG TABLET PO (14:42)
--- NOTE | 2025-03-26 15:35 | MHC.CM.PN ---
Pt to transfer to [facility].
[2025-03-26] MEDS: Atorvastatin Calcium 80 MG TABLET PO (20:29)
[2025-03-26] MEDS: ondansetron HCL 4 MG/2 ML VIAL IVPUSH (22:29)
[2025-03-27] VITALS: BP 105/66; PULSE 57; RESP 18; TEMP 36.1; O2SAT 99
[2025-03-27 03:26] VITALS: BP 112/76; PULSE 53; RESP 20; TEMP 36.3; O2SAT 98
[2025-03-27] MEDS: Pantoprazole Sodium 40 MG/10 ML VIAL IVPUSH (05:43)
[2025-03-27] MEDS: HYDROmorphone HCl 0.5 MG/0.5 ML SYRINGE IVPUSH (05:43)
[2025-03-27 06:28] VITALS: RESP 14
[2025-03-27 07:04] VITALS: BP 111/67; PULSE 61; RESP 18; TEMP 36.2; O2SAT 97
[2025-03-27 08:12] VITALS: BP 111/67; PULSE 61
[2025-03-27] MEDS: Metoprolol Tartrate 25 MG TABLET PO (08:12)
[2025-03-27] MEDS: Docusate Sodium 100 MG CAPSULE PO (08:12)
[2025-03-27] MEDS: Aspirin Enteric Coated 81 MG TABLET.DR PO (08:13)
[2025-03-27] MEDS: 0.9 % Sodium Chloride Flush 3 ML SYRINGE IVFLUSH (08:13)
== END 2025-03-27 09:45 | disposition short-term general hospital (02) | DRG 190 ==
LOC: HO.ED 21:54 → HO.EDOVER 22:10 → HO.IMC 03-25 07:49
PROVIDERS: Nurse Practitioner Acute Care; Physician Assistant Medical; Admitting Provider Hospitalist; Emergency Provider Emergency Medicine; PCP Family Medicine; Visit Provider Hospitalist
DX: I21.4 Non-ST elevation (NSTEMI) myocardial infarction (principal); F10.91 Alcohol use, unspecified, in remission; Z20.822 Contact with and (suspected) exposure to COVID-19
CPT/HCPCS: 0241U; 36415; 71045; 74176; 80053; 80061; 80307; 82550; 83036; 83690; 83735; 84443; 84484; 85025; 85379; 85652; 86140; 93005; 93306; 99285; J0737; J1171; J1200; J1308; J1650; J1885; J2270; J2405; J2470; J3360

== ENCOUNTER → 2025-03-24 16:38 | Outpatient (BNV) | payer OTHER, SELFPAY | PROVIDERS: Emergency Provider Emergency Medicine; Visit Provider Radiology Diagnostic Radiology | DX: R07.9 Chest pain, unspecified (principal) | CPT/HCPCS: 71045 ==

== ENCOUNTER 2025-03-24 22:00 | Outpatient (BNV) | payer OTHER, SELFPAY | END 2025-03-26 07:00 | PROVIDERS: Admitting Provider Hospitalist; Emergency Provider Emergency Medicine; Visit Provider Internal Medicine Cardiovascular Disease | DX: I21.4 Non-ST elevation (NSTEMI) myocardial infarction (principal); R00.1 Bradycardia, unspecified | CPT/HCPCS: 93010; 93306 ==

== ENCOUNTER 2025-03-24 22:00 | Outpatient (BNV) | payer OTHER, SELFPAY | END 2025-03-25 10:33 | PROVIDERS: Admitting Provider Hospitalist; Emergency Provider Emergency Medicine; Visit Provider Radiology Vascular & Interventional Radiology | DX: N20.0 Calculus of kidney (principal) | CPT/HCPCS: 74176 ==

== ENCOUNTER → 2025-03-24 22:00 | Outpatient (BNV) | payer OTHER, SELFPAY | PROVIDERS: Admitting Provider Hospitalist; Emergency Provider Emergency Medicine; Visit Provider Nurse Practitioner Acute Care | DX: R07.9 Chest pain, unspecified (principal); R79.89 Other specified abnormal findings of blood chemistry; R10.9 Unspecified abdominal pain | CPT/HCPCS: 99223; 99232; 99239 ==

== ENCOUNTER → 2025-03-24 22:00 | Outpatient (BNV) | payer OTHER, SELFPAY | PROVIDERS: Admitting Provider Hospitalist; Emergency Provider Emergency Medicine; Visit Provider Internal Medicine | DX: R94.39 Abnormal result of other cardiovascular function study (principal); R07.9 Chest pain, unspecified; R79.89 Other specified abnormal findings of blood chemistry; R10.9 Unspecified abdominal pain | CPT/HCPCS: 99233 ==

== ENCOUNTER → 2025-03-27 23:59 | Outpatient (BNV) | payer OTHER, SELFPAY | PROVIDERS: PCP Family Medicine; Visit Provider Internal Medicine Cardiovascular Disease | DX: I21.4 Non-ST elevation (NSTEMI) myocardial infarction (principal) | CPT/HCPCS: 93458; 99152 ==

== ENCOUNTER 2025-05-23 09:33 | Emergency (ER) | payer OTHER, SELFPAY ==
--- NOTE | ~2025-05-23 | CT_ITS ---
EXAMINATION: CT ANGIOGRAM CHEST CLINICAL INFORMATION: Chest pain COMPARISON: April 21, 2023 TECHNIQUE: Multiple axial images were obtained through the chest after the administration of 65 mL of Omnipaque 350 intravenous contrast. Extensive vascular post-processing including two-dimensional and three-dimensional reformatted images were created and reviewed on an independent workstation. This CT examination was performed using dose optimization techniques as appropriate, variously including the following: *Automated exposure control *Adjustment of mA and/or kV according to patient size (this includes techniques or standardized protocols for targeted exams where dose is matched to indication/reason for exam; i.e. extremities or head) *Use of iterative reconstruction technique DLP: 341 mGY*cm FINDINGS: QUALITY OF STUDY/CONTRAST BOLUS: Diagnostic PULMONARY ARTERIES: No filling defects are identified. THORACIC AORTA: Unremarkable LUNGS AND PLEURA: Moderate changes of centrilobular and paraseptal emphysema are present in the right apex, and minimal changes are seen on the left. Axial Image 109/171: Medial segment right middle lobe subpleural pulmonary nodule measures 3 mm. There are a few other small pulmonary nodules that were all present on the prior examination and appear stable or decreased in conspicuity. MEDIASTINUM: No adenopathy or other abnormality. CORONARY ARTERY CALCIFICATION: None visualized CHEST WALL/AXILLA: No axillary or internal mammary lymphadenopathy. UPPER ABDOMEN: The gallbladder is surgically absent. Otherwise, unremarkable. BONES: Unremarkable. CT/CT angio chest PE protocol IMPRESSION: No evidence of pulmonary artery embolus. Multiple stable small solid pulmonary nodules measuring 3 mm or less in size. No further follow-up is indicated per Fleischner Society recommendations. Stable changes of centrilobular and paraseptal emphysema in the right greater than left upper lobes. Electronically signed by: Romario Meléndez MD 05/23/2025 01:15 PM EDT
--- NOTE | ~2025-05-23 | XR_ITS ---
EXAMINATION: XR CHEST 2 VIEWS HISTORY: chest pain COMPARISON: Comparison is made with the prior examination dated 03/24/2025. FINDINGS: PA and lateral views of the chest are submitted. The lungs are expanded and clear. There is no pleural effusion, pneumothorax, or pulmonary vascular congestion. The heart is normal in size. The bones are intact. XR/XR chest 2V IMPRESSION: No acute cardiopulmonary abnormality. Electronically signed by: Zachery Ivey MD 05/23/2025 11:06 AM EDT
[2025-05-23 09:36] VITALS: BP 126/88; PULSE 70; O2SAT 98
--- NOTE | 2025-05-23 09:38 | ECG_ITS ---
Test Reason : CHEST PAIN Blood Pressure : */* mmHG Vent. Rate : 60 BPM Atrial Rate : 60 BPM P-R Int : 134 ms QRS Dur : 82 ms QT Int : 394 ms P-R-T Axes : 61 52 38 degrees QTcB Int : 394 ms Normal sinus rhythm Normal ECG When compared with ECG of 26-Mar-2025 00:08, No significant change was found Referred By: Generic ED Physician Electronically Signed By: SHEN SOSA
[2025-05-23 09:39] VITALS: BP 131/81; PULSE 77; RESP 20; TEMP 36.9; O2SAT 97; BMI 25.8
[2025-05-23 09:55] LABS: Basophils Absolute Auto 0.1 X10*3/uL (0.0-0.2); Basophils Percent Auto 0.5 % (0-2); Eosinophils Absolute Auto 0.1 X10*3/uL (0.0-0.4); Eosinophils Percent Auto 0.6 % (0-4); Hematocrit 45.1 % (42.0-52.0); Hemoglobin 15.8 g/dl (14.0-18.0); Imm Gran Abs Auto 0.03 X10*3/uL (0.00-0.03); Imm Gran Pct Auto 0.3 % (0.0-0.4); Lymphocytes Absolute Auto 1.7 X10*3/uL (1.2-4.9); Lymphocytes Percent Auto 17.1 % (20-40); MANUAL DIFF FLAG NO; Mean Corpuscular Hemoglobin 31.1 pg (27.0-33.0); Mean Corpuscular Volume 88.8 fL (80.0-98.0); Mean Platelet Volume 8.9 fL (9.4-12.4); Monocytes Absolute Auto 0.6 X10*3/uL (0.1-1.2); Monocytes Percent Auto 6.1 % (2-11); Neutrophils Absolute Auto 7.5 x10*3/uL (2.0-8.3); Neutrophils Percent Auto 75.4 % (45-73); Platelet Count 433 X10*3/uL (160-400); Red Blood Count 5.08 X10*6/uL (4.60-5.80); Red Cell Distribution Width 17.4 % (11.0-16.0)
[2025-05-23 10:08] LABS: Alanine Aminotransferase 35 U/L (0-40); Albumin Level 4.3 g/dL (3.5-5.0); Alkaline Phosphatase 130 U/L (39-117); Anion Gap 12 (12-20); Aspartate Amino Transferase 26 U/L (5-37); Bilirubin Total 0.3 mg/dL (0.0-1.0); Blood Urea Nitrogen 13 mg/dL (9-16); Calcium 9.2 mg/dL (8.4-10.2); Carbon Dioxide 24 mmol/L (22-29); Chloride 108 mmol/L (96-108); Creatinine Clr Calc Pharmacy 105.5; Estimated Glomerular Filt Rate > 60; Glucose Random 111 mg/dL (60-115); Magnesium 1.7 mg/dL (1.6-2.6); Potassium 3.9 mmol/L (3.3-5.1); Sodium 140 mmol/L (135-145); Total Protein 7.2 g/dL (6.5-8.0)
[2025-05-23 10:16] LABS: Troponin-I High Sensitivity < 2.7 ng/L (<3.5-35.0)
--- NOTE | 2025-05-23 10:53 | ED_ITS ---
HPI - Chest Pain General Chief Complaint: Chest Pain Stated Complaint: CP X 2 DAYS PER EMS Time Seen by Provider: 05/23/25 10:52 Source: patient and EMS Mode of arrival: EMS Limitations: no limitations History of Present Illness ED Provider: Nimo Salter PA-C HPI narrative: Patient is a 34 year old assigned male at with a history of alcohol use disorder, pancreatitis, and elevated troponin requiring catheterization in February of 2025 presenting to the emergency department today with left sided chest pain. Patient states that over the last day he has had left sided chest pain that radiates into the center of his chest and causes nausea. Patient denies any dizziness, lightheadedness, abdominal pain, vomiting, fever, chills, blurry vision, double vision, loss of vision, difficulty breathing, shortness of breath, back pain, night sweats, pain with urination, increased urinary frequency, increased urinary urgency, blood in his urine or stool, syncope or a near syncopal episode, recent trauma or falls, bowel incontinence, bladder incontinence, or any other complaints at this time. Onset (ago): day(s) (1) Related Data Previous Rx's ?Medication ?Instructions ?Recorded aspirin 81 mg tablet,delayed 81 mg PO DAILY #30 tabs 0 03/26/25 release atorvastatin 80 mg tablet 80 mg PO BEDTIME #30 tabs metoprolol tartrate 25 mg tablet 25 mg PO BID #60 tabs 03/26/25 Allergies Allergy/AdvReac Type Severity Reaction Status Date / Time cat dander (CATS) Allergy Unknown UNKNOWN Verified 05/23/25 09:40 dog dander (DOGS) Allergy Unknown UNKNOWN Verified 05/23/25 09:40 Review of Systems 2 Constitutional: Constitutional: Reports no additional constitutional complaints, Denies chills, Denies fever(s) and Denies night sweats Eyes: Eyes: Reports no additional eye complaints, Denies blurry vision, Denies change in vision, Denies diplopia, Denies eye discharge, Denies loss of vision and Denies eye pain ENT: Denies dizziness Cardiovascular: Cardiovascular: Reports no additional cardiovascular complaints, Reports chest pain, Denies lightheadedness, Denies Loss of Consciousness and Denies dyspnea Respiratory: Respiratory: Reports no additional respiratory complaints and Denies dyspnea Gastrointestinal: Gastrointestinal: Reports no additional gastrointestinal complaints, Denies abdominal pain, Denies melena, Denies hematochezia, Denies change in bowel habits, Denies change in stool character, Reports nausea and Denies vomiting Genitourinary: Genitourinary: Reports no additional male genitourinary complaints, Denies hematuria, Denies oliguria, Denies difficulty urinating, Denies dysuria, Denies urinary frequency, Denies urinary hesitancy, Denies urinary incontinence and Denies urinary urgency Musculoskeletal: Musculoskeletal: Reports no additional musculoskeletal complaints, Denies numbness and Denies tingling Neurologic: Denies dizziness, Denies loss of vision, Denies numbness and Denies tingling Psychiatric: Psychiatric: Reports no additional psychiatric complaints Endocrine: Endocrine: Reports no additional endocrine complaints Hematologic/Lymphatic: Hematologic/Lymphatic: Reports no additional hematologic/lymphatic complaints Allergic/Immunologic: Allergic/Immunologic: Reports no additional allergic/immunologic complaints PMFSH Past Medical History Attestation statement: The following information was validated with the patient. Source: old records reviewed and nursing notes reviewed Medical History Chest pain Kidney stones Surgical History H/O cystoscopy No pertinent past surgical history Social History Social History Household Members: Family Housing: Apartment Do you presently have visiting nurse or other home services: No Alcohol intake: former Patient Tobacco Use Status: Never used Tobacco Second Hand Smoke Exposure: No Substance Use Type: Marijuana Advance Directives Date on File: 10/21/21 service: No Current occupational status: unemployed Physical Exam 2 Vital Signs: Vital Signs: Last Vital Signs Temp 98.1 F 05/23/25 14:07 Pulse 62 05/23/25 14:07 Resp 18 05/23/25 14:07 BP 118/72 05/23/25 14:07 Pulse Ox 98 05/23/25 14:07 O2 Del Method Room Air 05/23/25 14:07 BMI result Body Mass Index 25.8 Const: General: cooperative, no acute distress, alert and awake Nutritional Appearance: well nourished Orientation/consciousness: patient oriented x3 HEENT: Head: Yes normal to inspection and Yes atraumatic Ears: hearing grossly normal bilaterally and external ears normal General nose exam: Normal external nose present, no nasal discharge noted and no epistaxis Face and sinus: Yes normal facial exam, No abrasion and No laceration Mouth: Normal oral and palatal mucosa present, no drooling and no muffled voice Eyes: General: appearance normal, both eyes and all related structures P eriorbital: periorbital findings normal Eyelids: Yes eyelids normal C onjunctivae: conjunctivae normal Pupils: Equal, round and reactive pupils present EOM: EOMs intact bilaterally Neck: Neck: Yes normal visual inspection, Yes full ROM and Yes no lymphadenopathy Resp: Effort & Inspection: normal respiratory effort and able to speak in complete sentences Neuro: General: patient oriented x3, moves all extremities and CN's II-XI intact bilaterally Cranial nerves: Yes Equal, round and reactive pupils present Cognition (Neuro): normal cognition Extrem: General: Yes normal to inspection, Yes full ROM and Yes capillary refill normal Psych: Appearance: grossly normal Mental Status: mental status grossly normal Affect: normal affect Attitude: cooperative Thought process: N ormal thought process present Thought content: Normal thought content present Insight: Good insight present (Psych) Medications Administered Discontinued Medications Generic Name Dose Route Start Last Admin Trade Name Jose Franciscoq PRN Reason Stop Dose Admin Hydromorphone HCl 1 mg 05/23/25 12:34 05/23/25 12:50 Hydromorphone Hcl 1 Mg/Ml Syringe IVPUSH 05/23/25 12:35 1 mg ONCE ONE Administration Protocol Sodium Chloride 1,000 mls @ 999 mls/hr 05/23/25 11:30 05/23/25 12:33 Ns IV 05/23/25 12:30 Infused .Q1H1M SOHAIL Infusion Iohexol 65 ml 05/23/25 12:50 05/23/25 12:50 Iohexol 350 Mg/Ml 100 Ml Infus..Btl IV 05/23/25 12:51 65 ml ONCE ONE Administration Lorazepam 1 mg 05/23/25 11:27 05/23/25 11:33 Lorazepam 1 Mg Tablet PO 05/23/25 11:28 1 mg ONCE ONE Administration Morphine Sulfate 4 mg 05/23/25 11:27 05/23/25 11:33 Morphine Sulfate 4 Mg/Ml Cartridge IVPUSH 05/23/25 11:28 4 mg ONCE ONE Administration Protocol Ondansetron HCl 4 mg 05/23/25 11:27 05/23/25 11:33 Ondansetron Hcl 4 Mg/2 Ml Vial IVPUSH 05/23/25 11:28 4 mg ONCE ONE Administration Pantoprazole Sodium 40 mg 05/23/25 11:28 05/23/25 11:33 Pantoprazole Sodium 40 Mg/10 Ml Vial IVPUSH 05/23/25 11:29 40 mg ONCE ONE Administration Medical Decision Making Medical Decision Making [facility] Narrative: Patient is a 34 year old assigned male at with a history of alcohol use disorder, pancreatitis, and elevated troponin requiring catheterization in February of 2025 presenting to the emergency department today with left sided chest pain. Patient's physical exam was unremarkable. Patient's blood work was unremarkable. Patient's EKG was unremarkable. Patient's PE Chest CT showed no acute process. I spoke with the covering embedded processor, Dr. Sosa who stated this clinical picture is not consistent with a cardiac source. I explained my physical exam findings as well as all test results to the patient. I answered all questions asked by the patient. Patient received IV fluids, morphine, diluadid, protonix, and zofran which, upon re-evaluation, he stated it helped his symptoms significantly. I stressed the importance of the patient taking his medication as directed (either prescribed or as the over the counter packaging recommends). I stressed the importance of the patient following up with his primary care provider and his embedded processor. I stressed the importance of the patient returning to the emergency department immediately if his symptoms were to worsen or if he were to develop any dizziness, shortness of breath, difficulty breathing, chest pain, blurry vision, loss of vision, nausea, vomiting, abdominal pain, fever, chills, back pain, or any other complaints. Patient verbalized agreement and understanding with this treatment plan and discharge. Differential Diagnosis Differential Diagnoses: The differential diagnosis associated with the presentation includes Atypical chest pain Chest wall pain NSTEMI STEMI Pancreatitis Gastritis Admission/Observation Consideration of admission/observation: Escalation of care including admission/observation considered Patient would have been admitted to the hospital had his work up had any findings where hospital admission was appropriate and his clinical presentation warranted hospital admission. Consult Healthcare Provider Management of the patient was discussed with: Lei Seller (I spoke with the embedded processor motion study technician, as noted in the MDM Rationale portion of this note. ) Lab Data [facility] Lab Attestation statement: I reviewed the patient's lab results. My interpretation of these results are in the MDM Rationale portion of this note. 05/23/25 09:42 05/23/25 09:42 Labs: Lab Results 05/23/25 05/23/25 Range/Units 09:42 11:08 WBC 10.0 (4.8-10.8) X10*3/uL RBC 5.08 (4.60-5.80) X10*6/uL Hgb 15.8 (14.0-18.0) g/dl Hct 45.1 (42.0-52.0) % MCV 88.8 (80.0-98.0) fL MCH 31.1 (27.0-33.0) pg MCHC 35.0 (31.0-36.0) g/dl RDW 17.4 H (11.0-16.0) % Plt Count 433 H D (160-400) X10*3/uL MPV 8.9 L (9.4-12.4) fL Immature Gran % (Auto) 0.3 (0.0-0.4) % Neut % (Auto) 75.4 H (45-73) % Lymph % (Auto) 17.1 L (20-40) % Ness % (Auto) 6.1 (2-11) % Eos % (Auto) 0.6 (0-4) % Baso % (Auto) 0.5 (0-2) % Lymph # (Auto) 1.7 (1.2-4.9) X10*3/uL Ness # (Auto) 0.6 (0.1-1.2) X10*3/uL Eos # (Auto) 0.1 (0.0-0.4) X10*3/uL Baso # (Auto) 0.1 (0.0-0.2) X10*3/uL Abs Immat Gran (auto) 0.03 (0.00-0.03) X10*3/uL Absolute Neuts (auto) 7.5 (2.0-8.3) x10*3/uL Absolute Nucleated RBC 0.000 (0.0-0.012) X10*3/uL Nucleated RBC % (auto) 0.0 (0.0-0.2) /100WBC Sodium 140 (135-145) mmol/L Potassium 3.9 (3.3-5.1) mmol/L Chloride 108 (96-108) mmol/L Carbon Dioxide 24 (22-29) mmol/L Anion Gap 12 (12-20) BUN 13 (9-16) mg/dL Creatinine 1.03 (0.5-1.4) mg/dL Estim Creat Clear Calc 105.5 Estimated GFR > 60 Random Glucose 111 (60-115) mg/dL Calcium 9.2 D (8.4-10.2) mg/dL Magnesium 1.7 (1.6-2.6) mg/dL Total Bilirubin 0.3 (0.0-1.0) mg/dL AST 26 (5-37) U/L ALT 35 (0-40) U/L Alkaline Phosphatase 130 H (39-117) U/L Troponin I High Sens < 2.7 D < 2.7 (<3.5-35.0) ng/L Total Protein 7.2 (6.5-8.0) g/dL Albumin 4.3 (3.5-5.0) g/dL Lipase < 4 L (8-78) U/L Independent Interpretation I performed an independent interpretation of an: EKG, Plain X-Ray and CT Scan Interpretation: My interpretation is in agreement with the radiologist's impression of these imaging studies. L EXAMINATION: XR CHEST 2 VIEWS HISTORY: chest pain COMPARISON: Comparison is made with the prior examination dated 03/24/2025. FINDINGS: PA and lateral views of the chest are submitted. The lungs are expanded and clear. There is no pleural effusion, pneumothorax, or pulmonary vascular congestion. The heart is normal in size. The bones are intact. XR/XR chest 2V IMPRESSION: No acute cardiopulmonary abnormality. Electronically signed by: Zachery Ivey MD 05/23/2025 11:06 AM EDT Dictated By: Zachery Ivey MD Signed By: Electronically signed by Zachery Ivey MD 05/23/25 1106 Report Number: [id number]: Total DLP = 0.00 mGy-cm EXAMINATION: CT ANGIOGRAM CHEST CLINICAL INFORMATION: Chest pain COMPARISON: April 21, 2023 TECHNIQUE: Multiple axial images were obtained through the chest after the administration of 65 mL of Omnipaque 350 intravenous contrast. Extensive vascular post-processing including two-dimensional and three- dimensional reformatted images were created and reviewed on an independent workstation. This CT examination was performed using dose optimization techniques as appropriate, variously including the following: *Automated exposure control *Adjustment of mA and/or kV according to patient size (this includes techniques or standardized protocols for targeted exams where dose is matched to indication/reason for exam; i.e. extremities or head) *Use of iterative reconstruction technique DLP: 341 mGY*cm FINDINGS: QUALITY OF STUDY/CONTRAST BOLUS: Diagnostic PULMONARY ARTERIES: No filling defects are identified. THORACIC AORTA: Unremarkable LUNGS AND PLEURA: Moderate changes of centrilobular and paraseptal emphysema are present in the right apex, and minimal changes are seen on the left. Axial Image 109/171: Medial segment right middle lobe subpleural pulmonary nodule measures 3 mm. There are a few other small pulmonary nodules that were all present on the prior examination and appear stable or decreased in conspicuity. MEDIASTINUM: No adenopathy or other abnormality. CORONARY ARTERY CALCIFICATION: None visualized CHEST WALL/AXILLA: No axillary or internal mammary lymphadenopathy. UPPER ABDOMEN: The gallbladder is surgically absent. Otherwise, unremarkable. BONES: Unremarkable. CT/CT angio chest PE protocol IMPRESSION: No evidence of pulmonary artery embolus. Multiple stable small solid pulmonary nodules measuring 3 mm or less in size. No further follow-up is indicated per Fleischner Society recommendations. Stable changes of centrilobular and paraseptal emphysema in the right greater than left upper lobes. Electronically signed by: Romario Meléndez MD 05/23/2025 01:15 PM EDT Dictated By: Romario Meléndez MD Signed By: Electronically signed by Romario Meléndez MD 05/23/25 1315 I independently interpreted this EKG and am in agreement with the below findings: Vent. Rate: 60 BPM Atrial Rate: 60 BPM P-R Int: 134 ms QRS Dur: 82 ms QT Int: 394 ms P-R-T Axes: 61 52 38 degrees QTcB Int: 394 ms Normal sinus rhythm Normal ECG When compared with ECG of 26-Mar-2025 00:08, No significant change was found Electronically Signed By: ELIECER SOSA Dictated By: Eliecer Sosa MD Signed By: Electronically signed by Eliecer Sosa MD 05/23/25 5143 Radiology Impression Discussion of test interpretation with radiology: I have reviewed the radiologist's reading. Independent Historian Clinical information obtained from an independent historian. History obtained from or confirmed by: EMS (EMS provided additional history and confirmed the history provided by the patient.) Critical Care Time Critical Care Time Critical Care Time: Yes Total Critical Care Time: 32 Attestation: I spent 32 minutes of Critical Care Time with this patient. This does not include time spent on separately reported billable procedures. Discharge Plan Discharge Clinical Impression: Atypical chest pain Patient Disposition: Home, Self-Care Instructions: Chest Wall Pain (ED) Additional Instructions: Follow up with a primary care provider. Return to the emergency department immediately if your symptoms worsen or if you develop any numbness, tingling, dizziness, shortness of breath, difficulty breathing, chest pain, blurry vision, loss of vision, nausea, vomiting, abdominal pain, fever, chills, back pain, or any other complaints. L If you do not have a primary care provider - call any of the below numbers to establish and follow up with a primary care provider. [facility] Primary Care ([place]) [phone] [address] [facility], [address] [facility] Primary Care ([address] [place]) [phone] [place] [address], [address] [facility], [address] [facility] Primary Care ([address] [place]) [phone] [place] [address], [address] [facility], [address] [facility] Primary Care ([place]) [phone] [place] [address], [address] [place], [address] [facility] Family Medicine [phone] [place] [address], [address] Please see the information below about our Patient Portal. If you are not yet enrolled in the [facility] Patient Portal, you will receive an enrollment email invitation following your visit to any [facility] setting. You may also self-enroll in the Patient Portal by visiting our website: [email or web address] The following information is required to access the Patient Portal: - Your [facility] Medical Record Number - Your personal home email address (must match what is in your electronic medical record, Registration staff can assist with this) - Name - Date of Capabilities of the Patient Portal: - Message some providers - View upcoming appointments - Access your health summary, medical history, and visit history - View current conditions and allergies - View procedure and lab results - View your medications, including guidelines, side effects, and precautions - Complete pre-appointment questionnaires requested by your provider - Ready summary reports of your office visits and procedures To access the Patient Portal Mobile [employer], follow these directions: - Search [employer] in the [employer] Store or [employer] Store - Download the [employer] - Search for [facility] - Enter your login/password Prescriptions: No Action atorvastatin 80 mg Tablet 80 mg PO BEDTIME Qty: 30 0RF aspirin 81 mg Tablet,Delayed Release (Dr/Ec) 81 mg PO DAILY Qty: 30 0RF metoprolol tartrate 25 mg Tablet 25 mg PO BID Qty: 60 0RF Protocol: Hold for SBP/HR < HOLD for SBP < : 90 HOLD for HR < : 60 Referrals: [facility] Cardiovascular Specialists [Provider Group] Interventions: ED Discharge Assessment Last Done: 05/23/25 14:07 Discharge Date/Time: 05/23/25 14:12 Print Language: Macanese
[2025-05-23] MEDS: Pantoprazole Sodium 40 MG/10 ML VIAL IVPUSH (11:33)
[2025-05-23] MEDS: ondansetron HCL 4 MG/2 ML VIAL IVPUSH (11:33)
[2025-05-23] MEDS: Morphine Sulfate 4 MG/ML CARTRIDGE IVPUSH (11:33)
[2025-05-23] MEDS: LORazepam 1 MG TABLET PO (11:33)
[2025-05-23] MEDS: 0.9 % Sodium Chloride 1,000 ML 999 ML IV (11:36)
[2025-05-23 11:42] VITALS: BP 151/93; PULSE 61; RESP 21; O2SAT 99
[2025-05-23 11:42] LABS: Lipase < 4 U/L (8-78)
[2025-05-23 11:42] LABS: Troponin-I High Sensitivity < 2.7 ng/L (<3.5-35.0)
[2025-05-23 12:50] VITALS: RESP 20
[2025-05-23] MEDS: HYDROmorphone HCl 1 MG/ML SYRINGE IVPUSH (12:50)
[2025-05-23] MEDS: iohexoL 350 MG/ML 100 ML INFUS..BTL 65 ML IV (12:50)
[2025-05-23 13:55] VITALS: BP 118/72; PULSE 62; RESP 18; TEMP 36.7; O2SAT 98
[2025-05-23 14:07] VITALS: BP 118/72; PULSE 62; RESP 18; TEMP 36.7; O2SAT 98
== END 2025-05-23 14:12 | disposition home or self-care (01) ==
PROVIDERS: Physician Assistant Medical; Emergency Provider Emergency Medicine
DX: R07.89 Other chest pain (principal); R79.89 Other specified abnormal findings of blood chemistry; R11.0 Nausea; Z79.899 Other long term (current) drug therapy
CPT/HCPCS: 36415; 71046; 71275; 80053; 83690; 83735; 84484; 85025; 93005; 96361; 96374; 96375; 99284; J1171; J2270; J2405; J2470; Q9967

== ENCOUNTER → 2025-05-23 09:38 | Outpatient (BNV) | payer OTHER, SELFPAY | PROVIDERS: Emergency Provider Emergency Medicine; Visit Provider Internal Medicine | DX: R07.9 Chest pain, unspecified (principal) | CPT/HCPCS: 93010 ==

== ENCOUNTER → 2025-05-23 10:54 | Outpatient (BNV) | payer OTHER, SELFPAY | PROVIDERS: Visit Provider Radiology Diagnostic Radiology | DX: J43.8 Other emphysema (principal); R07.9 Chest pain, unspecified | CPT/HCPCS: 71046; 71275 ==

== ENCOUNTER 2025-05-27 19:15 | Emergency (ER) | payer OTHER, SELFPAY ==
--- NOTE | ~2025-05-27 | CT_ITS ---
CLINICAL HISTORY: LUQ pain, pancreatitis? CT abdomen and pelvis with contrast Comparison: CT/SR - CT ABDOMEN PELVIS WO IV CON - 03/25/25 10:[address] - CT ABDOMEN PELVIS W IV CON - 11/14/24 03:[address]/SR - CT ABDOMEN PELVIS WO IV CON - 06/20/24 09:44 EDT Findings: No consolidation or effusion. Cholecystectomy. Mild biliary duct dilatation favored to be reservoir effect from cholecystectomy. Pancreas is within normal limits. No evidence of pancreatitis. Small right hepatic lobe cyst. Spleen and adrenal glands are within normal limits. No hydronephrosis. Symmetric contrast enhancement of the kidneys. Bilateral nonobstructing renal calculi. Small hypodensity in the right lower pole likely a cyst. Colonic diverticulosis without acute inflammation. No bowel obstruction, pneumatosis or pneumoperitoneum. Diffuse urinary bladder wall thickening, similar to prior exams. Prostate gland is not enlarged. No acute fracture. IMPRESSION: 1. No acute intraabdominal or pelvic pathology. No evidence of acute pancreatitis. 2. Chronic diffuse urinary bladder wall thickening. Prostate gland is not enlarged. Consider follow-up with urology. This document has been electronically signed by: Giulia Infante MD on 05/27/2025 23:56:10
[2025-05-27 19:32] VITALS: BP 144/103; PULSE 76; RESP 16; TEMP 36.7; O2SAT 100; BMI 23.7
--- NOTE | 2025-05-27 19:33 | ED_ITS ---
HPI - Abdominal Pain General Chief Complaint: Abdominal Pain Stated Complaint: abd pain on left side Time Seen by Provider: 05/27/25 21:21 Source: patient Limitations: no limitations History of Present Illness ED Provider: Leida Peter PA-C HPI narrative: 34-year-old male with a history of alcohol use disorder, recurrent pancreatitis, kidney stone who presents with diffuse abdominal pain x1 week. Associated intractable nausea vomiting diarrhea. Denies sick contacts with similar symptoms, recent travel, recent hospitalization, recent use of antibiotics. Denies dysuria, hematuria, flank pain. No fevers. Related Data Previous Rx's ?Medication ?Instructions ?Recorded aspirin 81 mg tablet,delayed 81 mg PO DAILY #30 tabs 0 03/26/25 release atorvastatin 80 mg tablet 80 mg PO BEDTIME #30 tabs metoprolol tartrate 25 mg tablet 25 mg PO BID #60 tabs 03/26/25 omeprazole 20 mg capsule,delayed 20 mg PO DAILY #14 ca ps 06/05/25 release Allergies Allergy/AdvReac Type Severity Reaction Status Date / Time droperidol AdvReac Mild Extrapyramidal Verified 06/05/25 11:06 symptoms Review of Systems Review of Systems Yes all other systems are reviewed and are negative Constitutional: Denies fatigue and Denies fever(s) Cardiovascular: Denies chest pain and Denies dyspnea Respiratory: Denies dyspnea Gastrointestinal: Reports abdominal pain, Reports diarrhea, Reports nausea and Reports vomiting Endocrine: Denies fatigue PMFSH Past Medical History Attestation statement: The following information was validated with the patient. Medical History Chest pain Kidney stones Surgical History H/O cystoscopy No pertinent past surgical history Social History Social History Household Members: Family Housing: Apartment Do you presently have visiting nurse or other home services: No Alcohol intake: former Patient Tobacco Use Status: Never used Tobacco Smoked in Last 30 Days: No Second Hand Smoke Exposure: No Use of substances other than those prescribed or required for medical reasons: Yes Substance Use Type: Marijuana Advance Directives: Yes Advance Directives on File: Yes Advance Directives Date on File: 10/21/21 Do you have a plan to hurt others: No Plan service: No Current occupational status: unemployed Physical Exam ED Vital Signs: Vital Signs - 24 hr 05/27/25 19:32 05/27/25 22:04 Temperature 98.1 F Pulse Rate 76 67 Respiratory Rate 16 20 Blood Pressure 144/103 H 106/87 Pulse Oximetry 100 96 Oxygen Delivery Method Room Air Room Air BMI result Body Mass Index 23.7 Const Other: Alert, ill-appearing, writhing on the bed Orientation/consciousness: patient oriented x3 Resp Effort & Inspection: normal respiratory effort Cardio Other: Normal peripheral perfusion GI Other: With distraction, the patient does not have objective tenderness on exam, the abdomen is soft, without guarding no distention General: Yes no CVA tenderness Back/Spine/Pelvis Back: no CVA tenderness Skin Other: Warm dry no rash Neuro General: patient oriented x3, gait normal, no focal motor deficits and CN's II- XI intact bilaterally Psych Other: Cooperative Course Course Course Narrative: 05/27/251932 CHRISTIE Hernandez This is a Rapid Medical Examination (RME) performed by Cliff Alfonso PA-C in triage. Full HPI, ROS, assessment and treatment plan per primary provider in the Main ED. Hx: 34 yo M hx of etoh use disorder and recurrent pancreatitis here w/ abd pain and diarrhea x1 week. here for same 4 days ago. Plan: labs Reevaluation(s) Reevaluation #1: Patient is becoming anxious, he needs to be home before midnight. He states he has a syndrome a license. He states he lives close by. The patient received droperidol and morphine, I have advised that he can not drive at this point. To note he is up and walking with a steady gait, he does not appear that he is not affected by these medications which were administered quite awhile ago. The patient is leaving his keys with security in his walking home. He is leaving without completing his assessment, the CT scan is yet to be read. Time: 23:31 Medical Decision Making Medical Decision Making [facility] Narrative: 34-year-old male with a history of alcohol use disorder, recurrent pancreatitis, kidney stone who presents with diffuse abdominal pain x1 week. Associated intractable nausea vomiting diarrhea. Denies sick contacts with similar symptoms, recent travel, recent hospitalization, recent use of antibiotics. Denies dysuria, hematuria, flank pain. No fevers. Problem: Alcohol use disorder, recurrent pancreatitis, kidney stones History: Per patient I have considered the following differential diagnoses: Renal colic, viral gastroenteritis, C diff, traveler's diarrhea, pancreatitis Plan: The patient is here with a nonfocal abdominal exam. He appears extremely uncomfortable, we will be obtaining a CT scan of the abdomen. Giving antiemetic and analgesia. Screening labs and urinalysis are in process. Adding on an ethanol I have independently reviewed the following tests: Labs: Leukocytosis with left shift noted, not anemic, no electrolyte abnormality, LFTs at baseline, lipase less than 4, urine pending, ethanol less than 10 CT abdomen and pelvis: Lab Data 05/27/25 19:49 05/27/25 19:49 Labs: Lab Results 05/27/25 Range/Units 19:49 WBC 13.9 H (4.8-10.8) X10*3/uL RBC 5.41 (4.60-5.80) X10*6/uL Hgb 16.8 (14.0-18.0) g/dl Hct 48.2 (42.0-52.0) % MCV 89.1 (80.0-98.0) fL MCH 31.1 (27.0-33.0) pg MCHC 34.9 (31.0-36.0) g/dl RDW 18.1 H (11.0-16.0) % Plt Count 403 H (160-400) X10*3/uL MPV 9.1 L (9.4-12.4) fL Immature Gran % (Auto) 0.4 (0.0-0.4) % Neut % (Auto) 75.8 H (45-73) % Lymph % (Auto) 16.6 L (20-40) % [place] % (Auto) 6.5 (2-11) % Eos % (Auto) 0.4 (0-4) % Baso % (Auto) 0.3 (0-2) % Lymph # (Auto) 2.3 (1.2-4.9) X10*3/uL [place] # (Auto) 0.9 (0.1-1.2) X10*3/uL Eos # (Auto) 0.1 (0.0-0.4) X10*3/uL Baso # (Auto) 0.0 (0.0-0.2) X10*3/uL Abs Immat Gran (auto) 0.05 H (0.00-0.03) X10*3/uL Absolute Neuts (auto) 10.6 H (2.0-8.3) x10*3/uL Absolute Nucleated RBC 0.000 (0.0-0.012) X10*3/uL Nucleated RBC % (auto) 0.0 (0.0-0.2) /100WBC Sodium 141 (135-145) mmol/L Potassium 3.7 (3.3-5.1) mmol/L Chloride 103 (96-108) mmol/L Carbon Dioxide 23 (22-29) mmol/L Anion Gap 19 (12-20) BUN 15 (9-16) mg/dL Creatinine 1.38 (0.5-1.4) mg/dL Estim Creat Clear Calc 78.8 Estimated GFR 58 Random Glucose 125 H (60-115) mg/dL Calcium 10.1 D (8.4-10.2) mg/dL Magnesium 2.0 (1.6-2.6) mg/dL Total Bilirubin 0.4 (0.0-1.0) mg/dL AST 40 H (5-37) U/L ALT 81 H (0-40) U/L Alkaline Phosphatase 232 H (39-117) U/L Total Protein 8.1 H (6.5-8.0) g/dL Albumin 4.8 (3.5-5.0) g/dL Lipase < 4 L (8-78) U/L Ethyl Alcohol < 10 mg/dL Medications Administered Discontinued Medications Generic Name Dose Route Start Last Admin Trade Name Freq PRN Reason Stop Dose Admin Droperidol 1.25 mg 05/27/25 21:59 05/27/25 22:06 Droperidol 5 Mg/2 Ml Vial IVPUSH 05/27/25 22:00 1.25 mg ONCE ONE Administration Sodium Chloride 1,000 mls @ 999 mls/hr 05/27/25 21:30 05/27/25 23:32 Ns IV 05/27/25 22:30 Infused .Q1H1M SOHAIL Infusion Iohexol 85 ml 05/27/25 22:26 06/29/25 22:27 Iohexol 350 Mg/Ml 100 Ml Infus..Btl IV 05/27/25 22:27 85 ml ONCE ONE Administration Morphine Sulfate 4 mg 05/27/25 21:21 05/27/25 21:43 Morphine Sulfate 4 Mg/Ml Cartridge IVPUSH 05/27/25 21:22 4 mg ONCE ONE Administration Protocol Ondansetron HCl 4 mg 05/27/25 21:21 05/27/25 21:43 Ondansetron Hcl 4 Mg/2 Ml Vial IVPUSH 05/27/25 21:22 4 mg ONCE ONE Administration Discharge Plan Discharge Clinical Impression: Abdominal pain Patient Disposition: Left Against Medical Advice Prescriptions: No Action atorvastatin 80 mg Tablet 80 mg PO BEDTIME Qty: 30 0RF aspirin 81 mg Tablet,Delayed Release (Dr/Ec) 81 mg PO DAILY Qty: 30 0RF metoprolol tartrate 25 mg Tablet 25 mg PO BID Qty: 60 0RF Protocol: Hold for SBP/HR < HOLD for SBP < : 90 HOLD for HR < : 60 omeprazole 20 mg capsule,delayed release(DR/EC) 20 mg PO DAILY Qty: 14 0RF Stand Alone Forms: Against Medical Advice Interventions: ED Discharge Assessment Last Done: 05/27/25 23:45 Discharge Date/Time: 05/27/25 23:46 Print Language: Maori
[2025-05-27 20:00] LABS: Basophils Percent Auto 0.3 % (0-2); Eosinophils Absolute Auto 0.1 X10*3/uL (0.0-0.4); Eosinophils Percent Auto 0.4 % (0-4); Hematocrit 48.2 % (42.0-52.0); Hemoglobin 16.8 g/dl (14.0-18.0); Imm Gran Abs Auto 0.05 X10*3/uL (0.00-0.03); Imm Gran Pct Auto 0.4 % (0.0-0.4); Lymphocytes Absolute Auto 2.3 X10*3/uL (1.2-4.9); Lymphocytes Percent Auto 16.6 % (20-40); MANUAL DIFF FLAG NO; Mean Corpuscular HGB Conc 34.9 g/dl (31.0-36.0); Mean Corpuscular Hemoglobin 31.1 pg (27.0-33.0); Mean Corpuscular Volume 89.1 fL (80.0-98.0); Mean Platelet Volume 9.1 fL (9.4-12.4); Monocytes Absolute Auto 0.9 X10*3/uL (0.1-1.2); Monocytes Percent Auto 6.5 % (2-11); Neutrophils Absolute Auto 10.6 x10*3/uL (2.0-8.3); Neutrophils Percent Auto 75.8 % (45-73); Platelet Count 403 X10*3/uL (160-400); Red Blood Count 5.41 X10*6/uL (4.60-5.80); Red Cell Distribution Width 18.1 % (11.0-16.0); White Blood Count 13.9 X10*3/uL (4.8-10.8)
[2025-05-27 20:20] LABS: Alanine Aminotransferase 81 U/L (0-40); Albumin Level 4.8 g/dL (3.5-5.0); Alkaline Phosphatase 232 U/L (39-117); Anion Gap 19 (12-20); Aspartate Amino Transferase 40 U/L (5-37); Bilirubin Total 0.4 mg/dL (0.0-1.0); Blood Urea Nitrogen 15 mg/dL (9-16); Calcium 10.1 mg/dL (8.4-10.2); Carbon Dioxide 23 mmol/L (22-29); Chloride 103 mmol/L (96-108); Creatinine Clr Calc Pharmacy 78.8; Estimated Glomerular Filt Rate 58; Glucose Random 125 mg/dL (60-115); Lipase < 4 U/L (8-78); Potassium 3.7 mmol/L (3.3-5.1); Sodium 141 mmol/L (135-145); Total Protein 8.1 g/dL (6.5-8.0)
[2025-05-27 21:33] LABS: Ethanol < 10 mg/dL
[2025-05-27] MEDS: ondansetron HCL 4 MG/2 ML VIAL IVPUSH (21:43)
[2025-05-27] MEDS: 0.9 % Sodium Chloride 1,000 ML 999 ML IV (21:43)
[2025-05-27] MEDS: Morphine Sulfate 4 MG/ML CARTRIDGE IVPUSH (21:43)
[2025-05-27 22:04] VITALS: BP 106/87; PULSE 67; RESP 20; O2SAT 96
[2025-05-27] MEDS: droPERidol 5 MG/2 ML VIAL 1.25 MG IVPUSH (22:06)
[2025-05-27] MEDS: iohexoL 350 MG/ML 100 ML INFUS..BTL 85 ML IV (22:27)
[2025-05-27 23:45] VITALS: BP 106/87; PULSE 67; RESP 20; TEMP 36.7; O2SAT 96
== END 2025-05-27 23:46 | disposition left against medical advice (07) ==
PROVIDERS: Physician Assistant Medical; Emergency Provider Emergency Medicine
DX: R10.9 Unspecified abdominal pain (principal); R11.2 Nausea with vomiting, unspecified; R19.7 Diarrhea, unspecified; Z53.29 Procedure and treatment not carried out because of patient's decision for other reasons
CPT/HCPCS: 36415; 74177; 80053; 80307; 83690; 83735; 85025; 96361; 96374; 96375; 99284; J1790; J2270; J2405; Q9967

== ENCOUNTER → 2025-05-27 21:21 | Outpatient (BNV) | payer OTHER, SELFPAY | PROVIDERS: Emergency Provider Emergency Medicine; Visit Provider Radiology Diagnostic Radiology | DX: R10.12 Left upper quadrant pain (principal) | CPT/HCPCS: 74177 ==

== ENCOUNTER 2025-06-05 02:44 | Emergency (ER) | payer OTHER, SELFPAY ==
[2025-06-05 03:03] VITALS: BP 124/75; PULSE 70; RESP 18; TEMP 36.6; O2SAT 99; BMI 26.5
[2025-06-05 03:16] LABS: MANUAL DIFF FLAG NO
[2025-06-05 03:17] LABS: Hematocrit 44.4 % (42.0-52.0); Hemoglobin 15.5 g/dl (14.0-18.0); Imm Gran Abs Auto 0.05 X10*3/uL (0.00-0.03); Imm Gran Pct Auto 0.4 % (0.0-0.4); Lymphocytes Absolute Auto 1.6 X10*3/uL (1.2-4.9); Mean Corpuscular HGB Conc 34.9 g/dl (31.0-36.0); Mean Corpuscular Hemoglobin 31.3 pg (27.0-33.0); Mean Corpuscular Volume 89.7 fL (80.0-98.0); NRBC Abs Auto 0.000 X10*3/uL (0.0-0.012); NRBC Pct Auto 0.0 /100WBC (0.0-0.2); Platelet Count 348 X10*3/uL (160-400); Red Blood Count 4.95 X10*6/uL (4.60-5.80); White Blood Count 13.4 X10*3/uL (4.8-10.8)
[2025-06-05 03:44] LABS: Alanine Aminotransferase 67 U/L (0-40); Albumin Level 4.0 g/dL (3.5-5.0); Alkaline Phosphatase 160 U/L (39-117); Anion Gap 14 (12-20); Aspartate Amino Transferase 24 U/L (5-37); Blood Urea Nitrogen 10 mg/dL (9-16); Calcium 8.7 mg/dL (8.4-10.2); Carbon Dioxide 22 mmol/L (22-29); Chloride 109 mmol/L (96-108); Creatinine Clr Calc Pharmacy 114.4; Estimated Glomerular Filt Rate > 60; Lipase < 4 U/L (8-78); Potassium 3.5 mmol/L (3.3-5.1); Sodium 141 mmol/L (135-145); Total Protein 6.6 g/dL (6.5-8.0)
[2025-06-05 09:10] VITALS: BP 115/81; PULSE 58; RESP 16; O2SAT 99
--- NOTE | 2025-06-05 10:42 | PC.NURSE ---
Patient is a 34 yo male who presents with epigastric pain for the past 3 weeks with assoc n/v/d. Was seen for the same complaint on 05/[address] completed which showed No acute intraabdominal or pelvic pathology. No evidence of acute pancreatitis. Chronic diffuse urinary bladder wall thickening. Prostate gland is not enlarged. Consider follow-up with urology. PMH chest pain and kidney stones. Lungs clear bilat. Respirations even and non-labored. Abdomen soft, with positive bowel sounds with c/o epigastric pain. Positive pedal pulses with no edema noted.
--- NOTE | 2025-06-05 11:06 | ED.GENADULT ---
HPI - General Adult General Chief complaint: Abdominal Pain Stated complaint: abd pain not able to eat Time Seen by Provider: 06/05/25 10:47 Source: patient and RN notes reviewed Mode of arrival: ambulatory Limitations: no limitations History of Present Illness ED Provider: Aura GLASGOW narrative: 34-year-old male with past medical history significant for previous alcohol use disorder, elevated troponin, cardiac catheterization 3 months ago at [facility] presents for evaluation of left-sided abdominal pain. Patient reports his symptoms have been on and off for years but consistent over the last week. He has severe upper abdominal pain in the left. He feels that he can not burp. Your he denies any abnormal bowel movements pain Denies any black or bloody stool. He also reports that he had his gallbladder removed at [facility] a few months ago Denies any fevers, chills pain He reports that drinking water makes his symptoms worse He is not currently see GI but reports he had a scope about 4 years ago and was told he would need a procedure He does not take a PPI The patient was seen here on 05/27/[address] scan of the abdomen pelvis. He ultimately left prior to the report coming back. The report shows a thickened urinary bladder with no hydronephrosis The patient does complain of pain with urination He reports that he left the emergency department last week because ?the medication they gave me (droperidol) made me feel like I was crawling out of my skin and I just had to leave. ? Related Data Previous Rx's ?Medication ?Instructions ?Recorded aspirin 81 mg tablet,delayed 81 mg PO DAILY #30 tabs 03/26/25 release atorvastatin 80 mg tablet 80 mg PO BEDTIME #30 tabs 03/26/25 metoprolol tartrate 25 mg tablet 25 mg PO BID #60 tabs 03/26/25 omeprazole 20 mg capsule,delayed 20 mg PO DAILY #14 caps 06/05/25 release Allergies Allergy/AdvReac Type Severity Reaction Status Date / Time droperidol AdvReac Mild Extrapyramidal Verified 06/05/25 11:06 symptoms Review of Systems Constitutional: Constitutional: Denies body ache(s), Denies chills and Denies fever(s) ENT: Denies dizziness Cardiovascular: Cardiovascular: Denies chest pain and Denies dyspnea on exertion Respiratory: Respiratory: Denies cough and Denies dyspnea on exertion Gastrointestinal: Gastrointestinal: Reports abdominal pain, Denies hematochezia, Denies coffee ground emesis, Reports dyspepsia, Reports heartburn, Denies vomiting and Denies hematemesis Genitourinary: Genitourinary: Reports dysuria Musculoskeletal: Musculoskeletal: Denies back pain Neurologic: Denies dizziness PMFSH Past Medical History Medical History Chest pain Kidney stones Surgical History H/O cystoscopy No pertinent past surgical history Social History Social History Household Members: Family Housing: Apartment Do you presently have visiting nurse or other home services: No Alcohol intake: former Patient Tobacco Use Status: Never used Tobacco Smoked in Last 30 Days: No Second Hand Smoke Exposure: No Use of substances other than those prescribed or required for medical reasons: Yes Substance Use Type: Marijuana Advance Directives: Yes Advance Directives on File: Yes Advance Directives Date on File: 10/21/21 Do you have a plan to hurt others: No Plan service: No Current occupational status: unemployed Physical Exam ED Vital Signs: Vital Signs - 24 hr 06/05/25 03:03 06/05/25 09:10 06/05/25 12:00 Temperature 97.8 F Pulse Rate 70 58 55 Respiratory Rate 18 16 16 Blood Pressure 124/75 115/81 141/82 H Pulse Oximetry 99 99 98 Oxygen Delivery Method Room Air Room Air Room Air BMI result Body Mass Index 26.5 Const General: healthy appearing, comfortable, no acute distress, alert and awake Nutritional Appearance: well nourished Orientation/consciousness: patient oriented x3 HENMT Head: Yes normocephalic and Yes atraumatic Throat: Yes posterior oropharynx normal Eyes Eyelids: Yes eyelids normal Conjunctivae: conjunctivae normal Sclerae: sclerae normal Corneas: corneas normal Pupils: Equal, round and reactive pupils present EOM: EOMs intact bilaterally Neck Neck: Yes full ROM Resp Effort & Inspection: normal respiratory effort, able to speak in complete sentences and not labored GI Inspection: No distended Palpation (GI): Soft to palpation, not firm, Tenderness to palpation present (GI) in the LLQ, in the LUQ and suprapubicly; not in the RLQ and not in the RUQ, no guarding and not rigid Skin General skin exam: elasticity normal Neuro General: patient oriented x3 Cranial nerves: Yes Equal, round and reactive pupils present and Yes Bilaterally intact EOM present Cognition (Neuro): normal cognition Extrem Other: Moving all extremities well without any obvious deformities Course Reevaluation(s) Reevaluation #1: Patient's symptoms did improve with GI cocktail but he has been complaining of continued pain. He is given 1 dose of morphine. His urinalysis shows calcium oxalate stones but he has no left flank pain or evidence of renal injury. We will discharge the patient on omeprazole and refer him to GI Time: 12:25 Medications Administered Discontinued Medications Generic Name Dose Route Start Last Admin Trade Name Ish PRN Reason Stop Dose Admin Al Hydroxide/Mg Hydroxide 30 ml 06/05/25 10:56 06/05/25 11:40 Magnesium Hydrox/Alum Hydrox 30 Ml Oral.Susp PO 06/05/25 10:57 30 ml ONCE ONE Administration Sodium Chloride 1,000 mls @ 999 mls/hr 06/05/25 11:00 06/05/25 11:30 Ns IV 06/05/25 12:00 999 mls/hr .Q1H1M SOHAIL Administration Lidocaine HCl 15 ml 06/05/25 10:56 06/05/25 11:40 Lidocaine Hcl Viscous 2 % 15 Ml Solution MUCOUS MEM 06/05/25 10:57 15 ml ONCE ONE Administration Morphine Sulfate 4 mg 06/05/25 12:00 06/05/25 12:18 Morphine Sulfate 4 Mg/Ml Cartridge IVPUSH 06/05/25 12:01 4 mg ONCE ONE Administration Protocol Ondansetron HCl 4 mg 06/05/25 10:56 06/05/25 11:40 Ondansetron Hcl 4 Mg/2 Ml Vial IVPUSH 06/05/25 10:57 4 mg ONCE ONE Administration Pantoprazole Sodium 40 mg 06/05/25 10:56 06/05/25 11:40 Pantoprazole Sodium 40 Mg/10 Ml Vial IVPUSH 06/05/25 10:57 40 mg ONCE ONE Administration Medical Decision Making Medical Decision Making MDM Narrative: 34-year-old male with a past medical history as above presents for evaluation of left upper abdominal pain. He reports that he has not been drinking alcohol but does have previous alcohol pancreatitis. His lipase is less than 4 less likely acute pancreatitis. He is status post cholecystectomy and has no right-sided upper abdominal pain she suggest retained stone. His abdomen is soft, nondistended. He does complain of pain with urination and his CT scan showed a thickened in his urinary bladder on 05/27/2025. We will get a urinalysis. The patient had no other acute findings on his CT scan. This is less likely an obstruction as the patient reports having a bowel movement 20 minutes prior to arrival. We will treat his pain with pantoprazole, GI cocktail and IV fluids. He likely needs to follow up with GI for endoscopy. The patient has had extensive cardiac workup through [facility] including recent cardiac catheterization, this is less likely cardiac disease Differential Diagnosis Differential Diagnoses: The differential diagnosis associated with the presentation includes Gastritis Pancreatitis Peptic ulcer disease GERD Bowel obstruction less likely Constipation Chronic abdominal pain Lab Data MDM Lab Attestation statement: I reviewed the patient's lab results. Mild leukocytosis to 13.4 there is a mild left shift which is consistent with his most recent labs. No significant chemistry abnormalities warranting intervention. The patient has a mild elevation of ALT and alk phos consistent with baseline labs and likely previous alcoholic liver disease. Total bilirubin is 0.3. Lipase is less than 4 as documented above. 06/05/25 03:09 06/05/25 03:09 Labs: Lab Results 06/05/25 06/05/25 Range/Units 03:09 11:11 WBC 13.4 H (4.8-10.8) X10*3/uL RBC 4.95 (4.60-5.80) X10*6/uL Hgb 15.5 (14.0-18.0) g/dl Hct 44.4 (42.0-52.0) % MCV 89.7 (80.0-98.0) fL MCH 31.3 (27.0-33.0) pg MCHC 34.9 (31.0-36.0) g/dl RDW 17.8 H (11.0-16.0) % Plt Count 348 (160-400) X10*3/uL MPV 9.1 L (9.4-12.4) fL Immature Gran % (Auto) 0.4 (0.0-0.4) % Neut % (Auto) 80.3 H (45-73) % Lymph % (Auto) 11.7 L (20-40) % [place] % (Auto) 6.2 (2-11) % Eos % (Auto) 1.0 (0-4) % Baso % (Auto) 0.4 (0-2) % Lymph # (Auto) 1.6 (1.2-4.9) X10*3/uL [place] # (Auto) 0.8 (0.1-1.2) X10*3/uL Eos # (Auto) 0.1 (0.0-0.4) X10*3/uL Baso # (Auto) 0.1 (0.0-0.2) X10*3/uL Abs Immat Gran (auto) 0.05 H (0.00-0.03) X10*3/uL Absolute Neuts (auto) 10.7 H (2.0-8.3) x10*3/uL Absolute Nucleated RBC 0.000 (0.0-0.012) X10*3/uL Nucleated RBC % (auto) 0.0 (0.0-0.2) /100WBC Sodium 141 (135-145) mmol/L Potassium 3.5 (3.3-5.1) mmol/L Chloride 109 H (96-108) mmol/L Carbon Dioxide 22 (22-29) mmol/L Anion Gap 14 (12-20) BUN 10 (9-16) mg/dL Creatinine 0.95 (0.5-1.4) mg/dL Estim Creat Clear Calc 114.4 Estimated GFR > 60 Random Glucose 127 H (60-115) mg/dL Calcium 8.7 D (8.4-10.2) mg/dL Total Bilirubin 0.3 (0.0-1.0) mg/dL Direct Bilirubin 0.2 (0.0-0.5) mg/dL AST 24 (5-37) U/L ALT 67 H (0-40) U/L Alkaline Phosphatase 160 H (39-117) U/L Total Protein 6.6 (6.5-8.0) g/dL Albumin 4.0 (3.5-5.0) g/dL Lipase < 4 L (8-78) U/L Urine Color Dark Yellow Urine Appearance Clear Urine pH 6.0 (5.0-9.0) Ur Specific [place] 1.025 (1.005-1.025) Urine Protein 30 (1+) H (Neg-Trace) mg/dL Urine Glucose (UA) Negative (Negative) mg/dL Urine Ketones Trace (Negative) mg/dL Urine Blood Negative (Negative) Urine Nitrite Negative (Negative) Ur Leukocyte Esterase Small (1+) H (Negative) Urine RBC 0-2 (0-2) /HPF Urine WBC 6-10 H (0-5) /HPF Ur Squamous Epith Cells 3-5 (0-2) /HPF Calcium Oxalate Crystal Present Urine Bacteria None Seen (None Seen) Hyaline Casts 0-2 (0-2) /LPF Discharge Plan Discharge Clinical Impression: Abdominal pain Patient Disposition: Home, Self-Care Instructions: GERD (Gastroesophageal Reflux Disease) (ED), Abdominal Pain (ED) Additional Instructions: Your workup in the Er was reassuring. Your symptoms are most likely related to chronic GERD and possibly stomach ulcers. I recommend that you follow up with GI at the number provided Take omeprazole daily for the next 2 weeks Follow up with your primary doctor, return for new or worsening symptoms Prescriptions: New omeprazole 20 mg capsule,delayed release(DR/EC) 20 mg PO DAILY Qty: 14 0RF No Action atorvastatin 80 mg Tablet 80 mg PO BEDTIME Qty: 30 0RF aspirin 81 mg Tablet,Delayed Release (Dr/Ec) 81 mg PO DAILY Qty: 30 0RF metoprolol tartrate 25 mg Tablet 25 mg PO BID Qty: 60 0RF Protocol: Hold for SBP/HR < HOLD for SBP < : 90 HOLD for HR < : 60 Referrals: [facility] [Provider Group, Gastroenterology] Referral Note: GERD Interventions: LWBS Worksheet Last Done: 06/05/25 05:48 Print Language: [place]
[2025-06-05 11:18] LABS: Appearance Urine Clear; Glucose Urine UA Negative (Negative); PH 6.0 (5.0-9.0); Specific Gravity - Urine 1.025 (1.005-1.025); UMIC TRIGGER UACC YES
[2025-06-05 11:35] LABS: UACC Culture Trigger YES
[2025-06-05] MEDS: Magnesium Hydrox/Alum Hydrox 30 ML ORAL.SUSP PO (11:40)
[2025-06-05] MEDS: Lidocaine HCl Viscous 2 % 15 ML SOLUTION MUCOUS MEM (11:40)
[2025-06-05 12:00] VITALS: BP 141/82; PULSE 55; RESP 16; O2SAT 98
[2025-06-05 12:49] VITALS: BP 141/82; PULSE 55; RESP 16; TEMP 36.7; O2SAT 98
== END 2025-06-05 12:50 | disposition home or self-care (01) ==
PROVIDERS: Emergency Medicine; Physician Assistant; Emergency Provider Emergency Medicine Emergency Medical Services
DX: R10.12 Left upper quadrant pain (principal); Z79.899 Other long term (current) drug therapy
CPT/HCPCS: 36415; 80048; 80076; 81001; 83690; 85025; 87086; 96361; 96374; 96375; 99284; 99285; J2270; J2405; J2470

== ENCOUNTER 2025-06-13 15:17 | Emergency (ER) | payer OTHER, SELFPAY ==
--- NOTE | ~2025-06-13 | XR_ITS ---
EXAMINATION: XR ABDOMEN KUB CLINICAL INDICATION: constipation COMPARISON: None available. Correlation made with CT abdomen and pelvis 05/27/2025 TECHNIQUE: AP view of the abdomen. FINDINGS: Bowel gas pattern is normal/nonspecific. There is no focally dilated loop. There is a mild stool burden seen throughout the colon. There are cholecystectomy clips present. No organomegaly. There is a 9 x 6 mm calcification overlying the right inferior renal pole. Left renal shadow is largely obscured by overlying stool. Imaged lung bases are clear. No acute bony abnormalities. XR/XR KUB IMPRESSION: 1. Mild constipation. No evidence of bowel obstruction. 2. Right nephrolithiasis. Electronically signed by: Edward Edward MD 06/13/2025 04:26 PM EDT
[2025-06-13 16:02] VITALS: BP 140/101; PULSE 73; RESP 16; TEMP 36.4; O2SAT 99; BMI 24.6
--- NOTE | 2025-06-13 16:05 | ED.ABDPAIN ---
HPI - Abdominal Pain General Chief Complaint: Abdominal Pain Stated Complaint: Severe Abd Pain, H/O Renal Stones Related Data Previous Rx's ?Medication ?Instructions ?Recorded aspirin 81 mg tablet,delayed 81 mg PO DAILY #30 tabs 03/26/25 release atorvastatin 80 mg tablet 80 mg PO BEDTIME #30 tabs 03/26/25 metoprolol tartrate 25 mg tablet 25 mg PO BID #60 tabs 03/26/25 omeprazole 20 mg capsule,delayed 20 mg PO DAILY #14 caps 06/05/25 release Allergies Allergy/AdvReac Type Severity Reaction Status Date / Time droperidol AdvReac Mild Extrapyramidal Verified 06/13/25 16:04 symptoms PMFSH Past Medical History Medical History Chest pain Kidney stones Surgical History H/O cystoscopy No pertinent past surgical history Social History Social History Household Members: Family Housing: Apartment Do you presently have visiting nurse or other home services: No Alcohol intake: former Patient Tobacco Use Status: Never used Tobacco Second Hand Smoke Exposure: No Substance Use Type: Marijuana Advance Directives: Yes Advance Directives on File: Yes Advance Directives Date on File: 10/21/21 Do you have a plan to hurt others: No Plan service: No Current occupational status: unemployed Physical Exam ED Vital Signs: Vital Signs - 24 hr 06/13/25 16:02 Temperature 97.5 F Pulse Rate 73 Respiratory Rate 16 Blood Pressure 140/101 H Pulse Oximetry 99 Oxygen Delivery Method Room Air BMI result Body Mass Index 24.6 Course Course Course Narrative: 06/13/25 1606 CHRISTIE Hernandez This is a Rapid Medical Examination (RME) performed by Cliff Alfonso PA-C in triage. Full HPI, ROS, assessment and treatment plan per primary provider in the Main ED. Hx: 34 yo M here w/ epigastric abd pain x weeks, worsening over the last few days. decreased PO intake, nausea, last BM 5d ago. not passing flatus. Plan: labs, UA, KUB Reevaluation(s) Reevaluation #1: Patient left the emergency department before myself or any of the other clinicians could review or explain physical exam findings, test results, need or lack there of for additional testing, treatment options, or a treatment plan. Medical Decision Making Lab Data 06/13/25 16:12 06/13/25 16:12 Labs: Lab Results 06/13/25 Range/Units 16:12 WBC 11.8 H (4.8-10.8) X10*3/uL RBC 5.17 (4.60-5.80) X10*6/uL Hgb 15.9 (14.0-18.0) g/dl Hct 46.7 (42.0-52.0) % MCV 90.3 (80.0-98.0) fL MCH 30.8 (27.0-33.0) pg MCHC 34.0 (31.0-36.0) g/dl RDW 18.1 H (11.0-16.0) % Plt Count 383 (160-400) X10*3/uL MPV 8.8 L (9.4-12.4) fL Immature Gran % (Auto) 0.3 (0.0-0.4) % Neut % (Auto) 84.3 H (45-73) % Lymph % (Auto) 8.9 L (20-40) % Treasure % (Auto) 6.1 (2-11) % Eos % (Auto) 0.2 (0-4) % Baso % (Auto) 0.2 (0-2) % Lymph # (Auto) 1.1 L (1.2-4.9) X10*3/uL Treasure # (Auto) 0.7 (0.1-1.2) X10*3/uL Eos # (Auto) 0.0 (0.0-0.4) X10*3/uL Baso # (Auto) 0.0 (0.0-0.2) X10*3/uL Abs Immat Gran (auto) 0.04 H (0.00-0.03) X10*3/uL Absolute Neuts (auto) 10.0 H (2.0-8.3) x10*3/uL Absolute Nucleated RBC 0.000 (0.0-0.012) X10*3/uL Nucleated RBC % (auto) 0.0 (0.0-0.2) /100WBC Sodium 139 (135-145) mmol/L Potassium 4.1 (3.3-5.1) mmol/L Chloride 104 (96-108) mmol/L Carbon Dioxide 28 (22-29) mmol/L Anion Gap 11 L (12-20) BUN 10 (9-16) mg/dL Creatinine 0.84 (0.5-1.4) mg/dL Estim Creat Clear Calc 125.5 Estimated GFR > 60 Random Glucose 117 H (60-115) mg/dL Calcium 9.4 D (8.4-10.2) mg/dL Magnesium 1.9 (1.6-2.6) mg/dL Total Bilirubin 1.1 H (0.0-1.0) mg/dL AST 60 H (5-37) U/L ALT 88 H (0-40) U/L Alkaline Phosphatase 291 H (39-117) U/L Total Protein 7.0 (6.5-8.0) g/dL Albumin 4.1 (3.5-5.0) g/dL Lipase 158 H (8-78) U/L Discharge Plan Discharge Clinical Impression: Abdominal pain Patient Disposition: Left W/O Completing Treatment Prescriptions: No Action atorvastatin 80 mg Tablet 80 mg PO BEDTIME Qty: 30 0RF aspirin 81 mg Tablet,Delayed Release (Dr/Ec) 81 mg PO DAILY Qty: 30 0RF metoprolol tartrate 25 mg Tablet 25 mg PO BID Qty: 60 0RF Protocol: Hold for SBP/HR < HOLD for SBP < : 90 HOLD for HR < : 60 omeprazole 20 mg capsule,delayed release(DR/EC) 20 mg PO DAILY Qty: 14 0RF Discharge Date/Time: 06/13/25 21:33
[2025-06-13 16:17] LABS: MANUAL DIFF FLAG NO
[2025-06-13 16:25] LABS: Hematocrit 46.7 % (42.0-52.0); Hemoglobin 15.9 g/dl (14.0-18.0); Imm Gran Abs Auto 0.04 X10*3/uL (0.00-0.03); Imm Gran Pct Auto 0.3 % (0.0-0.4); Lymphocytes Absolute Auto 1.1 X10*3/uL (1.2-4.9); Mean Corpuscular HGB Conc 34.0 g/dl (31.0-36.0); Mean Corpuscular Hemoglobin 30.8 pg (27.0-33.0); Mean Corpuscular Volume 90.3 fL (80.0-98.0); NRBC Abs Auto 0.000 X10*3/uL (0.0-0.012); NRBC Pct Auto 0.0 /100WBC (0.0-0.2); Platelet Count 383 X10*3/uL (160-400); Red Blood Count 5.17 X10*6/uL (4.60-5.80); White Blood Count 11.8 X10*3/uL (4.8-10.8)
[2025-06-13 16:44] LABS: Alanine Aminotransferase 88 U/L (0-40); Albumin Level 4.1 g/dL (3.5-5.0); Alkaline Phosphatase 291 U/L (39-117); Anion Gap 11 (12-20); Aspartate Amino Transferase 60 U/L (5-37); Blood Urea Nitrogen 10 mg/dL (9-16); Calcium 9.4 mg/dL (8.4-10.2); Carbon Dioxide 28 mmol/L (22-29); Chloride 104 mmol/L (96-108); Creatinine Clr Calc Pharmacy 125.5; Estimated Glomerular Filt Rate > 60; Lipase 158 U/L (8-78); Magnesium 1.9 mg/dL (1.6-2.6); Potassium 4.1 mmol/L (3.3-5.1); Sodium 139 mmol/L (135-145); Total Protein 7.0 g/dL (6.5-8.0)
== END 2025-06-13 21:33 | disposition left against medical advice (07) ==
PROVIDERS: Physician Assistant Medical; Emergency Provider Emergency Medicine
DX: R10.2 Pelvic and perineal pain (principal); R10.13 Epigastric pain; Z87.442 Personal history of urinary calculi
CPT/HCPCS: 36415; 74018; 80053; 83690; 83735; 85025; 99281; 99283

== ENCOUNTER → 2025-06-13 16:07 | Outpatient (BNV) | payer OTHER, SELFPAY | PROVIDERS: Visit Provider Radiology Diagnostic Radiology | DX: N20.0 Calculus of kidney (principal) | CPT/HCPCS: 74018 ==